=== PATIENT | male | born 1990 | race Two or more races ===

== ENCOUNTER 2020-06-02 17:53 | Inpatient (IN) | payer OTHER, SELFPAY ==
--- NOTE | 2020-06-02 | XR_ITS ---
EXAMINATION: XR CHEST CLINICAL INFORMATION: Chest pain after trauma COMPARISON: Chest x-ray 03/27/2020 TECHNIQUE: 2 views of the chest were obtained. FINDINGS: No significant abnormality is noted involving the heart, lungs, mediastinum, bony thorax or soft tissues. IMPRESSION: Unremarkable examination.
--- NOTE | 2020-06-02 18:22 | ECG_ITS ---
Test Reason : CHEST PAIN Blood Pressure : / mmHG Vent. Rate : 081 BPM Atrial Rate : 081 BPM P-R Int : 214 ms QRS Dur : 090 ms QT Int : 376 ms P-R-T Axes : 048 063 017 degrees QTc Int : 436 ms Sinus rhythm with 1st degree A-V block Otherwise normal ECG When compared with ECG of 27-MAR-2020 23:41, No significant change was found Referred By: Bekah Roe Electronically Signed By:DELLA HARRIS
[2020-06-02 18:28] VITALS: BP 139/78; PULSE 87; RESP 20; TEMP 36.6; O2SAT 96; BMI 50.1
--- NOTE | 2020-06-02 18:29 | ED.PSYCH ---
HPI - Psych General Chief Complaint: Psychiatric Symptoms <Bekah Roe NP - Last Filed: 06/03/20 02:49> Stated Complaint: crisis <Bekah Roe NP - Last Filed: 06/03/20 02:49> Time Seen by Provider: 06/02/20 18:22 <Bekah Roe NP - Last Filed: 06/03/20 02:49> Source: patient <Bekah Roe NP - Last Filed: 06/03/20 02:49> Mode of arrival: EMS <Bekah Roe NP - Last Filed: 06/03/20 02:49> Limitations: altered mental status <Bekah Roe NP - Last Filed: 06/03/20 02:49> History of Present Illness HPI Narrative: 30-year-old male presents via EMS for hallucinations and crisis. <Bekah Roe NP - Last Filed: 06/03/20 02:49> MD complaint: hallucinations <Bekah Roe NP - Last Filed: 06/03/20 02:49> Onset (ago): day(s) ( Several days) <Bekah Roe NP - Last Filed: 06/03/20 02:49> Duration: constant <Bekah Roe NP - Last Filed: 06/03/20 02:49> History of same: Yes <Bekah Roe NP - Last Filed: 06/03/20 02:49> Relieving factors: none <Bekah Roe NP - Last Filed: 06/03/20 02:49> Associated psychiatric symptoms: depression, suicidal ideation, auditory hallucinations, visual hallucinations and delusions <Bekah Roe NP - Last Filed: 06/03/20 02:49> Associated symptoms: denies other symptoms <Bekah Roe NP - Last Filed: 06/03/20 02:49> If self harm: admits thoughts of self harm <Bekah Roe NP - Last Filed: 06/03/20 02:49> Related Data Home Medications: Home Medications Medication Instructions Recorded Confirmed Invega Sustenna 156 mg IM Q28D 06/03/20 06/03/20 Risperdal 3 mg PO DAILY 06/03/20 06/03/20 lithium carbonate 600 mg PO BID 06/03/20 06/03/20 <Bekah Roe NP - Last Filed: 06/03/20 02:49> Allergies/Adverse Reactions: Allergies Allergy/AdvReac Type Severity Reaction Status Date / Time haloperidol [From HALDOL] Allergy Unknown DISTONIC Verified 06/03/20 02:40 REACTION <Bekah Roe NP - Last Filed: 06/03/20 02:49> Review of Systems Review of Systems: Yes all other systems are reviewed and are negative <Bekah Roe NP - Last Filed: 06/03/20 02:49> Constitutional: Constitutional: Reports no additional constitutional complaints <Bekah Roe NP - Last Filed: 06/03/20 02:49> Eyes: Eyes: Reports no additional eye complaints <Bekah Roe NP - Last Filed: 06/03/20 02:49> Cardiovascular: Cardiovascular: Reports no additional cardiovascular complaints <Bekah Roe NP - Last Filed: 06/03/20 02:49> Respiratory: Respiratory: Reports no additional respiratory complaints <Bekah Roe NP - Last Filed: 06/03/20 02:49> Gastrointestinal: Gastrointestinal: Reports no additional gastrointestinal complaints <Bekah Roe NP - Last Filed: 06/03/20 02:49> Musculoskeletal: Musculoskeletal: Reports no additional musculoskeletal complaints <Bekah Roe NP - Last Filed: 06/03/20 02:49> Neurologic: Reports system reviewed and no additional complaints, except as documented <Bekah Roe NP - Last Filed: 06/03/20 02:49> Psychiatric: Psychiatric: Reports auditory hallucinations, Reports hopelessness, Reports irritability and Reports suicidal ideation <Bekah Roe NP - Last Filed: 06/03/20 02:49> Hematologic/Lymphatic: Hematologic/Lymphatic: Reports no additional hematologic/lymphatic complaints <Bekah Roe NP - Last Filed: 06/03/20 02:49> PMFSH Past Medical History Attestation statement: The following information was validated with the patient. <Bekah Roe NP - Last Filed: 06/03/20 02:49> Medical History: Medical History Schizophrenia <Bekah Roe NP - Last Filed: 06/03/20 02:49> Social History Social History: Social History Alcohol intake: never Smoking Status: Current every day smoker Use of substances other than those prescribed or required for medical reasons: Yes Substance Use Type: Marijuana Substance Use Frequency: Daily Last Used Substance: Just Prior to Admission Advance Directives: No Advance Directives Information Provided: Yes <Bekah Roe NP - Last Filed: 06/03/20 02:49> Physical Exam Vital Signs and I&O and Narrative: Vital Signs and I&O: Vital Signs Temp 98.0 F 06/03/20 13:42 Pulse 77 06/03/20 13:42 Resp 18 06/03/20 13:42 BP 138/54 L 06/03/20 13:42 Pulse Ox 96 06/03/20 13:42 Body Mass Index 50.1 <Bekah Roe NP - Last Filed: 06/03/20 02:49> Vital Signs and I&O: Vital Signs Temp 98.0 F 06/03/20 13:42 Pulse 77 06/03/20 13:42 Resp 18 06/03/20 13:42 BP 138/54 L 06/03/20 13:42 Pulse Ox 96 06/03/20 13:42 Body Mass Index 50.1 <Alejandro Schaefer DO - Last Filed: 06/03/20 20:40> Const: General: cooperative and acute distress ( psychiatric) severe <Bekah Reo NP - Last Filed: 06/03/20 02:49> Nutritional Appearance: obese morbidly obese <Bekah Roe NP - Last Filed: 06/03/20 02:49> Orientation/consciousness: oriented to person <Bekah Roe NP - Last Filed: 06/03/20 02:49> Limitations: behavioral limitations and other limitations ( schizophrenic) <Bekah Roe NP - Last Filed: 06/03/20 02:49> HENMT: Head: Yes normal to inspection <Bekah Roe NP - Last Filed: 06/03/20 02:49> Face and sinus: Yes normal facial exam <Bekah Roe NP - Last Filed: 06/03/20 02:49> Mouth: Normal oral and palatal mucosa present <Bekah Roe LEAF CONDITIONER HELPER - Last Filed: 06/03/20 02:49> Throat: Yes uvula midline <Bekah Roe [employer]AF CONDITIONER HELPER - Last Filed: 06/03/20 02:49> Eyes: General: appearance normal, both eyes and all related structures <Bekah Roe LEAF CONDITIONER HELPER - Last Filed: 06/03/20 02:49> Pupils: Equal, round and reactive pupils present <Bekah Roe LEAF CONDITIONER HELPER - Last Filed: 06/03/20 02:49> Neck: Neck: Yes normal visual inspection, Yes full ROM, Yes no lymphadenopathy and Yes no meningeal signs <Bekah Roe LEAF CONDITIONER HELPER - Last Filed: 06/03/20 02:49> Chest: Chest palpation & inspection: normal inspection of the chest and normal palpation of entire chest wall <Bekah Roe LEAF CONDITIONER HELPER - Last Filed: 06/03/20 02:49> Resp: Effort & Inspection: normal respiratory effort <Bekah Roe LEAF CONDITIONER HELPER - Last Filed: 06/03/20 02:49> Cardio: Rate: regular rate <Bekah Roe LEAF CONDITIONER HELPER - Last Filed: 06/03/20 02:49> Rhythm: regular rhythm <Bekah Roe LEAF CONDITIONER HELPER - Last Filed: 06/03/20 02:49> Peripheral pulses: brachial pulses present and posterior tibial pulses present <Bekah Roe LEAF CONDITIONER HELPER - Last Filed: 06/03/20 02:49> GI: Inspection: Yes normal to inspection <Bekah Roe LEAF CONDITIONER HELPER - Last Filed: 06/03/20 02:49> Auscultation: normal bowel sounds <Bekah Roe LEAF CONDITIONER HELPER - Last Filed: 06/03/20 02:49> : General: Yes no CVA tenderness <Bekah Roe NP - Last Filed: 06/03/20 02:49> Back/Spine/Pelvis: Back: no CVA tenderness <Bekah Roe LEAF CONDITIONER HELPER - Last Filed: 06/03/20 02:49> Thoracic/Lumbar Spine: thoracic and lumbar spine normal to inspection <Bekah Roe LEAF CONDITIONER HELPER - Last Filed: 06/03/20 02:49> Skin: General skin exam: no rashes or lesions noted <Bekah Roe NP - Last Filed: 06/03/20 02:49> Neuro: General: oriented to person and no meningeal signs <Bekah Roe NP - Last Filed: 06/03/20 02:49> Cranial nerves: Yes CN's II-XII intact bilaterally, Yes Facial sensation intact/muscles of mastication intact and Yes Equal, round and reactive pupils present <Bekah Roe NP - Last Filed: 06/03/20 02:49> Cognition (Neuro): abnormal cognition <Bekah Roe NP - Last Filed: 06/03/20 02:49> Gait exam (Neuro): Normal gait present <Bekah Roe NP - Last Filed: 06/03/20 02:49> Motor exam (neuro): 5/5 motor strength present throughout <Bekah Roe NP - Last Filed: 06/03/20 02:49> Extrem: General: Yes normal to inspection <Bekah Roe NP - Last Filed: 06/03/20 02:49> Psych: Appearance: grossly normal <Bekah Roe NP - Last Filed: 06/03/20 02:49> Speech and movement: Pressured speech present <Bekah Roe NP - Last Filed: 06/03/20 02:49> Attitude: cooperative <Bekah Roe NP - Last Filed: 06/03/20 02:49> Course Course Hospital Course: 30-year-old male with past medical history of schizophrenia and significant psychiatric history presents with delusions, auditory and visual hallucinations. he also states to have tele kinesis and to be tele kinetic. He is not forthcoming with what the auditory visual hallucinations are saying except that they are dangerous. We will order N consult, labs are pending. <Bekah Roe NP - Last Filed: 06/03/20 02:49> Reevaluation(s) Reevaluation #1: N consult complete, plan of care is to have patient admitted S section 12 for psychosis and severe delusions. <Bekah Roe NP - Last Filed: 06/03/20 02:49> Time: 02:22 <Bekah Roe NP - Last Filed: 06/03/20 02:49> MDM - Psych Differential Diagnosis Differential diagnosis: Likely acute psychosis, suicidal ideation, depression and schizoaffective disorder <Bekah Roe NP - Last Filed: 06/03/20 02:49> Restraints Face to Face Assessment: Face to Face Assessment: Current Situation: After assessment of the patient, a review of the pertinent medical record and a discussion with nursing staff, I feel the patient requires a restrain intervention. Reaction To: [] Medical Condition: [] Behavioral State: [] Continued Need: [] <Bekah Roe NP - Last Filed: 06/03/20 02:49> Lab Data Attestation: I reviewed the patient's lab results. <Bekah Roe NP - Last Filed: 06/03/20 02:49> Result diagrams: : 06/02/20 18:42 06/02/20 18:42 <Bekah Roe NP - Last Filed: 06/03/20 02:49> Labs: Lab Results 06/02/20 06/02/20 06/02/20 Range/Units 18:42 18:42 18:42 WBC 8.8 (4.8-10.8) X10*3/uL RBC 4.59 L (4.60-5.80) X10*6/uL Hgb 13.4 L (14.0-18.0) g/dl Hct 41.2 L (42-52) % MCV 89.8 (80-98) fL MCH 29.2 (27.0-33.0) pg MCHC 32.5 (31.0-36.0) g/dl RDW 13.1 (11.0-16.0) % Plt Count 229 (160-400) X10*3/uL MPV 10.2 (9.4-12.4) fL Immature Gran % (Auto) 0.2 (0.0-0.4) % Neut % (Auto) 50.0 (45-73) % Lymph % (Auto) 30.7 (20-40) % [place] % (Auto) 9.3 (2-11) % Eos % (Auto) 8.9 H (0-4) % Baso % (Auto) 0.9 (0-2) % Neut # (Auto) 4.4 (2.0-8.3) X10*3/uL Lymph # (Auto) 2.7 (1.2-4.9) X10*3/uL [place] # (Auto) 0.8 (0.1-1.2) X10*3/uL Eos # (Auto) 0.8 H (0.0-0.4) X10*3/uL Baso # (Auto) 0.1 (0.0-0.2) X10*3/uL Abs Immat Gran (auto) 0.02 (0.00-0.03) X10*3/uL Absolute Nucleated RBC 0.000 (0.0-0.012) X10*3/uL Nucleated RBC % (auto) 0.0 (0.0-0.2) /100WBC Sodium 140 (135-145) mmol/L Potassium 3.9 (3.3-5.1) mmol/l Chloride 106 (96-108) mmol/L Carbon Dioxide 27 (22-29) mmol/L Anion Gap 11 L (12-20) BUN 10 (9-16) mg/dL Creatinine 0.67 (0.5-1.4) mg/dL Estim Creat Clear Calc 266.5 Estimated GFR > 60 Random Glucose 101 (60-115) mg/dL Calcium 9.2 (8.4-10.2) mg/dL Total Bilirubin 0.2 (0.0-1.0) mg/dL Direct Bilirubin < 0.2 (0.0-0.5) mg/dL AST 19 (5-37) U/L ALT 33 (0-40) U/L Alkaline Phosphatase 73 (39-117) U/L Troponin I High Sens (<3.5-35.0) ng/L Total Protein 6.8 (6.5-8.0) g/dL Albumin 4.1 (3.5-5.0) g/dL Lipase 18 (8-78) U/L Urine Color YELLOW Urine Appearance HAZY Urine pH 6.0 (5.0-8.0) Ur Specific [place] 1.020 (1.005-1.025) Urine Protein NEG (NEG-TRACE) MG/DL Urine Glucose (UA) NEG (NEG) MG/DL Urine Ketones NEG (NEG) MG/DL Urine Blood NEG (NEG) Urine Nitrite NEG (NEG) Ur Leukocyte Esterase NEG (NEG) Salicylates < 5.0 L (15-30) mg/dL Urine Opiates Screen (Not Detect) Acetaminophen < 1 (<30) mcg/mL Ur Barbiturates Screen (Not Detect) Ur Phencyclidine Scrn (Not Detect) Ur Amphetamines Screen (Not Detect) U Benzodiazepines Scrn (Not Detect) [employer] (0.60-1.20) mmol/L Urine Cocaine Screen (Not Detect) U Marijuana (THC) Screen (Not Detect) Coronavirus (PCR) (Negative) 06/02/20 06/02/20 06/02/20 Range/Units 18:42 18:42 18:42 WBC (4.8-10.8) X10*3/uL RBC (4.60-5.80) X10*6/uL Hgb (14.0-18.0) g/dl Hct (42-52) % MCV (80-98) fL MCH (27.0-33.0) pg MCHC (31.0-36.0) g/dl RDW (11.0-16.0) % Plt Count (160-400) X10*3/uL MPV (9.4-12.4) fL Immature Gran % (Auto) (0.0-0.4) % Neut % (Auto) (45-73) % Lymph % (Auto) (20-40) % [place] % (Auto) (2-11) % Eos % (Auto) (0-4) % Baso % (Auto) (0-2) % Neut # (Auto) (2.0-8.3) X10*3/uL Lymph # (Auto) (1.2-4.9) X10*3/uL [place] # (Auto) (0.1-1.2) X10*3/uL Eos # (Auto) (0.0-0.4) X10*3/uL Baso # (Auto) (0.0-0.2) X10*3/uL Abs Immat Gran (auto) (0.00-0.03) X10*3/uL Absolute Nucleated RBC (0.0-0.012) X10*3/uL Nucleated RBC % (auto) (0.0-0.2) /100WBC Sodium (135-145) mmol/L Potassium (3.3-5.1) mmol/l Chloride (96-108) mmol/L Carbon Dioxide (22-29) mmol/L Anion Gap (12-20) BUN (9-16) mg/dL Creatinine (0.5-1.4) mg/dL Estim Creat Clear Calc Estimated GFR Random Glucose (60-115) mg/dL Calcium (8.4-10.2) mg/dL Total Bilirubin (0.0-1.0) mg/dL Direct Bilirubin (0.0-0.5) mg/dL AST (5-37) U/L ALT (0-40) U/L Alkaline Phosphatase (39-117) U/L Troponin I High Sens < 3.5 (<3.5-35.0) ng/L Total Protein (6.5-8.0) g/dL Albumin (3.5-5.0) g/dL Lipase (8-78) U/L Urine Color Urine Appearance Urine pH (5.0-8.0) Ur Specific [place] (1.005-1.025) Urine Protein (NEG-TRACE) MG/DL Urine Glucose (UA) (NEG) MG/DL Urine Ketones (NEG) MG/DL Urine Blood (NEG) Urine Nitrite (NEG) Ur Leukocyte Esterase (NEG) Salicylates (15-30) mg/dL Urine Opiates Screen Not Detected (Not Detect) Acetaminophen (<30) mcg/mL Ur Barbiturates Screen Not Detected (Not Detect) Ur Phencyclidine Scrn Not Detected (Not Detect) Ur Amphetamines Screen Not Detected (Not Detect) U Benzodiazepines Scrn Not Detected (Not Detect) [employer] 0.25 L (0.60-1.20) mmol/L Urine Cocaine Screen Not Detected (Not Detect) U Marijuana (THC) Screen Not Detected (Not Detect) Coronavirus (PCR) (Negative) 06/03/20 Range/Units 12:56 WBC (4.8-10.8) X10*3/uL RBC (4.60-5.80) X10*6/uL Hgb (14.0-18.0) g/dl Hct (42-52) % MCV (80-98) fL MCH (27.0-33.0) pg MCHC (31.0-36.0) g/dl RDW (11.0-16.0) % Plt Count (160-400) X10*3/uL MPV (9.4-12.4) fL Immature Gran % (Auto) (0.0-0.4) % Neut % (Auto) (45-73) % Lymph % (Auto) (20-40) % [place] % (Auto) (2-11) % Eos % (Auto) (0-4) % Baso % (Auto) (0-2) % Neut # (Auto) (2.0-8.3) X10*3/uL Lymph # (Auto) (1.2-4.9) X10*3/uL [place] # (Auto) (0.1-1.2) X10*3/uL Eos # (Auto) (0.0-0.4) X10*3/uL Baso # (Auto) (0.0-0.2) X10*3/uL Abs Immat Gran (auto) (0.00-0.03) X10*3/uL Absolute Nucleated RBC (0.0-0.012) X10*3/uL Nucleated RBC % (auto) (0.0-0.2) /100WBC Sodium (135-145) mmol/L Potassium (3.3-5.1) mmol/l Chloride (96-108) mmol/L Carbon Dioxide (22-29) mmol/L Anion Gap (12-20) BUN (9-16) mg/dL Creatinine (0.5-1.4) mg/dL Estim Creat Clear Calc Estimated GFR Random Glucose (60-115) mg/dL Calcium (8.4-10.2) mg/dL Total Bilirubin (0.0-1.0) mg/dL Direct Bilirubin (0.0-0.5) mg/dL AST (5-37) U/L ALT (0-40) U/L Alkaline Phosphatase (39-117) U/L Troponin I High Sens (<3.5-35.0) ng/L Total Protein (6.5-8.0) g/dL Albumin (3.5-5.0) g/dL Lipase (8-78) U/L Urine Color Urine Appearance Urine pH (5.0-8.0) Ur Specific [place] (1.005-1.025) Urine Protein (NEG-TRACE) MG/DL Urine Glucose (UA) (NEG) MG/DL Urine Ketones (NEG) MG/DL Urine Blood (NEG) Urine Nitrite (NEG) Ur Leukocyte Esterase (NEG) Salicylates (15-30) mg/dL Urine Opiates Screen (Not Detect) Acetaminophen (<30) mcg/mL Ur Barbiturates Screen (Not Detect) Ur Phencyclidine Scrn (Not Detect) Ur Amphetamines Screen (Not Detect) U Benzodiazepines Scrn (Not Detect) [employer] (0.60-1.20) mmol/L Urine Cocaine Screen (Not Detect) U Marijuana (THC) Screen (Not Detect) Coronavirus (PCR) NEGATIVE (Negative) <Bekah Roe NP - Last Filed: 06/03/20 02:49> Lab Results 06/02/20 06/02/20 06/02/20 Range/Units 18:42 18:42 18:42 WBC 8.8 (4.8-10.8) X10*3/uL RBC 4.59 L (4.60-5.80) X10*6/uL Hgb 13.4 L (14.0-18.0) g/dl Hct 41.2 L (42-52) % MCV 89.8 (80-98) fL MCH 29.2 (27.0-33.0) pg MCHC 32.5 (31.0-36.0) g/dl RDW 13.1 (11.0-16.0) % Plt Count 229 (160-400) X10*3/uL MPV 10.2 (9.4-12.4) fL Immature Gran % (Auto) 0.2 (0.0-0.4) % Neut % (Auto) 50.0 (45-73) % Lymph % (Auto) 30.7 (20-40) % [place] % (Auto) 9.3 (2-11) % Eos % (Auto) 8.9 H (0-4) % Baso % (Auto) 0.9 (0-2) % Neut # (Auto) 4.4 (2.0-8.3) X10*3/uL Lymph # (Auto) 2.7 (1.2-4.9) X10*3/uL [place] # (Auto) 0.8 (0.1-1.2) X10*3/uL Eos # (Auto) 0.8 H (0.0-0.4) X10*3/uL Baso # (Auto) 0.1 (0.0-0.2) X10*3/uL Abs Immat Gran (auto) 0.02 (0.00-0.03) X10*3/uL Absolute Nucleated RBC 0.000 (0.0-0.012) X10*3/uL Nucleated RBC % (auto) 0.0 (0.0-0.2) /100WBC Sodium 140 (135-145) mmol/L Potassium 3.9 (3.3-5.1) mmol/l Chloride 106 (96-108) mmol/L Carbon Dioxide 27 (22-29) mmol/L Anion Gap 11 L (12-20) BUN 10 (9-16) mg/dL Creatinine 0.67 (0.5-1.4) mg/dL Estim Creat Clear Calc 266.5 Estimated GFR > 60 Random Glucose 101 (60-115) mg/dL Calcium 9.2 (8.4-10.2) mg/dL Total Bilirubin 0.2 (0.0-1.0) mg/dL Direct Bilirubin < 0.2 (0.0-0.5) mg/dL AST 19 (5-37) U/L ALT 33 (0-40) U/L Alkaline Phosphatase 73 (39-117) U/L Troponin I High Sens (<3.5-35.0) ng/L Total Protein 6.8 (6.5-8.0) g/dL Albumin 4.1 (3.5-5.0) g/dL Lipase 18 (8-78) U/L Urine Color YELLOW Urine Appearance HAZY Urine pH 6.0 (5.0-8.0) Ur Specific [place] 1.020 (1.005-1.025) Urine Protein NEG (NEG-TRACE) MG/DL Urine Glucose (UA) NEG (NEG) MG/DL Urine Ketones NEG (NEG) MG/DL Urine Blood NEG (NEG) Urine Nitrite NEG (NEG) Ur Leukocyte Esterase NEG (NEG) Salicylates < 5.0 L (15-30) mg/dL Urine Opiates Screen (Not Detect) Acetaminophen < 1 (<30) mcg/mL Ur Barbiturates Screen (Not Detect) Ur Phencyclidine Scrn (Not Detect) Ur Amphetamines Screen (Not Detect) U Benzodiazepines Scrn (Not Detect) [employer] (0.60-1.20) mmol/L Urine Cocaine Screen (Not Detect) U Marijuana (THC) Screen (Not Detect) Coronavirus (PCR) (Negative) 06/02/20 06/02/20 06/02/20 Range/Units 18:42 18:42 18:42 WBC (4.8-10.8) X10*3/uL RBC (4.60-5.80) X10*6/uL Hgb (14.0-18.0) g/dl Hct (42-52) % MCV (80-98) fL MCH (27.0-33.0) pg MCHC (31.0-36.0) g/dl RDW (11.0-16.0) % Plt Count (160-400) X10*3/uL MPV (9.4-12.4) fL Immature Gran % (Auto) (0.0-0.4) % Neut % (Auto) (45-73) % Lymph % (Auto) (20-40) % [place] % (Auto) (2-11) % Eos % (Auto) (0-4) % Baso % (Auto) (0-2) % Neut # (Auto) (2.0-8.3) X10*3/uL Lymph # (Auto) (1.2-4.9) X10*3/uL [place] # (Auto) (0.1-1.2) X10*3/uL Eos # (Auto) (0.0-0.4) X10*3/uL Baso # (Auto) (0.0-0.2) X10*3/uL Abs Immat Gran (auto) (0.00-0.03) X10*3/uL Absolute Nucleated RBC (0.0-0.012) X10*3/uL Nucleated RBC % (auto) (0.0-0.2) /100WBC Sodium (135-145) mmol/L Potassium (3.3-5.1) mmol/l Chloride (96-108) mmol/L Carbon Dioxide (22-29) mmol/L Anion Gap (12-20) BUN (9-16) mg/dL Creatinine (0.5-1.4) mg/dL Estim Creat Clear Calc Estimated GFR Random Glucose (60-115) mg/dL Calcium (8.4-10.2) mg/dL Total Bilirubin (0.0-1.0) mg/dL Direct Bilirubin (0.0-0.5) mg/dL AST (5-37) U/L ALT (0-40) U/L Alkaline Phosphatase (39-117) U/L Troponin I High Sens < 3.5 (<3.5-35.0) ng/L Total Protein (6.5-8.0) g/dL Albumin (3.5-5.0) g/dL Lipase (8-78) U/L Urine Color Urine Appearance Urine pH (5.0-8.0) Ur Specific [place] (1.005-1.025) Urine Protein (NEG-TRACE) MG/DL Urine Glucose (UA) (NEG) MG/DL Urine Ketones (NEG) MG/DL Urine Blood (NEG) Urine Nitrite (NEG) Ur Leukocyte Esterase (NEG) Salicylates (15-30) mg/dL Urine Opiates Screen Not Detected (Not Detect) Acetaminophen (<30) mcg/mL Ur Barbiturates Screen Not Detected (Not Detect) Ur Phencyclidine Scrn Not Detected (Not Detect) Ur Amphetamines Screen Not Detected (Not Detect) U Benzodiazepines Scrn Not Detected (Not Detect) [employer] 0.25 L (0.60-1.20) mmol/L Urine Cocaine Screen Not Detected (Not Detect) U Marijuana (THC) Screen Not Detected (Not Detect) Coronavirus (PCR) (Negative) 06/03/20 Range/Units 12:56 WBC (4.8-10.8) X10*3/uL RBC (4.60-5.80) X10*6/uL Hgb (14.0-18.0) g/dl Hct (42-52) % MCV (80-98) fL MCH (27.0-33.0) pg MCHC (31.0-36.0) g/dl RDW (11.0-16.0) % Plt Count (160-400) X10*3/uL MPV (9.4-12.4) fL Immature Gran % (Auto) (0.0-0.4) % Neut % (Auto) (45-73) % Lymph % (Auto) (20-40) % [place] % (Auto) (2-11) % Eos % (Auto) (0-4) % Baso % (Auto) (0-2) % Neut # (Auto) (2.0-8.3) X10*3/uL Lymph # (Auto) (1.2-4.9) X10*3/uL [place] # (Auto) (0.1-1.2) X10*3/uL Eos # (Auto) (0.0-0.4) X10*3/uL Baso # (Auto) (0.0-0.2) X10*3/uL Abs Immat Gran (auto) (0.00-0.03) X10*3/uL Absolute Nucleated RBC (0.0-0.012) X10*3/uL Nucleated RBC % (auto) (0.0-0.2) /100WBC Sodium (135-145) mmol/L Potassium (3.3-5.1) mmol/l Chloride (96-108) mmol/L Carbon Dioxide (22-29) mmol/L Anion Gap (12-20) BUN (9-16) mg/dL Creatinine (0.5-1.4) mg/dL Estim Creat Clear Calc Estimated GFR Random Glucose (60-115) mg/dL Calcium (8.4-10.2) mg/dL Total Bilirubin (0.0-1.0) mg/dL Direct Bilirubin (0.0-0.5) mg/dL AST (5-37) U/L ALT (0-40) U/L Alkaline Phosphatase (39-117) U/L Troponin I High Sens (<3.5-35.0) ng/L Total Protein (6.5-8.0) g/dL Albumin (3.5-5.0) g/dL Lipase (8-78) U/L Urine Color Urine Appearance Urine pH (5.0-8.0) Ur Specific [place] (1.005-1.025) Urine Protein (NEG-TRACE) MG/DL Urine Glucose (UA) (NEG) MG/DL Urine Ketones (NEG) MG/DL Urine Blood (NEG) Urine Nitrite (NEG) Ur Leukocyte Esterase (NEG) Salicylates (15-30) mg/dL Urine Opiates Screen (Not Detect) Acetaminophen (<30) mcg/mL Ur Barbiturates Screen (Not Detect) Ur Phencyclidine Scrn (Not Detect) Ur Amphetamines Screen (Not Detect) U Benzodiazepines Scrn (Not Detect) [employer] (0.60-1.20) mmol/L Urine Cocaine Screen (Not Detect) U Marijuana (THC) Screen (Not Detect) Coronavirus (PCR) NEGATIVE (Negative) <Alejandro Schaefer DO - Last Filed: 06/03/20 20:40> Discharge Plan Discharge Clinical Impression: Acute psychosis, Chronic schizophrenia, Suicidal ideation Depression Qualifiers: Depression Type: major depressive disorder Major depression recurrence: recurrent Active/Remission status: currently active Major depression episode severity: moderate Qualified Code(s): F33.1 - Major depressive disorder, recurrent, moderate <Bekah Roe NP - Last Filed: 06/03/20 02:49> Patient Disposition: Admitted As Inpatient <Bekah Roe NP - Last Filed: 06/03/20 02:49> Interventions: Admission Worksheet (ED) Last Done: 06/03/20 17:14 <Bekah Roe NP - Last Filed: 06/03/20 02:49> Discharge Date/Time: 06/03/20 17:04 <Bekah Roe NP - Last Filed: 06/03/20 02:49>
[2020-06-02 18:48] VITALS: BP 139/78; PULSE 87; RESP 20; TEMP 36.6; O2SAT 96
[2020-06-02 18:51] LABS: MANUAL DIFF FLAG NO
[2020-06-02 18:53] LABS: Basophils Absolute Auto 0.1 X10*3/uL (0.0-0.2); Basophils Percent Auto 0.9 % (0-2); Eosinophils Absolute Auto 0.8 X10*3/uL (0.0-0.4); Eosinophils Percent Auto 8.9 % (0-4); Hematocrit 41.2 % (42-52); Hemoglobin 13.4 g/dl (14.0-18.0); Imm Gran Abs Auto 0.02 X10*3/uL (0.00-0.03); Imm Gran Pct Auto 0.2 % (0.0-0.4); Lymphocytes Absolute Auto 2.7 X10*3/uL (1.2-4.9); Lymphocytes Percent Auto 30.7 % (20-40); Mean Corpuscular HGB Conc 32.5 g/dl (31.0-36.0); Mean Corpuscular Hemoglobin 29.2 pg (27.0-33.0); Mean Corpuscular Volume 89.8 fL (80-98); Mean Platelet Volume 10.2 fL (9.4-12.4); Monocytes Absolute Auto 0.8 X10*3/uL (0.1-1.2); Monocytes Percent Auto 9.3 % (2-11); Neutrophils Absolute Auto 4.4 X10*3/uL (2.0-8.3); Platelet Count 229 X10*3/uL (160-400); Red Blood Count 4.59 X10*6/uL (4.60-5.80); Red Cell Distribution Width 13.1 % (11.0-16.0); White Blood Count 8.8 X10*3/uL (4.8-10.8)
[2020-06-02 18:56] LABS: Glucose Urine UA NEG (NEG); Leukocyte Esterase Urine NEG (NEG); Nitrite Urine NEG (NEG); Urine Blood NEG (NEG); Urine Ketones NEG (NEG); Urine Protein NEG (NEG-TRACE)
[2020-06-02 18:59] LABS: Appearance Urine HAZY; Color Urine YELLOW; UACC Culture Trigger NO
[2020-06-02 19:11] LABS: Lithium 0.25 mmol/L (0.60-1.20)
[2020-06-02 19:21] LABS: Amphetamine Screen Urine Not Detected (Not Detect); Barbiturates, Urine Not Detected (Not Detect); Benzodiazepines Screen Urine Not Detected (Not Detect); Cannabinoid Screen Urine Not Detected (Not Detect); Cocaine Screen Urine Not Detected (Not Detect); Opiate Screen Urine Not Detected (Not Detect); Phencyclidine Screen Urine Not Detected (Not Detect)
[2020-06-02 19:22] LABS: Troponin-I High Sensitivity < 3.5 ng/L (<3.5-35.0)
[2020-06-02 19:27] VITALS: BP 132/73; PULSE 78; RESP 20; TEMP 36.7; O2SAT 94
[2020-06-02 19:29] LABS: Acetaminophen LAB < 1 mcg/mL (<30); Alanine Aminotransferase 33 U/L (0-40); Albumin Level 4.1 g/dL (3.5-5.0); Alkaline Phosphatase 73 U/L (39-117); Anion Gap 11 (12-20); Aspartate Amino Transferase 19 U/L (5-37); Bilirubin Direct < 0.2 mg/dL (0.0-0.5); Bilirubin Total 0.2 mg/dL (0.0-1.0); Blood Urea Nitrogen 10 mg/dL (9-16); Calcium 9.2 mg/dL (8.4-10.2); Carbon Dioxide 27 mmol/L (22-29); Chloride 106 mmol/L (96-108); Creatinine Clr Calc Pharmacy 266.5; Estimated Glomerular Filt Rate > 60; Glucose Random 101 mg/dL (60-115); Lipase 18 U/L (8-78); Potassium 3.9 mmol/l (3.3-5.1); Sodium 140 mmol/L (135-145); Total Protein 6.8 g/dL (6.5-8.0)
[2020-06-02 19:41] LABS: Salicylate < 5.0 mg/dL (15-30)
--- NOTE | 2020-06-02 20:53 | PC.NURSE ---
[facility] FAXED AND CALLED. PER N THEY WILL BE IN AT SOME POINT THIS EVENING.
[2020-06-02 21:16] VITALS: BP 126/71; PULSE 82; RESP 22; TEMP 36.9; O2SAT 93
[2020-06-03] VITALS (8 sets, daily range): BP systolic 120–138; BP diastolic 54–91; PULSE 77–84; RESP 14–20; TEMP 36.6–36.9; O2SAT 94–96
--- NOTE | 2020-06-03 04:16 | PC.NURSE ---
UNABLE TO COMPLETE MEDICATION RECONCILIATION THERE IS A QUESTION OF WHETHER OR NOT A PATIENT IS TAKING HIS LITHIUM AND THE PHARMACY PATIENT USES IS NOT OPEN UNTIL WEDNESDAY MORNING
--- NOTE | 2020-06-03 07:12 | PC.NURSE ---
REPORT RECIEVED. PT CURRENTLY SLEEPING, RESPIRATIONS EVEN AND UNLABORED, IN NO APPARENT DISTRESS. PT IS INPATIENT BEDSEARCH.
--- NOTE | 2020-06-03 09:28 | PC.NURSE ---
pt walking around unit, calm and cooperative, pt asked if he can go home,plan of care explained. pt accepted this information.
[2020-06-03] MEDS: Nicotine 14 MG PATCH.TD24 TRANSDERMA (12:21)
[2020-06-03 14:06] LABS: SARS COV2 PCR INHOUSE NEGATIVE (Negative)
--- NOTE | 2020-06-03 17:04 | PC.NURSE ---
PT HAS BEEN CALM, COOPERATIVE, AND VERY PATIENT WHILE IN THE POD FOR THIS RN. BROUGHT TO M5 WITH SECURITY.
[2020-06-03] MEDS: risperiDONE 3 MG TABLET PO (22:41)
[2020-06-03] MEDS: Lithium Carbonate 300 MG CAPSULE PO (22:42)
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
[2020-06-04 06:40] VITALS: BP 143/73; PULSE 74; RESP 20; TEMP 36.6
[2020-06-04] MEDS: Lithium Carbonate 300 MG CAPSULE PO ×2 (09:17→20:49)
--- NOTE | 2020-06-04 09:46 | HO.PSYCHPN ---
Assessment & Plan Greater than 50% of the session was spent on counseling and/or coordination of care Subjective Subjective Date of Service: 06/04/20 Reason For Visit: crisis Subjective Notes: Conditional Voluntary and 3 Day Medication Compliance: Intermittent Side effects from medications: No Attending Groups: Intermittent Diagnostics Vital Signs (24Hr): Vital Signs - 24 hr 06/03/20 13:42 06/03/20 22:00 06/04/20 06:40 Temperature 98.0 F 97.9 F 97.9 F Pulse Rate 77 84 74 Respiratory Rate 18 20 Blood Pressure 138/54 L 135/82 143/73 H Pulse Oximetry 96 Body Mass Index 50.1 Labs Results: 06/02/20 18:42 06/02/20 18:42 Labs: Laboratory Results - last 48 hr 06/02/20 06/02/20 06/02/20 18:42 18:42 18:42 WBC 8.8 RBC 4.59 L Hgb 13.4 L Hct 41.2 L MCV 89.8 MCH 29.2 MCHC 32.5 RDW 13.1 Plt Count 229 MPV 10.2 Immature Gran % (Auto) 0.2 Neut % (Auto) 50.0 Lymph % (Auto) 30.7 [place] % (Auto) 9.3 Eos % (Auto) 8.9 H Baso % (Auto) 0.9 Neut # (Auto) 4.4 Lymph # (Auto) 2.7 [place] # (Auto) 0.8 Eos # (Auto) 0.8 H Baso # (Auto) 0.1 Abs Immat Gran (auto) 0.02 Absolute Nucleated RBC 0.000 Nucleated RBC % (auto) 0.0 Sodium 140 Potassium 3.9 Chloride 106 Carbon Dioxide 27 Anion Gap 11 L BUN 10 Creatinine 0.67 Estim Creat Clear Calc 266.5 Estimated GFR > 60 Random Glucose 101 Calcium 9.2 Total Bilirubin 0.2 Direct Bilirubin < 0.2 AST 19 ALT 33 Alkaline Phosphatase 73 Troponin I High Sens Total Protein 6.8 Albumin 4.1 Lipase 18 Urine Color YELLOW Urine Appearance HAZY Urine pH 6.0 Ur Specific [place] 1.020 Urine Protein NEG Urine Glucose (UA) NEG Urine Ketones NEG Urine Blood NEG Urine Nitrite NEG Ur Leukocyte Esterase NEG Salicylates < 5.0 L Urine Opiates Screen Acetaminophen < 1 Ur Barbiturates Screen Ur Phencyclidine Scrn Ur Amphetamines Screen U Benzodiazepines Scrn [place] Urine Cocaine Screen U Marijuana (THC) Screen Coronavirus (PCR) 06/02/20 06/02/20 06/02/20 18:42 18:42 18:42 WBC RBC Hgb Hct MCV MCH MCHC RDW Plt Count MPV Immature Gran % (Auto) Neut % (Auto) Lymph % (Auto) [place] % (Auto) Eos % (Auto) Baso % (Auto) Neut # (Auto) Lymph # (Auto) [place] # (Auto) Eos # (Auto) Baso # (Auto) Abs Immat Gran (auto) Absolute Nucleated RBC Nucleated RBC % (auto) Sodium Potassium Chloride Carbon Dioxide Anion Gap BUN Creatinine Estim Creat Clear Calc Estimated GFR Random Glucose Calcium Total Bilirubin Direct Bilirubin AST ALT Alkaline Phosphatase Troponin I High Sens < 3.5 Total Protein Albumin Lipase Urine Color Urine Appearance Urine pH Ur Specific [place] Urine Protein Urine Glucose (UA) Urine Ketones Urine Blood Urine Nitrite Ur Leukocyte Esterase Salicylates Urine Opiates Screen Not Detected Acetaminophen Ur Barbiturates Screen Not Detected Ur Phencyclidine Scrn Not Detected Ur Amphetamines Screen Not Detected U Benzodiazepines Scrn Not Detected [place] 0.25 L Urine Cocaine Screen Not Detected U Marijuana (THC) Screen Not Detected Coronavirus (PCR) 06/03/20 12:56 WBC RBC Hgb Hct MCV MCH MCHC RDW Plt Count MPV Immature Gran % (Auto) Neut % (Auto) Lymph % (Auto) [place] % (Auto) Eos % (Auto) Baso % (Auto) Neut # (Auto) Lymph # (Auto) [place] # (Auto) Eos # (Auto) Baso # (Auto) Abs Immat Gran (auto) Absolute Nucleated RBC Nucleated RBC % (auto) Sodium Potassium Chloride Carbon Dioxide Anion Gap BUN Creatinine Estim Creat Clear Calc Estimated GFR Random Glucose Calcium Total Bilirubin Direct Bilirubin AST ALT Alkaline Phosphatase Troponin I High Sens Total Protein Albumin Lipase Urine Color Urine Appearance Urine pH Ur Specific [place] Urine Protein Urine Glucose (UA) Urine Ketones Urine Blood Urine Nitrite Ur Leukocyte Esterase Salicylates Urine Opiates Screen Acetaminophen Ur Barbiturates Screen Ur Phencyclidine Scrn Ur Amphetamines Screen U Benzodiazepines Scrn [place] Urine Cocaine Screen U Marijuana (THC) Screen Coronavirus (PCR) NEGATIVE Medications Medications Current Medications Generic Name Dose Route Start Last Admin Trade Name Freq PRN Reason Stop Dose Admin Acetaminophen 650 mg 06/03/20 20:43 Acetaminophen 325 Mg Tablet PO Q6H PRN Headache/Pain Mild Scale (1-3) Al Hydroxide/Mg Hydroxide 30 ml 06/03/20 20:43 Magnesium Hydrox/Alum Hydrox 30 Ml Oral.Susp PO Q6H PRN Heartburn/Nausea Hydroxyzine HCl 25 mg 06/03/20 20:43 Hydroxyzine Hcl 25 Mg Tablet PO BEDTIME PRN Anxiety [place] Carbonate 300 mg 06/03/20 21:00 06/04/20 09:17 [place] Carbonate 300 Mg Capsule PO 300 mg BID IMANI Administration Lorazepam 1 mg 06/03/20 20:53 Lorazepam 1 Mg Tablet PO Q4H PRN Anxiety Magnesium Hydroxide 30 ml 06/03/20 20:43 Milk Of Magnesia 30 Ml Oral.Susp PO DAILY PRN Constipation Risperidone 3 mg 06/03/20 21:00 06/03/20 22:41 Risperidone 3 Mg Tablet PO 3 mg BEDTIME IMANI Administration Risperidone 1 mg 06/03/20 20:52 Risperidone 0.5 Mg Tablet PO Q4H PRN Anxiety Trazodone HCl 50 mg 06/03/20 20:43 Trazodone Hcl 50 Mg Tablet PO BEDTIME PRN Insomnia Allergies Allergies Allergy/AdvReac Type Severity Reaction Status Date / Time haloperidol [From HALDOL] Allergy Unknown DISTONIC Verified 06/03/20 02:40 REACTION
[2020-06-04 11:27] LABS: Cholesterol 188 mg/dL; HDL Cholesterol 32 mg/dL; LDL Cholesterol Calculated 117 mg/dl; Triglycerides 196 mg/dL
[2020-06-04] MEDS: Nicotine 14 MG PATCH.TD24 TRANSDERMA (11:29)
[2020-06-04] MEDS: Flu Vacc QS2020-21(6mos up)/PF 0.5 ML SYRINGE IM (11:32)
--- NOTE | 2020-06-04 13:34 | PC.NURSE ---
Monday 06/04 Pt signed 3-Day Notice up on Thursday 06/07
--- NOTE | 2020-06-04 14:17 | P.HPPS_ITS ---
HPI Chief Complaint: crisis Sources of Information: patient interviewed, chart reviewed and crisis/core team assessment reviewed HPI Narrative: 30 year old man who was admitted with an increase in delusional thinking. His parents had come home to find that he was speaking about his eyeballs popping out. He was increasingly agitated and delusional. He reported having AH telling him to hurt himself. He had also been drinking more alcohol. Police were called and he was brought to the ER. He has not been taking his medication consistently, despite having a Mantilla Order. He last recieved invega sustenna on April 26, or so. He has also not been taking his levothyroxine. Past Psychiatric History: Multiple hospital stays, and he was last on M5 in January 2019. He has had 7 previous admissions including 2 at [place]. He has also been to several [facility] programs. He receives services through [facility]. He has a Mantilla Order Medical Evaluation Reviewed: Yes No acute illness. Coronavirus negative VSS Cranial nerves negative Labs WNL [facility] Medical History Schizophrenia Family History: Unknown Social History: Lives with his parents. 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 Substance History: Extensive history of use of cocaine, heroine, alcohol and MJ, but not since 2016 Trauma History: Unknown Diagnostics Vital Signs (24Hr): Vital Signs - 24 hr 06/03/20 22:00 06/04/20 06:40 Temperature 97.9 F 97.9 F Pulse Rate 84 74 Respiratory Rate 20 Blood Pressure 135/82 143/73 H Body Mass Index 50.1 Labs Results: 06/02/20 18:42 06/02/20 18:42 Labs: Laboratory Results - last 48 hr 06/02/20 06/02/20 06/02/20 18:42 18:42 18:42 WBC 8.8 RBC 4.59 L Hgb 13.4 L Hct 41.2 L MCV 89.8 MCH 29.2 MCHC 32.5 RDW 13.1 Plt Count 229 MPV 10.2 Immature Gran % (Auto) 0.2 Neut % (Auto) 50.0 Lymph % (Auto) 30.7 [place] % (Auto) 9.3 Eos % (Auto) 8.9 H Baso % (Auto) 0.9 Neut # (Auto) 4.4 Lymph # (Auto) 2.7 [place] # (Auto) 0.8 Eos # (Auto) 0.8 H Baso # (Auto) 0.1 Abs Immat Gran (auto) 0.02 Absolute Nucleated RBC 0.000 Nucleated RBC % (auto) 0.0 Sodium 140 Potassium 3.9 Chloride 106 Carbon Dioxide 27 Anion Gap 11 L BUN 10 Creatinine 0.67 Estim Creat Clear Calc 266.5 Estimated GFR > 60 Random Glucose 101 Calcium 9.2 Total Bilirubin 0.2 Direct Bilirubin < 0.2 AST 19 ALT 33 Alkaline Phosphatase 73 Troponin I High Sens Total Protein 6.8 Albumin 4.1 Triglycerides Cholesterol LDL Cholesterol, Calc HDL Cholesterol Lipase 18 Urine Color YELLOW Urine Appearance HAZY Urine pH 6.0 Ur Specific [place] 1.020 Urine Protein NEG Urine Glucose (UA) NEG Urine Ketones NEG Urine Blood NEG Urine Nitrite NEG Ur Leukocyte Esterase NEG Salicylates < 5.0 L Urine Opiates Screen Acetaminophen < 1 Ur Barbiturates Screen Ur Phencyclidine Scrn Ur Amphetamines Screen U Benzodiazepines Scrn [place] Urine Cocaine Screen U Marijuana (THC) Screen Coronavirus (PCR) 06/02/20 06/02/20 06/02/20 18:42 18:42 18:42 WBC RBC Hgb Hct MCV MCH MCHC RDW Plt Count MPV Immature Gran % (Auto) Neut % (Auto) Lymph % (Auto) [place] % (Auto) Eos % (Auto) Baso % (Auto) Neut # (Auto) Lymph # (Auto) [place] # (Auto) Eos # (Auto) Baso # (Auto) Abs Immat Gran (auto) Absolute Nucleated RBC Nucleated RBC % (auto) Sodium Potassium Chloride Carbon Dioxide Anion Gap BUN Creatinine Estim Creat Clear Calc Estimated GFR Random Glucose Calcium Total Bilirubin Direct Bilirubin AST ALT Alkaline Phosphatase Troponin I High Sens < 3.5 Total Protein Albumin Triglycerides Cholesterol LDL Cholesterol, Calc HDL Cholesterol Lipase Urine Color Urine Appearance Urine pH Ur Specific [place] Urine Protein Urine Glucose (UA) Urine Ketones Urine Blood Urine Nitrite Ur Leukocyte Esterase Salicylates Urine Opiates Screen Not Detected Acetaminophen Ur Barbiturates Screen Not Detected Ur Phencyclidine Scrn Not Detected Ur Amphetamines Screen Not Detected U Benzodiazepines Scrn Not Detected [place] 0.25 L Urine Cocaine Screen Not Detected U Marijuana (THC) Screen Not Detected Coronavirus (PCR) 06/03/20 06/04/20 12:56 07:57 WBC RBC Hgb Hct MCV MCH MCHC RDW Plt Count MPV Immature Gran % (Auto) Neut % (Auto) Lymph % (Auto) [place] % (Auto) Eos % (Auto) Baso % (Auto) Neut # (Auto) Lymph # (Auto) [place] # (Auto) Eos # (Auto) Baso # (Auto) Abs Immat Gran (auto) Absolute Nucleated RBC Nucleated RBC % (auto) Sodium Potassium Chloride Carbon Dioxide Anion Gap BUN Creatinine Estim Creat Clear Calc Estimated GFR Random Glucose Calcium Total Bilirubin Direct Bilirubin AST ALT Alkaline Phosphatase Troponin I High Sens Total Protein Albumin Triglycerides 196 Cholesterol 188 LDL Cholesterol, Calc 117 HDL Cholesterol 32 Lipase Urine Color Urine Appearance Urine pH Ur Specific [place] Urine Protein Urine Glucose (UA) Urine Ketones Urine Blood Urine Nitrite Ur Leukocyte Esterase Salicylates Urine Opiates Screen Acetaminophen Ur Barbiturates Screen Ur Phencyclidine Scrn Ur Amphetamines Screen U Benzodiazepines Scrn [place] Urine Cocaine Screen U Marijuana (THC) Screen Coronavirus (PCR) NEGATIVE Meds/Allergies Meds Home Medications Medication Instructions Recorded Confirmed Type Invega Sustenna 156 mg IM Q28D 06/03/20 06/03/20 History Risperdal 3 mg PO DAILY 06/03/20 06/03/20 History lithium carbonate 600 mg PO BID 06/03/20 06/03/20 History Allergies Allergies Allergy/AdvReac Type Severity Reaction Status Date / Time haloperidol [From HALDOL] Allergy Unknown DISTONIC Verified 06/03/20 02:40 REACTION Mental Status Exam Mental Status Exam Patient Appearance: Well Grooomed Patient Orientation: Person Level of Consciousness: Awake Patient Behavior: Appropriate, Restless, Anxious and Distractible Mood Description: Constricted and Anxious Affect Description: Constricted Patient Cognition Impaired: No Ability to Follow Directions: Fair Speech Pattern: Perseverating, Soft-Spoken and Mumbled Memory Description: Intact Hallucinations: Auditory (Command in nature) Delusions: Being Controlled, Paranoid Ideation and Present (eg eyeballs falling out) Thought Process: Rumination Thought Content: positive for Preoccupation, positive for Loose Associations, positive for Tangential and positive for Disorganized Judgement: Poor Assessment & Plan Assessment & Plan (1) Acute psychosis: Status: Acute Code(s): F23 - Brief psychotic disorder Assessment and Plan: Re-start medication Follow Li level Collect collateral information (2) Suicidal ideation: Status: Acute Code(s): R45.851 - Suicidal ideations Assessment and Plan: Safety evaluation (3) Schizoaffective disorder: Status: Acute Code(s): F25.9 - Schizoaffective disorder, unspecified Assessment and Plan: As above Patient educated on: diagnosis and medication risk/benefits Informed Consent: further education needed Reason for continued inpatient stay Substantial Risk for: inability to function and med/psych decompensation
[2020-06-04 18:00] VITALS: BP 131/80; PULSE 77; RESP 16; TEMP 36.9; O2SAT 95
[2020-06-04] MEDS: LORazepam 1 MG TABLET PO (18:16)
[2020-06-04] MEDS: risperiDONE 3 MG TABLET PO (20:49)
[2020-06-04 21:49] VITALS: BP 131/80; PULSE 77; TEMP 36.9
[2020-06-05 06:00] VITALS: BP 133/88; PULSE 85; RESP 20; TEMP 36.9
[2020-06-05 06:17] LABS: Estimated Average Glucose 105 mg/dL; Hemoglobin A1c % 5.3 %
[2020-06-05] MEDS: Levothyroxine Sodium 75 MCG TABLET PO (06:43)
[2020-06-05] MEDS: Nicotine 14 MG PATCH.TD24 TRANSDERMA (08:44)
[2020-06-05] MEDS: LORazepam 1 MG TABLET PO ×2 (08:45→18:24)
[2020-06-05] MEDS: Lithium Carbonate 300 MG CAPSULE PO (08:45)
--- NOTE | 2020-06-05 09:30 | HO.PSYCHPN ---
Assessment & Plan Assessment & Plan (1) Schizoaffective disorder: Status: Acute Code(s): F25.9 - Schizoaffective disorder, unspecified Assessment and Plan: [place], invega sustenna Liase with family Follow Li level Anticipate DC 06/07/20 Greater than 50% of the session was spent on counseling and/or coordination of care Subjective Subjective Date of Service: 06/05/20 Reason For Visit: crisis Subjective Notes: Conditional Voluntary and 3 Day Interim History: Michael was pleasant and cooperative. He has no immediate complaints or concerns. He is only focused on when he can go home. He denies any difficulties. He was somewhat more organized in his speech and seems to be making a rapid improvement. There has been no behavioral dyscontrol. Medication Compliance: Yes Side effects from medications: No Attending Groups: Yes Review of Systems Acute medical concerns: No Medical Review of Systems: unchanged Mental Status Exam Mental Status Exam Patient Appearance: Well Grooomed Patient Orientation: Person Level of Consciousness: Awake Patient Behavior: Appropriate, Restless, Anxious and Distractible Mood Description: Constricted and Anxious Affect Description: Constricted Patient Cognition Impaired: No Ability to Follow Directions: Fair Speech Pattern: Perseverating, Soft-Spoken and Mumbled Memory Description: Intact Hallucinations: Auditory (Command in nature) Delusions: Being Controlled, Paranoid Ideation and Present (eg eyeballs falling out) Thought Process: Rumination Thought Content: positive for Preoccupation, positive for Loose Associations, positive for Tangential and positive for Disorganized Judgement: Poor Diagnostics Vital Signs (24Hr): Vital Signs - 24 hr 06/04/20 18:00 06/04/20 21:49 06/05/20 06:00 Temperature 98.5 F 98.5 F 98.4 F Pulse Rate 77 77 85 Respiratory Rate 16 20 Blood Pressure 131/80 131/80 133/88 Pulse Oximetry 95 Body Mass Index 50.1 Labs Results: 06/02/20 18:42 06/02/20 18:42 Labs: Laboratory Results - last 48 hr 06/03/20 06/04/20 06/04/20 12:56 07:57 18:46 Estimat Average Glucose 105 Hemoglobin A1c % 5.3 Triglycerides 196 Cholesterol 188 LDL Cholesterol, Calc 117 HDL Cholesterol 32 Coronavirus (PCR) NEGATIVE Medications Medications Current Medications Generic Name Dose Route Start Last Admin Trade Name Freq PRN Reason Stop Dose Admin Acetaminophen 650 mg 06/03/20 20:43 Acetaminophen 325 Mg Tablet PO Q6H PRN Headache/Pain Mild Scale (1-3) Al Hydroxide/Mg Hydroxide 30 ml 06/03/20 20:43 Magnesium Hydrox/Alum Hydrox 30 Ml Oral.Susp PO Q6H PRN Heartburn/Nausea Hydroxyzine HCl 25 mg 06/03/20 20:43 Hydroxyzine Hcl 25 Mg Tablet PO BEDTIME PRN Anxiety Levothyroxine Sodium 75 mcg 06/05/20 06:00 06/05/20 06:43 Levothyroxine Sodium 75 Mcg Tablet PO 75 mcg DAILY@0600 IMANI Administration [place] Carbonate 600 mg 06/05/20 21:00 [place] Carbonate 300 Mg Capsule PO BID IMANI Lorazepam 1 mg 06/03/20 20:53 06/05/20 08:45 Lorazepam 1 Mg Tablet PO 1 mg Q4H PRN Administration Anxiety Magnesium Hydroxide 30 ml 06/03/20 20:43 Milk Of Magnesia 30 Ml Oral.Susp PO DAILY PRN Constipation Nicotine 14 mg 06/04/20 11:00 06/05/20 08:44 Nicotine 14 Mg Patch.Td24 TRANSDERMA 14 mg DAILY IMANI Administration Paliperidone Palmitate 156 mg 06/04/20 18:00 06/05/20 02:54 Paliperidone Palmitate 156 Mg/Ml Syringe IM Not Given Q30D IMANI Risperidone 3 mg 06/03/20 21:00 06/04/20 20:49 Risperidone 3 Mg Tablet PO 3 mg BEDTIME IMANI Administration Risperidone 1 mg 06/03/20 20:52 Risperidone 0.5 Mg Tablet PO Q4H PRN Anxiety Trazodone HCl 50 mg 06/03/20 20:43 Trazodone Hcl 50 Mg Tablet PO BEDTIME PRN Insomnia Allergies Allergies Allergy/AdvReac Type Severity Reaction Status Date / Time haloperidol [From HALDOL] Allergy Unknown DISTONIC Verified 06/03/20 02:40 REACTION
[2020-06-05 18:00] VITALS: BP 134/92; PULSE 104; TEMP 36.3
[2020-06-05] MEDS: risperiDONE 0.5 MG TABLET 1 MG PO (18:24)
[2020-06-05 19:17] VITALS: BP 134/94; PULSE 108; TEMP 36.3
[2020-06-05] MEDS: risperiDONE 3 MG TABLET PO (20:42)
[2020-06-05] MEDS: Lithium Carbonate 300 MG CAPSULE 600 MG PO (20:42)
[2020-06-06 06:27] VITALS: BP 145/77; PULSE 82; RESP 18; TEMP 36.1; O2SAT 96
[2020-06-06] MEDS: Levothyroxine Sodium 75 MCG TABLET PO (06:29)
[2020-06-06 07:00] VITALS: BMI 51.5
[2020-06-06] MEDS: Nicotine 14 MG PATCH.TD24 TRANSDERMA (08:48)
[2020-06-06] MEDS: Lithium Carbonate 300 MG CAPSULE 600 MG PO ×2 (08:49→20:55)
[2020-06-06] MEDS: LORazepam 1 MG TABLET PO ×2 (08:49→15:12)
[2020-06-06] MEDS: Paliperidone Palmitate 156 MG/ML SYRINGE IM (09:59)
--- NOTE | 2020-06-06 10:09 | PC.NURSE ---
PT RECEIVED INVEGA SUSTENNA 156MG TO LEFT DELTOID
--- NOTE | 2020-06-06 14:34 | P.PNPSI_ITS ---
Subjective Subjective Date of Service: 06/06/20 Reason For Visit: crisis Subjective Notes: Conditional Voluntary and 3 Day (Ends 06/07/20) Interim History: Henry has been much calmer and in control. He accepted invega sustenna without incident. He has been in behavioral control. Medication Compliance: Yes Side effects from medications: No Attending Groups: Intermittent Review of Systems Acute medical concerns: No Medical Review of Systems: unchanged Mental Status Exam Mental Status Exam Patient Appearance: Well Grooomed Patient Orientation: Person Level of Consciousness: Awake Patient Behavior: Appropriate, Restless, Anxious and Distractible Mood Description: Constricted and Anxious Affect Description: Constricted Patient Cognition Impaired: No Ability to Follow Directions: Fair Speech Pattern: Perseverating, Soft-Spoken and Mumbled Memory Description: Intact Hallucinations: Auditory (Command in nature) Delusions: Being Controlled, Paranoid Ideation and Present (eg eyeballs falling out) Thought Process: Rumination Thought Content: positive for Preoccupation, positive for Loose Associations, positive for Tangential, positive for Disorganized, negative for Suicidal Ideation and negative for Homicidal Ideation Judgement: Poor Diagnostics Vital Signs (24Hr): Vital Signs - 24 hr 06/05/20 18:00 06/05/20 19:17 06/06/20 06:27 Temperature 97.3 F 97.3 F 97 F Pulse Rate 104 H 108 H 82 Respiratory Rate 18 Blood Pressure 134/92 H 134/94 H 145/77 H Pulse Oximetry 96 Body Mass Index 51.5 Labs Results: 06/02/20 18:42 06/02/20 18:42 Labs: Laboratory Results - last 48 hr 06/04/20 06/05/20 18:46 07:57 Estimat Average Glucose 105 Hemoglobin A1c % 5.3 TSH 0.90 Medications Medications Current Medications Generic Name Dose Route Start Last Admin Trade Name Freq PRN Reason Stop Dose Admin Acetaminophen 650 mg 06/03/20 20:43 Acetaminophen 325 Mg Tablet PO Q6H PRN Headache/Pain Mild Scale (1-3) Al Hydroxide/Mg Hydroxide 30 ml 06/03/20 20:43 Magnesium Hydrox/Alum Hydrox 30 Ml Oral.Susp PO Q6H PRN Heartburn/Nausea Hydroxyzine HCl 25 mg 06/03/20 20:43 Hydroxyzine Hcl 25 Mg Tablet PO BEDTIME PRN Anxiety Levothyroxine Sodium 75 mcg 06/05/20 06:00 06/06/20 06:29 Levothyroxine Sodium 75 Mcg Tablet PO 75 mcg DAILY@0600 IMANI Administration [place] Carbonate 600 mg 06/05/20 21:00 06/06/20 08:49 [place] Carbonate 300 Mg Capsule PO 600 mg BID IMANI Administration Lorazepam 1 mg 06/03/20 20:53 06/06/20 08:49 Lorazepam 1 Mg Tablet PO 1 mg Q4H PRN Administration Anxiety Magnesium Hydroxide 30 ml 06/03/20 20:43 Milk Of Magnesia 30 Ml Oral.Susp PO DAILY PRN Constipation Nicotine 14 mg 06/04/20 11:00 06/06/20 08:48 Nicotine 14 Mg Patch.Td24 TRANSDERMA 14 mg DAILY IMANI Administration Paliperidone Palmitate 156 mg 06/04/20 18:00 06/06/20 09:59 Paliperidone Palmitate 156 Mg/Ml Syringe IM 156 mg Q30D IMANI Administration Risperidone 3 mg 06/03/20 21:00 06/05/20 20:42 Risperidone 3 Mg Tablet PO 3 mg BEDTIME IMANI Administration Risperidone 1 mg 06/03/20 20:52 06/05/20 18:24 Risperidone 0.5 Mg Tablet PO 1 mg Q4H PRN Administration Anxiety Trazodone HCl 50 mg 06/03/20 20:43 Trazodone Hcl 50 Mg Tablet PO BEDTIME PRN Insomnia Allergies Allergies Allergy/AdvReac Type Severity Reaction Status Date / Time haloperidol [From HALDOL] Allergy Unknown DISTONIC Verified 06/03/20 02:40 REACTION Assessment & Plan Assessment & Plan (1) Schizoaffective disorder: Status: Acute Code(s): F25.9 - Schizoaffective disorder, unspecified Assessment and Plan: CT medications without change. Anticipate discharge tomorrow, since he is not at imminent risk, and so is not committable. Greater than 50% of the session was spent on counseling and/or coordination of care Patient educated on: diagnosis and medication risk/benefits Informed Consent: further education needed Reason for contiued inpatient stay Substantial Risk for: rapid decompensation and med/psych decompensation
[2020-06-06 18:00] VITALS: BP 142/86; PULSE 95; RESP 16; TEMP 36.5
[2020-06-06] MEDS: risperiDONE 3 MG TABLET PO (20:55)
[2020-06-06 22:00] VITALS: BP 142/74; PULSE 95; TEMP 36.5
[2020-06-07 06:20] VITALS: BP 135/86; PULSE 79; RESP 18; TEMP 36.6; O2SAT 95
[2020-06-07] MEDS: Levothyroxine Sodium 75 MCG TABLET PO (06:54)
[2020-06-07] MEDS: Lithium Carbonate 300 MG CAPSULE 600 MG PO (08:57)
--- NOTE | 2020-06-07 10:31 | HO.PSYCHPN ---
Subjective Subjective Reason For Visit: crisis Diagnostics Vital Signs (24Hr): Vital Signs - 24 hr 06/06/20 18:00 06/06/20 22:00 06/07/20 06:20 Temperature 97.7 F 97.7 F 98 F Pulse Rate 95 95 79 Respiratory Rate 16 18 Blood Pressure 142/86 H 142/74 H 135/86 Pulse Oximetry 95 Body Mass Index 51.5 Labs Results: 06/02/20 18:42 06/02/20 18:42 Labs: Laboratory Results - last 48 hr 06/07/20 07:45 [place] 0.30 L Medications Medications Current Medications Generic Name Dose Route Start Last Admin Trade Name Freq PRN Reason Stop Dose Admin Acetaminophen 650 mg 06/03/20 20:43 Acetaminophen 325 Mg Tablet PO Q6H PRN Headache/Pain Mild Scale (1-3) Al Hydroxide/Mg Hydroxide 30 ml 06/03/20 20:43 Magnesium Hydrox/Alum Hydrox 30 Ml Oral.Susp PO Q6H PRN Heartburn/Nausea Hydroxyzine HCl 25 mg 06/03/20 20:43 Hydroxyzine Hcl 25 Mg Tablet PO BEDTIME PRN Anxiety Levothyroxine Sodium 75 mcg 06/05/20 06:00 06/07/20 06:54 Levothyroxine Sodium 75 Mcg Tablet PO 75 mcg DAILY@0600 IMANI Administration [place] Carbonate 600 mg 06/05/20 21:00 06/07/20 08:57 [place] Carbonate 300 Mg Capsule PO 600 mg BID IMANI Administration Lorazepam 1 mg 06/03/20 20:53 06/06/20 15:12 Lorazepam 1 Mg Tablet PO 1 mg Q4H PRN Administration Anxiety Magnesium Hydroxide 30 ml 06/03/20 20:43 Milk Of Magnesia 30 Ml Oral.Susp PO DAILY PRN Constipation Nicotine 14 mg 06/04/20 11:00 06/07/20 08:59 Nicotine 14 Mg Patch.Td24 TRANSDERMA Not Given DAILY IMANI Paliperidone Palmitate 156 mg 06/04/20 18:00 06/06/20 09:59 Paliperidone Palmitate 156 Mg/Ml Syringe IM 156 mg Q30D IMANI Administration Risperidone 3 mg 06/03/20 21:00 06/06/20 20:55 Risperidone 3 Mg Tablet PO 3 mg BEDTIME IMANI Administration Risperidone 1 mg 06/03/20 20:52 06/05/20 18:24 Risperidone 0.5 Mg Tablet PO 1 mg Q4H PRN Administration Anxiety Trazodone HCl 50 mg 06/03/20 20:43 Trazodone Hcl 50 Mg Tablet PO BEDTIME PRN Insomnia Allergies Allergies Allergy/AdvReac Type Severity Reaction Status Date / Time haloperidol [From HALDOL] Allergy Unknown DISTONIC Verified 06/03/20 02:40 REACTION Assessment & Plan Greater than 50% of the session was spent on counseling and/or coordination of care
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
== END 2020-06-07 12:50 | disposition home or self-care (01) | DRG 750 ==
LOC: HO.ED 19:10 → HO.PM5 06-03 18:09
PROVIDERS: Nurse Practitioner Family; Physician Assistant; Admitting Provider Psychiatry & Neurology Psychiatry; Visit Provider Psychiatry & Neurology Psychiatry
DX: F25.9 Schizoaffective disorder, unspecified (principal); F33.1 Major depressive disorder, recurrent, moderate; Z91.14 Patient's other noncompliance with medication regimen; Z20.828 Contact with and (suspected) exposure to other viral communicable diseases; Z79.890 Hormone replacement therapy; Z79.899 Other long term (current) drug therapy
CPT/HCPCS: 36415; 71046; 80048; 80061; 80076; 80178; 80307; 81003; 83036; 83690; 83695; 84443; 84484; 85025; 87635; 90686; 93005; 93010; 99285; G0480

== ENCOUNTER 2020-07-07 04:54 | Emergency (ER) | payer MEDICAID, SELFPAY ==
[2020-07-07 05:09] VITALS: BP 146/87; PULSE 85; RESP 20; TEMP 36.5; O2SAT 95; BMI 47.7
--- NOTE | 2020-07-07 05:36 | ED.PSYCH ---
HPI - Psych General Chief Complaint: Psychiatric Symptoms Stated Complaint: CRISIS Time Seen by Provider: 07/07/20 05:33 History of Present Illness HPI Narrative: Patient is a 30-year-old male presented today with having thoughts of people chasing him. Wanting to put him in long-term. Patient denies any suicidal homicidal ideation. Has a previous psychiatric history. Patient has a long history of schizoaffective disorder. No fever no chills no cough no congestion or upper respiratory symptoms. Patient is on lithium. Claims she is compliant. Related Data Previous Rx's Medication Instructions Recorded Invega Sustenna 156 mg IM Q28D #1 units 06/07/20 Risperdal 3 mg PO DAILY #30 tab 06/07/20 levothyroxine 75 mcg PO DAILY@0600 #30 tab 06/07/20 lithium carbonate 600 mg PO BID #120 tab 06/07/20 Allergies Allergy/AdvReac Type Severity Reaction Status Date / Time haloperidol [From HALDOL] Allergy Unknown DISTONIC Verified 06/03/20 02:40 REACTION Review of Systems Review of Systems: Constitutional: No Weight loss, No Fever, No Chills, No Night Sweats, No Fatigue, No Malaise ENT/Mouth: No Hearing loss, No Ear Pain, No Nasal Congestion, No Sinus Pain, No Hoarseness, No sore throat, No Rhinorrhea, No Swallowing Difficulty Eyes: No Eye Pain, No Swelling, No Redness, No Foreign Body, No Discharge, No Vision Changes Cardiovascular: No Chest Pain, No SOB, No Dyspnea on Exertion, No Orthopnea, No Edema, No Palpitations Respiratory: No Cough, No Sputum, No Wheezing, No Smoke Exposure, No Dyspnea Gastrointestinal: No Nausea, No Vomiting, No Diarrhea, No Constipation, No abdominal Pain, No Hematochezia, No Melena Genitourinary: no irregular bleeding, No Dysuria, No Urinary Frequency, No Hematuria, No Urinary Incontinence, No Urgency, No Flank Pain, No Urinary Flow Changes, No Hesitancy Musculoskeletal: No joint pain, No Myalgias, No Joint Swelling Skin: No Skin Lesions, No rash Neuro: No Weakness, No Numbness, No Paresthesias, No Loss of Consciousness, No Dizziness, No Headache Psych: No Anxiety/Panic, No Depression, No SI/HI/AH/VH, No Social Issues, Heme/Lymph: No Bruising, No Bleeding,No Lymphadenopathy Endocrine: No Polyuria, No Polydipsia, No Temperature Intolerance [facility] Past Medical History Attestation statement: The following information was validated with the patient. Medical History Schizophrenia Social History Social History Household Members: Other Housing: Unknown / Unable to assess Alcohol intake: never Smoking Status: Current every day smoker Tobacco Type: Cigarette Packs Per Day: 0.75 Cigarettes Per Day: 15.0 Years Smoked: unknown Substance Use Type: Marijuana and Unknown Advance Directives: No Advance Directives Information Provided: No service: No Sexual orientation: Straight/Heterosexual Physical Exam Vital Signs: Vital Signs: Last Vital Signs Temp 97.7 F 07/07/20 05:09 Pulse 85 07/07/20 05:09 Resp 20 07/07/20 05:09 BP 146/87 H 07/07/20 05:09 Pulse Ox 95 07/07/20 05:09 Body Mass Index 47.7 Appearance: Alert. Oriented X3. No acute distress. Eyes: Pupils equal, round and reactive to light. ENT: Pharynx normal. Neck: Normal inspection. Neck supple. No lymph nodes noted. No crepitus CVS: Normal heart rate and rhythm. Pulses normal. Normal S1 and S2 Respiratory: No respiratory distress. Breath sounds normal. No Wheezing. No rales Abdomen: Soft and nontender. No rigidity. No distention. good BS x4 Skin: Skin warm and dry. Normal skin color. Normal skin turgor. Extremities: No lower extremity edema. Neurovascular intact to all extremities. No Lacerations. No Rash Neuro: Oriented X 3. No motor deficit. No sensory deficit. Moving all extermities. No slurred speech MDM - Psych MDM Narrative Medical decision making narrative: Patient well appearing no distress. Will get baseline labs. Will have crisis evaluate patient. [place] level sent Restraints Face to Face Assessment: Face to Face Assessment: Current Situation: After assessment of the patient, a review of the pertinent medical record and a discussion with nursing staff, I feel the patient requires a restrain intervention. Reaction To: [] Medical Condition: [] Behavioral State: [] Continued Need: [] Discharge Plan Discharge Clinical Impression: Schizoaffective disorder Prescriptions: No Action levothyroxine 75 mcg Tablet 75 mcg PO DAILY@0600 Qty: 30 RF: 0 Invega Sustenna 156 mg IM Q28D Qty: 1 RF: 0 Risperdal tablet 3 mg PO DAILY Qty: 30 RF: 0 lithium carbonate tablet 600 mg PO BID Qty: 120 RF: 0
--- NOTE | 2020-07-07 05:46 | PC.NURSE ---
Patient calm, quiet, and compliant with admission process, N faxed/called/spoke with [facility]/confirmed receipt of referral. Patient long term contacted at [phone] to for medication list/no one responded despite 3 attempts.
[2020-07-07 06:05] LABS: Amphetamine Screen Urine Not Detected (Not Detect); Barbiturates, Urine Not Detected (Not Detect); Benzodiazepines Screen Urine Not Detected (Not Detect); Cannabinoid Screen Urine Not Detected (Not Detect); Cocaine Screen Urine Not Detected (Not Detect); Opiate Screen Urine Not Detected (Not Detect); Phencyclidine Screen Urine Not Detected (Not Detect)
[2020-07-07 06:20] LABS: Basophils Absolute Auto 0.1 X10*3/uL (0.0-0.2); Basophils Percent Auto 0.7 % (0-2); Eosinophils Absolute Auto 0.8 X10*3/uL (0.0-0.4); Eosinophils Percent Auto 7.6 % (0-4); Hematocrit 40.6 % (42-52); Hemoglobin 13.4 g/dl (14.0-18.0); Imm Gran Abs Auto 0.04 X10*3/uL (0.00-0.03); Imm Gran Pct Auto 0.4 % (0.0-0.4); Lymphocytes Absolute Auto 2.8 X10*3/uL (1.2-4.9); Lymphocytes Percent Auto 27.4 % (20-40); Mean Corpuscular Hemoglobin 29.1 pg (27.0-33.0); Mean Corpuscular Volume 88.3 fL (80-98); Mean Platelet Volume 9.9 fL (9.4-12.4); Monocytes Absolute Auto 0.7 X10*3/uL (0.1-1.2); Monocytes Percent Auto 7.2 % (2-11); Neutrophils Absolute Auto 5.8 X10*3/uL (2.0-8.3); Neutrophils Percent Auto 56.7 % (45-73); Platelet Count 248 X10*3/uL (160-400); White Blood Count 10.3 X10*3/uL (4.8-10.8)
[2020-07-07 06:21] LABS: MANUAL DIFF FLAG NO
[2020-07-07 06:39] LABS: Lithium 0.29 mmol/L (0.60-1.20)
[2020-07-07 06:43] LABS: Ethanol < 10 mg/dL
[2020-07-07 06:46] LABS: Anion Gap 9 (12-20); Blood Urea Nitrogen 12 mg/dL (9-16); Calcium 9.2 mg/dL (8.4-10.2); Carbon Dioxide 30 mmol/L (22-29); Chloride 104 mmol/L (96-108); Creatinine Clr Calc Pharmacy 255.6; Estimated Glomerular Filt Rate > 60; Glucose Random 90 mg/dL (60-115); Potassium 3.6 mmol/l (3.3-5.1); Sodium 139 mmol/L (135-145)
--- NOTE | 2020-07-07 07:25 | PC.NURSE ---
Report rec eived from DE Figueroa. Pt resting, resp unlabored.
--- NOTE | 2020-07-07 09:10 | PC.NURSE ---
Pt evaluated by VELMA
--- NOTE | 2020-07-07 09:15 | PC.NURSE ---
Medication history obtained from NAT Art RN at [phone]. Per RN, pt has been compliant with am medications, but often does not take evening medication. (Jeremíasdal).
--- NOTE | 2020-07-07 09:42 | PC.NURSE ---
Pt awake, alert- aware that he will be discharged home and appears in agreement w/ decision. Pt states 'i was scare last night,' but also states he is not scared today. Pt encouraged to take his night time meds as prescribed. Provider notified that per VNA, pt has been off levothyroxine as, per vna rn, the provider has not renewed.
[2020-07-07 09:48] VITALS: BP 148/96; PULSE 84; TEMP 36.6; O2SAT 96
--- NOTE | 2020-07-07 09:52 | PC.NURSE ---
Pt given discharge instructions, verbalized understanding. affect bright, no concerns reported.
== END 2020-07-07 09:52 | disposition home or self-care (01) ==
PROVIDERS: Emergency Provider Emergency Medicine Emergency Medical Services
DX: F20.9 Schizophrenia, unspecified (principal); F12.90 Cannabis use, unspecified, uncomplicated; F17.210 Nicotine dependence, cigarettes, uncomplicated; Z71.6 Tobacco abuse counseling; Z79.899 Other long term (current) drug therapy
CPT/HCPCS: 36415; 80048; 80178; 80307; 80320; 85025; 99284

== ENCOUNTER 2020-09-10 06:09 | Inpatient (IN) | payer OTHER, SELFPAY ==
[2020-09-10 06:13] VITALS: BP 137/90; BP 150/100; PULSE 88; PULSE 92; RESP 20; TEMP 36.9; O2SAT 95; O2SAT 96; BMI 48.8
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
--- NOTE | 2020-09-10 09:50 | PC.NURSE ---
paperwork faxed/called to [facility], this rn spoke with cherelle ([facility]).
[2020-09-10 11:04] LABS: Amphetamine Screen Urine Not Detected (Not Detect); Barbiturates, Urine Not Detected (Not Detect); Benzodiazepines Screen Urine Not Detected (Not Detect); Cannabinoid Screen Urine Not Detected (Not Detect); Cocaine Screen Urine Not Detected (Not Detect); Opiate Screen Urine Not Detected (Not Detect); Phencyclidine Screen Urine Not Detected (Not Detect)
[2020-09-10 11:39] VITALS: BP 140/83; PULSE 79; RESP 20; O2SAT 94
--- NOTE | 2020-09-10 13:30 | PC.NURSE ---
bhn at bedside, pt aware of plan of care.
--- NOTE | 2020-09-10 15:30 | PC.NURSE ---
Recieved male patient presently asleep. no present distress. patient evaluated by N. Awaiting dispo.
--- NOTE | 2020-09-10 18:34 | PC.NURSE ---
patient presently section 12. continues resting. no distress
[2020-09-10 18:52] LABS: MANUAL DIFF FLAG NO
[2020-09-10 19:07] LABS: Basophils Absolute Auto 0.1 X10*3/uL (0.0-0.2); Basophils Percent Auto 0.9 % (0-2); Eosinophils Absolute Auto 1.3 X10*3/uL (0.0-0.4); Eosinophils Percent Auto 13.5 % (0-4); Hematocrit 46.8 % (42-52); Hemoglobin 15.1 g/dl (14.0-18.0); Imm Gran Abs Auto 0.03 X10*3/uL (0.00-0.03); Imm Gran Pct Auto 0.3 % (0.0-0.4); Lymphocytes Absolute Auto 2.1 X10*3/uL (1.2-4.9); Lymphocytes Percent Auto 21.4 % (20-40); Mean Corpuscular HGB Conc 32.3 g/dl (31.0-36.0); Mean Corpuscular Hemoglobin 28.9 pg (27.0-33.0); Mean Corpuscular Volume 89.5 fL (80-98); Mean Platelet Volume 10.2 fL (9.4-12.4); Monocytes Absolute Auto 0.7 X10*3/uL (0.1-1.2); Monocytes Percent Auto 6.7 % (2-11); Neutrophils Absolute Auto 5.6 X10*3/uL (2.0-8.3); Neutrophils Percent Auto 57.2 % (45-73); Platelet Count 247 X10*3/uL (160-400); Red Blood Count 5.23 X10*6/uL (4.60-5.80); Red Cell Distribution Width 13.2 % (11.0-16.0); White Blood Count 9.9 X10*3/uL (4.8-10.8)
[2020-09-10 19:17] LABS: Lithium 0.26 mmol/L (0.60-1.20)
[2020-09-10 19:25] LABS: Alanine Aminotransferase 32 U/L (0-40); Alkaline Phosphatase 84 U/L (39-117); Anion Gap 12 (12-20); Aspartate Amino Transferase 20 U/L (5-37); Bilirubin Total 0.5 mg/dL (0.0-1.0); Blood Urea Nitrogen 6 mg/dL (9-16); Carbon Dioxide 29 mmol/L (22-29); Chloride 105 mmol/L (96-108); Creatinine Clr Calc Pharmacy 259.4; Estimated Glomerular Filt Rate > 60; Glucose Random 93 mg/dL (60-115); Potassium 4.3 mmol/l (3.3-5.1); Sodium 142 mmol/L (135-145); Total Protein 6.9 g/dL (6.5-8.0)
--- NOTE | 2020-09-10 21:44 | PC.NURSE ---
Patient just got transferred from main ED, calm and quiet, cooperative, showered/snacked/refreshed, pending admission to , denied distress, will continue to monitor.
[2020-09-10 23:36] LABS: COVID-19 Test Negative (Negative); IDNOW Serial# 9DD0AD1C
[2020-09-11 00:19] VITALS: BP 117/66; PULSE 104; RESP 18; TEMP 36.8; O2SAT 95
--- NOTE | 2020-09-11 00:37 | ECG_ITS ---
Test Reason : CP Blood Pressure : / mmHG Vent. Rate : 072 BPM Atrial Rate : 072 BPM P-R Int : 196 ms QRS Dur : 086 ms QT Int : 396 ms P-R-T Axes : 055 079 034 degrees QTc Int : 433 ms Normal sinus rhythm Normal ECG When compared with ECG of 02-JUN-2020 18:44, No significant change was found Referred By: Kimmie Cao Electronically Signed By:SRINI DUMONT MD
[2020-09-11 00:45] VITALS: BP 131/91; PULSE 101; RESP 18; TEMP 36.8; O2SAT 95
[2020-09-11 00:55] VITALS: BMI 54.7
[2020-09-11] MEDS: LORazepam 0.5 MG TABLET PO (01:47)
[2020-09-11] MEDS: risperiDONE 1 MG TABLET PO (01:47)
[2020-09-11] MEDS: traZODone HCL 50 MG TABLET PO (01:48)
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
[2020-09-11] MEDS: Levothyroxine Sodium 75 MCG TABLET PO (06:16)
[2020-09-11 06:20] VITALS: BP 131/94; PULSE 94; RESP 20; TEMP 36.9; O2SAT 94
[2020-09-11] MEDS: Lithium Carbonate 300 MG TABLET 600 MG PO ×2 (09:30→21:45)
[2020-09-11] MEDS: risperiDONE 3 MG TABLET PO (09:30)
[2020-09-11] MEDS: Flu Vacc QS2020-21(6mos up)/PF 0.5 ML SYRINGE IM (09:31)
[2020-09-11 18:55] VITALS: BP 123/57; PULSE 94; TEMP 36.5
--- NOTE | 2020-09-11 21:32 | P.HPPS_ITS ---
HPI Chief Complaint: Schizoaffective disorder Sources of Information: patient interviewed, chart reviewed and crisis/core team assessment reviewed Additional Sources of Information: This medical underwriter spoke with [facility]NA RN Rubens Garcia ([phone]) HPI Narrative: Mr. Bullock is a 30 year-old male with hx of schizoaffective disorder. He is known to [facility] through at least two previous inpatient psychiatric admissions last one back in 06/03/2020. Per crisis records, Mr. Bullock was brought to ED via EMS due to increased paranoid delusions, increased disorganized behavior, CAH, HI without plan or specific target. On the unit, Mr. Bullock reports the juices in my head are not working. He reports he heard voices telling him that others are trying to hurt him. When asked about HI, pt reports he does not have specific target but will defend him self from whoever is trying to hurt him. He denied any plan or intent to hurt anyone. He also denied SI. He presented as anxious, hypervigilant suspicious but fairly cooperative. He reports sleeping and eating well. Of note, pt was started on Invega Trinza 546mg IM [id number] on 07/06/2021, next dose due on 10/06/2020. He most likely was not taking other oral psychotropic medications including risperidone and lithium. Per VNA, pt appears more psychotic with Invega Trinza than Invega. Past Psychiatric History: Multiple hospital stays, and he was last on M5 in 1 - after he missed dose of Invega Sustenna. He has had 7 previous admissions including 2 at [place]. He has also been to several [facility] programs. He receives services through [facility]: Psychiatrist Dr. Stephen ([phone]) He has a [place] Order. Mother Flory Ara is guardian ([phone]) Medical Evaluation Reviewed: Yes [facility] Medical History (Updated 09/12/20 @ 16:56 by Ninoska Magallon) Asthma Hypothyroid Family History: Unknown Social History: Pt born and raised in [facility]. Lives with his parents. He has two brothers. He moved to [place] when he was 13 y/o. 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 Substance History: Active: pt denies. Utox negative on admission. Past: Alcohol: first use at age of 14. Last use per records and pt long time ago. Cocaine: from age 14 until 2017. Heroin: from age 14 until 2017. Trauma History: Pt denies. Diagnostics Vital Signs (24Hr): Vital Signs - 24 hr 09/11/20 00:19 09/11/20 00:45 09/11/20 06:20 Temperature 98.2 F 98.2 F 98.4 F Pulse Rate 104 H 101 H 94 Respiratory Rate 18 18 20 Blood Pressure 117/66 131/91 H 131/94 H Pulse Oximetry 95 95 94 Body Mass Index 54.7 Labs Results: 09/10/20 18:42 09/10/20 18:42 Labs: Laboratory Results - last 48 hr 09/10/20 09/10/20 09/10/20 10:25 18:42 18:42 WBC 9.9 RBC 5.23 Hgb 15.1 Hct 46.8 MCV 89.5 MCH 28.9 MCHC 32.3 RDW 13.2 Plt Count 247 MPV 10.2 Immature Gran % (Auto) 0.3 Neut % (Auto) 57.2 Lymph % (Auto) 21.4 [place] % (Auto) 6.7 Eos % (Auto) 13.5 H Baso % (Auto) 0.9 Lymph # (Auto) 2.1 [place] # (Auto) 0.7 Eos # (Auto) 1.3 H Baso # (Auto) 0.1 Abs Immat Gran (auto) 0.03 Absolute Neuts (auto) 5.6 Absolute Nucleated RBC 0.000 Nucleated RBC % (auto) 0.0 Sodium 142 Potassium 4.3 Chloride 105 Carbon Dioxide 29 Anion Gap 12 BUN 6 L Creatinine 0.64 Estim Creat Clear Calc 259.4 Estimated GFR > 60 Random Glucose 93 Calcium 9.0 Total Bilirubin 0.5 AST 20 ALT 32 Alkaline Phosphatase 84 Total Protein 6.9 Albumin 4.0 Urine Opiates Screen Not Detected Ur Barbiturates Screen Not Detected Ur Phencyclidine Scrn Not Detected Ur Amphetamines Screen Not Detected U Benzodiazepines Scrn Not Detected Benjamin Urine Cocaine Screen Not Detected U Marijuana (THC) Screen Not Detected COVID-19 (NIC) COVID-19 Clin Com 09/10/20 09/10/20 18:42 23:15 WBC RBC Hgb Hct MCV MCH MCHC RDW Plt Count MPV Immature Gran % (Auto) Neut % (Auto) Lymph % (Auto) [place] % (Auto) Eos % (Auto) Baso % (Auto) Lymph # (Auto) [place] # (Auto) Eos # (Auto) Baso # (Auto) Abs Immat Gran (auto) Absolute Neuts (auto) Absolute Nucleated RBC Nucleated RBC % (auto) Sodium Potassium Chloride Carbon Dioxide Anion Gap BUN Creatinine Estim Creat Clear Calc Estimated GFR Random Glucose Calcium Total Bilirubin AST ALT Alkaline Phosphatase Total Protein Albumin Urine Opiates Screen Ur Barbiturates Screen Ur Phencyclidine Scrn Ur Amphetamines Screen U Benzodiazepines Scrn Benjamin 0.26 L Urine Cocaine Screen U Marijuana (THC) Screen COVID-19 (NIC) Negative COVID-19 Clin Com See Note Meds/Allergies Meds Home Medications Acetaminophen (Acetaminophen 325 Mg Tablet) 650 mg PO Q6H PRN PRN Reason: Headache/Pain Mild Scale (1-3) Last Admin: 09/12/20 08:26 Dose: 650 mg Documented by: Acetaminophen (Acetaminophen 325 Mg Tablet) 650 mg PO Q6H PRN PRN Reason: Headache/Pain Mild Scale (1-3) Al Hydroxide/Mg Hydroxide (Magnesium Hydrox/Alum Hydrox 30 Ml Oral.Susp) 30 ml PO Q6H PRN PRN Reason: Heartburn/Nausea Al Hydroxide/Mg Hydroxide (Magnesium Hydrox/Alum Hydrox 30 Ml Oral.Susp) 30 ml PO Q6H PRN PRN Reason: Heartburn/Nausea Hydroxyzine HCl (Hydroxyzine Hcl 25 Mg Tablet) 25 mg PO BEDTIME PRN PRN Reason: Anxiety Hydroxyzine HCl (Hydroxyzine Hcl 25 Mg Tablet) 25 mg PO BEDTIME PRN PRN Reason: Anxiety Levothyroxine Sodium (Levothyroxine Sodium 75 Mcg Tablet) 75 mcg PO DAILY@0600 [facility] Last Admin: 09/12/20 06:44 Dose: 75 mcg Documented by: Benjamin Carbonate (Benjamin Carbonate 300 Mg Tablet) 600 mg PO BID [facility] Last Admin: 09/12/20 08:26 Dose: 600 mg Documented by: Lorazepam (Lorazepam 0.5 Mg Tablet) 0.5 mg PO Q6H PRN PRN Reason: agitation Last Admin: 09/12/20 00:43 Dose: 0.5 mg Documented by: Magnesium Hydroxide (Milk Of Magnesia 30 Ml Oral.Susp) 30 ml PO DAILY PRN PRN Reason: Constipation Magnesium Hydroxide (Milk Of Magnesia 30 Ml Oral.Susp) 30 ml PO DAILY PRN PRN Reason: Constipation Risperidone (Risperidone 3 Mg Tablet) 3 mg PO DAILY IMANI Last Admin: 09/12/20 08:26 Dose: 3 mg Documented by: Risperidone (Risperidone 2 Mg Tablet) 2 mg PO BEDTIME IMANI Trazodone HCl (Trazodone Hcl 50 Mg Tablet) 50 mg PO BEDTIME PRN PRN Reason: Insomnia Last Admin: 09/12/20 00:43 Dose: 50 mg Documented by: Trazodone HCl (Trazodone Hcl 50 Mg Tablet) 50 mg PO BEDTIME PRN PRN Reason: Insomnia Allergies Allergies Allergy/AdvReac Type Severity Reaction Status Date / Time haloperidol [From HALDOL] Allergy Unknown DISTONIC Verified 06/03/20 02:40 REACTION Mental Status Exam Mental Status Exam Narrative: Appearance: MO male, poor hygiene, in NAD Behavior: mostly cooperative, suspicious at times Psychomotor: no agitation or retardation noted Speech: rambles at times, slowed response rate at times, spontaneous TP: derailment/disorganized TC: paranoid delusions, CAH Mood: anxious Affect: congruent, restricted range. AH/VH:+AH Delusions: paranoid delusions Insight/judment: poor x 2. Memory/cog:impaired secondary to psychiatric symptoms. Assessment & Plan Assessment & Plan (1) Schizoaffective disorder: Status: Acute Qualifiers: Schizoaffective disorder type: bipolar Qualified Code(s): F25.0 - Schizoaffective disorder, bipolar type Code(s): F25.9 - Schizoaffective disorder, unspecified Assessment and Plan: Mr. Bullock is a 30 y/o male with hx of schizoaffective disorder and multiple inpatient admission. He is known to [facility] through several admission with similar presentation including increased paranoid delusions, disorganized behavior, CAH, SI/HI. He received Invega Trinza on 07/06/2020 for the first times. He was previous on Invega Sustenna. He is also on oral risperidone and lithium but appears he is not taking it given that lithium levels were low in ED (not consistent with pres cribed dose). 1. Pt received last Invega Trinza 546mg IM [id number] on 07/06/2020. Next dose due on 10/06/2020. 2. Increase risperidone 3mg po daily and 2mg po qhs. 3. Will obtain further collateral information from OP psychiatrist Dr. Estrella. Patient educated on: diagnosis, medication risk/benefits and therapeutic strategies Guardian/Caregiver educated on: diagnosis and medication risk/benefits Informed Consent: understands Reason for continued inpatient stay Substantial Risk for: harm to self and harm to others
[2020-09-12] MEDS: traZODone HCL 50 MG TABLET PO (00:43)
[2020-09-12] MEDS: risperiDONE 1 MG TABLET PO (00:43)
[2020-09-12] MEDS: LORazepam 0.5 MG TABLET PO ×2 (00:43→18:31)
[2020-09-12 06:05] VITALS: BP 124/79; PULSE 79; RESP 18; TEMP 36.6; O2SAT 94
[2020-09-12] MEDS: Levothyroxine Sodium 75 MCG TABLET PO (06:44)
[2020-09-12] MEDS: Lithium Carbonate 300 MG TABLET 600 MG PO ×2 (08:26→20:40)
[2020-09-12] MEDS: Acetaminophen 325 MG TABLET 650 MG PO (08:26)
[2020-09-12] MEDS: risperiDONE 3 MG TABLET PO (08:26)
[2020-09-12 09:04] LABS: Estimated Average Glucose 103 mg/dL; Hemoglobin A1c % 5.2 %
[2020-09-12 09:07] LABS: Cholesterol 187 mg/dL; HDL Cholesterol 35 mg/dL; LDL Cholesterol Calculated 120 mg/dl; Magnesium 2.5 mg/dL (1.6-2.6); Triglycerides 161 mg/dL
[2020-09-12 09:28] LABS: Thyroid Stimulating Hormone 2.14 uIU/mL (0.32-4.0)
[2020-09-12 09:40] LABS: Folate 12.2 ng/mL (> or = 4.0); Vitamin B12 549 pg/mL (200-900)
[2020-09-12 13:43] VITALS: BMI 54.9
--- NOTE | 2020-09-12 17:27 | P.PNPSI_ITS ---
Subjective Subjective Date of Service: 09/12/20 Reason For Visit: Schizoaffective disorder Subjective Notes: [place] Warning and 3 Day Interim History: Nursing notes reviewed. Pt continues to report paranoid delusions thinking that people mostly outside of the hospital are trying to hurt him. He continues to report CAH. He denies SI. He does report some suspiciousnes s towards roommate but denies any plan or intent to hurt him. He reports good sleep/appetite. Medication Compliance: Yes Side effects from medications: No Attending Groups: Intermittent Review of Systems Constitutional: Reports no additional constitutional complaints Cardiovascular: Reports no additional cardiovascular complaints Respiratory: Reports no additional respiratory complaints Musculoskeletal: Reports no additional musculoskeletal complaints Reports Abnormal speech present Mental Status Exam Mental Status Exam Narrative: Appearance: MO male, poor hygiene, in NAD Behavior: mostly cooperative, suspicious at times Psychomotor: no agitation or retardation noted Speech: rambles at times, slowed response rate at times, spontaneous TP: derailment/disorganized TC: paranoid delusions, CAH Mood: anxious Affect: congruent, restricted range. AH/VH:+AH Delusions: paranoid delusions Insight/judment: poor x 2. Memory/cog:impaired secondary to psychiatric symptoms. Diagnostics Vital Signs (24Hr): Vital Signs - 24 hr 09/11/20 18:55 09/12/20 06:05 Temperature 97.7 F 98 F Pulse Rate 94 79 Respiratory Rate 18 Blood Pressure 123/57 L 124/79 Pulse Oximetry 94 Body Mass Index 54.9 Labs Results: 09/10/20 18:42 09/10/20 18:42 Labs: Laboratory Results - last 48 hr 09/10/20 09/10/20 09/10/20 18:42 18:42 18:42 WBC 9.9 RBC 5.23 Hgb 15.1 Hct 46.8 MCV 89.5 MCH 28.9 MCHC 32.3 RDW 13.2 Plt Count 247 MPV 10.2 Immature Gran % (Auto) 0.3 Neut % (Auto) 57.2 Lymph % (Auto) 21.4 [place] % (Auto) 6.7 Eos % (Auto) 13.5 H Baso % (Auto) 0.9 Lymph # (Auto) 2.1 [place] # (Auto) 0.7 Eos # (Auto) 1.3 H Baso # (Auto) 0.1 Abs Immat Gran (auto) 0.03 Absolute Neuts (auto) 5.6 Absolute Nucleated RBC 0.000 Nucleated RBC % (auto) 0.0 Sodium 142 Potassium 4.3 Chloride 105 Carbon Dioxide 29 Anion Gap 12 BUN 6 L Creatinine 0.64 Estim Creat Clear Calc 259.4 Estimated GFR > 60 Random Glucose 93 Estimat Average Glucose Hemoglobin A1c % Calcium 9.0 Magnesium Total Bilirubin 0.5 AST 20 ALT 32 Alkaline Phosphatase 84 Total Protein 6.9 Albumin 4.0 Triglycerides Cholesterol LDL Cholesterol, Calc HDL Cholesterol Vitamin B12 Folate TSH Free T4 [place] 0.26 L COVID-19 (NIC) COVID-19 [employer] 09/10/20 09/12/20 09/12/20 23:15 07:58 07:58 WBC RBC Hgb Hct MCV MCH MCHC RDW Plt Count MPV Immature Gran % (Auto) Neut % (Auto) Lymph % (Auto) [place] % (Auto) Eos % (Auto) Baso % (Auto) Lymph # (Auto) [place] # (Auto) Eos # (Auto) Baso # (Auto) Abs Immat Gran (auto) Absolute Neuts (auto) Absolute Nucleated RBC Nucleated RBC % (auto) Sodium Potassium Chloride Carbon Dioxide Anion Gap BUN Creatinine Estim Creat Clear Calc Estimated GFR Random Glucose Estimat Average Glucose 103 Hemoglobin A1c % 5.2 Calcium Magnesium 2.5 Total Bilirubin AST ALT Alkaline Phosphatase Total Protein Albumin Triglycerides 161 Cholesterol 187 LDL Cholesterol, Calc 120 HDL Cholesterol 35 Vitamin B12 Folate TSH 2.14 Free T4 1.20 [place] COVID-19 (NIC) Negative [facility] See Note 09/12/20 07:58 WBC RBC Hgb Hct MCV MCH MCHC RDW Plt Count MPV Immature Gran % (Auto) Neut % (Auto) Lymph % (Auto) [place] % (Auto) Eos % (Auto) Baso % (Auto) Lymph # (Auto) [place] # (Auto) Eos # (Auto) Baso # (Auto) Abs Immat Gran (auto) Absolute Neuts (auto) Absolute Nucleated RBC Nucleated RBC % (auto) Sodium Potassium Chloride Carbon Dioxide Anion Gap BUN Creatinine Estim Creat Clear Calc Estimated GFR Random Glucose Estimat Average Glucose Hemoglobin A1c % Calcium Magnesium Total Bilirubin AST ALT Alkaline Phosphatase Total Protein Albumin Triglycerides Cholesterol LDL Cholesterol, Calc HDL Cholesterol Vitamin B12 549 Folate 12.2 TSH Free T4 [place] COVID-19 (NIC) [facility] Medications Medications Current Medications Generic Name Dose Route Start Last Admin Trade Name Freq PRN Reason Stop Dose Admin Acetaminophen 650 mg 09/11/20 00:37 09/12/20 08:26 Acetaminophen 325 Mg Tablet PO 650 mg Q6H PRN Administration Headache/Pain Mild Scale (1-3) Acetaminophen 650 mg 09/11/20 21:24 Acetaminophen 325 Mg Tablet PO Q6H PRN Headache/Pain Mild Scale (1-3) Al Hydroxide/Mg Hydroxide 30 ml 09/11/20 00:37 Magnesium Hydrox/Alum Hydrox 30 Ml Oral.Susp PO Q6H PRN Heartburn/Nausea Al Hydroxide/Mg Hydroxide 30 ml 09/11/20 21:24 Magnesium Hydrox/Alum Hydrox 30 Ml Oral.Susp PO Q6H PRN Heartburn/Nausea Levothyroxine Sodium 75 mcg 09/11/20 06:00 09/12/20 06:44 Levothyroxine Sodium 75 Mcg Tablet PO 75 mcg DAILY@0600 IMANI Administration [place] Carbonate 600 mg 09/11/20 09:00 09/12/20 08:26 [place] Carbonate 300 Mg Tablet PO 600 mg BID IMANI Administration Lorazepam 0.5 mg 09/11/20 00:22 09/12/20 00:43 Lorazepam 0.5 Mg Tablet PO 0.5 mg Q6H PRN Administration agitation Magnesium Hydroxide 30 ml 09/11/20 00:37 Milk Of Magnesia 30 Ml Oral.Susp PO DAILY PRN Constipation Magnesium Hydroxide 30 ml 09/11/20 21:24 Milk Of Magnesia 30 Ml Oral.Susp PO DAILY PRN Constipation Risperidone 3 mg 09/11/20 09:00 09/12/20 08:26 Risperidone 3 Mg Tablet PO 3 mg DAILY IMANI Administration Risperidone 2 mg 09/12/20 21:00 Risperidone 2 Mg Tablet PO BEDTIME IMANI Trazodone HCl 50 mg 09/11/20 00:37 09/12/20 00:43 Trazodone Hcl 50 Mg Tablet PO 50 mg BEDTIME PRN Administration Insomnia Trazodone HCl 50 mg 09/11/20 21:24 Trazodone Hcl 50 Mg Tablet PO BEDTIME PRN Insomnia Allergies Allergies Allergy/AdvReac Type Severity Reaction Status Date / Time haloperidol [From HALDOL] Allergy Unknown DISTONIC Verified 06/03/20 02:40 REACTION Assessment & Plan Assessment & Plan (1) Schizoaffective disorder: Qualifiers: Schizoaffective disorder type: bipolar Qualified Code(s): F25.0 - Schizoaffective disorder, bipolar type Status: Acute Code(s): F25.9 - Schizoaffective disorder, unspecified Assessment and Plan: 1. Increase risperidone to 3mg po daily and 2mg po qhs. 2. Last dose trinza 546mg IM q3 months on 07/06/2020, next one 10/06/2020. Greater than 50% of the session was spent on counseling and/or coordination of care Patient educated on: diagnosis and medication risk/benefits Guardian/Caregiver educated on: diagnosis and medication risk/benefits Informed Consent: understands Reason for contiued inpatient stay Substantial Risk for: harm to self and harm to others
[2020-09-12 19:00] VITALS: BP 112/70; PULSE 114; TEMP 37.1
[2020-09-12] MEDS: risperiDONE 2 MG TABLET PO (20:40)
[2020-09-13] MEDS: LORazepam 0.5 MG TABLET PO ×3 (03:23→23:56)
[2020-09-13] MEDS: Acetaminophen 325 MG TABLET 650 MG PO ×2 (04:33→16:43)
[2020-09-13 05:44] VITALS: BP 117/58; PULSE 95; TEMP 36.3; O2SAT 94
[2020-09-13 06:00] VITALS: BP 117/58; PULSE 95; TEMP 36.4
[2020-09-13] MEDS: Levothyroxine Sodium 75 MCG TABLET PO (08:36)
[2020-09-13] MEDS: Lithium Carbonate 300 MG TABLET 600 MG PO ×2 (08:36→20:28)
[2020-09-13] MEDS: risperiDONE 3 MG TABLET PO (08:36)
--- NOTE | 2020-09-13 16:09 | P.PNPSI_ITS ---
Subjective Subjective Date of Service: 09/13/20 Reason For Visit: Schizoaffective disorder Interim History: Nursing notes reviewed. Pt reports less fear related to paranoid delusions thinking that people mostly outside of the hospital are trying to hurt him. He continues to report CAH but states they have lessened. He denies SI/HI. He does report some suspiciousness towards roommate but denies any plan or intent to hurt him. He reports good sleep/appetite. He has been mostly in his room, minimally interactive with peers. No aggression towards self or others. Review of Systems Review of Systems Yes all other systems are reviewed and are negative Reports Abnormal speech present Mental Status Exam Mental Status Exam Narrative: Appearance: MO male, poor hygiene, in NAD Behavior: mostly cooperative, suspicious at times Psychomotor: no agitation or retardation noted Speech: rambles at times, slowed response rate at times, spontaneous TP: derailment/disorganized TC: paranoid delusions, CAH Mood: anxious Affect: congruent, restricted range. AH/VH:+AH Delusions: paranoid delusions Insight/judment: poor x 2. Memory/cog:impaired secondary to psychiatric symptoms. Diagnostics Vital Signs (24Hr): Vital Signs - 24 hr 09/12/20 19:00 09/13/20 05:44 09/13/20 06:00 Temperature 98.8 F 97.3 F 97.6 F Pulse Rate 114 H 95 95 Blood Pressure 112/70 117/58 L 117/58 L Pulse Oximetry 94 Body Mass Index 54.9 Labs Results: 09/10/20 18:42 09/10/20 18:42 Labs: Laboratory Results - last 48 hr 09/12/20 09/12/20 09/12/20 07:58 07:58 07:58 Estimat Average Glucose 103 Hemoglobin A1c % 5.2 Magnesium 2.5 Triglycerides 161 Cholesterol 187 LDL Cholesterol, Calc 120 HDL Cholesterol 35 Vitamin B12 549 Folate 12.2 TSH 2.14 Free T4 1.20 Medications Medications Current Medications Generic Name Dose Route Start Last Admin Trade Name Freq PRN Reason Stop Dose Admin Acetaminophen 650 mg 09/11/20 00:37 09/13/20 04:33 Acetaminophen 325 Mg Tablet PO 650 mg Q6H PRN Administration Headache/Pain Mild Scale (1-3) Acetaminophen 650 mg 09/11/20 21:24 Acetaminophen 325 Mg Tablet PO Q6H PRN Headache/Pain Mild Scale (1-3) Al Hydroxide/Mg Hydroxide 30 ml 09/11/20 00:37 Magnesium Hydrox/Alum Hydrox 30 Ml Oral.Susp PO Q6H PRN Heartburn/Nausea Al Hydroxide/Mg Hydroxide 30 ml 09/11/20 21:24 Magnesium Hydrox/Alum Hydrox 30 Ml Oral.Susp PO Q6H PRN Heartburn/Nausea Levothyroxine Sodium 75 mcg 09/11/20 06:00 09/13/20 08:36 Levothyroxine Sodium 75 Mcg Tablet PO 75 mcg DAILY@0600 IMANI Administration [place] Carbonate 600 mg 09/11/20 09:00 09/13/20 08:36 [place] Carbonate 300 Mg Tablet PO 600 mg BID IMANI Administration Lorazepam 0.5 mg 09/11/20 00:22 09/13/20 10:57 Lorazepam 0.5 Mg Tablet PO 0.5 mg Q6H PRN Administration agitation Magnesium Hydroxide 30 ml 09/11/20 00:37 Milk Of Magnesia 30 Ml Oral.Susp PO DAILY PRN Constipation Magnesium Hydroxide 30 ml 09/11/20 21:24 Milk Of Magnesia 30 Ml Oral.Susp PO DAILY PRN Constipation Risperidone 3 mg 09/11/20 09:00 09/13/20 08:36 Risperidone 3 Mg Tablet PO 3 mg DAILY IMANI Administration Risperidone 2 mg 09/12/20 21:00 09/12/20 20:40 Risperidone 2 Mg Tablet PO 2 mg BEDTIME IMANI Administration Trazodone HCl 50 mg 09/11/20 00:37 09/12/20 00:43 Trazodone Hcl 50 Mg Tablet PO 50 mg BEDTIME PRN Administration Insomnia Trazodone HCl 50 mg 09/11/20 21:24 Trazodone Hcl 50 Mg Tablet PO BEDTIME PRN Insomnia Allergies Allergies Allergy/AdvReac Type Severity Reaction Status Date / Time haloperidol [From HALDOL] Allergy Unknown DISTONIC Verified 06/03/20 02:40 REACTION Assessment & Plan Assessment & Plan (1) Schizoaffective disorder: Qualifiers: Schizoaffective disorder type: bipolar Qualified Code(s): F25.0 - Schizoaffective disorder, bipolar type Status: Acute Code(s): F25.9 - Schizoaffective disorder, unspecified Assessment and Plan: 1. Continue risperidone to 3mg po daily and 2mg po qhs. 2. Last dose trinza 546mg IM q3 months on 07/06/2020, next one 10/06/2020. Consider change to another JAMES or sustenna as Trinza does not appear to be effective for pt. Greater than 50% of the session was spent on counseling and/or coordination of care
[2020-09-13 18:00] VITALS: BP 120/84; PULSE 78; TEMP 36.8
[2020-09-13] MEDS: risperiDONE 2 MG TABLET PO (20:28)
[2020-09-13] MEDS: traZODone HCL 50 MG TABLET PO (23:56)
[2020-09-14 04:28] VITALS: BP 141/82; PULSE 87; RESP 20; TEMP 36.8; O2SAT 96
[2020-09-14] MEDS: Levothyroxine Sodium 75 MCG TABLET PO (06:13)
[2020-09-14] MEDS: LORazepam 0.5 MG TABLET PO ×2 (06:14→20:42)
[2020-09-14] MEDS: Lithium Carbonate 300 MG TABLET 600 MG PO ×2 (08:14→20:42)
[2020-09-14] MEDS: risperiDONE 3 MG TABLET PO (08:14)
[2020-09-14 18:00] VITALS: BP 112/69; PULSE 80; TEMP 36.3
--- NOTE | 2020-09-14 19:41 | P.PNPSI_ITS ---
Subjective Subjective Date of Service: 09/14/20 Reason For Visit: Schizoaffective disorder Interim History: Do you think I am better? I feel better. Remains with psychosis, isolative, seen x 2 but in bed both times. Review of Systems Reports Abnormal speech present, Reports behavioral changes and Reports confusion Psychiatric: Reports abnormal sleep pattern, Reports behavioral changes, Reports confusion, Reports difficulty concentrating, Reports auditory hallucinations and Reports paranoia Mental Status Exam Mental Status Exam Patient Appearance: Disheveled Patient Orientation: Person and Place Level of Consciousness: Alert Patient Behavior: Cooperative and Fearful Mood Description: Constricted and Labile Affect Description: Labile Ability to Follow Directions: Fair Speech Pattern: Spontaneous Speech Memory Description: Remote Impaired Hallucinations: None (he denies, then reports some of the time) Delusions: Paranoid Ideation Thought Process: Illogical and Slowed Thinking Thought Content: positive for [place], positive for Perseveration, positive for Poverty of Content, positive for Preoccupation and positive for Disorganized Depressive Symptoms: Diff. Making Decisions, Loss of Int. in Activity and Loss of Energy Judgement: Fair Diagnostics Vital Signs (24Hr): Vital Signs - 24 hr 09/14/20 04:28 09/14/20 18:00 Temperature 98.3 F 97.3 F Pulse Rate 87 80 Respiratory Rate 20 Blood Pressure 141/82 H 112/69 Pulse Oximetry 96 Body Mass Index 54.9 Labs Results: 09/10/20 18:42 09/10/20 18:42 Medications Medications Current Medications Generic Name Dose Route Start Last Admin Trade Name Freq PRN Reason Stop Dose Admin Acetaminophen 650 mg 09/11/20 00:37 09/13/20 16:43 Acetaminophen 325 Mg Tablet PO 650 mg Q6H PRN Administration Headache/Pain Mild Scale (1-3) Acetaminophen 650 mg 09/11/20 21:24 Acetaminophen 325 Mg Tablet PO Q6H PRN Headache/Pain Mild Scale (1-3) Al Hydroxide/Mg Hydroxide 30 ml 09/11/20 00:37 Magnesium Hydrox/Alum Hydrox 30 Ml Oral.Susp PO Q6H PRN Heartburn/Nausea Al Hydroxide/Mg Hydroxide 30 ml 09/11/20 21:24 Magnesium Hydrox/Alum Hydrox 30 Ml Oral.Susp PO Q6H PRN Heartburn/Nausea Levothyroxine Sodium 75 mcg 09/11/20 06:00 09/14/20 06:13 Levothyroxine Sodium 75 Mcg Tablet PO 75 mcg DAILY@0600 IMANI Administration [place] Carbonate 600 mg 09/11/20 09:00 09/14/20 08:14 [place] Carbonate 300 Mg Tablet PO 600 mg BID IMANI Administration Lorazepam 0.5 mg 09/11/20 00:22 09/14/20 06:14 Lorazepam 0.5 Mg Tablet PO 0.5 mg Q6H PRN Administration agitation Magnesium Hydroxide 30 ml 09/11/20 00:37 Milk Of Magnesia 30 Ml Oral.Susp PO DAILY PRN Constipation Magnesium Hydroxide 30 ml 09/11/20 21:24 Milk Of [place]esia 30 Ml Oral.Susp PO DAILY PRN Constipation Risperidone 3 mg 09/11/20 09:00 09/14/20 08:14 Risperidone 3 Mg Tablet PO 3 mg DAILY IMANI Administration Risperidone 2 mg 09/12/20 21:00 09/13/20 20:28 Risperidone 2 Mg Tablet PO 2 mg BEDTIME IMANI Administration Trazodone HCl 50 mg 09/11/20 00:37 09/13/20 23:56 Trazodone Hcl 50 Mg Tablet PO 50 mg BEDTIME PRN Administration Insomnia Trazodone HCl 50 mg 09/11/20 21:24 Trazodone Hcl 50 Mg Tablet PO BEDTIME PRN Insomnia Allergies Allergies Allergy/AdvReac Type Severity Reaction Status Date / Time haloperidol [From HALDOL] Allergy Unknown DISTONIC Verified 06/03/20 02:40 REACTION Assessment & Plan Assessment & Plan (1) Schizoaffective disorder: Qualifiers: Schizoaffective disorder type: bipolar Qualified Code(s): F25.0 - Sc hizoaffective disorder, bipolar type Status: Acute Code(s): F25.9 - Schizoaffective disorder, unspecified Assessment and Plan: -Continue plan of care Greater than 50% of the session was spent on counseling and/or coordination of care
[2020-09-14] MEDS: risperiDONE 2 MG TABLET PO (20:42)
[2020-09-15 04:50] VITALS: BP 134/91; PULSE 120; RESP 18; TEMP 36.6; O2SAT 95
[2020-09-15] MEDS: Levothyroxine Sodium 75 MCG TABLET PO (04:50)
[2020-09-15] MEDS: LORazepam 0.5 MG TABLET PO ×2 (05:01→11:41)
[2020-09-15] MEDS: risperiDONE 3 MG TABLET PO ×2 (08:23→21:41)
[2020-09-15] MEDS: Lithium Carbonate 300 MG TABLET 600 MG PO ×2 (08:23→21:41)
[2020-09-15 18:00] VITALS: BP 115/62; PULSE 75; TEMP 36.2
--- NOTE | 2020-09-15 19:38 | HO.PSYCHPN ---
Subjective Subjective Date of Service: 09/15/20 Reason For Visit: Schizoaffective disorder Interim History: Pt reports feeling improved, however states we could increase his medication. Agreed to labs, discussed his regime and responded to questions regarding medicines, target symptoms. Continues with . Medication Compliance: Yes Side effects from medications: No Attending Groups: No (denies, however, seen in group briefly) Review of Systems Review of Systems Yes all other systems are reviewed and are negative (denies medical sx.) Reports Abnormal speech present, Reports behavioral changes and Reports confusion Psychiatric: Reports behavioral changes, Reports confusion, Reports difficulty concentrating, Reports auditory hallucinations and Reports paranoia Mental Status Exam Mental Status Exam Patient Appearance: Appropriate Patient Orientation: Person, Place and Situation Level of Consciousness: Alert Patient Behavior: Appropriate Mood Description: Calm Affect Description: Suspicious and Constricted Patient Cognition Impaired: No Ability to Follow Directions: Fair Speech Pattern: Spontaneous Speech Memory Description: Remote Impaired Hallucinations: Auditory Thought Process: Distracted and Rumination Thought Content: positive for Circumstantial Judgement: Fair Diagnostics Vital Signs (24Hr): Vital Signs - 24 hr 09/15/20 04:50 Temperature 98 F Pulse Rate 120 H Respiratory Rate 18 Blood Pressure 134/91 H Pulse Oximetry 95 Body Mass Index 54.9 Labs Results: 09/10/20 18:42 09/10/20 18:42 Medications Medications Current Medications Generic Name Dose Route Start Last Admin Trade Name Freq PRN Reason Stop Dose Admin Acetaminophen 650 mg 09/11/20 00:37 09/13/20 16:43 Acetaminophen 325 Mg Tablet PO 650 mg Q6H PRN Administration Headache/Pain Mild Scale (1-3) Acetaminophen 650 mg 09/11/20 21:24 Acetaminophen 325 Mg Tablet PO Q6H PRN Headache/Pain Mild Scale (1-3) Al Hydroxide/Mg Hydroxide 30 ml 09/11/20 00:37 Magnesium Hydrox/Alum Hydrox 30 Ml Oral.Susp PO Q6H PRN Heartburn/Nausea Al Hydroxide/Mg Hydroxide 30 ml 09/11/20 21:24 Magnesium Hydrox/Alum Hydrox 30 Ml Oral.Susp PO Q6H PRN Heartburn/Nausea Levothyroxine Sodium 75 mcg 09/11/20 06:00 09/15/20 04:50 Levothyroxine Sodium 75 Mcg Tablet PO 75 mcg DAILY@0600 IMANI Administration [place] Carbonate 600 mg 09/11/20 09:00 09/15/20 08:23 [place] Carbonate 300 Mg Tablet PO 600 mg BID IMANI Administration Lorazepam 0.5 mg 09/11/20 00:22 09/15/20 11:41 Lorazepam 0.5 Mg Tablet PO 0.5 mg Q6H PRN Administration agitation Magnesium Hydroxide 30 ml 09/11/20 00:37 Milk Of Magnesia 30 Ml Oral.Susp PO DAILY PRN Constipation Magnesium Hydroxide 30 ml 09/11/20 21:24 Milk Of Magnesia 30 Ml Oral.Susp PO DAILY PRN Constipation Risperidone 3 mg 09/15/20 21:00 Risperidone 3 Mg Tablet PO BID IMANI Trazodone HCl 50 mg 09/11/20 00:37 09/13/20 23:56 Trazodone Hcl 50 Mg Tablet PO 50 mg BEDTIME PRN Administration Insomnia Trazodone HCl 50 mg 09/11/20 21:24 Trazodone Hcl 50 Mg Tablet PO BEDTIME PRN Insomnia Allergies Allergies Allergy/AdvReac Type Severity Reaction Status Date / Time haloperidol [From HALDOL] Allergy Unknown DISTONIC Verified 06/03/20 02:40 REACTION Assessment & Plan Assessment & Plan (1) Schizoaffective disorder: Qualifiers: Schizoaffective disorder type: bipolar Qualified Code(s): F25.0 - Schizoaffective disorder, bipolar type Status: Acute Code(s): F25.9 - Schizoaffective disorder, unspecified Assessment and Plan: -Increase Risperdal to 3 mg bid -[place] level and TSH 09/16/20. Greater than 50% of the session was spent on counseling and/or coordination of care
[2020-09-16] MEDS: traZODone HCL 50 MG TABLET PO (01:21)
[2020-09-16 05:05] VITALS: BP 98/63; PULSE 108; RESP 18; TEMP 37.1; O2SAT 96
[2020-09-16] MEDS: Levothyroxine Sodium 75 MCG TABLET PO (05:18)
[2020-09-16 08:34] LABS: Lithium 0.29 mmol/L (0.60-1.20)
[2020-09-16 09:01] LABS: Thyroid Stimulating Hormone 1.11 uIU/mL (0.32-4.0)
[2020-09-16] MEDS: Lithium Carbonate 300 MG TABLET 600 MG PO ×2 (09:29→21:49)
[2020-09-16] MEDS: risperiDONE 3 MG TABLET PO ×2 (09:30→21:49)
--- NOTE | 2020-09-16 14:27 | P.PNPSI_ITS ---
Subjective Subjective Date of Service: 09/16/20 Reason For Visit: Schizoaffective disorder Interim History: Nursing notes reviewed. Pt has been mostly in room, minimally interactive with peers. Pt reports less CAH. He reports voices have lessened. He denies HI/SI. He reports feeling less paranoid about people trying to hurt him. He reports sleeping and eating well. He asks if he can go home soon. He is taking medications as prescribed. On mouth checks. Review of Systems Review of Systems Yes all other systems are reviewed and are negative Reports Abnormal speech present, Reports behavioral changes and Reports confusion Psychiatric: Reports behavioral changes and Reports confusion Mental Status Exam Mental Status Exam Narrative: Appearance: MO male, poor hygiene, in NAD Behavior: mostly cooperative, suspicious at times Psychomotor: no agitation or retardation noted Speech: rambles at times, slowed response rate at times, spontaneous TP: derailment/disorganized TC: paranoid delusions, CAH Mood: anxious Affect: congruent, restricted range. AH/VH:+AH Delusions: paranoid delusions Insight/judment: poor x 2. Memory/cog:impaired secondary to psychiatric symptoms. Diagnostics Vital Signs (24Hr): Vital Signs - 24 hr 09/15/20 18:00 09/16/20 05:05 Temperature 97.2 F 98.8 F Pulse Rate 75 108 H Respiratory Rate 18 Blood Pressure 115/62 98/63 Pulse Oximetry 96 Body Mass Index 54.9 Labs Results: 09/10/20 18:42 09/10/20 18:42 Labs: Laboratory Results - last 48 hr 09/16/20 09/16/20 07:54 07:54 TSH 1.11 [place] 0.29 L Medications Medications Current Medications Generic Name Dose Route Start Last Admin Trade Name Freq PRN Reason Stop Dose Admin Acetaminophen 650 mg 09/11/20 00:37 09/13/20 16:43 Acetaminophen 325 Mg Tablet PO 650 mg Q6H PRN Administration Headache/Pain Mild Scale (1-3) Al Hydroxide/Mg Hydroxide 30 ml 09/11/20 00:37 Magnesium Hydrox/Alum Hydrox 30 Ml Oral.Susp PO Q6H PRN Heartburn/Nausea Al Hydroxide/Mg Hydroxide 30 ml 09/11/20 21:24 Magnesium Hydrox/Alum Hydrox 30 Ml Oral.Susp PO Q6H PRN Heartburn/Nausea Levothyroxine Sodium 75 mcg 09/11/20 06:00 09/16/20 05:18 Levothyroxine Sodium 75 Mcg Tablet PO 75 mcg DAILY@0600 IMANI Administration [place] Carbonate 600 mg 09/11/20 09:00 09/16/20 09:29 [place] Carbonate 300 Mg Tablet PO 600 mg BID IMANI Administration Lorazepam 1 mg 09/16/20 14:19 Lorazepam 1 Mg Tablet PO Q6H PRN Anxiety Magnesium Hydroxide 30 ml 09/11/20 00:37 Milk Of Magnesia 30 Ml Oral.Susp PO DAILY PRN Constipation Magnesium Hydroxide 30 ml 09/11/20 21:24 Milk Of Magnesia 30 Ml Oral.Susp PO DAILY PRN Constipation Risperidone 3 mg 09/15/20 21:00 09/16/20 09:30 Risperidone 3 Mg Tablet PO 3 mg BID IMANI Administration Trazodone HCl 50 mg 09/11/20 00:37 09/16/20 01:21 Trazodone Hcl 50 Mg Tablet PO 50 mg BEDTIME PRN Administration Insomnia Trazodone HCl 50 mg 09/11/20 21:24 Trazodone Hcl 50 Mg Tablet PO BEDTIME PRN Insomnia Allergies Allergies Allergy/AdvReac Type Severity Reaction Status Date / Time haloperidol [From HALDOL] Allergy Unknown DISTONIC Verified 06/03/20 02:40 REACTION Assessment & Plan Assessment & Plan (1) Schizoaffective disorder: Qualifiers: Schizoaffective disorder type: bipolar Qualified Code(s): F25.0 - Schizoaffective disorder, bipolar type Status: Acute Code(s): F25.9 - Schizoaffective disorder, unspecified Assessment and Plan: 1. Continue risperidone to 3mg po BID. 2. Last dose trinza 546mg IM q3 months on 07/06/2020, next one 10/06/2020. Consider change to another JAMES or sustenna as Trinza does not appear to be effective for pt. 3. Start lorazepam prn for anxiety. Greater than 50% of the session was spent on counseling and/or coordination of care
[2020-09-16] MEDS: LORazepam 1 MG TABLET PO (14:53)
[2020-09-16 15:00] VITALS: BP 133/73; PULSE 67; RESP 20; TEMP 36.5; O2SAT 95
[2020-09-16 17:50] VITALS: BP 133/88; PULSE 97; TEMP 36.9
[2020-09-16] MEDS: Acetaminophen 325 MG TABLET 650 MG PO (19:04)
[2020-09-17 06:35] VITALS: BP 127/77; PULSE 70; RESP 18; O2SAT 94
[2020-09-17] MEDS: Levothyroxine Sodium 75 MCG TABLET PO (06:36)
[2020-09-17] MEDS: risperiDONE 3 MG TABLET PO ×2 (08:46→20:26)
[2020-09-17] MEDS: Lithium Carbonate 300 MG TABLET 600 MG PO ×2 (08:46→20:26)
[2020-09-17] MEDS: LORazepam 1 MG TABLET PO ×2 (09:31→20:26)
--- NOTE | 2020-09-17 15:38 | HO.PSYCHPN ---
Subjective Subjective Date of Service: 09/17/20 Reason For Visit: Schizoaffective disorder Interim History: Nursing notes reviewed. Pt increasingly more visible in the unit. He reports that voices have decreased. He does not think people are going after him. He also reports that he is sleeping and eating better. He reports he smokes marijuana with friends. Pt educated on effects of cannabinoids on psychosis. He denies SI/HI. No behavioral concerns. Review of Systems Review of Systems Yes all other systems are reviewed and are negative Reports Abnormal speech present, Reports behavioral changes and Reports confusion Psychiatric: Reports behavioral changes and Reports confusion Mental Status Exam Mental Status Exam Narrative: Appearance: MO male, poor hygiene, in NAD Behavior: mostly cooperative, suspicious at times Psychomotor: no agitation or retardation noted Speech: rambles at times, slowed response rate at times, spontaneous TP: derailment/disorganized TC: paranoid delusions, CAH Mood: anxious Affect: congruent, restricted range. AH/VH:+AH Delusions: paranoid delusions Insight/judment: poor x 2. Memory/cog:impaired secondary to psychiatric symptoms. Patient Appearance: Appropriate Patient Orientation: Person, Place and Situation Level of Consciousness: Alert Patient Behavior: Appropriate Mood Description: Calm Affect Description: Suspicious and Constricted Patient Cognition Impaired: No Ability to Follow Directions: Fair Speech Pattern: Spontaneous Speech Memory Description: Remote Impaired Diagnostics Vital Signs (24Hr): Vital Signs - 24 hr 09/16/20 17:50 09/17/20 06:35 Temperature 98.5 F Pulse Rate 97 70 Respiratory Rate 18 Blood Pressure 133/88 127/77 Pulse Oximetry 94 Body Mass Index 54.9 Labs Results: 09/10/20 18:42 09/10/20 18:42 Labs: Laboratory Results - last 48 hr 09/16/20 09/16/20 07:54 07:54 TSH 1.11 [employer] [facility] 0.29 L Medications Medications Current Medications Generic Name Dose Route Start Last Admin Trade Name Freq PRN Reason Stop Dose Admin Acetaminophen 650 mg 09/11/20 00:37 09/16/20 19:04 Acetaminophen 325 Mg Tablet PO 650 mg Q6H PRN Administration Headache/Pain Mild Scale (1-3) Al Hydroxide/Mg Hydroxide 30 ml 09/11/20 00:37 Magnesium Hydrox/Alum Hydrox 30 Ml Oral.Susp PO Q6H PRN Heartburn/Nausea Al Hydroxide/Mg Hydroxide 30 ml 09/11/20 21:24 Magnesium Hydrox/Alum Hydrox 30 Ml Oral.Susp PO Q6H PRN Heartburn/Nausea Levothyroxine Sodium 75 mcg 09/11/20 06:00 09/17/20 06:36 Levothyroxine Sodium 75 Mcg Tablet PO 75 mcg DAILY@0600 IMANI Administration [employer] [facility] Carbonate 600 mg 09/11/20 09:00 09/17/20 08:46 [facility] Carbonate 300 Mg Tablet PO 600 mg BID IMANI Administration Lorazepam 1 mg 09/16/20 14:19 09/17/20 09:31 Lorazepam 1 Mg Tablet PO 1 mg Q6H PRN Administration Anxiety Magnesium Hydroxide 30 ml 09/11/20 00:37 Milk Of Magnesia 30 Ml Oral.Susp PO DAILY PRN Constipation Magnesium Hydroxide 30 ml 09/11/20 21:24 Milk Of Magnesia 30 Ml Oral.Susp PO DAILY PRN Constipation Risperidone 3 mg 09/15/20 21:00 09/17/20 08:46 Risperidone 3 Mg Tablet PO 3 mg BID IMANI Administration Trazodone HCl 50 mg 09/11/20 00:37 09/16/20 01:21 Trazodone Hcl 50 Mg Tablet PO 50 mg BEDTIME PRN Administration Insomnia Trazodone HCl 50 mg 09/11/20 21:24 Trazodone Hcl 50 Mg Tablet PO BEDTIME PRN Insomnia Allergies Allergies Allergy/AdvReac Type Severity Reaction Status Date / Time haloperidol [From HALDOL] Allergy Unknown DISTONIC Verified 06/03/20 02:40 REACTION Assessment & Plan Assessment & Plan (1) Schizoaffective disorder: Qualifiers: Schizoaffective disorder type: bipolar Qualified Code(s): F25.0 - Schizoaffective disorder, bipolar type Status: Acute Code(s): F25.9 - Schizoaffective disorder, unspecified Assessment and Plan: 1. Continue risperidone to 3mg po daily and 4mg po qhs. 2. Last dose trinza 546mg IM q3 months on 07/06/2020, next one 10/06/2020. Consider change to another JAMES or sustenna as Trinza does not appear to be effective for pt. 3. Start lorazepam prn for anxiety. Greater than 50% of the session was spent on counseling and/or coordination of care
[2020-09-17 16:45] VITALS: BP 130/78; PULSE 97; TEMP 36.6
[2020-09-18 06:15] VITALS: BP 137/87; PULSE 79; RESP 20; TEMP 36.9; O2SAT 97
[2020-09-18] MEDS: Levothyroxine Sodium 75 MCG TABLET PO (06:23)
[2020-09-18] MEDS: risperiDONE 3 MG TABLET PO ×2 (09:05→20:25)
[2020-09-18] MEDS: Lithium Carbonate 300 MG TABLET 600 MG PO ×2 (09:06→20:25)
[2020-09-18] MEDS: Acetaminophen 325 MG TABLET 650 MG PO ×2 (10:30→19:49)
[2020-09-18] MEDS: LORazepam 1 MG TABLET PO ×2 (10:30→19:49)
--- NOTE | 2020-09-18 12:55 | P.PNPSI_ITS ---
Subjective Subjective Date of Service: 09/18/20 Reason For Visit: Schizoaffective disorder Interim History: Nursing notes reviewed. Pt at times continues to report some delusional content such as asking staff to communicate via telepathy and also reported his OP psychiatrist was the devil. He continues to report that voices have decreased and he does appear less fearful and hypervigilant. He does not think people are going after him. He also reports that he is sleeping and eating better. He reports he smokes marijuana with friends. Pt educated on effects of cannabis on psychosis. He denies SI/HI. No behavioral concerns. Review of Systems Review of Systems Yes all other systems are reviewed and are negative Reports Abnormal speech present, Reports behavioral changes and Reports confusion Psychiatric: Reports behavioral changes and Reports confusion Mental Status Exam Mental Status Exam Narrative: Appearance: MO male, poor hygiene, in NAD Behavior: mostly cooperative, suspicious at times Psychomotor: no agitation or retardation noted Speech: rambles at times, slowed response rate at times, spontaneous TP: derailment/disorganized TC: paranoid delusions, CAH Mood: anxious Affect: congruent, restricted range. AH/VH:+AH Delusions: paranoid delusions Insight/judment: poor x 2. Memory/cog:impaired secondary to psychiatric symptoms. Patient Appearance: Appropriate Patient Orientation: Person, Place and Situation Level of Consciousness: Alert Patient Behavior: Appropriate Mood Description: Calm Affect Description: Suspicious and Constricted Patient Cognition Impaired: No Ability to Follow Directions: Fair Speech Pattern: Spontaneous Speech Memory Description: Remote Impaired Diagnostics Vital Signs (24Hr): Vital Signs - 24 hr 09/17/20 16:45 09/18/20 06:15 Temperature 97.9 F 98.4 F Pulse Rate 97 79 Respiratory Rate 20 Blood Pressure 130/78 137/87 Pulse Oximetry 97 Body Mass Index 54.9 Labs Results: 09/10/20 18:42 09/10/20 18:42 Medications Medications Current Medications Generic Name Dose Route Start Last Admin Trade Name Freq PRN Reason Stop Dose Admin Acetaminophen 650 mg 09/11/20 00:37 09/18/20 10:30 Acetaminophen 325 Mg Tablet PO 650 mg Q6H PRN Administration Headache/Pain Mild Scale (1-3) Al Hydroxide/Mg Hydroxide 30 ml 09/11/20 00:37 Magnesium Hydrox/Alum Hydrox 30 Ml Oral.Susp PO Q6H PRN Heartburn/Nausea Al Hydroxide/Mg Hydroxide 30 ml 09/11/20 21:24 Magnesium Hydrox/Alum Hydrox 30 Ml Oral.Susp PO Q6H PRN Heartburn/Nausea Levothyroxine Sodium 75 mcg 09/11/20 06:00 09/18/20 06:23 Levothyroxine Sodium 75 Mcg Tablet PO 75 mcg DAILY@0600 IMANI Administration [place] Carbonate 600 mg 09/11/20 09:00 09/18/20 09:06 [place] Carbonate 300 Mg Tablet PO 600 mg BID IMANI Administration Lorazepam 1 mg 09/16/20 14:19 09/18/20 10:30 Lorazepam 1 Mg Tablet PO 1 mg Q6H PRN Administration Anxiety Magnesium Hydroxide 30 ml 09/11/20 00:37 Milk Of Magnesia 30 Ml Oral.Susp PO DAILY PRN Constipation Magnesium Hydroxide 30 ml 09/11/20 21:24 Milk Of Magnesia 30 Ml Oral.Susp PO DAILY PRN Constipation Risperidone 3 mg 09/15/20 21:00 09/18/20 09:05 Risperidone 3 Mg Tablet PO 3 mg BID IMANI Administration Trazodone HCl 50 mg 09/11/20 00:37 09/16/20 01:21 Trazodone Hcl 50 Mg Tablet PO 50 mg BEDTIME PRN Administration Insomnia Trazodone HCl 50 mg 09/11/20 21:24 Trazodone Hcl 50 Mg Tablet PO BEDTIME PRN Insomnia Allergies Allergies Allergy/AdvReac Type Severity Reaction Status Date / Time haloperidol [From HALDOL] Allergy Unknown DISTONIC Verified 06/03/20 02:40 REACTION Assessment & Plan Assessment & Plan (1) Schizoaffective disorder: Qualifiers: Schizoaffective disorder type: bipolar Qualified Code(s): F25.0 - Schizoaffective disorder, bipolar type Status: Acute Code(s): F25.9 - Schizoaffective disorder, unspecified Assessment and Plan: 1. Continue risperidone to 3mg po daily and 4mg po qhs. 2. Last dose trinza 546mg IM q3 months on 07/06/2020, next one 10/06/2020. Consider change to another JAMES or sustenna as Trinza does not appear to be effective for pt. 3. Start lorazepam prn for anxiety. Greater than 50% of the session was spent on counseling and/or coordination of care
[2020-09-18 18:00] VITALS: BP 140/86; PULSE 82; TEMP 37
[2020-09-19] MEDS: Levothyroxine Sodium 75 MCG TABLET PO (06:14)
[2020-09-19 06:30] VITALS: BP 138/99; PULSE 78; RESP 20; TEMP 36.8; O2SAT 95
[2020-09-19 07:00] VITALS: BMI 55.6
[2020-09-19] MEDS: risperiDONE 3 MG TABLET PO (08:48)
[2020-09-19] MEDS: Lithium Carbonate 300 MG TABLET 600 MG PO (08:48)
--- NOTE | 2020-09-19 11:56 | PM.PSYDC ---
DS: Providers Provider Date of Service: 09/19/20 Date of admission: 09/11/20 00:08 Primary care physician: [facility] Attending physician on discharge: Ninoska Magallon DS: Diagnosis Discharge Diagnosis (1) Schizoaffective disorder: Status: Acute DS: Medications Discharge Medications Home Medications: Previous Rx's Medication Instructions Recorded levothyroxine 75 mcg PO DAILY@0600 30 Days #30 09/19/20 tab lithium carbonate 600 mg PO BID 30 Days #120 tab 09/19/20 paliperidone palmitate [Invega 234 mg IM Q30D 30 Days #1.5 ml 09/19/20 Sustenna] risperidone 3 mg PO BID 30 Days #60 tab 09/19/20 trazodone 50 mg PO BEDTIME PRN 30 Days #30 09/19/20 tab Discharge Plan Discharge Patient Disposition: Home, Self-Care Referrals: [facility] [Other] - 09/19/20 (Fax- [phone] care to resume at D/C. ) Makenna Henao (therapist) [Other] - 09/20/20 12:00 pm (Appointment over the phone) Flor Fontana (psychiatrist) [Other] - 10/18/20 11:40 am (Appointment over the phone) Flor Fontana (psychiatrist) [Other] - 11/15/20 2:00 pm (Appointment over the phone) Beth Ortega MD [Physician] - 09/30/20 10:30 am (VIA TELEHEALTH) Discharge Medications: New trazodone 50 mg Tablet 50 mg PO BEDTIME PRN (Reason: Insomnia) 30 Days Qty: 30 RF: 0 risperidone 3 mg Tablet 3 mg PO BID 30 Days Qty: 60 RF: 0 levothyroxine 75 mcg Tablet 75 mcg PO DAILY@0600 30 Days Qty: 30 RF: 0 lithium carbonate 300 mg Tablet 600 mg PO BID 30 Days Qty: 120 RF: 0 Invega Sustenna 234 mg/1.5 mL syringe 234 mg IM Q30D 30 Days Qty: 1.5 RF: 0 Discontinued Risperdal tablet 3 mg PO DAILY Qty: 30 RF: 0 lithium carbonate tablet 600 mg PO BID Qty: 120 RF: 0 Invega Sustenna implant 156 mg IM Q28D RF: 0 levothyroxine [Synthroid] 75 mcg tablet 75 mcg PO DAILY@0600 RF: 0 Discharge Orders: Discharge Order (Routine); Ordered 09/19/20 Ordered By: Ninoska Magallon Diet: advance to usual diet Activity on Discharge: As tolerated Stand Alone Forms: Patient Portal Discharge page, Community Support Visit Report Forms: Patient Portal Discharge page Care Plan Goals: 1.Follow up with OP providers 2. Take medications as prescribed Health Concerns: 1. Follow up with PCP Plan of Treatment: 1. Take medications as prescribed. Mental Status Exam Mental Status Exam Narrative: Appearance: MO male, improved hygiene, in NAD Behavior: mostly cooperative, suspicious at times Psychomotor: no agitation or retardation noted Speech: mostly clear, slowed response rate at times, spontaneous TP: some derailment noted but much more coherent and logical TC: paranoid delusions, CAH Mood: better Affect: congruent, restricted range. AH/VH:less +AH Delusions: less paranoid delusions Insight/judment: poor x 2. Memory/cog:impaired secondary to psychiatric symptoms. Patient Appearance: Appropriate Patient Orientation: Person, Place and Situation Level of Consciousness: Alert Patient Behavior: Appropriate Mood Description: Calm Affect Description: Suspicious and Constricted Patient Cognition Impaired: No Ability to Follow Directions: Fair Speech Pattern: Spontaneous Speech Memory Description: Remote Impaired Data Data Completed and Pending Completed studies during hospitalization [Text1]: 09/16/20 09/16/20 07:54 07:54 TSH 1.11 [place] 0.29 L DS: Summary Hospital Course Hospital Course: Mr. Bullock is a 30 year-old male with hx of Schizoaffective disorder who is known to [facility] through several inpatient admission with similar presentation including increased CAH, paranoid delusions, disorganized behavior. Mr. Quintana was brought to ED due increased CAH reporting HI without plan or specific target. On the unit, he presented as guarded and fearful. He reported hearing voices telling him that others were trying to kill him. He reported feeling suspicious towards roommate who he thought was not thrust worthy. He denies suicidal ideation. Collateral information was gathered mostly from [facility], given that neigther his parents nor OP psychiatrist from [facility], Dr. Stephen return the team's phone call. Pt was recently switched from Invega Sustenna to Invega Trinza. he received last dose of Trinza on 07/06/2020, next dose scheduled for 10/06/2019. Per [facility], pt appeared to decompensate with Trinza and more stable with Sustenna. It is unclear if patient was taking oral medications including dose of risperidone 3mg po daily and [place] 300mg po BID. Pt has Guardian and Community Luke. His Guardian is attorney recruiter Edmund Sainialexandra, who was informed of patient's admission and aftercare plans. On the unit, risperidone was gradually increased from 3mg po daily to 3mg po BID. Given that next dose of JAMES, isn't due until 10/06/2020, no new JAMES could be introduced at this time but it does appear that TRinza is not adequately treating symptoms of psychosis. Recomendation is to resume Invega Sustenna 234mg IM on 10/06/2020, instead of Trinza. In the mean time, pt advised to contiue increased dose of oral risperidone. Mr. Williamson gradually appears less guarded, less paranoid and suspicious. He reported decreased AH, paranoid delusions. He continued to present with some residual symptoms including thinking that he could communicate telepathically with others. He did not showed any signs of aggression towards self or others. There were no incidences of disruptive behaviors nor use of restraints. He was sleeping and eating well. He was increasingly more visible in the unit and social with selected peers. Status at Discharge Cognitive/behavioral status at discharge: Pt appears much less guarded and less suspicious. He reports decreased CAH. No SI/HI. No signs of aggression towards self or others. Functional status at discharge: independent ambulation Overall status at discharge: patient is not back to baseline Time Spent with Patient Time attestation: Total time spent providing and/or coordinating discharge services: Time spent: Less than 30 minutes
== END 2020-09-19 13:20 | disposition home or self-care (01) | DRG 750 ==
LOC: HO.ED 21:04 → HO.PM5 09-11 00:32
PROVIDERS: Clinical Nurse Specialist Psychiatric/Mental Health, Adult; Internal Medicine; Admitting Provider Psychiatry & Neurology Psychiatry; Emergency Provider Emergency Medicine Emergency Medical Services; Visit Provider Social Worker
DX: F25.0 Schizoaffective disorder, bipolar type (principal); R45.850 Homicidal ideations; E03.9 Hypothyroidism, unspecified; F17.210 Nicotine dependence, cigarettes, uncomplicated; Z20.822 Contact with and (suspected) exposure to COVID-19; Z23 Encounter for immunization; Z71.6 Tobacco abuse counseling; Z79.890 Hormone replacement therapy; Z79.899 Other long term (current) drug therapy
CPT/HCPCS: 36415; 80053; 80061; 80178; 80307; 82607; 82746; 83036; 83735; 84439; 84443; 85025; 87635; 90686; 90792; 93005; 99231; 99232; 99239; 99285

== ENCOUNTER 2020-12-16 22:28 | Emergency (ER) | payer MEDICAID, SELFPAY ==
[2020-12-16 22:36] VITALS: BP 166/107; PULSE 95; RESP 18; TEMP 36.6; O2SAT 97; BMI 46.1
--- NOTE | 2020-12-16 22:41 | ED.PSYCH ---
HPI - Psych General Chief Complaint: Psychiatric Symptoms Stated Complaint: crisis Time Seen by Provider: 12/16/20 22:41 Source: patient and EMS Mode of arrival: EMS Limitations: no limitations History of Present Illness HPI Narrative: 30 yo male with schizoaffective disorder ?on medications here with agitation and not feeling safe at home, seen by [facility] - inpatient bed search MD complaint: feels depressed and anxiety Onset (ago): day(s) Duration: constant History of same: Yes Relieving factors: none Exacerbating factors: none Context: not taking psychiatric medications (possible) Associated psychiatric symptoms: depression Associated symptoms: denies other symptoms Treatments prior to arrival: placed on mental health hold Related Data Previous Rx's Medication Instructions Recorded levothyroxine 75 mcg PO DAILY@0600 30 Days #30 09/19/20 tab lithium carbonate 600 mg PO BID 30 Days #120 tab 09/19/20 paliperidone palmitate [Invega 234 mg IM Q30D 30 Days #1.5 ml 09/19/20 Sustenna] risperidone 3 mg PO BID 30 Days #60 tab 09/19/20 trazodone 50 mg PO BEDTIME PRN 30 Days #30 09/19/20 tab Allergies Allergy/AdvReac Type Severity Reaction Status Date / Time haloperidol [From HALDOL] Allergy Unknown DISTONIC Verified 06/03/20 02:40 REACTION Review of Systems Review of Systems: Constitutional : No Weight loss, No Fever, No Chills, No Fatigue, No Malaise ENT/Mouth : No sore throat, No Rhinorrhea Eyes: No Eye Pain, No Swelling, No Redness Cardiovascular : No Chest Pain, No SOB, No Dyspnea on Exertion, No Orthopnea, No Edema, No Palpitations Respiratory : No Cough, No Sputum, No Wheezing Gastrointestinal : No Nausea, No Vomiting, No Diarrhea, No Constipation, No abdominal Pain, No Hematochezia, No Melena Genitourinary : No Dysuria, No Urinary Frequency, No Hematuria, Musculoskeletal : No joint pain, No Myalgias, No Joint Swelling Skin : No Skin Lesions, No rash Neuro : No Weakness, No Numbness, No Dizziness, No Headache Psych : pos Anxiety/Panic, pos Depression, denies SI All other systems reviewed and are negative [facility] Past Medical History Attestation statement: The following information was validated with the patient. Medical History Asthma Hypothyroid Schizoaffective disorder Social History Social History Household Members: Family Housing: House Alcohol intake: never Smoking Status: Current every day smoker Tobacco Type: Cigarette Packs Per Day: 0.5 Cigarettes Per Day: 14 Years Smoked: 16 Second Hand Smoke Exposure: Yes Substance Use Type: Marijuana Advance Directives: No service: No Sexual orientation: Unable to discuss Physical Exam Vital Signs: Vital Signs: Last Vital Signs Temp 97.8 F 12/16/20 22:36 Pulse 95 12/16/20 22:36 Resp 18 12/16/20 22:36 BP 166/107 H 12/16/20 22:36 Pulse Ox 97 12/16/20 22:36 Body Mass Index 46.1 Appearance: Alert. Oriented X3. No acute distress. Eyes: Pupils equal, round and reactive to light. ENT: Pharynx normal. Neck: Normal inspection. Neck supple. CVS: Normal heart rate and rhythm. Pulses normal. Respiratory: No respiratory distress. Breath sounds normal. Abdomen: Soft and nontender. Skin: Skin warm and dry. Normal skin color. Normal skin turgor. Extremities: No lower extremity edema. No calf ttp Neuro: Oriented X 3. No motor deficit. No sensory deficit. Psych: Flat affect, no SI/HI, I was unsafe at home. Course Course Course Narrative: Physician observation started at 1114pm Patient placed in physician observation because the patient needed more time for BHN and psychiatric placement for schizoaffective disorder. 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 in [place], will need labs, COVID swab Lab Data Result diagrams: 12/16/20 23:20 12/16/20 23:20 Labs: Lab Results 12/16/20 12/16/20 12/16/20 Range/Units 23:20 23:20 23:20 WBC 10.2 (4.8-10.8) X10*3/uL RBC 4.78 (4.60-5.80) X10*6/uL Hgb 13.7 L (14.0-18.0) g/dl Hct 42.6 (42-52) % MCV 89.1 (80-98) fL MCH 28.7 (27.0-33.0) pg MCHC 32.2 (31.0-36.0) g/dl RDW 13.4 (11.0-16.0) % Plt Count 232 (160-400) X10*3/uL MPV 10.0 (9.4-12.4) fL Immature Gran % (Auto) 0.3 (0.0-0.4) % Neut % (Auto) 60.5 (45-73) % Lymph % (Auto) 22.2 (20-40) % [place] % (Auto) 6.4 (2-11) % Eos % (Auto) 9.8 H (0-4) % Baso % (Auto) 0.8 (0-2) % Lymph # (Auto) 2.3 (1.2-4.9) X10*3/uL [place] # (Auto) 0.7 (0.1-1.2) X10*3/uL Eos # (Auto) 1.0 H (0.0-0.4) X10*3/uL Baso # (Auto) 0.1 (0.0-0.2) X10*3/uL Abs Immat Gran (auto) 0.03 (0.00-0.03) X10*3/uL Absolute Neuts (auto) 6.2 (2.0-8.3) X10*3/uL Absolute Nucleated RBC 0.000 (0.0-0.012) X10*3/uL Nucleated RBC % (auto) 0.0 (0.0-0.2) /100WBC Sodium 139 (135-145) mmol/L Potassium 4.1 (3.3-5.1) mmol/L Chloride 105 (96-108) mmol/L Carbon Dioxide 26 (22-29) mmol/L Anion Gap 12 (12-20) BUN 11 D (9-16) mg/dL Creatinine 0.78 (0.5-1.4) mg/dL Estim Creat Clear Calc 218.2 Estimated GFR > 60 Random Glucose 112 (60-115) mg/dL Calcium 9.2 (8.4-10.2) mg/dL Total Bilirubin 0.5 (0.0-1.0) mg/dL Direct Bilirubin < 0.2 (0.0-0.5) mg/dL AST 20 (5-37) U/L ALT 31 (0-40) U/L Alkaline Phosphatase 85 (39-117) U/L Total Protein 7.3 (6.5-8.0) g/dL Albumin 4.2 (3.5-5.0) g/dL Urine Opiates Screen (Not Detect) Ur Barbiturates Screen (Not Detect) Ur Phencyclidine Scrn (Not Detect) Ur Amphetamines Screen (Not Detect) U Benzodiazepines Scrn (Not Detect) [place] 0.75 (0.60-1.20) mmol/L Urine Cocaine Screen (Not Detect) U Marijuana (THC) Screen (Not Detect) Ethyl Alcohol mg/dL COVID-19 (NIC) (Negative) COVID-19 Clin Com 12/16/20 12/16/20 12/16/20 Range/Units 23:20 23:44 Unknown WBC (4.8-10.8) X10*3/uL RBC (4.60-5.80) X10*6/uL Hgb (14.0-18.0) g/dl Hct (42-52) % MCV (80-98) fL MCH (27.0-33.0) pg MCHC (31.0-36.0) g/dl RDW (11.0-16.0) % Plt Count (160-400) X10*3/uL MPV (9.4-12.4) fL Immature Gran % (Auto) (0.0-0.4) % Neut % (Auto) (45-73) % Lymph % (Auto) (20-40) % [place] % (Auto) (2-11) % Eos % (Auto) (0-4) % Baso % (Auto) (0-2) % Lymph # (Auto) (1.2-4.9) X10*3/uL [place] # (Auto) (0.1-1.2) X10*3/uL Eos # (Auto) (0.0-0.4) X10*3/uL Baso # (Auto) (0.0-0.2) X10*3/uL Abs Immat Gran (auto) (0.00-0.03) X10*3/uL Absolute Neuts (auto) (2.0-8.3) X10*3/uL Absolute Nucleated RBC (0.0-0.012) X10*3/uL Nucleated RBC % (auto) (0.0-0.2) /100WBC Sodium (135-145) mmol/L Potassium (3.3-5.1) mmol/L Chloride (96-108) mmol/L Carbon Dioxide (22-29) mmol/L Anion Gap (12-20) BUN (9-16) mg/dL Creatinine (0.5-1.4) mg/dL Estim Creat Clear Calc Estimated GFR Random Glucose (60-115) mg/dL Calcium (8.4-10.2) mg/dL Total Bilirubin (0.0-1.0) mg/dL Direct Bilirubin (0.0-0.5) mg/dL AST (5-37) U/L ALT (0-40) U/L Alkaline Phosphatase (39-117) U/L Total Protein (6.5-8.0) g/dL Albumin (3.5-5.0) g/dL Urine Opiates Screen Not Detected (Not Detect) Ur Barbiturates Screen Not Detected (Not Detect) Ur Phencyclidine Scrn Not Detected (Not Detect) Ur Amphetamines Screen Not Detected (Not Detect) U Benzodiazepines Scrn Not Detected (Not Detect) [place] (0.60-1.20) mmol/L Urine Cocaine Screen Not Detected (Not Detect) U Marijuana (THC) Screen Not Detected (Not Detect) Ethyl Alcohol < 10 mg/dL COVID-19 (NIC) Positive A (Negative) COVID-19 Clin Com See Note Discharge Plan Discharge Clinical Impression: Schizoaffective disorder, COVID-19 Prescriptions: No Action trazodone 50 mg Tablet 50 mg PO BEDTIME PRN (Reason: Insomnia) 30 Days Qty: 30 RF: 0 risperidone 3 mg Tablet 3 mg PO BID 30 Days Qty: 60 RF: 0 levothyroxine 75 mcg Tablet 75 mcg PO DAILY@0600 30 Days Qty: 30 RF: 0 lithium carbonate 300 mg Tablet 600 mg PO BID 30 Days Qty: 120 RF: 0 Invega Sustenna 234 mg/1.5 mL syringe 234 mg IM Q30D 30 Days Qty: 1.5 RF: 0
--- NOTE | 2020-12-16 23:17 | PC.NURSE ---
[facility] called/spoke with Eta/confirmed that patient was seen in the community and disposition section 12 inpatient bed search.
[2020-12-16 23:26] LABS: Basophils Absolute Auto 0.1 X10*3/uL (0.0-0.2); Basophils Percent Auto 0.8 % (0-2); Eosinophils Percent Auto 9.8 % (0-4); Hematocrit 42.6 % (42-52); Hemoglobin 13.7 g/dl (14.0-18.0); Imm Gran Abs Auto 0.03 X10*3/uL (0.00-0.03); Imm Gran Pct Auto 0.3 % (0.0-0.4); Lymphocytes Absolute Auto 2.3 X10*3/uL (1.2-4.9); Lymphocytes Percent Auto 22.2 % (20-40); Mean Corpuscular HGB Conc 32.2 g/dl (31.0-36.0); Mean Corpuscular Hemoglobin 28.7 pg (27.0-33.0); Mean Corpuscular Volume 89.1 fL (80-98); Monocytes Absolute Auto 0.7 X10*3/uL (0.1-1.2); Monocytes Percent Auto 6.4 % (2-11); Neutrophils Absolute Auto 6.2 X10*3/uL (2.0-8.3); Neutrophils Percent Auto 60.5 % (45-73); Platelet Count 232 X10*3/uL (160-400); Red Blood Count 4.78 X10*6/uL (4.60-5.80); Red Cell Distribution Width 13.4 % (11.0-16.0); White Blood Count 10.2 X10*3/uL (4.8-10.8)
[2020-12-16 23:27] LABS: MANUAL DIFF FLAG NO
[2020-12-16 23:46] LABS: Lithium 0.75 mmol/L (0.60-1.20)
[2020-12-16 23:48] LABS: Ethanol < 10 mg/dL
[2020-12-16 23:51] LABS: IDNOW Serial# 9DD0AD1C
[2020-12-16 23:52] LABS: Alanine Aminotransferase 31 U/L (0-40); Albumin Level 4.2 g/dL (3.5-5.0); Alkaline Phosphatase 85 U/L (39-117); Anion Gap 12 (12-20); Aspartate Amino Transferase 20 U/L (5-37); Bilirubin Direct < 0.2 mg/dL (0.0-0.5); Bilirubin Total 0.5 mg/dL (0.0-1.0); Blood Urea Nitrogen 11 mg/dL (9-16); Calcium 9.2 mg/dL (8.4-10.2); Carbon Dioxide 26 mmol/L (22-29); Chloride 105 mmol/L (96-108); Creatinine Clr Calc Pharmacy 218.2; Estimated Glomerular Filt Rate > 60; Glucose Random 112 mg/dL (60-115); Potassium 4.1 mmol/L (3.3-5.1); Sodium 139 mmol/L (135-145); Total Protein 7.3 g/dL (6.5-8.0)
[2020-12-16 23:53] LABS: COVID-19 Test Positive (Negative)
[2020-12-17 00:27] LABS: Amphetamine Screen Urine Not Detected (Not Detect); Barbiturates, Urine Not Detected (Not Detect); Benzodiazepines Screen Urine Not Detected (Not Detect); Cannabinoid Screen Urine Not Detected (Not Detect); Cocaine Screen Urine Not Detected (Not Detect); Opiate Screen Urine Not Detected (Not Detect); Phencyclidine Screen Urine Not Detected (Not Detect)
--- NOTE | 2020-12-17 07:25 | PC.NURSE ---
Report received from DE Figueroa. Pt resting, resp unlabored.
[2020-12-17] MEDS: Levothyroxine Sodium 75 MCG TABLET PO (09:43)
[2020-12-17] MEDS: Lithium Carbonate 300 MG CAPSULE 600 MG PO ×2 (09:43→20:53)
[2020-12-17] MEDS: risperiDONE 3 MG TABLET PO ×2 (09:43→20:53)
--- NOTE | 2020-12-17 09:53 | PC.NURSE ---
Pt resting, awakened for medications. Pt reports he feels 'funny' but unable to identify in what way. Pt aware that he tested positive for COVID, reminded of necessary precautions, and notified that he will be transferred to main ED when a room becomes available. Pt denies depression or SI, responses to questions are appropriate.
--- NOTE | 2020-12-17 09:57 | PC.NURSE ---
Pt reports he last received last injection of Paliperodone 3 weeks ago. Will attempt to confirm w/ [facility].
[2020-12-17 14:00] VITALS: RESP 20
--- NOTE | 2020-12-17 15:08 | PC.NURSE ---
Pt awakened to assess. Pt denies any concerns at this time, resp unlabored, no coughing heard or reported. Pt awaiting transfer to main ED.
[2020-12-17 16:10] VITALS: BP 120/62; PULSE 81; RESP 18; TEMP 37.2; O2SAT 96
--- NOTE | 2020-12-17 17:39 | PC.NURSE ---
Per dry pan charger, pt is to remain in pod. Pt currently resting, resp unlabored.
--- NOTE | 2020-12-17 18:43 | PC.NURSE ---
Pt resting, resp unlabored. Pt did not eat lunch, encouraged to consider dinner but per MHA requested pasta but has not yet eaten dinner.
--- NOTE | 2020-12-17 20:58 | PC.NURSE ---
Patient in his room, resting, intermittently coughing, compliant with HS PO medication, commode placed in room, no distress reported, will continue to monitor.
[2020-12-18] MEDS: Levothyroxine Sodium 75 MCG TABLET PO (06:39)
--- NOTE | 2020-12-18 07:18 | PC.NURSE ---
Report recieved. PT currently resting, calm and cooperative. PT is inpatient bedsearch.
[2020-12-18 09:08] VITALS: BP 103/58; PULSE 76; RESP 18; TEMP 35.9; O2SAT 95
[2020-12-18] MEDS: Lithium Carbonate 300 MG CAPSULE 600 MG PO (10:28)
[2020-12-18] MEDS: risperiDONE 3 MG TABLET PO (10:28)
--- NOTE | 2020-12-18 12:38 | PC.NURSE ---
Per Jl, pt accepted to [facility] for 173 today, no nurse to nurse required.
== END 2020-12-18 15:23 ==
PROVIDERS: Emergency Provider Emergency Medicine
DX: F25.9 Schizoaffective disorder, unspecified (principal); U07.1 COVID-19; R45.1 Restlessness and agitation; F32.9 Major depressive disorder, single episode, unspecified; F41.9 Anxiety disorder, unspecified; F17.210 Nicotine dependence, cigarettes, uncomplicated; F12.90 Cannabis use, unspecified, uncomplicated; Z79.899 Other long term (current) drug therapy
CPT/HCPCS: 36415; 80048; 80076; 80178; 80307; 80320; 85025; 87635; 96372; 99285

== ENCOUNTER 2021-05-10 06:17 | Emergency (ER) | payer MEDICAID, SELFPAY ==
[2021-05-10 06:29] VITALS: BP 133/75; PULSE 80; RESP 19; TEMP 36.8; O2SAT 97; BMI 54.2
[2021-05-10 06:46] VITALS: BP 133/75; PULSE 80; RESP 19; TEMP 36.8; O2SAT 97
--- NOTE | 2021-05-10 06:59 | ED.PSYCH ---
HPI - Psych General Chief Complaint: Psychiatric Symptoms <Shirin Loja MD - Last Filed: 05/10/21 08:29> Stated Complaint: CRISIS <Shirin Loja MD - Last Filed: 05/10/21 08:29> Time Seen by Provider: 05/10/21 06:52 <Shirin Loja MD - Last Filed: 05/10/21 08:29> Source: patient <Shirin Loja MD - Last Filed: 05/10/21 08:29> Mode of arrival: ambulatory <Shirin Loja MD - Last Filed: 05/10/21 08:29> Limitations: no limitations <Shirin Loja MD - Last Filed: 05/10/21 08:29> History of Present Illness HPI Narrative: Patient comes to the emergency room complaining feeling that his right eye is popping out. Patient is convinced that his eyes have popped out bilaterally multiple times over the last year. Patient states that he has history of his eyes popping out multiple times. Patient states his vision is normal, denies eye pain. Patient has history of schizoaffective disorder, takes lithium, risperidone, trazodone. Patient denies any pain, denies suicidal or homicidal ideation. <Shirin Loja MD - Last Filed: 05/10/21 08:29> Related Data Home Medications: Home Medications Medication Instructions Recorded Confirmed amlodipine 10 mg tablet 1 tab PO DAILY 05/10/21 05/10/21 lithium carbonate 600 mg capsule 1 cap PO BID 05/10/21 05/10/21 paliperidone palm (3-month) 546 546 mg IM [id number] 05/10/21 05/10/21 mg/1.75 mL intramuscular syringe (Invega Agataza) risperidone 4 mg tablet 3 tab PO QPM 05/10/21 05/10/21 <Shirin Loja MD - Last Filed: 05/10/21 08:29> Allergies/Adverse Reactions: Allergies Allergy/AdvReac Type Severity Reaction Status Date / Time haloperidol [From HALDOL] Allergy Unknown DISTONIC Verified 06/03/20 02:40 REACTION <Shirin Loja MD - Last Filed: 05/10/21 08:29> Review of Systems Review of Systems: Constitutional : No Weight loss, No Fever, No Chills, No Night Sweats, No Fatigue, No Malaise ENT/Mouth : No Hearing loss, No Ear Pain, No Nasal Congestion, No Sinus Pain, No Hoarseness, No sore throat, No Rhinorrhea, No Swallowing Difficulty Eyes: No Eye Pain, No Swelling, No Redness, No Foreign Body, No Discharge, No Vision Changes, complaining of eyes popping out Cardiovascular : No Chest Pain, No SOB, No Dyspnea on Exertion, No Orthopnea, No Edema, No Palpitations Respiratory : No Cough, No Sputum, No Wheezing, No Smoke Exposure, No Dyspnea Gastrointestinal : No Nausea, No Vomiting, No Diarrhea, No Constipation, No abdominal Pain, No Hematochezia, No Melena Genitourinary : no irregular bleeding, No Dysuria, No Urinary Frequency, No Hematuria, No Urinary Incontinence, No Urgency, No Flank Pain, No Urinary Flow Changes, No Hesitancy Musculoskeletal : No joint pain, No Myalgias, No Joint Swelling Skin : No Skin Lesions, No rash Neuro : No Weakness, No Numbness, No Paresthesias, No Loss of Consciousness, No Dizziness, No Headache Psych : No Anxiety/Panic, No Depression, No SI/HI/AH/VH, No Social Issues, Heme/Lymph: No Bruising, No Bleeding,No Lymphadenopathy Endocrine : No Polyuria, No Polydipsia, No Temperature Intolerance <Shirin Loja MD - Last Filed: 05/10/21 08:29> [facility] Past Medical History Medical History: Medical History Asthma Hypothyroid Schizoaffective disorder <Shirin Loja MD - Last Filed: 05/10/21 08:29> Social History Social History: Social History Household Members: Family Household Members Other:: Parents Housing: House Do you presently have visiting nurse or other home services: Yes Alcohol intake: never Cigarette Packs Per Day: 0.5 Cigarettes Per Day: 14 Years Smoked: 16 Second Hand Smoke Exposure: Yes Substance Use Type: Marijuana Advance Directives: No Advance Directives Information Provided: No service: No Sexual orientation: Unable to discuss <Shirin Loja MD - Last Filed: 05/10/21 08:29> Physical Exam Vital Signs: Vital Signs: Last Vital Signs Temp 98.2 F 05/10/21 09:28 Pulse 95 05/10/21 09:28 Resp 16 05/10/21 09:28 BP 135/93 H 05/10/21 09:28 Pulse Ox 96 05/10/21 09:28 Body Mass Index 54.2 <Shirin Ljoa MD - Last Filed: 05/10/21 08:29> Vital Signs: Last Vital Signs Temp 98.2 F 05/10/21 09:28 Pulse 95 05/10/21 09:28 Resp 16 05/10/21 09:28 BP 135/93 H 05/10/21 09:28 Pulse Ox 96 05/10/21 09:28 Body Mass Index 54.2 <SATYA Hernandez - Last Filed: 05/10/21 16:55> Const: Other: Appearance: Alert. Oriented X3. No acute distress. Eyes: Pupils equal, round and reactive to light. ENT: Pharynx normal. Neck: Normal inspection. Neck supple. No lymph nodes noted. No crepitus CVS: Normal heart rate and rhythm. Pulses normal. Normal S1 and S2 Respiratory: No respiratory distress. Breath sounds normal. No Wheezing. No rales Abdomen: Soft and nontender. No rigidity. No distention. good BS x4 Skin: Skin warm and dry. Normal skin color. Normal skin turgor. Extremities: No lower extremity edema. No lower extremity edema. No Lacerations. No Rash Neuro: Oriented X 3. No motor deficit. No sensory deficit. Moving all extermities. No slurred speech. Psych: Calm, cooperative, concerned about his eyes popping out although they are normal <Shirin Loja MD - Last Filed: 05/10/21 08:29> Course Course Course Narrative: Patient's vitals are stable, physician of sedation started at 08:29 <Shirin Loja MD - Last Filed: 05/10/21 08:29> MDM - Psych Lab Data Result diagrams: : 05/10/21 14:45 05/10/21 14:45 <Shirin Loja MD - Last Filed: 05/10/21 08:29> Labs: Lab Results 05/10/21 05/10/21 05/10/21 Range/Units 06:44 06:44 14:45 WBC 8.0 (4.8-10.8) X10*3/uL RBC 5.05 (4.60-5.80) X10*6/uL Hgb 14.6 (14.0-18.0) g/dl Hct 44.5 (42-52) % MCV 88.1 (80-98) fL MCH 28.9 (27.0-33.0) pg MCHC 32.8 (31.0-36.0) g/dl RDW 13.0 (11.0-16.0) % Plt Count 261 (160-400) X10*3/uL MPV 10.2 (9.4-12.4) fL Immature Gran % (Auto) 0.1 (0.0-0.4) % Neut % (Auto) 64.1 (45-73) % Lymph % (Auto) 19.9 L (20-40) % [place] % (Auto) 6.6 (2-11) % Eos % (Auto) 8.5 H (0-4) % Baso % (Auto) 0.8 (0-2) % Lymph # (Auto) 1.6 (1.2-4.9) X10*3/uL [place] # (Auto) 0.5 (0.1-1.2) X10*3/uL Eos # (Auto) 0.7 H (0.0-0.4) X10*3/uL Baso # (Auto) 0.1 (0.0-0.2) X10*3/uL Abs Immat Gran (auto) 0.01 (0.00-0.03) X10*3/uL Absolute Neuts (auto) 5.1 (2.0-8.3) X10*3/uL Absolute Nucleated RBC 0.000 (0.0-0.012) X10*3/uL Nucleated RBC % (auto) 0.0 (0.0-0.2) /100WBC Sodium (135-145) mmol/L Potassium (3.3-5.1) mmol/L Chloride (96-108) mmol/L Carbon Dioxide (22-29) mmol/L Anion Gap (12-20) BUN (9-16) mg/dL Creatinine (0.5-1.4) mg/dL Estim Creat Clear Calc Estimated GFR Random Glucose (60-115) mg/dL Calcium (8.4-10.2) mg/dL Total Bilirubin (0.0-1.0) mg/dL Direct Bilirubin (0.0-0.5) mg/dL AST (5-37) U/L ALT (0-40) U/L Alkaline Phosphatase (39-117) U/L Total Protein (6.5-8.0) g/dL Albumin (3.5-5.0) g/dL TSH (0.32-4.0) uIU/mL Urine Opiates Screen Not Detected (Not Detect) Urine Fentanyl Screen Not Detected (Not Detect) Ur Barbiturates Screen Not Detected (Not Detect) Ur Phencyclidine Scrn Not Detected (Not Detect) Ur Amphetamines Screen Not Detected (Not Detect) U Benzodiazepines Scrn Not Detected (Not Detect) [place] (0.60-1.20) mmol/L Urine Cocaine Screen Not Detected (Not Detect) U Marijuana (THC) Screen Not Detected (Not Detect) COVID-19 (NIC) Negative (Negative) COVID-19 Clin Com See Note 05/10/21 05/10/21 Range/Units 14:45 14:45 WBC (4.8-10.8) X10*3/uL RBC (4.60-5.80) X10*6/uL Hgb (14.0-18.0) g/dl Hct (42-52) % MCV (80-98) fL MCH (27.0-33.0) pg MCHC (31.0-36.0) g/dl RDW (11.0-16.0) % Plt Count (160-400) X10*3/uL MPV (9.4-12.4) fL Immature Gran % (Auto) (0.0-0.4) % Neut % (Auto) (45-73) % Lymph % (Auto) (20-40) % [place] % (Auto) (2-11) % Eos % (Auto) (0-4) % Baso % (Auto) (0-2) % Lymph # (Auto) (1.2-4.9) X10*3/uL [place] # (Auto) (0.1-1.2) X10*3/uL Eos # (Auto) (0.0-0.4) X10*3/uL Baso # (Auto) (0.0-0.2) X10*3/uL Abs Immat Gran (auto) (0.00-0.03) X10*3/uL Absolute Neuts (auto) (2.0-8.3) X10*3/uL Absolute Nucleated RBC (0.0-0.012) X10*3/uL Nucleated RBC % (auto) (0.0-0.2) /100WBC Sodium 143 (135-145) mmol/L Potassium 4.2 (3.3-5.1) mmol/L Chloride 109 H (96-108) mmol/L Carbon Dioxide 29 (22-29) mmol/L Anion Gap 9 L (12-20) BUN 6 L (9-16) mg/dL Creatinine 0.73 (0.5-1.4) mg/dL Estim Creat Clear Calc 247.0 Estimated GFR > 60 Random Glucose 133 H (60-115) mg/dL Calcium 9.6 (8.4-10.2) mg/dL Total Bilirubin 0.4 (0.0-1.0) mg/dL Direct Bilirubin 0.2 (0.0-0.5) mg/dL AST 20 (5-37) U/L ALT 30 (0-40) U/L Alkaline Phosphatase 73 (39-117) U/L Total Protein 6.9 (6.5-8.0) g/dL Albumin 4.0 (3.5-5.0) g/dL TSH 0.82 (0.32-4.0) uIU/mL Urine Opiates Screen (Not Detect) Urine Fentanyl Screen (Not Detect) Ur Barbiturates Screen (Not Detect) Ur Phencyclidine Scrn (Not Detect) Ur Amphetamines Screen (Not Detect) U Benzodiazepines Scrn (Not Detect) [place] 0.24 L (0.60-1.20) mmol/L Urine Cocaine Screen (Not Detect) U Marijuana (THC) Screen (Not Detect) COVID-19 (NIC) (Negative) COVID-19 Clin Com <Shirin Loja MD - Last Filed: 05/10/21 08:29> Lab Results 05/10/21 05/10/21 05/10/21 Range/Units 06:44 06:44 14:45 WBC 8.0 (4.8-10.8) X10*3/uL RBC 5.05 (4.60-5.80) X10*6/uL Hgb 14.6 (14.0-18.0) g/dl Hct 44.5 (42-52) % MCV 88.1 (80-98) fL MCH 28.9 (27.0-33.0) pg MCHC 32.8 (31.0-36.0) g/dl RDW 13.0 (11.0-16.0) % Plt Count 261 (160-400) X10*3/uL MPV 10.2 (9.4-12.4) fL Immature Gran % (Auto) 0.1 (0.0-0.4) % Neut % (Auto) 64.1 (45-73) % Lymph % (Auto) 19.9 L (20-40) % [place] % (Auto) 6.6 (2-11) % Eos % (Auto) 8.5 H (0-4) % Baso % (Auto) 0.8 (0-2) % Lymph # (Auto) 1.6 (1.2-4.9) X10*3/uL [place] # (Auto) 0.5 (0.1-1.2) X10*3/uL Eos # (Auto) 0.7 H (0.0-0.4) X10*3/uL Baso # (Auto) 0.1 (0.0-0.2) X10*3/uL Abs Immat Gran (auto) 0.01 (0.00-0.03) X10*3/uL Absolute Neuts (auto) 5.1 (2.0-8.3) X10*3/uL Absolute Nucleated RBC 0.000 (0.0-0.012) X10*3/uL Nucleated RBC % (auto) 0.0 (0.0-0.2) /100WBC Sodium (135-145) mmol/L Potassium (3.3-5.1) mmol/L Chlor[place] (96-108) mmol/L Carbon Dioxide (22-29) mmol/L Anion Gap (12-20) BUN (9-16) mg/dL Creatinine (0.5-1.4) mg/dL Estim Creat Clear Calc Estimated GFR Random Glucose (60-115) mg/dL Calcium (8.4-10.2) mg/dL Total Bilirubin (0.0-1.0) mg/dL Direct Bilirubin (0.0-0.5) mg/dL AST (5-37) U/L ALT (0-40) U/L Alkaline Phosphatase (39-117) U/L Total Protein (6.5-8.0) g/dL Albumin (3.5-5.0) g/dL TSH (0.32-4.0) uIU/mL Urine Opiates Screen Not Detected (Not Detect) Urine Fentanyl Screen Not Detected (Not Detect) Ur Barbiturates Screen Not Detected (Not Detect) Ur Phencyclidine Scrn Not Detected (Not Detect) Ur Amphetamines Screen Not Detected (Not Detect) U Benzodiazepines Scrn Not Detected (Not Detect) [place] (0.60-1.20) mmol/L Urine Cocaine Screen Not Detected (Not Detect) U Marijuana (THC) Screen Not Detected (Not Detect) COVID-19 (NIC) Negative (Negative) COVID-19 Clin Com See Note 05/10/21 05/10/21 Range/Units 14:45 14:45 WBC (4.8-10.8) X10*3/uL RBC (4.60-5.80) X10*6/uL Hgb (14.0-18.0) g/dl Hct (42-52) % MCV (80-98) fL MCH (27.0-33.0) pg MCHC (31.0-36.0) g/dl RDW (11.0-16.0) % Plt Count (160-400) X10*3/uL MPV (9.4-12.4) fL Immature Gran % (Auto) (0.0-0.4) % Neut % (Auto) (45-73) % Lymph % (Auto) (20-40) % [place] % (Auto) (2-11) % Eos % (Auto) (0-4) % Baso % (Auto) (0-2) % Lymph # (Auto) (1.2-4.9) X10*3/uL [place] # (Auto) (0.1-1.2) X10*3/uL Eos # (Auto) (0.0-0.4) X10*3/uL Baso # (Auto) (0.0-0.2) X10*3/uL Abs Immat Gran (auto) (0.00-0.03) X10*3/uL Absolute Neuts (auto) (2.0-8.3) X10*3/uL Absolute Nucleated RBC (0.0-0.012) X10*3/uL Nucleated RBC % (auto) (0.0-0.2) /100WBC Sodium 143 (135-145) mmol/L Potassium 4.2 (3.3-5.1) mmol/L Chloride 109 H (96-108) mmol/L Carbon Dioxide 29 (22-29) mmol/L Anion Gap 9 L (12-20) BUN 6 L (9-16) mg/dL Creatinine 0.73 (0.5-1.4) mg/dL Estim Creat Clear Calc 247.0 Estimated GFR > 60 Random Glucose 133 H (60-115) mg/dL Calcium 9.6 (8.4-10.2) mg/dL Total Bilirubin 0.4 (0.0-1.0) mg/dL Direct Bilirubin 0.2 (0.0-0.5) mg/dL AST 20 (5-37) U/L ALT 30 (0-40) U/L Alkaline Phosphatase 73 (39-117) U/L Total Protein 6.9 (6.5-8.0) g/dL Albumin 4.0 (3.5-5.0) g/dL TSH 0.82 (0.32-4.0) uIU/mL Urine Opiates Screen (Not Detect) Urine Fentanyl Screen (Not Detect) Ur Barbiturates Screen (Not Detect) Ur Phencyclidine Scrn (Not Detect) Ur Amphetamines Screen (Not Detect) U Benzodiazepines Scrn (Not Detect) [place] 0.24 L (0.60-1.20) mmol/L Urine Cocaine Screen (Not Detect) U Marijuana (THC) Screen (Not Detect) COVID-19 (NIC) (Negative) COVID-19 Clin Com <SATYA Hernandez - Last Filed: 05/10/21 16:55> Discharge Plan Discharge Clinical Impression: Acute anxiety <Shirin Loja MD - Last Filed: 05/10/21 08:29> Patient Disposition: Home, Self-Care <Shirin Loja MD - Last Filed: 05/10/21 08:29> Instructions: Anxiety (ED) <Shirin Loja MD - Last Filed: 05/10/21 08:29> Prescriptions: No Action risperidone 4 mg tablet 3 tab PO QPM RF: 0 lithium carbonate 600 mg capsule 1 cap PO BID RF: 0 amlodipine 10 mg tablet 1 tab PO DAILY RF: 0 Invega Trinza 546 mg/1.75 mL syringe 546 mg IM [id number] RF: 0 <Shirin Loja MD - Last Filed: 05/10/21 08:29> Referrals: [facility] [Primary Care Provider] - 2 days <Shirin Loja MD - Last Filed: 05/10/21 08:29> Print Language: German <Shirin Loja MD - Last Filed: 05/10/21 08:29> ED Observation ED Observation Progress Notes 1: Progress Note: 05/10/21 - 16:53 SATYA Hernandez - patient was re-evaluated by [facility] and patient reports hallucinations although denies any SI/HI/thoughts of self injury. [facility] was able to speak to the patient's mother with the stacking machine operator at bedside and the patient's mother is acceptable to taking the patient back home. Therefore at this time patient will be picked up by parents and instructed to return if any new or worsening symptoms to follow up with primary care provider/psychiatrist/therapist. <SATYA Hernandez - Last Filed: 05/10/21 16:55>
[2021-05-10 07:25] LABS: COVID-19 Test Negative (Negative)
[2021-05-10 07:46] LABS: Amphetamine Screen Urine Not Detected (Not Detect); Barbiturates, Urine Not Detected (Not Detect); Benzodiazepines Screen Urine Not Detected (Not Detect); Cannabinoid Screen Urine Not Detected (Not Detect); Cocaine Screen Urine Not Detected (Not Detect); Fentanyl, urine Not Detected (Not Detect); Opiate Screen Urine Not Detected (Not Detect); Phencyclidine Screen Urine Not Detected (Not Detect)
--- NOTE | 2021-05-10 07:48 | PC.NURSE ---
patient appears in no distress at present, respirations are even and unlabored, patient remains apparently asleep
[2021-05-10 09:28] VITALS: BP 135/93; PULSE 95; RESP 16; TEMP 36.8; O2SAT 96
[2021-05-10 15:05] LABS: MANUAL DIFF FLAG NO
[2021-05-10 15:06] LABS: Basophils Absolute Auto 0.1 X10*3/uL (0.0-0.2); Basophils Percent Auto 0.8 % (0-2); Eosinophils Absolute Auto 0.7 X10*3/uL (0.0-0.4); Eosinophils Percent Auto 8.5 % (0-4); Hematocrit 44.5 % (42-52); Hemoglobin 14.6 g/dl (14.0-18.0); Imm Gran Abs Auto 0.01 X10*3/uL (0.00-0.03); Imm Gran Pct Auto 0.1 % (0.0-0.4); Lymphocytes Absolute Auto 1.6 X10*3/uL (1.2-4.9); Lymphocytes Percent Auto 19.9 % (20-40); Mean Corpuscular HGB Conc 32.8 g/dl (31.0-36.0); Mean Corpuscular Hemoglobin 28.9 pg (27.0-33.0); Mean Corpuscular Volume 88.1 fL (80-98); Mean Platelet Volume 10.2 fL (9.4-12.4); Monocytes Absolute Auto 0.5 X10*3/uL (0.1-1.2); Monocytes Percent Auto 6.6 % (2-11); Neutrophils Absolute Auto 5.1 X10*3/uL (2.0-8.3); Neutrophils Percent Auto 64.1 % (45-73); Platelet Count 261 X10*3/uL (160-400); Red Blood Count 5.05 X10*6/uL (4.60-5.80)
[2021-05-10 15:15] LABS: Lithium 0.24 mmol/L (0.60-1.20)
[2021-05-10 15:42] LABS: Alanine Aminotransferase 30 U/L (0-40); Alkaline Phosphatase 73 U/L (39-117); Anion Gap 9 (12-20); Aspartate Amino Transferase 20 U/L (5-37); Bilirubin Direct 0.2 mg/dL (0.0-0.5); Bilirubin Total 0.4 mg/dL (0.0-1.0); Blood Urea Nitrogen 6 mg/dL (9-16); Calcium 9.6 mg/dL (8.4-10.2); Carbon Dioxide 29 mmol/L (22-29); Chloride 109 mmol/L (96-108); Estimated Glomerular Filt Rate > 60; Glucose Random 133 mg/dL (60-115); Potassium 4.2 mmol/L (3.3-5.1); Sodium 143 mmol/L (135-145); TSH reflex Free T4 0.82 uIU/mL (0.32-4.0); Total Protein 6.9 g/dL (6.5-8.0)
== END 2021-05-10 18:02 | disposition home or self-care (01) ==
PROVIDERS: Emergency Provider Emergency Medicine
DX: F41.9 Anxiety disorder, unspecified (principal); F25.9 Schizoaffective disorder, unspecified; F17.210 Nicotine dependence, cigarettes, uncomplicated; F12.90 Cannabis use, unspecified, uncomplicated; Z20.822 Contact with and (suspected) exposure to COVID-19; Z79.899 Other long term (current) drug therapy
CPT/HCPCS: 36415; 80048; 80076; 80178; 80307; 84443; 85025; 87635; 99283; 99285

== ENCOUNTER 2021-07-28 19:34 | Emergency (ER) | payer MEDICAID, SELFPAY ==
--- NOTE | 2021-07-28 19:36 | ED_ITS ---
HPI - Psych General Chief Complaint: General Medical Stated Complaint: crisis Time Seen by Provider: 07/28/21 19:36 Source: patient, EMS and old records reviewed Mode of arrival: EMS Limitations: no limitations History of Present Illness MD complaint: suicidal ideation, feels depressed and hallucinations Onset (ago): day(s) (4) Duration: getting worse History of same: Yes Relieving factors: none Context: other (states a spider bit his left thigh and it made me out of control ) Associated psychiatric symptoms: depression, suicidal ideation and auditory hallucinations Associated symptoms: denies other symptoms Treatments prior to arrival: none If self harm: admits thoughts of self harm Related Data Home Medications Medication Instructions Recorded Confirmed amlodipine 10 mg tablet 1 tab PO DAILY 05/10/21 07/28/21 paliperidone palm (3-month) 546 546 mg IM [id number] 05/10/21 05/10/21 mg/1.75 mL intramuscular syringe (Invega Trinza) amlodipine 10 mg tablet 1 tab PO DAILY 07/28/21 07/28/21 ergocalciferol (vitamin D2) 1,250 1 cap PO QWEEK 07/28/21 07/28/21 mcg (50,000 unit) capsule (Vitamin D2) lithium carbonate 600 mg capsule 1 cap PO BID 07/28/21 07/28/21 risperidone 4 mg tablet 3 tab PO QPM 07/28/21 07/28/21 Allergies Allergy/AdvReac Type Severity Reaction Status Date / Time haloperidol [From HALDOL] Allergy Unknown DISTONIC Verified 06/03/20 02:40 REACTION Review of Systems Review of Systems: Constitutional : No Fever, No Chills ENT/Mouth : No Ear Pain, No Nasal Congestion, No sore throat Eyes: No Eye Pain, No Swelling, No Redness Cardiovascular : No Chest Pain, No SOB Respiratory : No Cough, No Sputum, No Dyspnea Gastrointestinal : No Nausea, No Vomiting, No Diarrhea, No Hematochezia, No Melena Genitourinary : No Dysuria, No Urinary Frequency, No Hematuria Musculoskeletal : No Myalgias Skin : No Skin Lesions, No rash Neuro : No Weakness, No Numbness, No Paresthesias, No Dizziness, No Headache Psych : positive Anxiety, positive Depression, positive SI no HI, pos hearing vo ices Heme/Lymph: No Lymphadenopathy Endocrine : No Polyuria, No Polydipsia All other systems reviewed and are negative PMFSH Past Medical History Attestation statement: The following information was validated with the patient. Medical History Asthma Hypothyroid Schizoaffective disorder Social History Social History Household Members: Family Household Members Other:: Parents Housing: House Do you presently have visiting nurse or other home services: Yes Alcohol intake: never Cigarette Packs Per Day: 0.5 Cigarettes Per Day: 14 Years Smoked: 16 Second Hand Smoke Exposure: Yes Substance Use Type: Marijuana Advance Directives: No Advance Directives Information Provided: Yes service: No Sexual orientation: Unable to discuss Physical Exam Vital Signs: Vital Signs: Last Vital Signs Temp 98.1 F 07/28/21 23:34 Pulse 91 07/28/21 23:34 Resp 18 07/28/21 23:34 BP 137/62 07/28/21 23:34 Pulse Ox 94 07/28/21 23:34 Body Mass Index 50.2 Appearance: Alert. Oriented X3. No acute distress. Eyes: Pupils equal, round and reactive to light. ENT: Pharynx normal. Neck: Normal inspection. Neck supple. CVS: Normal heart rate and rhythm. Pulses normal. Respiratory: No respiratory distress. Breath sounds normal. Abdomen: Soft and nontender. Skin: Skin warm and dry. Normal skin color. Normal skin turgor. Extremities: No lower extremity edema. L thigh small pinpoint area without any redness/warmth/induration/ttp/fluctuance Neuro: Oriented X 3. No motor deficit. No sensory deficit. Cn2-12 intact Psych: flat affect, calm and cooperative, reports SI Course Course Course Narrative: Physician observation started at 1219am Patient placed in physician observation because the patient needed more time for N to assess his statements of SI. At the time observation was started the patient's vitals were stable, patient is alert and oriented, Neuro: nonfocal, CV RRR, Lungs clear MDM - Psych MDM Narrative Medical decision making narrative: 31 yo male with schizoaffective disorder who comes in with c/o a spider biting his left thigh 4 days ago and this caused him to lose control and become SI as well as hearing voices. His spider bite is not infected. Will obtain basic labs, N consult Lab Data Result diagrams: 07/28/21 22:17 07/28/21 22:17 Labs: Lab Results 07/28/21 07/28/21 07/28/21 Range/Units 21:02 21:24 22:17 Sodium 142 (135-145) mmol/L Potassium 4.5 (3.3-5.1) mmol/L Chloride 105 (96-108) mmol/L Carbon Dioxide 29 (22-29) mmol/L Anion Gap 13 (12-20) BUN 8 L (9-16) mg/dL Creatinine 0.74 (0.5-1.4) mg/dL Estim Creat Clear Calc 219.5 Estimated GFR > 60 Random Glucose 91 (60-115) mg/dL Calcium 9.8 (8.4-10.2) mg/dL Total Bilirubin 0.3 (0.0-1.0) mg/dL Direct Bilirubin < 0.2 (0.0-0.5) mg/dL AST 23 (5-37) U/L ALT 29 (0-40) U/L Alkaline Phosphatase 82 (39-117) U/L Total Protein 7.5 (6.5-8.0) g/dL Albumin 4.1 (3.5-5.0) g/dL Urine Opiates Screen Not Detected (Not Detect) Urine Fentanyl Screen Not Detected (Not Detect) Ur Barbiturates Screen Not Detected (Not Detect) Ur Phencyclidine Scrn Not Detected (Not Detect) Ur Amphetamines Screen Not Detected (Not Detect) U Benzodiazepines Scrn Not Detected (Not Detect) [place] (0.60-1.20) mmol/L Urine Cocaine Screen Not Detected (Not Detect) U Marijuana (THC) Screen Not Detected (Not Detect) COVID-19 (NIC) Negative (Negative) COVID-19 Clin Com See Note 07/28/21 Range/Units 22:17 Sodium (135-145) mmol/L Potassium (3.3-5.1) mmol/L Chloride (96-108) mmol/L Carbon Dioxide (22-29) mmol/L Anion Gap (12-20) BUN (9-16) mg/dL Creatinine (0.5-1.4) mg/dL Estim Creat Clear Calc Estimated GFR Random Glucose (60-115) mg/dL Calcium (8.4-10.2) mg/dL Total Bilirubin (0.0-1.0) mg/dL Direct Bilirubin (0.0-0.5) mg/dL AST (5-37) U/L ALT (0-40) U/L Alkaline Phosphatase (39-117) U/L Total Protein (6.5-8.0) g/dL Albumin (3.5-5.0) g/dL Urine Opiates Screen (Not Detect) Urine Fentanyl Screen (Not Detect) Ur Barbiturates Screen (Not Detect) Ur Phencyclidine Scrn (Not Detect) Ur Amphetamines Screen (Not Detect) U Benzodiazepines Scrn (Not Detect) [place] 0.52 L (0.60-1.20) mmol/L Urine Cocaine Screen (Not Detect) U Marijuana (THC) Screen (Not Detect) COVID-19 (NIC) (Negative) COVID-19 Clin Com Discharge Plan Discharge Clinical Impression: Schizoaffective disorder Qualifiers: Schizoaffective disorder type: unspecified Qualified Code(s): F25.9 - Schizoaffective disorder, unspecified Prescriptions: No Action amlodipine 10 mg tablet 1 tab PO DAILY RF: 0 Invega Trinza 546 mg/1.75 mL syringe 546 mg IM [id number] RF: 0 risperidone 4 mg tablet 3 tab PO QPM RF: 0 lithium carbonate 600 mg capsule 1 cap PO BID RF: 0 amlodipine 10 mg tablet 1 tab PO DAILY RF: 0 ergocalciferol (vitamin D2) [Vitamin D2] 1,250 mcg (50,000 unit) capsule 1 cap PO QWEEK RF: 0
[2021-07-28 20:07] VITALS: BP 110/56; BP 148/78; PULSE 85; PULSE 87; RESP 18; TEMP 36.1; O2SAT 95; O2SAT 96; BMI 50.2
[2021-07-28 21:23] LABS: COVID-19 Test Negative (Negative)
[2021-07-28 21:50] LABS: Amphetamine Screen Urine Not Detected (Not Detect); Barbiturates, Urine Not Detected (Not Detect); Benzodiazepines Screen Urine Not Detected (Not Detect); Cannabinoid Screen Urine Not Detected (Not Detect); Cocaine Screen Urine Not Detected (Not Detect); Fentanyl, urine Not Detected (Not Detect); Opiate Screen Urine Not Detected (Not Detect); Phencyclidine Screen Urine Not Detected (Not Detect)
[2021-07-28 22:31] LABS: Lithium 0.52 mmol/L (0.60-1.20)
[2021-07-28 22:42] LABS: Alanine Aminotransferase 29 U/L (0-40); Albumin Level 4.1 g/dL (3.5-5.0); Alkaline Phosphatase 82 U/L (39-117); Anion Gap 13 (12-20); Aspartate Amino Transferase 23 U/L (5-37); Bilirubin Direct < 0.2 mg/dL (0.0-0.5); Bilirubin Total 0.3 mg/dL (0.0-1.0); Blood Urea Nitrogen 8 mg/dL (9-16); Calcium 9.8 mg/dL (8.4-10.2); Carbon Dioxide 29 mmol/L (22-29); Chloride 105 mmol/L (96-108); Creatinine Clr Calc Pharmacy 219.5; Estimated Glomerular Filt Rate > 60; Glucose Random 91 mg/dL (60-115); Potassium 4.5 mmol/L (3.3-5.1); Sodium 142 mmol/L (135-145); Total Protein 7.5 g/dL (6.5-8.0)
[2021-07-28 23:34] VITALS: BP 137/62; PULSE 91; RESP 18; TEMP 36.7; O2SAT 94
--- NOTE | 2021-07-29 05:43 | PC.NURSE ---
Patient slept through the night, no distress observed/reported, behavior appropriate, med rec completed/ OCT updated, BHN completed the evaluation, disposition is [facility] F/U with goal to get hold of his mother and visiting nurse and d/c in the AM back to home if there is no concerns from them, VSS, CBC hemolyzed patient doesn't want to be re drawan, VSS, will continue to monitor.
--- NOTE | 2021-07-29 07:12 | PC.NURSE ---
patient appears to remain at rest at present respirations are even and unlabored, patient appears in no distress
[2021-07-29 08:42] VITALS: BP 137/62; PULSE 91
[2021-07-29] MEDS: Lithium Carbonate 300 MG CAPSULE 600 MG PO (08:42)
[2021-07-29] MEDS: amLODIPine Besylate 10 MG TABLET PO (08:42)
== END 2021-07-29 08:58 | disposition home or self-care (01) ==
PROVIDERS: Emergency Provider Emergency Medicine
DX: F25.9 Schizoaffective disorder, unspecified (principal); R45.851 Suicidal ideations; F32.A Depression, unspecified; Z20.822 Contact with and (suspected) exposure to COVID-19; F17.200 Nicotine dependence, unspecified, uncomplicated; F12.90 Cannabis use, unspecified, uncomplicated; Z79.899 Other long term (current) drug therapy
CPT/HCPCS: 36415; 80048; 80076; 80178; 80307; 87635; 99284

== ENCOUNTER 2021-09-14 02:55 | Emergency (ER) | payer MEDICAID, SELFPAY ==
--- NOTE | ~2021-09-14 | XR_ITS ---
EXAMINATION: XR CHEST CLINICAL INFORMATION: Shortness of breath COMPARISON: Chest x-rays of 06/02/2020, 03/27/2020 TECHNIQUE: Frontal view of the chest was obtained. FINDINGS: Cardiomediastinal silhouette is stable with upper limits of normal cardiac size versus mild cardiomegaly. Stable mild elevation of the right hemidiaphragm. Right lung is mildly hypoexpanded. No focal consolidation, changes of congestion, significant pleural effusions or pneumothorax are noted. Regional skeleton is intact. XR/XR chest 1V IMPRESSION: No radiographic evidence of pneumonia or pulmonary edema.
[2021-09-14 03:05] VITALS: BP 160/100; PULSE 88; O2SAT 96
[2021-09-14 03:09] VITALS: BMI 48.8
[2021-09-14 03:14] VITALS: BP 126/76; PULSE 79; RESP 20; TEMP 37; O2SAT 94
--- NOTE | 2021-09-14 03:41 | PC.NURSE ---
Patient resting comfortably in bed no s/s of sob or chest discomfort will continue to monitor.
[2021-09-14 03:46] LABS: COVID-19 Test Negative (Negative); IDNOW Serial# 9DD0AD1C
[2021-09-14 05:32] VITALS: BP 139/67; PULSE 76; RESP 18; TEMP 36.9; O2SAT 94
--- NOTE | 2021-09-14 07:16 | ED_ITS ---
HPI - URI/Sore Throat General Chief Complaint: Upper Respiratory Symptoms Stated Complaint: SOB Time Seen by Provider: 09/14/21 06:48 Source: patient Mode of arrival: ambulatory Limitations: no limitations History of Present Illness HPI Narrative: Patient comes to the emergency room complaining of stuffy nose, cold-like symptoms, all of patient's symptoms started 3 weeks ago. Patient states that he has not taking any medication. Patient is chest pain, patient states that he is not short of breath, but at night his notes gets so stuffy that he can not breathe. Patient states that he has been vaccinated for COVID- 19. Related Data Home Medications Medication Instructions Recorded Confirmed paliperidone palm (3-month) 546 546 mg IM [id number] 05/10/21 05/10/21 mg/1.75 mL intramuscular syringe (Invega Trinza) amlodipine 10 mg tablet 1 tab PO DAILY 07/28/21 07/28/21 ergocalciferol (vitamin D2) 1,250 1 cap PO QWEEK 07/28/21 07/28/21 mcg (50,000 unit) capsule (Vitamin D2) lithium carbonate 600 mg capsule 1 cap PO BID 07/28/21 07/28/21 risperidone 4 mg tablet 3 tab PO QPM 07/28/21 07/28/21 Previous Rx's Medication Instructions Recorded fexofenadine 60 mg tablet ([place] 60 mg PO BID #14 tab 09/14/21 Allergy) fluticasone propionate 50 1 spray INTRANASAL Q12H #16 g 09/14/21 mcg/actuation nasal spray,suspension (24 Hour Allergy Relief) Allergies Allergy/AdvReac Type Severity Reaction Status Date / Time haloperidol [From HALDOL] Allergy Unknown DISTONIC Verified 06/03/20 02:40 REACTION Review of Systems Review of Systems: Constitutional : No Weight loss, No Fever, No Chills, No Night Sweats, No Fatigue, No Malaise ENT/Mouth : No Hearing loss, No Ear Pain, No Nasal Congestion, No Sinus Pain, No Hoarseness, No sore throat, complaining of stuffy nose and Rhinorrhea, No Swallowing Difficulty Eyes: No Eye Pain, No Swelling, No Redness, No Foreign Body, No Discharge, No Vision Changes Cardiovascular : No Chest Pain, No SOB, No Dyspnea on Exertion, No Orthopnea, No Edema, No Palpitations Respiratory : No Cough, No Sputum, No Wheezing, No Smoke Exposure, No Dyspnea Gastrointestinal : No Nausea, No Vomiting, No Diarrhea, No Constipation, No abdominal Pain, No Hematochezia, No Melena Genitourinary : no irregular bleeding, No Dysuria, No Urinary Frequency, No Hematuria, No Urinary Incontinence, No Urgency, No Flank Pain, No Urinary Flow Changes, No Hesitancy Musculoskeletal : No joint pain, No Myalgias, No Joint Swelling Skin : No Skin Lesions, No rash Neuro : No Weakness, No Numbness, No Paresthesias, No Loss of Consciousness, No Dizziness, No Headache Psych : No Anxiety/Panic, No Depression, No SI/HI/AH/VH, No Social Issues, Heme/Lymph: No Bruising, No Bleeding,No Lymphadenopathy Endocrine : No Polyuria, No Polydipsia, No Temperature Intolerance [facility] Past Medical History Medical History Asthma Hypothyroid Schizoaffective disorder Social History Social History Household Members: Family Household Members Other:: Parents Housing: House Do you presently have visiting nurse or other home services: Yes Alcohol intake: never Cigarette Packs Per Day: 0.5 Cigarettes Per Day: 14 Years Smoked: 16 Second Hand Smoke Exposure: Yes Substance Use Type: Marijuana Advance Directives: No Advance Directives Information Provided: Yes service: No Sexual orientation: Unable to discuss Physical Exam Vital Signs: Vital Signs: Last Vital Signs Temp 97.9 F 09/14/21 08:10 Pulse 71 09/14/21 08:10 Resp 16 09/14/21 08:10 BP 106/60 09/14/21 08:10 Pulse Ox 94 09/14/21 08:10 BMI result Body Mass Index 48.8 Const: Other: Appearance: Alert. Oriented X3. No acute distress , morbidly obese Eyes: Pupils equal, round and reactive to light. ENT: Pharynx normal. Has nasal congestion Neck: Normal inspection. Neck supple. No lymph nodes noted. No crepitus CVS: Normal heart rate and rhythm. Pulses normal. Normal S1 and S2 Respiratory: No respiratory distress. Breath sounds normal. No Wheezing. No rales , good air movement Abdomen: Soft and nontender. No rigidity. No distention. good BS x4 Skin: Skin warm and dry. Normal skin color. Normal skin turgor. Extremities: No lower extremity edema. No Lacerations. No Rash Neuro: Oriented X 3. No motor deficit. No sensory deficit. Moving all extermities. No slurred speech. Course Course Course Narrative: Patient's x-ray is within normal limits. It was noted that when patient sleeps, his oxygen saturation drops to the low 90s. When patient is woken up, increased to 96%. It is likely that to the patient's body habitus, he has hypoventilation syndrome, will likely need to follow up with his primary care physician and have a sleep study done. Patient would probably benefit from CPAP MDM - URI/Sore Throat Lab Data Labs: Lab Results 09/14/21 Range/Units 03:18 COVID-19 (NIC) Negative (Negative) COVID-19 Clin Com See Note Discharge Plan Discharge Clinical Impression: Upper respiratory infection Patient Disposition: Home, Self-Care Instructions: Upper Respiratory Infection (ED) Additional Instructions: Please discuss with your primary care physician about getting a sleep study. Please follow-up with your primary care physician tomorrow. If you have any worsening or new symptoms, please return to the emergency room or call 911 Prescriptions: New fluticasone propionate [24 Hour Allergy Relief] 50 mcg/actuation spray,suspension 1 spray intranasal Q12H Qty: 16 RF: 0 fexofenadine [Akua Allergy] 60 mg tablet 60 mg PO BID Qty: 14 RF: 0 No Action Invega Trinza 546 mg/1.75 mL syringe 546 mg IM [id number] RF: 0 risperidone 4 mg tablet 3 tab PO QPM RF: 0 lithium carbonate 600 mg capsule 1 cap PO BID RF: 0 amlodipine 10 mg tablet 1 tab PO DAILY RF: 0 ergocalciferol (vitamin D2) [Vitamin D2] 1,250 mcg (50,000 unit) capsule 1 cap PO QWEEK RF: 0
[2021-09-14 08:10] VITALS: BP 106/60; PULSE 71; RESP 16; TEMP 36.6; O2SAT 94
--- NOTE | 2021-09-14 08:33 | PC.NURSE ---
pt alert, falls asleep easily but awakes easily. when pt falls asleep his oxygen level drops to mid-high 80s%. oxygen increases to mid - high 90s when pt is awake. current o2 is 96%. pt denies sob, no difficulty breathing noted. pt denies pain, vss. pt now medically cleared for discharge.
== END 2021-09-14 09:05 | disposition home or self-care (01) ==
PROVIDERS: Emergency Provider Emergency Medicine
DX: J06.9 Acute upper respiratory infection, unspecified (principal); R06.02 Shortness of breath; R07.9 Chest pain, unspecified; F17.210 Nicotine dependence, cigarettes, uncomplicated; Z71.6 Tobacco abuse counseling; F12.90 Cannabis use, unspecified, uncomplicated; Z20.822 Contact with and (suspected) exposure to COVID-19
CPT/HCPCS: 71045; 87635; 99284

== ENCOUNTER 2021-12-11 15:56 | Inpatient (IN) | payer MEDICAID, OTHER, SELFPAY ==
[2021-12-11 16:05] VITALS: BP 118/72; BP 150/90; PULSE 86; PULSE 89; RESP 18; TEMP 36.7; O2SAT 95; O2SAT 96; BMI 62.7
--- NOTE | 2021-12-11 16:58 | ED_ITS ---
HPI - Eye Problem General Chief complaint: Eye Problems Stated complaint: LEFT EYE PAIN Time Seen by Provider: 12/11/21 16:51 Source: patient and EMS Mode of arrival: EMS Limitations: no limitations History of Present Illness HPI Narrative: Patient comes emergency room complaining of bilateral ear burning sensation. Patient states the sensation started yesterday. Patient thinks that while he was asleep, someone scratch his eyes. Patient states that he could have been a piece of plastic piece, or a rotten piece of fruit that he ate a year ago. Of note, patient has history of schizoaffective disorder, delusional ideation. Patient has had delusions about his eyes in the past as well. Patient has been hospitalized past. Patient denies suicidal or homicidal ideation Related Data Home Medications Medication Instructions Recorded Confirmed paliperidone palm (3-month) 546 546 mg IM [id number] 05/10/21 05/10/21 mg/1.75 mL intramuscular syringe (Invega Trinza) amlodipine 10 mg tablet 1 tab PO DAILY 07/28/21 07/28/21 ergocalciferol (vitamin D2) 1,250 1 cap PO QWEEK 07/28/21 07/28/21 mcg (50,000 unit) capsule (Vitamin D2) lithium carbonate 600 mg capsule 1 cap PO BID 07/28/21 07/28/21 risperidone 4 mg tablet 3 tab PO QPM 07/28/21 07/28/21 Previous Rx's Medication Instructions Recorded fexofenadine 60 mg tablet ([place] 60 mg PO BID #14 tab 09/14/21 Allergy) fluticasone propionate 50 1 spray INTRANASAL Q12H #16 g 09/14/21 mcg/actuation nasal spray,suspension (24 Hour Allergy Relief) Allergies Allergy/AdvReac Type Severity Reaction Status Date / Time haloperidol [From HALDOL] Allergy Unknown DISTONIC Verified 06/03/20 02:40 REACTION Review of Systems Review of Systems: Constitutional : No Weight loss, No Fever, No Chills, No N ight Sweats, No Fatigue, No Malaise ENT/Mouth : No Hearing loss, No Ear Pain, No Nasal Congestion, No Sinus Pain, No Hoarseness, No sore throat, No Rhinorrhea, No Swallowing Difficulty Eyes: Complaining of bilateral photophobia, eye burning sensation, foreign body sensation bilaterally. Cardiovascular : No Chest Pain, No SOB, No Dyspnea on Exertion, No Orthopnea, No Edema, No Palpitations Respiratory : No Cough, No Sputum, No Wheezing, No Smoke Exposure, No Dyspnea Gastrointestinal : No Nausea, No Vomiting, No Diarrhea, No Constipation, No abdominal Pain, No Hematochezia, No Melena Genitourinary : no irregular bleeding, No Dysuria, No Urinary Frequency, No Hematuria, No Urinary Incontinence, No Urgency, No Flank Pain, No Urinary Flow Changes, No Hesitancy Musculoskeletal : No joint pain, No Myalgias, No Joint Swelling Skin : No Skin Lesions, No rash Neuro : No Weakness, No Numbness, No Paresthesias, No Loss of Consciousness, No Dizziness, No Headache Psych : No Anxiety/Panic, feeling depressed, compliant with medications, No SI/HI/AH/VH, No Social Issues, Heme/Lymph: No Bruising, No Bleeding,No Lymphadenopathy Endocrine : No Polyuria, No Polydipsia, No Temperature Intolerance [facility] Past Medical History Medical History (Updated 12/11/21 @ 17:32 by Shirin Loja MD) Asthma Delusional disorder Hypothyroid Schizoaffective disorder Social History Social History Household Members: Family Household Members Other:: Parents Housing: House Do you presently have visiting nurse or other home services: Yes Alcohol intake: never Cigarette Packs Per Day: 0.5 Cigarettes Per Day: 14 Years Smoked: 16 Second Hand Smoke Exposure: Yes Substance Use Type: Marijuana Advance Directives: No Advance Directives Information Provided: No service: No Sexual orientation: Unable to discuss Physical Exam Vital Signs: Vital Signs: Last Vital Signs Temp 98.1 F 12/11/21 16:05 Pulse 89 12/11/21 16:05 Resp 18 12/11/21 16:05 BP 118/72 12/11/21 16:05 Pulse Ox 96 12/11/21 16:05 Oxygen Flow Rate 2 12/11/21 16:05 BMI result Body Mass Index 62.7 Const: Other: Appearance: Alert. Oriented X3. No acute distress. Eyes: Pupils equal, round and reactive to light. Eyes are erythematous. There is a small abrasion to the 5 o'clock position on the left eye. Patient will be placed on erythromycin. Otherwise exam is negative, ENT: Pharynx normal. Neck: Normal inspection. Neck supple. No lymph nodes noted. No crepitus CVS: Normal heart rate and rhythm. Pulses normal. Normal S1 and S2 Respiratory: No respiratory distress. Breath sounds normal. No Wheezing. No rales. When patient sleeps flat, oxygen saturation drops to 89-90%, likely hypoventilation syndrome from morbid obesity Abdomen: Soft and nontender. No rigidity. No distention. Skin: Skin warm and dry. Normal skin color. Normal skin turgor. Extremities: No lower extremity edema. No Lacerations. No Rash Neuro: Oriented X 3. No motor deficit. No sensory deficit. Moving all extremities. No slurred speech. CN 2 through 12 grossly intact Psych: calm, cooperative, normal affect Course Course Course Narrative: Patient denies using eye contact lenses. Patient will be started on erythromycin ointment for the left eye. Also, patient states that he is feeling very depressed, denies suicidal homicidal ideation. [facility] be [facility]. Patient also delusional, complaining that the plan that he ate a year ago was making him feel sick. [facility] consult pending. Physician observation at 17:30 Discharge Plan Discharge Clinical Impression: Corneal abrasion, Delusional disorder Patient Disposition: Still a Patient Prescriptions: No Action Invega Trinza 546 mg/1.75 mL syringe 546 mg IM [id number] 0RF risperidone 4 mg tablet 3 tab PO QPM 0RF lithium carbonate 600 mg capsule 1 cap PO BID 0RF amlodipine 10 mg tablet 1 tab PO DAILY 0RF ergocalciferol (vitamin D2) [Vitamin D2] 1,250 mcg (50,000 unit) capsule 1 cap PO QWEEK 0RF fluticasone propionate [24 Hour Allergy Relief] 50 mcg/actuation spray,suspension 1 spray intranasal Q12H Qty: 16 0RF Rx Instructions: administer into each nostril fexofenadine [Akua Allergy] 60 mg tablet 60 mg PO BID Qty: 14 0RF
[2021-12-11] MEDS: Fluorescein Sodium STRIP 1 STRIP EYE-BOTH (17:28)
[2021-12-11] MEDS: Tetracaine HCl/PF 0.5% Oph Sol 4 ML DROPS 3 DROP EYE-BOTH (17:28)
[2021-12-11] MEDS: Erythromycin Base 0.5% Oph Oin 1 GM TUBE 1 CM EYE-LEFT (17:30)
[2021-12-11 17:53] LABS: Color Urine YELLOW; Glucose Urine UA NEG (NEG); Leukocyte Esterase Urine NEG (NEG); Nitrite Urine NEG (NEG); Specific Gravity - Urine >= 1.030 (1.005-1.025); Urine Blood NEG (NEG); Urine Ketones NEG (NEG); Urine Protein TRACE MG/DL (NEG-TRACE)
[2021-12-11 17:54] LABS: Appearance Urine CLEAR
[2021-12-11 18:00] VITALS: BP 139/83; PULSE 85; RESP 16; TEMP 36.6; O2SAT 91
[2021-12-11 18:04] LABS: Amphetamine Screen Urine Not Detected (Not Detect); Barbiturates, Urine Not Detected (Not Detect); Benzodiazepines Screen Urine Not Detected (Not Detect); Cannabinoid Screen Urine Not Detected (Not Detect); Cocaine Screen Urine Not Detected (Not Detect); Fentanyl, urine Not Detected (Not Detect); Opiate Screen Urine Not Detected (Not Detect); Phencyclidine Screen Urine Not Detected (Not Detect)
--- NOTE | 2021-12-11 19:00 | PC.NURSE ---
N referral completed through [facility].
[2021-12-11 19:50] LABS: COVID-19 Test Negative (Negative); IDNOW Serial# 16C4AD1C; Influenza A Negative (Negative); Influenza B2 Negative (Negative)
--- NOTE | 2021-12-11 20:32 | PC.NURSE ---
PT O2 sat found to be at 86% on RA. PT placed on oxygen at 2 L/min via NC to increase sat to 95% while awake. O2 sat decreases to 90% with apneic episodes.
[2021-12-11 22:00] VITALS: BP 135/93; PULSE 83; RESP 16; O2SAT 94
--- NOTE | 2021-12-12 | ECG_ITS ---
Test Reason : med clearance Blood Pressure : / mmHG Vent. Rate : 078 BPM Atrial Rate : 078 BPM P-R Int : 202 ms QRS Dur : 100 ms QT Int : 382 ms P-R-T Axes : 043 101 040 degrees QTc Int : 435 ms Normal sinus rhythm Rightward axis Borderline ECG When compared with ECG of 11-SEP-2020 08:24, No significant change was found Referred By: Melissa Burnett Electronically Signed By:Cristo Mckee
[2021-12-12 00:36] VITALS: BP 143/76; PULSE 74; RESP 16; TEMP 36.8; O2SAT 93
--- NOTE | 2021-12-12 02:12 | PC.NURSE ---
PT seen by VELMA.
[2021-12-12 02:59] VITALS: BP 128/82; PULSE 81; RESP 16; TEMP 36.5; O2SAT 96
[2021-12-12 04:05] VITALS: BP 123/89; PULSE 85; RESP 16; O2SAT 94
--- NOTE | 2021-12-12 05:37 | PC.ADMIT ---
PT admitted at 0530 from [facility], PT denies SI/HI, feels safe on unit. PT is resting in bed with eyes closed. PT calm and cooperative. Seen by VELMA, sec 12. PT is being monitored by staff.
--- NOTE | 2021-12-12 07:32 | PC.NURSE ---
patient appears to remain asleep at present respirations are even and unlabored patient appears in no distress
--- NOTE | 2021-12-12 08:44 | PHA.MEDREC ---
Pharmacy Consult ? Medication Reconciliation Pharmacy has completed the medication reconciliation.
[2021-12-12 09:04] LABS: MANUAL DIFF FLAG NO
[2021-12-12 09:10] LABS: Basophils Absolute Auto 0.1 X10*3/uL (0.0-0.2); Basophils Percent Auto 0.6 % (0-2); Eosinophils Absolute Auto 0.9 X10*3/uL (0.0-0.4); Eosinophils Percent Auto 9.4 % (0-4); Hematocrit 45.7 % (42.0-52.0); Hemoglobin 14.2 g/dl (14.0-18.0); Imm Gran Abs Auto 0.03 X10*3/uL (0.00-0.03); Imm Gran Pct Auto 0.3 % (0.0-0.4); Lymphocytes Percent Auto 20.9 % (20-40); Mean Corpuscular HGB Conc 31.1 g/dl (31.0-36.0); Mean Corpuscular Hemoglobin 28.4 pg (27.0-33.0); Mean Corpuscular Volume 91.4 fL (80.0-98.0); Mean Platelet Volume 10.1 fL (9.4-12.4); Monocytes Absolute Auto 0.6 X10*3/uL (0.1-1.2); Monocytes Percent Auto 6.8 % (2-11); Neutrophils Absolute Auto 5.8 x10*3/uL (2.0-8.3); Platelet Count 259 X10*3/uL (160-400); Red Cell Distribution Width 13.9 % (11.0-16.0); White Blood Count 9.4 X10*3/uL (4.8-10.8)
[2021-12-12 09:23] LABS: Alanine Aminotransferase 33 U/L (0-40); Albumin Level 3.9 g/dL (3.5-5.0); Alkaline Phosphatase 84 U/L (39-117); Anion Gap 11 (12-20); Aspartate Amino Transferase 22 U/L (5-37); Bilirubin Direct 0.2 mg/dL (0.0-0.5); Bilirubin Total 0.3 mg/dL (0.0-1.0); Blood Urea Nitrogen 6 mg/dL (9-16); Calcium 9.2 mg/dL (8.4-10.2); Carbon Dioxide 31 mmol/L (22-29); Chloride 102 mmol/L (96-108); Creatinine Clr Calc Pharmacy 274.2; Estimated Glomerular Filt Rate > 60; Glucose Random 104 mg/dL (60-115); Potassium 4.3 mmol/L (3.3-5.1); Sodium 140 mmol/L (135-145); Total Protein 7.1 g/dL (6.5-8.0)
[2021-12-12] MEDS: Nicotine Polacrilex 2 MG GUM BUCCAL (13:27)
--- NOTE | 2021-12-12 16:28 | PC.ADMIT ---
Pt is a 31 year male who presents to from [facility] ED at approximately 1500 on a cv status. Pt is covid- utox-. Per chart review, pt presented to [facility] ED due to having hallucinations that people are coming at him to scratch out his eyes to kill him. Pt is anxious and fearful. Pt received his invega shot yesterday and reports tht he is med adherent. During admit pt report AH, pt reported generalized pain. Pt reported having anxiety and depression. Provider contacted and notified of admission. Start treatment plan and monitor for safety
[2021-12-12 18:00] VITALS: BP 137/85; PULSE 80; TEMP 36.7
[2021-12-12] MEDS: Lithium Carbonate 300 MG CAPSULE 600 MG PO (20:01)
[2021-12-12] MEDS: risperiDONE 2 MG TABLET PO (20:01)
--- NOTE | 2021-12-12 21:08 | HO.PSYADMNOT ---
HPI Date of Service: 12/12/21 Chief Complaint: Schizoaffective disorder Sources of Information: patient interviewed, chart reviewed and crisis/core team assessment reviewed HPI Subjective Notes: [place] Warning and Conditional Voluntary Healthcare Proxy: No Guardianship: Yes Medical Problems Affecting Mental Status: No Narrative: Henry is a 31 y.o. Male who carries a dx of schizoaffective disorder, bipolar type. He presented to [facility] 12/11/21 complaining of burning sensation in both eyes, onset yesterday. Endorsed paranoid belief that while he was asleep, someone scratched his eyes.? Pt also speculated that burning sensation could be due to ?a piece of plastic piece? or a ?rotten piece of fruit that he ate a year ago.? Per [facility] crisis eval, pt reported that ?people are coming at him to scratch out his eyes to kill him.? He was anxious and fearful. He obtained his Invega Trinza injection on 12/10/21. Reports he is adherent on meds but does not think they are working anymore. Pt's mother is his legal guardian and rep-payee. I evaluated the pt this evening and upon interview he reports ?I want to go home, im so much better.? He is unsure why he feels better. Says the burning in his eyes is better. Mood is ?good.? Sleep is ?good.? Says his medications are ?very good.? Feels safe on the unit, denies SI/SIB/HI. When asked if he is hearing voices, pt says ?not much? and that he hears the voice of god and his sister saying he is ?a bad person and to .? Says he can ignore the voices. Past Psychiatric History: Multiple hospital stays, and he was last on M5 in 06/03/2020- after he missed dose of Invega Sustenna. He has had 7 previous admissions including 2 at [place]. He has also been to several [employer] programs. He receives services through [facility]: Psychiatrist Dr. Stephen ([phone]) He has a [place] Order. Mother Flory Bullock is guardian ([phone]) Medical Evaluation Reviewed: Yes [facility] Medical History (Updated 12/13/21 @ 05:07 by Sofi Jennings NP) Asthma Delusional disorder Hypothyroid Schizoaffective disorder Narrative: Obese Family History: Unknown Social History: Pt born and raised in [facility]. Lives with his parents. He has two brothers. He moved to [place] when he was 13 y/o. 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 Trauma History: Pt denies. Diagnostics Vital Signs (24Hr): Vital Signs - 24 hr 12/11/21 22:00 12/12/21 00:36 12/12/21 02:59 Temperature 98.2 F 97.7 F Pulse Rate 83 74 81 Respiratory Rate 16 16 16 Blood Pressure 135/93 H 143/76 H 128/82 Pulse Oximetry 94 93 96 12/12/21 04:05 12/12/21 18:00 Temperature 98.1 F Pulse Rate 85 80 Respiratory Rate 16 Blood Pressure 123/89 137/85 Pulse Oximetry 94 BMI result Body Mass Index 62.7 Labs Results: 12/12/21 08:47 12/12/21 08:47 Labs: Laboratory Results - last 48 hr 12/11/21 12/11/21 12/11/21 17:35 17:35 19:28 WBC RBC Hgb Hct MCV MCH MCHC RDW Plt Count MPV Immature Gran % (Auto) Neut % (Auto) Lymph % (Auto) [place] % (Auto) Eos % (Auto) Baso % (Auto) Lymph # (Auto) [place] # (Auto) Eos # (Auto) Baso # (Auto) Abs Immat Gran (auto) Absolute Neuts (auto) Absolute Nucleated RBC Nucleated RBC % (auto) Sodium Potassium Chloride Carbon Dioxide Anion Gap BUN Creatinine Estim Creat Clear Calc Estimated GFR Random Glucose Calcium Total Bilirubin Direct Bilirubin AST ALT Alkaline Phosphatase Total Protein Albumin Urine Color YELLOW Urine Appearance CLEAR Urine pH 6.0 Ur Specific Commerce >= 1.030 H Urine Protein TRACE Urine Glucose (UA) NEG Urine Ketones NEG Urine Blood NEG Urine Nitrite NEG Ur Leukocyte Esterase NEG Urine Opiates Screen Not Detected Urine Fentanyl Screen Not Detected Ur Barbiturates Screen Not Detected Ur Phencyclidine Scrn Not Detected Ur Amphetamines Screen Not Detected U Benzodiazepines Scrn Not Detected Urine Cocaine Screen Not Detected U Marijuana (THC) Screen Not Detected COVID-19 (NIC) COVID-19 Clin Com Influenza Type A (STE[place]IA) Negative Influenza Type B (STE[place]IA) Negative Influenza A & B Note See Note 12/11/21 12/12/21 12/12/21 19:28 08:47 08:47 WBC 9.4 RBC 5.00 Hgb 14.2 Hct 45.7 MCV 91.4 MCH 28.4 MCHC 31.1 RDW 13.9 Plt Count 259 MPV 10.1 Immature Gran % (Auto) 0.3 Neut % (Auto) 62.0 Lymph % (Auto) 20.9 [place] % (Auto) 6.8 Eos % (Auto) 9.4 H Baso % (Auto) 0.6 Lymph # (Auto) 2.0 [place] # (Auto) 0.6 Eos # (Auto) 0.9 H Baso # (Auto) 0.1 Abs Immat Gran (auto) 0.03 Absolute Neuts (auto) 5.8 Absolute Nucleated RBC 0.000 Nucleated RBC % (auto) 0.0 Sodium 140 Potassium 4.3 Chloride 102 Carbon Dioxide 31 H Anion Gap 11 L BUN 6 L Creatinine 0.70 Estim Creat Clear Calc 274.2 Estimated GFR > 60 Random Glucose 104 Calcium 9.2 D Total Bilirubin 0.3 Direct Bilirubin 0.2 AST 22 ALT 33 Alkaline Phosphatase 84 Total Protein 7.1 Albumin 3.9 Urine Color Urine Appearance Urine pH Ur Specific [place] Urine Protein Urine Glucose (UA) Urine Ketones Urine Blood Urine Nitrite Ur Leukocyte Esterase Urine Opiates Screen Urine Fentanyl Screen Ur Barbiturates Screen Ur Phencyclidine Scrn Ur Amphetamines Screen U Benzodiazepines Scrn Urine Cocaine Screen U Marijuana (THC) Screen COVID-19 (NIC) Negative COVID-19 Clin Com See Note Influenza Type A ([place]IA) Influenza Type B ([place]IA) Influenza A & B Note Meds/Allergies Meds Home Medications Acetaminophen (Acetaminophen 325 Mg Tablet) 650 mg PO Q6H PRN PRN Reason: Headache/Pain Mild Scale (1-3) Al Hydroxide/Mg Hydroxide (Magnesium Hydrox/Alum Hydrox 30 Ml Oral.Susp) 30 ml PO Q6H PRN PRN Reason: Heartburn/Nausea Amlodipine Besylate (Amlodipine Besylate 10 Mg Tablet) 10 mg PO DAILY [facility]; Protocol Diphenhydramine HCl (Diphenhydramine Hcl 25 Mg Tablet) 25 mg PO Q4H PRN PRN Reason: anxiety, agitation Fluticasone Propionate (Fluticasone Propionate Nasal 16 Gm [place]) 1 spray NOSTRIL-B Q12H [facility] Last Admin: 12/12/21 16:12 Dose: Not Given Documented by: Hydroxyzine HCl (Hydroxyzine Hcl 25 Mg Tablet) 25 mg PO BEDTIME PRN PRN Reason: Anxiety [place] Carbonate ([place] Carbonate 300 Mg Capsule) 600 mg PO BID [facility] Last Admin: 12/12/21 20:01 Dose: 600 mg Documented by: Lorazepam (Lorazepam 1 Mg Tablet) 1 mg PO Q4H PRN PRN Reason: agitation Magnesium Hydroxide (Milk Of Magnesia 30 Ml Oral.Susp) 30 ml PO DAILY PRN PRN Reason: Constipation Nicotine Polacrilex (Nicotine Polacrilex 2 Mg Gum) 2 mg BUCCAL QID PRN PRN Reason: Nicotine Cravings Last Admin: 12/12/21 13:27 Dose: 2 mg Documented by: Olanzapine (Olanzapine 5 Mg Tablet) 5 mg PO Q4H PRN PRN Reason: psychosis, agitation Pharmacy Consult (Consult Rx Perform Med Rec) 1 each MISCELLANE ONCE PRN PRN Reason: Consult order Risperidone (Risperidone 2 Mg Tablet) 2 mg PO BEDTIME [facility] Last Admin: 12/12/21 20:01 Dose: 2 mg Documented by: Trazodone HCl (Trazodone Hcl 50 Mg Tablet) 50 mg PO BEDTIME PRN PRN Reason: Insomnia Vitamin D (Cholecalciferol (Vitamin D3) 25 Mcg Tablet) 25 mcg PO DAILY [facility] Allergies Allergies Allergy/AdvReac Type Severity Reaction Status Date / Time haloperidol [From HALDOL] Allergy Unknown DISTONIC Verified 06/03/20 02:40 REACTION Mental Status Exam Mental Status Exam Narrative: A&O except to situation. Obese, laying down in bed shirtless. Poor eye contact, inattentive. No Tics or Tremors. No abnormal involuntary movements. Calm, cooperative, difficult to engage in meaningful conversation. Non-pressured speech, spontaneous with regular rate and rhythm, normal volume and prosody. No prolonged speech latency or dysarthria. Mood is ?better,? affect is blunted/ flat. Denies SI/SIB/HI upon inquiry. Endorses AH. Denies VH or delusional thought content. Thoughts are perseverative. No known cognitive or memory impairment. Insight/ Judgment poor. Assessment & Plan Assessment & Plan (1) Schizoaffective disorder: Status: Acute Code(s): F25.9 - Schizoaffective disorder, unspecified (2) Schizoaffective disorder, bipolar type: Status: Acute Code(s): F25.0 - Schizoaffective disorder, bipolar type Plan Henry is a 31 y.o. Male who carries a dx of schizoaffective disorder, bipolar type. He presented to [facility] 12/11/21 complaining of burning sensation in both eyes, onset yesterday. Endorsed paranoid belief that ?people are coming at him to scratch out his eyes to kill him.? He obtained his Invega Trinza injection on 12/10/21. Reports he is adherent on meds but does not think they are working anymore. Hx of reporting somatic delusions with his eyes, SI. Plan: Wants to be on fewer meds, may consider switching lithium to ER/ once a day dosing instead of twice. No medication changes at this time, consider increasing risperdal. Q15 min safety checks, CV Monitor response to medications. Monitor for safety in the milieu. Discharge on stabilization. Patient seen. Chart reviewed. Discussed with team. Obtain collateral contact info?as needed Patient educated on: medication risk/benefits Reason for continued inpatient stay Substantial Risk for: inability to function, rapid decompensation and med/psych decompensation
[2021-12-13 08:00] LABS: Lithium 0.13 mmol/L (0.60-1.20)
[2021-12-13 08:07] LABS: Cholesterol 186 mg/dL; HDL Cholesterol 37 mg/dL; LDL Cholesterol Calculated 120 mg/dl; Magnesium 2.5 mg/dL (1.6-2.6); Triglycerides 147 mg/dL
[2021-12-13 08:12] LABS: Estimated Average Glucose 105 mg/dL; Hemoglobin A1c % 5.3 %
[2021-12-13 08:24] VITALS: BP 115/89; PULSE 89; RESP 16; TEMP 36.8; O2SAT 90
[2021-12-13 08:27] LABS: Free T4 (Free Thyroxine) 1.14 ng/dL (0.71-1.85); Thyroid Stimulating Hormone 1.18 uIU/mL (0.32-4.0)
[2021-12-13] MEDS: Lithium Carbonate 300 MG CAPSULE 600 MG PO ×2 (08:40→20:45)
[2021-12-13] MEDS: amLODIPine Besylate 10 MG TABLET PO (08:40)
[2021-12-13] MEDS: Cholecalciferol (Vitamin D3) 25 MCG TABLET PO (08:40)
[2021-12-13] MEDS: Nicotine Polacrilex 2 MG GUM BUCCAL (13:38)
[2021-12-13] MEDS: Fluticasone Propionate Nasal 16 GM SPRAY 1 SPRAY NOSTRIL-B (14:42)
[2021-12-13 18:00] VITALS: BP 136/92; PULSE 80; RESP 18; TEMP 37.6; O2SAT 94
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
[2021-12-13] MEDS: LORazepam 1 MG TABLET PO (20:44)
[2021-12-13] MEDS: risperiDONE 2 MG TABLET PO (20:45)
--- NOTE | 2021-12-13 21:57 | PC.NURSE ---
awake/affect is flat/depressed. conversation is simple and polite. pt is morbidly obese. has upper airway nasal congestion. pt states that he think he has sinus infection. resp effort is regular and unlabored. low grade temp 99.8
[2021-12-13 22:31] VITALS: TEMP 37.7
[2021-12-14 08:45] VITALS: BP 134/88; PULSE 94; RESP 18; TEMP 36.3; O2SAT 95
[2021-12-14] MEDS: Lithium Carbonate 300 MG CAPSULE 600 MG PO ×2 (09:45→20:32)
[2021-12-14] MEDS: amLODIPine Besylate 10 MG TABLET PO (09:45)
[2021-12-14] MEDS: Cholecalciferol (Vitamin D3) 25 MCG TABLET PO (09:45)
[2021-12-14] MEDS: LORazepam 1 MG TABLET PO (14:29)
[2021-12-14] MEDS: Fluticasone Propionate Nasal 16 GM SPRAY 1 SPRAY NOSTRIL-B (15:05)
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
[2021-12-14 18:00] VITALS: BP 108/66; PULSE 87; RESP 20; TEMP 37.2; O2SAT 92
[2021-12-14] MEDS: risperiDONE 2 MG TABLET PO (20:32)
--- NOTE | 2021-12-15 02:30 | PC.NURSE ---
Pt signed a 3day on 12/12/2021, will be up on 12/18/2021.
[2021-12-15 08:00] VITALS: BP 131/64; PULSE 79; TEMP 37.1; O2SAT 94
[2021-12-15 08:07] LABS: Folate 9.5 ng/mL (> or = 4.0); Vitamin B12 397 pg/mL (200-900)
[2021-12-15] MEDS: Lithium Carbonate 300 MG CAPSULE 600 MG PO ×2 (09:52→20:18)
[2021-12-15] MEDS: amLODIPine Besylate 10 MG TABLET PO (09:52)
[2021-12-15] MEDS: Cholecalciferol (Vitamin D3) 25 MCG TABLET PO (09:52)
[2021-12-15] MEDS: Fluticasone Propionate Nasal 16 GM SPRAY 1 SPRAY NOSTRIL-B (15:43)
[2021-12-15] MEDS: LORazepam 1 MG TABLET PO (18:55)
[2021-12-15 19:00] VITALS: BP 139/78; PULSE 76; TEMP 36.5; O2SAT 95
[2021-12-15] MEDS: risperiDONE 2 MG TABLET PO (20:18)
[2021-12-16] MEDS: hydrOXYzine HCL 25 MG TABLET PO (02:28)
[2021-12-16] MEDS: diphenhydrAMINE HCL 25 MG TABLET PO (02:28)
--- NOTE | 2021-12-16 02:57 | P.PNPSI_ITS ---
Subjective Subjective Date of Service: 12/15/21 Reason For Visit: Schizoaffective disorder Subjective Notes: 3 Day Interim History: Brighter today. Reports regime to be effective and without SE. Reports no sx of VH, no current fears or concerns Asking for discharge. TDN in progress. Social service will be in contact with family to review their perspective on progress and discharge. Medication Compliance: Yes Side effects from medications: No Attending Groups: Intermittent Review of Systems Acute medical concerns: No Medical Review of Systems: unchanged Mental Status Exam Mental Status Exam Patient Appearance: Appropriate Patient Orientation: Person, Place, Time and Situation Level of Consciousness: Alert Patient Behavior: Appropriate, Talkative, Cooperative and Good Eye Contact Mood Description: Cheerful Affect Description: Constricted Patient Cognition Impaired: No Ability to Follow Directions: Good Speech Pattern: Spontaneous Speech Memory Description: Intact Hallucinations: None (denies) Delusions: Not Present and Paranoid Ideation (denies) Thought Process: Goal Oriented Thought Content: positive for Goal Oriented, positive for Suicidal Ideation (denies) and positive for Homicidal Ideation (denies) Depressive Symptoms: Thoughts of /Suicide (denies) Judgement: Fair Diagnostics Vital Signs (24Hr): Vital Signs - 24 hr 12/15/21 08:00 12/15/21 19:00 Temperature 98.7 F 97.7 F Pulse Rate 79 76 Blood Pressure 131/64 139/78 Pulse Oximetry 94 95 BMI result Body Mass Index 62.7 Labs Results: 12/12/21 08:47 12/12/21 08:47 Labs: Laboratory Results - last 48 hr 12/13/21 07:38 Vitamin B12 397 Folate 9.5 Medications Medications Current Medications Acetaminophen (Acetaminophen 325 Mg Tablet) 650 mg PO Q6H PRN PRN Reason: Headache/Pain Mild Scale (1-3) Al Hydroxide/Mg Hydroxide (Magnesium Hydrox/Alum Hydrox 30 Ml Oral.Susp) 30 ml PO Q6H PRN PRN Reason: Heartburn/Nausea Amlodipine Besylate (Amlodipine Besylate 10 Mg Tablet) 10 mg PO DAILY [facility]; Protocol Last Admin: 12/15/21 09:52 Dose: 10 mg Documented by: Diphenhydramine HCl (Diphenhydramine Hcl 25 Mg Tablet) 25 mg PO Q4H PRN PRN Reason: anxiety, agitation Last Admin: 12/16/21 02:28 Dose: 25 mg Documented by: Fluticasone Propionate (Fluticasone Propionate Nasal 16 Gm [place]) 1 spray NOSTRIL-B Q12H [facility] Last Admin: 12/15/21 15:43 Dose: 1 spray Documented by: Hydroxyzine HCl (Hydroxyzine Hcl 25 Mg Tablet) 25 mg PO BEDTIME PRN PRN Reason: Anxiety Last Admin: 12/16/21 02:28 Dose: 25 mg Documented by: [place] Carbonate ([place] Carbonate 300 Mg Capsule) 600 mg PO BID [facility] Last Admin: 12/15/21 20:18 Dose: 600 mg Documented by: Lorazepam (Lorazepam 1 Mg Tablet) 1 mg PO Q4H PRN PRN Reason: agitation Last Admin: 12/15/21 18:55 Dose: 1 mg Documented by: Magnesium Hydroxide (Milk Of Magnesia 30 Ml Oral.Susp) 30 ml PO DAILY PRN PRN Reason: Constipation Nicotine Polacrilex (Nicotine Polacrilex 2 Mg Gum) 2 mg BUCCAL QID PRN PRN Reason: Nicotine Cravings Last Admin: 12/13/21 13:38 Dose: 2 mg Documented by: Olanzapine (Olanzapine 5 Mg Tablet) 5 mg PO Q4H PRN PRN Reason: psychosis, agitation Pharmacy Consult (Consult Rx Perform Med Rec) 1 each MISCELLANE ONCE PRN PRN Reason: Consult order Risperidone (Risperidone 2 Mg Tablet) 2 mg PO BEDTIME [facility] Last Admin: 12/15/21 20:18 Dose: 2 mg Documented by: Trazodone HCl (Trazodone Hcl 50 Mg Tablet) 50 mg PO BEDTIME PRN PRN Reason: Insomnia Vitamin D (Cholecalciferol (Vitamin D3) 25 Mcg Tablet) 25 mcg PO DAILY [facility] Last Admin: 12/15/21 09:52 Dose: 25 mcg Documented by: Allergies Allergies Allergy/AdvReac Type Severity Reaction Status Date / Time haloperidol [From HALDOL] Allergy Unknown DISTONIC Verified 06/03/20 02:40 REACTION Assessment & Plan Assessment & Plan (1) Schizoaffective disorder: Status: Acute Code(s): F25.9 - Schizoaffective disorder, unspecified (2) Schizoaffective disorder, bipolar type: Status: Acute Code(s): F25.0 - Schizoaffective disorder, bipolar type Plan Henry is a 31 y.o. Male who carries a dx of schizoaffective disorder, bipolar type. He presented to [facility] ED 12/11/21 complaining of burning sensation in both eyes, onset yesterday. Endorsed paranoid belief that ?people are coming at him to scratch out his eyes to kill him.? He obtained his Invega Trinza injection on 12/10/21. Reports he is adherent on meds but does not think they are working anymore. Hx of reporting somatic delusions with his eyes, SI. Plan: Wants to be on fewer meds, may consider switching lithium to ER/ once a day dosing instead of twice. No medication changes at this time, consider increasing risperdal. Q15 min safety checks, CV Monitor response to medications. Monitor for safety in the milieu. Discharge on stabilization. Patient seen. Chart reviewed. Discussed with team. Obtain collateral contact info?as needed 12/13/21- No medication changes today. Continue to monitor 12/14/21- Pt declining medication changes at this time. Utilize prn's for sx. TDN 12/18/21. 12/15/21- Continue current regime. I spent minutes with the patient and/or on the patient floor today, greater than?50% of which was spent counseling/coordinating care. Patient educated on: therapeutic strategies Informed Consent: understands Reason for contiued inpatient stay Substantial Risk for: harm to self, inability to function and rapid decompensation
[2021-12-16 06:00] VITALS: BP 132/85; PULSE 87; RESP 18
[2021-12-16] MEDS: Cholecalciferol (Vitamin D3) 25 MCG TABLET PO (08:45)
[2021-12-16] MEDS: Lithium Carbonate 300 MG CAPSULE 600 MG PO (08:45)
[2021-12-16] MEDS: amLODIPine Besylate 10 MG TABLET PO (08:46)
--- NOTE | 2021-12-16 11:29 | PM.PSYDC ---
DS: Providers Provider Date of Service: 12/16/21 Date of admission: 12/12/21 14:22 Date of discharge: 12/16/21 Primary care physician: Beth Ortega MD Admitting clinician: Sofi Jennings Attending physician on admission: Sofi Jennings Attending physician on discharge: Kimmie Clemens Discharging clinician: Kimmie Clemens DS: Diagnosis Discharge Diagnosis (1) Schizoaffective disorder, bipolar type: Status: Acute (2) Schizoaffective disorder: Status: Acute DS: Medications Discharge Medications Home Medications: Home Medications Medication Instructions Recorded Confirmed paliperidone palm (3-month) 546 546 mg IM [id number] 05/10/21 12/12/21 mg/1.75 mL intramuscular syringe (Invega Trinza) amlodipine 10 mg tablet 1 tab PO DAILY 07/28/21 12/12/21 lithium carbonate 600 mg capsule 1 cap PO BID 07/28/21 12/12/21 cholecalciferol (vitamin D3) 25 1 cap PO DAILY 12/12/21 12/12/21 mcg (1,000 unit) capsule (Vitamin D3) Previous Rx's Medication Instructions Recorded fluticasone propionate 50 1 spray INTRANASAL Q12H #16 g 09/14/21 mcg/actuation nasal spray,suspension (24 Hour Allergy Relief) nicotine (polacrilex) 2 mg gum 2 mg BUCCAL QID PRN #60 ea 12/16/21 risperidone 2 mg tablet 2 mg PO BEDTIME #30 tab 12/16/21 Mental Status Exam Mental Status Exam Patient Appearance: Appropriate Patient Orientation: Person, Place, Time and Situation Level of Consciousness: Alert Patient Behavior: Appropriate, Talkative, Cooperative and Good Eye Contact Mood Description: Cheerful Affect Description: Constricted Patient Cognition Impaired: No Ability to Follow Directions: Good Speech Pattern: Spontaneous Speech Memory Description: Intact Hallucinations: None (denies) Delusions: Not Present and Paranoid Ideation (denies) Thought Process: Goal Oriented Thought Content: positive for Goal Oriented, positive for Suicidal Ideation (denies) and positive for Homicidal Ideation (denies) Depressive Symptoms: Thoughts of /Suicide (denies) Judgement: Fair Data Data Completed and Pending Completed studies during hospitalization [Text1]: 12/11/21 12/11/21 12/11/21 17:35 17:35 19:28 WBC RBC Hgb Hct MCV MCH MCHC RDW Plt Count MPV Immature Gran % (Auto) Neut % (Auto) Lymph % (Auto) [place] % (Auto) Eos % (Auto) Baso % (Auto) Lymph # (Auto) [place] # (Auto) Eos # (Auto) Baso # (Auto) Abs Immat Gran (auto) Absolute Neuts (auto) Absolute Nucleated RBC Nucleated RBC % (auto) Sodium Potassium Chloride Carbon Dioxide Anion Gap BUN Creatinine Estim Creat Clear Calc Estimated GFR Random Glucose Estimat Average Glucose Hemoglobin A1c % Calcium Magnesium Total Bilirubin Direct Bilirubin AST ALT Alkaline Phosphatase Total Protein Albumin Triglycerides Cholesterol LDL Cholesterol, Calc HDL Cholesterol Vitamin B12 Folate TSH Free T4 Urine Color YELLOW Urine Appearance CLEAR Urine pH 6.0 Ur Specific [place] >= 1.030 H Urine Protein TRACE Urine Glucose (UA) NEG Urine Ketones NEG Urine Blood NEG Urine Nitrite NEG Ur Leukocyte Esterase NEG Urine Opiates Screen Not Detected Urine Fentanyl Screen Not Detected Ur Barbiturates Screen Not Detected Ur Phencyclidine Scrn Not Detected Ur Amphetamines Screen Not Detected U Benzodiazepines Scrn Not Detected [place] Urine Cocaine Screen Not Detected U Marijuana (THC) Screen Not Detected COVID-19 (NIC) COVID-19 Clin Com Influenza Type A ([place]) Negative Influenza Type B ([place]) Negative Influenza A & B Note See Note 12/11/21 12/12/21 12/12/21 19:28 08:47 08:47 WBC 9.4 RBC 5.00 Hgb 14.2 Hct 45.7 MCV 91.4 MCH 28.4 MCHC 31.1 RDW 13.9 Plt Count 259 MPV 10.1 Immature Gran % (Auto) 0.3 Neut % (Auto) 62.0 Lymph % (Auto) 20.9 [place] % (Auto) 6.8 Eos % (Auto) 9.4 H Baso % (Auto) 0.6 Lymph # (Auto) 2.0 [place] # (Auto) 0.6 Eos # (Auto) 0.9 H Baso # (Auto) 0.1 Abs Immat Gran (auto) 0.03 Absolute Neuts (auto) 5.8 Absolute Nucleated RBC 0.000 Nucleated RBC % (auto) 0.0 Sodium 140 Potassium 4.3 Chloride 102 Carbon Dioxide 31 H Anion Gap 11 L BUN 6 L Creatinine 0.70 Estim Creat Clear Calc 274.2 Estimated GFR > 60 Random Glucose 104 Estimat Average Glucose Hemoglobin A1c % Calcium 9.2 D Magnesium Total Bilirubin 0.3 Direct Bilirubin 0.2 AST 22 ALT 33 Alkaline Phosphatase 84 Total Protein 7.1 Albumin 3.9 Triglycerides Cholesterol LDL Cholesterol, Calc HDL Cholesterol Vitamin B12 Folate TSH Free T4 Urine Color Urine Appearance Urine pH Ur Specific [place] Urine Protein Urine Glucose (UA) Urine Ketones Urine Blood Urine Nitrite Ur Leukocyte Esterase Urine Opiates Screen Urine Fentanyl Screen Ur Barbiturates Screen Ur Phencyclidine Scrn Ur Amphetamines Screen U Benzodiazepines Scrn [place] Urine Cocaine Screen U Marijuana (THC) Screen COVID-19 (NIC) Negative COVID-19 Clin Com See Note Influenza Type A ([place]) Influenza Type B ([place]) Influenza A & B Note 12/13/21 12/13/21 12/13/21 07:38 07:38 07:38 WBC RBC Hgb Hct MCV MCH MCHC RDW Plt Count MPV Immature Gran % (Auto) Neut % (Auto) Lymph % (Auto) [place] % (Auto) Eos % (Auto) Baso % (Auto) Lymph # (Auto) [place] # (Auto) Eos # (Auto) Baso # (Auto) Abs Immat Gran (auto) Absolute Neuts (auto) Absolute Nucleated RBC Nucleated RBC % (auto) Sodium Potassium Chloride Carbon Dioxide Anion Gap BUN Creatinine Estim Creat Clear Calc Estimated GFR Random Glucose Estimat Average Glucose 105 Hemoglobin A1c % 5.3 Calcium Magnesium 2.5 Total Bilirubin Direct Bilirubin AST ALT Alkaline Phosphatase Total Protein Albumin Triglycerides 147 Cholesterol 186 LDL Cholesterol, Calc 120 HDL Cholesterol 37 Vitamin B12 397 Folate 9.5 TSH 1.18 Free T4 1.14 Urine Color Urine Appearance Urine pH Ur Specific [place] Urine Protein Urine Glucose (UA) Urine Ketones Urine Blood Urine Nitrite Ur Leukocyte Esterase Urine Opiates Screen Urine Fentanyl Screen Ur Barbiturates Screen Ur Phencyclidine Scrn Ur Amphetamines Screen U Benzodiazepines Scrn [place] Urine Cocaine Screen U Marijuana (THC) Screen COVID-19 (NIC) COVID-19 Clin Com Influenza Type A ([place]) Influenza Type B ([place]) Influenza A & B Note 12/13/21 07:38 WBC RBC Hgb Hct MCV MCH MCHC RDW Plt Count MPV Immature Gran % (Auto) Neut % (Auto) Lymph % (Auto) [place] % (Auto) Eos % (Auto) Baso % (Auto) Lymph # (Auto) [place] # (Auto) Eos # (Auto) Baso # (Auto) Abs Immat Gran (auto) Absolute Neuts (auto) Absolute Nucleated RBC Nucleated RBC % (auto) Sodium Potassium Chloride Carbon Dioxide Anion Gap BUN Creatinine Estim Creat Clear Calc Estimated GFR Random Glucose Estimat Average Glucose Hemoglobin A1c % Calcium Magnesium Total Bilirubin Direct Bilirubin AST ALT Alkaline Phosphatase Total Protein Albumin Triglycerides Cholesterol LDL Cholesterol, Calc HDL Cholesterol Vitamin B12 Folate TSH Free T4 Urine Color Urine Appearance Urine pH Ur Specific [place] Urine Protein Urine Glucose (UA) Urine Ketones Urine Blood Urine Nitrite Ur Leukocyte Esterase Urine Opiates Screen Urine Fentanyl Screen Ur Barbiturates Screen Ur Phencyclidine Scrn Ur Amphetamines Screen U Benzodiazepines Scrn [place] 0.13 L Urine Cocaine Screen U Marijuana (THC) Screen COVID-19 (NIC) COVID-19 Clin Com Influenza Type A ([place]) Influenza Type B ([place]) Influenza A & B Note DS: Summary Hospital Course Hospital Course: Admission to adult psychiatry to address symptoms of schizoaffective disorder, bipolar type. Care plan, medication regime and out patient plan of care prior to admission were reviewed. Education was provided regarding management of symptoms, medications and side effects. Nursing and social service worked with Henry on care planning, discharge planning and education. Medication regime was re-established. Risperdal was added at bedtime, Henry participated in milieu and was feeling improved a few days after admission. Time spent discussing smoking cessation with patient: 3 to 10 minutes Status at Discharge Functional status at discharge: independent ambulation Overall status at discharge: patient is back to baseline Time Spent with Patient Time attestation: Total time spent providing and/or coordinating discharge services: 30 Time spent: Less than 30 minutes Discharge Plan Discharge Patient Disposition: Home, Self-Care Discharge Diagnosis: Schizoaffective Disorder, Bipolar Type Referrals: Psych Prescriber: Annabella Lazo ([facility]) [Other] - 12/23/21 11:45 am (Telehealth ) Beth Ortega MD [Primary Care Provider] - 12/25/21 1:15 pm (in office.) Discharge Medications: New nicotine (polacrilex) 2 mg Gum 2 mg buccal QID PRN (Reason: Nicotine Cravings) Qty: 60 0RF risperidone 2 mg Tablet 2 mg PO BEDTIME Qty: 30 0RF Continued Invega Trinza 546 mg/1.75 mL syringe 546 mg IM [id number] 0RF lithium carbonate 600 mg capsule 1 cap PO BID 0RF amlodipine 10 mg tablet 1 tab PO DAILY 0RF fluticasone propionate [24 Hour Allergy Relief] 50 mcg/actuation spray,suspension 1 spray intranasal Q12H Qty: 16 0RF Rx Instructions: administer into each nostril cholecalciferol (vitamin D3) [Vitamin D3] 25 mcg (1,000 unit) capsule 1 cap PO DAILY 0RF Discharge Orders: Discharge Order (Routine); Ordered 12/16/21 Ordered By: Kimmie Clemens Diet: advance to usual diet Activity on Discharge: As tolerated Stand Alone Forms: Patient Portal Discharge page, Community Support Care Plan Goals: Mood Stabilization Health Concerns: Schizoaffective Disorder, Bipolar Type Plan of Treatment: Attend scheduled follow up appointments Take medications as directed by your [facility]NA team. Practice coping skills Crisis Team if needed [phone] Call as needed if there are questions or concerns Assessment: non-psychotic, non suicidal Discharge Date/Time: 12/16/21 14:19
== END 2021-12-16 14:19 | disposition home or self-care (01) | DRG 750 ==
LOC: HO.ED 12-12 11:48 → HO.PM5 12-12 14:26
PROVIDERS: Nurse Practitioner Family; Registered Nurse; Admitting Provider Psychiatry & Neurology Psychiatry; Emergency Provider Emergency Medicine; PCP Internal Medicine; Visit Provider Clinical Nurse Specialist Psychiatric/Mental Health, Adult
DX: F25.0 Schizoaffective disorder, bipolar type (principal); E03.9 Hypothyroidism, unspecified; F17.210 Nicotine dependence, cigarettes, uncomplicated; J45.909 Unspecified asthma, uncomplicated; Z20.822 Contact with and (suspected) exposure to COVID-19; Z71.6 Tobacco abuse counseling; Z88.8 Allergy status to other drugs, medicaments and biological substances; Z79.51 Long term (current) use of inhaled steroids; Z79.899 Other long term (current) drug therapy
CPT/HCPCS: 36415; 80048; 80061; 80076; 80178; 80307; 81003; 82607; 82746; 83036; 83735; 84439; 84443; 85025; 87502; 87635; 93005; 99285; Q0163

== ENCOUNTER 2022-11-06 21:58 | Inpatient (IN) | payer OTHER, MEDICAID, SELFPAY ==
[2022-11-06 22:06] VITALS: BP 156/89; PULSE 82; RESP 17; TEMP 36.5; O2SAT 95; BMI 69.4
[2022-11-06 22:43] LABS: COVID-19 Test Negative (Negative); IDNOW Serial# 6674DD1D
[2022-11-06 22:53] LABS: MANUAL DIFF FLAG NO
[2022-11-06 22:54] LABS: Basophils Absolute Auto 0.1 X10*3/uL (0.0-0.2); Basophils Percent Auto 0.7 % (0-2); Eosinophils Absolute Auto 0.5 X10*3/uL (0.0-0.4); Eosinophils Percent Auto 6.2 % (0-4); Imm Gran Abs Auto 0.01 X10*3/uL (0.00-0.03); Imm Gran Pct Auto 0.1 % (0.0-0.4); Lymphocytes Absolute Auto 2.1 X10*3/uL (1.2-4.9); Lymphocytes Percent Auto 24.8 % (20-40); Mean Corpuscular HGB Conc 32.6 g/dl (31.0-36.0); Mean Corpuscular Hemoglobin 28.6 pg (27.0-33.0); Mean Corpuscular Volume 87.8 fL (80.0-98.0); Mean Platelet Volume 9.5 fL (9.4-12.4); Monocytes Absolute Auto 0.8 X10*3/uL (0.1-1.2); Monocytes Percent Auto 9.8 % (2-11); Neutrophils Absolute Auto 4.8 x10*3/uL (2.0-8.3); Neutrophils Percent Auto 58.4 % (45-73); Platelet Count 250 X10*3/uL (160-400); Red Cell Distribution Width 12.9 % (11.0-16.0); White Blood Count 8.3 X10*3/uL (4.8-10.8)
[2022-11-06 23:01] LABS: Amphetamine Screen Urine Not Detected (Not Detect); Barbiturates, Urine Not Detected (Not Detect); Benzodiazepines Screen Urine Not Detected (Not Detect); Cannabinoid Screen Urine Not Detected (Not Detect); Cocaine Screen Urine Not Detected (Not Detect); Fentanyl, urine Not Detected (Not Detect); Opiate Screen Urine Not Detected (Not Detect); Phencyclidine Screen Urine Not Detected (Not Detect)
[2022-11-06 23:23] LABS: Lithium 0.38 mmol/L (0.60-1.20)
[2022-11-06 23:38] LABS: Alanine Aminotransferase 27 U/L (0-40); Albumin Level 3.9 g/dL (3.5-5.0); Alkaline Phosphatase 80 U/L (39-117); Anion Gap 11 (12-20); Aspartate Amino Transferase 21 U/L (5-37); Bilirubin Total 0.5 mg/dL (0.0-1.0); Blood Urea Nitrogen 7 mg/dL (9-16); Calcium 8.6 mg/dL (8.4-10.2); Carbon Dioxide 28 mmol/L (22-29); Chloride 107 mmol/L (96-108); Creatinine Clr Calc Pharmacy 312.2; Estimated Glomerular Filt Rate > 60; Ethanol < 10 mg/dL; Glucose Random 95 mg/dL (60-115); Potassium 3.8 mmol/L (3.3-5.1); Sodium 142 mmol/L (135-145); Total Protein 6.7 g/dL (6.5-8.0)
--- NOTE | 2022-11-06 23:39 | ED_ITS ---
HPI - General Adult General Chief complaint: Psychiatric Symptoms Stated complaint: crisis Time Seen by Provider: 11/06/22 22:06 Source: patient, RN notes reviewed and old records reviewed Mode of arrival: EMS History of Present Illness HPI narrative: this is a 32-year-old male past medical history significant for schizoaffective disorder presenting for evaluation of delusional thoughts presently the patient lives with his mother who called EMS as he has been stating things that do not make sense. The patient states to me I have salt in my blood instead of sugar. He also reports that he has telepathy. The patient reports he is also feeling sad, but he is not suicidal. He reports that he has been taking all of his antipsychotic medications he does have similar psychiatric presentations when he has not been taking his antipsychotic medications he states that physically he feels well and has no pain Related Data Home Medications Medication Instructions Recorded Confirmed paliperidone palm (3-month) 546 546 mg IM [id number] 05/10/21 11/06/22 mg/1.75 mL intramuscular syringe (Invega Trinza) amlodipine 10 mg tablet 1 tab PO DAILY 07/28/21 11/06/22 lithium carbonate 600 mg capsule 1 cap PO BID 07/28/21 11/06/22 cholecalciferol (vitamin D3) 25 1 cap PO DAILY 12/12/21 11/06/22 mcg (1,000 unit) capsule (Vitamin D3) levothyroxine 75 mcg tablet 1 tab PO DAILY 11/06/22 11/06/22 lumateperone 42 mg capsule 1 cap PO QPM 11/06/22 11/06/22 (Caplyta) Previous Rx's Medication Instructions Recorded fluticasone propionate 50 1 spray intranasal Q12H #16 grams 09/14/21 mcg/actuation nasal spray,suspension (24 Hour Allergy Relief) nicotine (polacrilex) 2 mg gum 2 mg buccal QID PRN Nicotine 12/16/21 Cravings #60 ea Allergies Allergy/AdvReac Type Severity Reaction Status Date / Time haloperidol [From HALDOL] Allergy Unknown DISTONIC Verified 06/03/20 02:40 REACTION Review of Systems 2 Constitutional: Constitutional: Reports as per HPI, Denies chills, Denies fatigue, Denies fever(s) and Denies headache(s) ENT: Denies headache(s) Cardiovascular: Cardiovascular: Denies chest pain and Denies dyspnea Respiratory: Respiratory: Denies cough and Denies dyspnea Gastrointestinal: Gastrointestinal: Denies abdominal pain, Denies constipation and Denies vomiting Genitourinary: Genitourinary: Denies difficulty urinating and Denies dysuria Neurologic: Denies headache(s) and Denies focal weakness Endocrine: Endocrine: Denies fatigue PMFSH Past Medical History Medical History (Updated 11/07/22 @ 00:15 by Marco Gorman) Asthma Delusional disorder Hypothyroid Schizoaffective disorder Social History Social History Household Members: None Household Members Other:: Parents Housing: House Do you presently have visiting nurse or other home services: No Alcohol intake: never Patient Tobacco Use Status: Current everyday Tobacco user Tobacco use type: Cigarette Cigarette Packs Per Day: 10 Cigarettes Per Day: 200.0 Years Smoked: 16 Second Hand Smoke Exposure: Yes Substance Use Type: Marijuana Advance Directives: No Advance Directives Information Provided: Yes service: No Sexual orientation: Did not discuss Physical Exam ED Vital Signs: Vital Signs - 24 hr 11/06/22 22:06 Temperature 97.7 F Pulse Rate 82 Respiratory Rate 17 Blood Pressure 156/89 H Pulse Oximetry 95 Oxygen Delivery Method Room Air BMI result Body Mass Index 69.4 Const General: healthy appearing, comfortable, no acute distress, alert and awake Nutritional Appearance: well nourished Orientation/consciousness: patient oriented x3 HENMT Head: Yes normocephalic and Yes atraumatic Throat: Yes posterior oropharynx normal Eyes Eyelids: Yes eyelids normal Conjunctivae: conjunctivae normal Sclerae: sclerae normal Corneas: corneas normal Pupils: Equal, round and reactive pupils present EOM: EOMs intact bilaterally Neck Neck: Yes full ROM Resp Effort & Inspection: normal respiratory effort, able to speak in complete sentences, no audible wheezes and not labored Auscultation: clear to auscultation bilaterally Cardio Rate: regular rate Rhythm: regular rhythm GI Inspection: No distended Palpation (GI): Soft to palpation, not firm, nontender, no guarding and not rigid Auscultation: normoactive bowel sounds Skin General skin exam: no rashes or lesions noted and elasticity normal Neuro General: patient oriented x3 Cranial nerves: Yes CN's II-XII intact bilaterally, Yes Equal, round and reactive pupils present and Yes Bilaterally intact EOM present Cognition (Neuro): normal cognition Extrem Other: Moving all extremities well without any obvious deformities Psych Speech and movement: Pressured speech present Attitude: cooperative Thought process: Flight of ideas present Thought content: suicidality and Paranoid delusions present Insight: Poor insight present (Psych) Judgement: Poor judgement present (Psych) Course Reevaluation(s) Reevaluation #1: patient was seen by the crisis team and team to meet inpatient level of care. He will be a Section 12 that search for inpatient psychiatric care. The patient's lithium level was low indicating that the patient is likely not taking his medications Time: 00:14 Medical Decision Making Medical Decision Making MDM Narrative: 32-year-old male presents with grandiose and paranoid delusions. He is currently common cooperative stable vital signs, no somatic complaints. He will be medically cleared and then will require a crisis evaluation Differential Diagnosis schizoaffective disorder Bipolar disorder Substance abuse polysubstance abuse Medication noncompliance Lab Data 11/06/22 22:49 11/06/22 22:49 Labs: Lab Results 11/06/22 11/06/22 11/06/22 Range/Units 22:23 22:23 22:49 WBC (4.8-10.8) X10*3/uL RBC (4.60-5.80) X10*6/uL Hgb (14.0-18.0) g/dl Hct (42.0-52.0) % MCV (80.0-98.0) fL MCH (27.0-33.0) pg MCHC (31.0-36.0) g/dl RDW (11.0-16.0) % Plt Count (160-400) X10*3/uL MPV (9.4-12.4) fL Immature Gran % (Auto) (0.0-0.4) % Neut % (Auto) (45-73) % Lymph % (Auto) (20-40) % [place] % (Auto) (2-11) % Eos % (Auto) (0-4) % Baso % (Auto) (0-2) % Lymph # (Auto) (1.2-4.9) X10*3/uL [place] # (Auto) (0.1-1.2) X10*3/uL Eos # (Auto) (0.0-0.4) X10*3/uL Baso # (Auto) (0.0-0.2) X10*3/uL Abs Immat Gran (auto) (0.00-0.03) X10*3/uL Absolute Neuts (auto) (2.0-8.3) x10*3/uL Absolute Nucleated RBC (0.0-0.012) X10*3/uL Nucleated RBC % (auto) (0.0-0.2) /100WBC Sodium (135-145) mmol/L Potassium (3.3-5.1) mmol/L Chloride (96-108) mmol/L Carbon Dioxide (22-29) mmol/L Anion Gap (12-20) BUN (9-16) mg/dL Creatinine (0.5-1.4) mg/dL Estim Creat Clear Calc Estimated GFR Random Glucose (60-115) mg/dL Calcium (8.4-10.2) mg/dL Total Bilirubin (0.0-1.0) mg/dL AST (5-37) U/L ALT (0-40) U/L Alkaline Phosphatase (39-117) U/L Total Protein (6.5-8.0) g/dL Albumin (3.5-5.0) g/dL Urine Opiates Screen Not Detected (Not Detect) Urine Fentanyl Screen Not Detected (Not Detect) Ur Barbiturates Screen Not Detected (Not Detect) Ur Phencyclidine Scrn Not Detected (Not Detect) Ur Amphetamines Screen Not Detected (Not Detect) U Benzodiazepines Scrn Not Detected (Not Detect) [place] 0.38 L (0.60-1.20) mmol/L Urine Cocaine Screen Not Detected (Not Detect) U Marijuana (THC) Screen Not Detected (Not Detect) Ethyl Alcohol mg/dL COVID-19 (NIC) Negative (Negative) COVID-19 Clin Com See Note 11/06/22 11/06/22 Range/Units 22:49 22:49 WBC 8.3 (4.8-10.8) X10*3/uL RBC 4.90 (4.60-5.80) X10*6/uL Hgb 14.0 (14.0-18.0) g/dl Hct 43.0 (42.0-52.0) % MCV 87.8 (80.0-98.0) fL MCH 28.6 (27.0-33.0) pg MCHC 32.6 (31.0-36.0) g/dl RDW 12.9 (11.0-16.0) % Plt Count 250 (160-400) X10*3/uL MPV 9.5 (9.4-12.4) fL Immature Gran % (Auto) 0.1 (0.0-0.4) % Neut % (Auto) 58.4 (45-73) % Lymph % (Auto) 24.8 (20-40) % [place] % (Auto) 9.8 (2-11) % Eos % (Auto) 6.2 H (0-4) % Baso % (Auto) 0.7 (0-2) % Lymph # (Auto) 2.1 (1.2-4.9) X10*3/uL [place] # (Auto) 0.8 (0.1-1.2) X10*3/uL Eos # (Auto) 0.5 H (0.0-0.4) X10*3/uL Baso # (Auto) 0.1 (0.0-0.2) X10*3/uL Abs Immat Gran (auto) 0.01 (0.00-0.03) X10*3/uL Absolute Neuts (auto) 4.8 (2.0-8.3) x10*3/uL Absolute Nucleated RBC 0.000 (0.0-0.012) X10*3/uL Nucleated RBC % (auto) 0.0 (0.0-0.2) /100WBC Sodium 142 (135-145) mmol/L Potassium 3.8 (3.3-5.1) mmol/L Chloride 107 (96-108) mmol/L Carbon Dioxide 28 (22-29) mmol/L Anion Gap 11 L (12-20) BUN 7 L (9-16) mg/dL Creatinine 0.67 (0.5-1.4) mg/dL Estim Creat Clear Calc 312.2 Estimated GFR > 60 Random Glucose 95 (60-115) mg/dL Calcium 8.6 D (8.4-10.2) mg/dL Total Bilirubin 0.5 (0.0-1.0) mg/dL AST 21 (5-37) U/L ALT 27 (0-40) U/L Alkaline Phosphatase 80 (39-117) U/L Total Protein 6.7 (6.5-8.0) g/dL Albumin 3.9 (3.5-5.0) g/dL Urine Opiates Screen (Not Detect) Urine Fentanyl Screen (Not Detect) Ur Barbiturates Screen (Not Detect) Ur Phencyclidine Scrn (Not Detect) Ur Amphetamines Screen (Not Detect) U Benzodiazepines Scrn (Not Detect) [place] (0.60-1.20) mmol/L Urine Cocaine Screen (Not Detect) U Marijuana (THC) Screen (Not Detect) Ethyl Alcohol < 10 mg/dL COVID-19 (NIC) (Negative) COVID-19 Clin Com Discharge Plan Discharge Clinical Impression: Schizoaffective disorder, bipolar type Patient Disposition: Xfer Psychiatric Hosp Prescriptions: No Action Invega Trinza 546 mg/1.75 mL syringe 546 mg IM [id number] lithium carbonate 600 mg capsule 1 cap PO BID amlodipine 10 mg tablet 1 tab PO DAILY Caplyta 42 mg capsule 1 cap PO QPM levothyroxine 75 mcg tablet 1 tab PO DAILY fluticasone propionate [24 Hour Allergy Relief] 50 mcg/actuation spray,suspension 1 spray intranasal Q12H Qty: 16 0RF Rx Instructions: administer into each nostril cholecalciferol (vitamin D3) [Vitamin D3] 25 mcg (1,000 unit) capsule 1 cap PO DAILY nicotine (polacrilex) 2 mg Gum 2 mg buccal QID PRN (Reason: Nicotine Cravings) Qty: 60 0RF Interventions: [place]-Suicide Risk Severity Scale Last Done: 11/06/22 22:13
--- NOTE | 2022-11-07 05:48 | PC.NURSE ---
Patient slept through the night, no distress observed/reported, behavior non concerning, thought content delusional and paranoid, thought process tangential, disposition per care team is section 12 inpatient bed search, med rec completed/approved, VSS, will continue to monitor.
[2022-11-07 06:28] VITALS: BP 98/49; PULSE 68; RESP 17; TEMP 37.2; O2SAT 94
[2022-11-07] MEDS: Levothyroxine Sodium 75 MCG TABLET PO (06:31)
[2022-11-07 08:53] VITALS: BP 123/71; PULSE 69; RESP 18; TEMP 36.6; O2SAT 93
[2022-11-07] MEDS: Lithium Carbonate 300 MG CAPSULE 600 MG PO ×2 (08:53→20:14)
[2022-11-07] MEDS: Cholecalciferol (Vitamin D3) 25 MCG TABLET PO (08:53)
[2022-11-07] MEDS: amLODIPine Besylate 10 MG TABLET PO (08:53)
--- NOTE | 2022-11-07 12:34 | PC.NURSE ---
nurse to nurse given to Latha RN on m5
[2022-11-07 16:02] VITALS: BP 135/85; PULSE 78; RESP 16; TEMP 35.9; O2SAT 98; BMI 53.6
[2022-11-07 18:00] VITALS: BP 124/78; PULSE 95; RESP 16; TEMP 36.4; O2SAT 98
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
[2022-11-08 06:00] VITALS: BP 110/72; PULSE 90; RESP 16; TEMP 36.7; O2SAT 98
[2022-11-08] MEDS: Levothyroxine Sodium 75 MCG TABLET PO (06:30)
[2022-11-08 08:15] LABS: Estimated Average Glucose 97 mg/dL
[2022-11-08 08:21] LABS: Cholesterol 183 mg/dL; HDL Cholesterol 28 mg/dL; LDL Cholesterol Calculated 127 mg/dl; Triglycerides 142 mg/dL
[2022-11-08] MEDS: Lithium Carbonate 300 MG CAPSULE 600 MG PO ×2 (10:41→21:10)
[2022-11-08] MEDS: Cholecalciferol (Vitamin D3) 25 MCG TABLET PO (10:41)
[2022-11-08] MEDS: amLODIPine Besylate 10 MG TABLET PO (10:41)
[2022-11-08] MEDS: hydrOXYzine HCL 25 MG TABLET PO ×2 (10:43→21:23)
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
[2022-11-08] MEDS: Fluticasone Propionate Nasal 16 GM SPRAY 1 SPRAY NOSTRIL-B (12:42)
[2022-11-08 18:00] VITALS: BP 124/76; PULSE 92; TEMP 36.3; O2SAT 97
[2022-11-08] MEDS: Paliperidone ER 3 MG TAB.ER.24 PO ×2 (18:24→21:23)
[2022-11-09] MEDS: Levothyroxine Sodium 75 MCG TABLET PO (06:03)
[2022-11-09 08:12] VITALS: BP 129/77; PULSE 107; RESP 16; TEMP 36.9; O2SAT 95
[2022-11-09] MEDS: amLODIPine Besylate 10 MG TABLET PO (08:57)
[2022-11-09] MEDS: Cholecalciferol (Vitamin D3) 25 MCG TABLET PO (08:57)
[2022-11-09] MEDS: Lithium Carbonate 300 MG CAPSULE 600 MG PO ×2 (08:57→19:53)
[2022-11-09] MEDS: Paliperidone ER 3 MG TAB.ER.24 PO ×2 (08:57→19:54)
[2022-11-09] MEDS: hydrOXYzine HCL 25 MG TABLET PO (15:02)
--- NOTE | 2022-11-09 16:49 | P.PNPSI_ITS ---
Subjective Subjective Date of Service: 11/09/22 Reason For Visit: Disorganized Subjective Notes: Conditional Voluntary Interim History: Henry reports voices are still a problem. Reports sleep, appetite are adequate, yet asks for increased perceptual alteration mgt. Reviewed regime and care received since we last met in 2020. States he has been off medications for a significant period of time, unable to identify any SE that was a major precipitant. Discussed compliance being easier if SE are managed and he is feeling well. He agrees. Medication Compliance: Yes Side effects from medications: No Attending Groups: Intermittent Review of Systems Acute medical concerns: No Medical Review of Systems: unchanged Mental Status Exam Mental Status Exam Patient Appearance: Appropriate Patient Orientation: Person, Place, Time and Situation Level of Consciousness: Alert Patient Behavior: Appropriate, Talkative, Cooperative and Distractible Mood Description: Anxious Affect Description: Anxious Patient Cognition Impaired: No Ability to Follow Directions: Good Speech Pattern: Clear, Appropriate and Spontaneous Speech Memory Description: Episodic Impaired Hallucinations: Auditory Delusions: Present Perceptual Disturbances: Hallucinations Thought Process: Distracted Thought Content: positive for [place], positive for [place]um[place], positive for Suicidal Ideation (denies) and positive for Homicidal Ideation (denies) Depressive Symptoms: Increased Anxiety Judgement: Fair Diagnostics Vital Signs (24Hr): Vital Signs - 24 hr 11/08/22 18:00 11/09/22 08:12 Temperature 97.4 F 98.4 F Pulse Rate 92 107 H Respiratory Rate 16 Blood Pressure 124/76 129/77 Pulse Oximetry 97 95 Oxygen Delivery Method Room Air Room Air BMI result Body Mass Index 53.6 Labs 11/06/22 22:49 11/06/22 22:49 Labs: Laboratory Results - last 48 hr 11/08/22 11/08/22 07:41 07:41 Estimat Average Glucose 97 Hemoglobin A1c % 5.0 Triglycerides 142 Cholesterol 183 LDL Cholesterol, Calc 127 HDL Cholesterol 28 Medications Medications Current Medications Acetaminophen (Acetaminophen 325 Mg Tablet) 650 mg PO Q6H PRN PRN Reason: Headache/Pain Mild Scale (1-3) Al Hydroxide/Mg Hydroxide (Magnesium Hydrox/Alum Hydrox 30 Ml Oral.Susp) 30 ml PO Q6H PRN PRN Reason: Heartburn/Nausea Albuterol Sulfate (Albuterol Sulfate 90 Mcg 8 Gm Inhaler) 2 puff INHALE Q4H PRN PRN Reason: Shortness of Breath Amlodipine Besylate (Amlodipine Besylate 10 Mg Tablet) 10 mg PO DAILY [facility]; Protocol Last Admin: 11/09/22 08:57 Dose: 10 mg Fluticasone Propionate (Fluticasone Propionate Nasal 16 Gm [place]) 1 spray NOSTRIL-B Q12H [facility] Last Admin: 11/09/22 13:10 Dose: Not Given Hydroxyzine HCl (Hydroxyzine Hcl 25 Mg Tablet) 25 mg PO Q6H PRN PRN Reason: Anxiety Last Admin: 11/09/22 15:02 Dose: 25 mg Levothyroxine Sodium (Levothyroxine Sodium 75 Mcg Tablet) 75 mcg PO DAILY@0630 [facility] Last Admin: 11/09/22 06:03 Dose: 75 mcg [place] Carbonate ([place] Carbonate 300 Mg Capsule) 600 mg PO BID [facility] Last Admin: 11/09/22 08:57 Dose: 600 mg Magnesium Hydroxide (Milk Of Magnesia 30 Ml Oral.Susp) 30 ml PO DAILY PRN PRN Reason: Constipation Nicotine Polacrilex (Nicotine Polacrilex 2 Mg Gum) 2 mg BUCCAL QID PRN PRN Reason: Nicotine Cravings Nicotine Polacrilex (Nicotine Polacrilex 2 Mg Gum) 4 mg BUCCAL Q2H PRN PRN Reason: Nicotine Cravings Non-Formulary Medication (Lumateperone [Caplyta]) 1 cap PO QPM [facility] Olanzapine (Olanzapine 5 Mg Tablet) 5 mg PO TID PRN PRN Reason: agitation Paliperidone (Paliperidone Er 3 Mg Tab.Er.24) 3 mg PO BID [facility] Last Admin: 11/09/22 08:57 Dose: 3 mg Trazodone HCl (Trazodone Hcl 50 Mg Tablet) 50 mg PO BEDTIME MRX1 PRN PRN Reason: Insomnia Vitamin D (Cholecalciferol (Vitamin D3) 25 Mcg Tablet) 25 mcg PO DAILY [facility] Last Admin: 11/09/22 08:57 Dose: 25 mcg Allergies Allergies Allergy/AdvReac Type Severity Reaction Status Date / Time haloperidol [From HALDOL] Allergy Unknown DISTONIC Verified 06/03/20 02:40 REACTION Assessment & Plan Assessment & Plan (1) Schizoaffective disorder, bipolar type: Status: Acute Code(s): F25.0 - Schizoaffective disorder, bipolar type Plan Patient is a 32-year-old male with diagnosis of schizoaffective disorder, bipolar type, last admitted to [facility] about a year ago, who presents now for worsening auditory hallucinations and paranoid delusions in the face of medication non adherence. -previous admission note says patient has a community Mantilla; will try to procure -patient restarted on lithium; patient is also normal on long-acting Invega Trinza so will start Invega p.o..; also on Caplyta -will pursue collateral Plan: CV Q 15 minute checks Restarted lithium 600 mg b.i.d. Patient is also on Caplyta however not on formulary and pt's own medications not yet available Will start Invega p.o. for now until Caplyta available Will try to recover community Mantilla document Gather collateral 11/09/22- Continue current regime. Patient educated on: medication risk/benefits and therapeutic strategies Informed Consent: further education needed Reason for contiued inpatient stay Substantial Risk for: rapid decompensation Time Spent With Patient Time: Total time managing care of this patient today ____ minutes.
[2022-11-09 19:50] VITALS: BP 120/55; PULSE 87; TEMP 37.1
[2022-11-10] MEDS: Levothyroxine Sodium 75 MCG TABLET PO (06:22)
[2022-11-10 08:22] VITALS: BP 110/58; PULSE 87; RESP 16; TEMP 37.7; O2SAT 94
[2022-11-10] MEDS: amLODIPine Besylate 10 MG TABLET PO (08:43)
[2022-11-10] MEDS: Cholecalciferol (Vitamin D3) 25 MCG TABLET PO (08:43)
[2022-11-10] MEDS: Paliperidone ER 3 MG TAB.ER.24 PO ×2 (08:43→20:36)
[2022-11-10] MEDS: Lithium Carbonate 300 MG CAPSULE 600 MG PO ×2 (08:43→20:36)
[2022-11-10] MEDS: OLANZapine 5 MG TABLET PO ×2 (08:44→21:56)
[2022-11-10 11:10] LABS: COVID-19 Test Negative (Negative); IDNOW Serial# BCCEAD1C
[2022-11-10 11:52] LABS: Influenza A PCR NEGATIVE (Negative); Influenza B PCR NEGATIVE (Negative); Resp Syncy Virus RNA Qual PCR NEGATIVE (Negative); SARS COV2 PCR INHOUSE NEGATIVE (Negative)
[2022-11-10] MEDS: hydrOXYzine HCL 25 MG TABLET PO (17:53)
[2022-11-10 18:18] VITALS: BP 131/79; PULSE 107; RESP 16; TEMP 36.4; O2SAT 96
--- NOTE | 2022-11-10 21:20 | P.PNPSI_ITS ---
Subjective Subjective Date of Service: 11/10/22 Reason For Visit: Disorganized Subjective Notes: Conditional Voluntary Interim History: Reports voices to be decreasing with addition of Olanzapine trial 5 mg last evening. Asking about discharge, discussed where symptom mgt progress is prior to planning for pt to go home. Pt reports no fears in being on the unit. He is somewhat isolative. Encouraged group and milieu invovlement. Medication Compliance: Yes Side effects from medications: No Review of Systems Acute medical concerns: No COVID, RSV, Flu negative Medical Review of Systems: unchanged Mental Status Exam Mental Status Exam Patient Appearance: Appropriate Patient Orientation: Person, Place, Time and Situation Level of Consciousness: Alert Patient Behavior: Appropriate, Talkative, Cooperative and Distractible Mood Description: Anxious Affect Description: Anxious Patient Cognition Impaired: No Ability to Follow Directions: Good Speech Pattern: Clear, Appropriate and Spontaneous Speech Memory Description: Episodic Impaired Hallucinations: Auditory Delusions: Present Perceptual Disturbances: Hallucinations Thought Process: Distracted Thought Content: positive for [place], positive for Circumstantial, positive for Suicidal Ideation (denies) and positive for Homicidal Ideation (denies) Depressive Symptoms: Increased Anxiety Judgement: Fair Diagnostics Vital Signs (24Hr): Vital Signs - 24 hr 11/10/22 08:22 11/10/22 18:18 Temperature 100 F 97.6 F Pulse Rate 87 107 H Respiratory Rate 16 16 Blood Pressure 110/58 L 131/79 Pulse Oximetry 94 96 Oxygen Delivery Method Room Air Room Air BMI result Body Mass Index 53.6 Labs 11/06/22 22:49 11/06/22 22:49 Labs: Laboratory Results - last 48 hr 11/10/22 11/10/22 10:46 10:52 COVID-19 (INC) Negative COVID-19 Clin Com See Note Influenza Type A (PCR) NEGATIVE Influenza Type B (PCR) NEGATIVE RSV RNA Qual (PCR) NEGATIVE SARS-CoV-2 RNA (RT-PCR) NEGATIVE Medications Medications Current Medications Acetaminophen (Acetaminophen 325 Mg Tablet) 650 mg PO Q6H PRN PRN Reason: Headache/Pain Mild Scale (1-3) Al Hydroxide/Mg Hydroxide (Magnesium Hydrox/Alum Hydrox 30 Ml Oral.Susp) 30 ml PO Q6H PRN PRN Reason: Heartburn/Nausea Albuterol Sulfate (Albuterol Sulfate 90 Mcg 8 Gm Inhaler) 2 puff INHALE Q4H PRN PRN Reason: Shortness of Breath Amlodipine Besylate (Amlodipine Besylate 10 Mg Tablet) 10 mg PO DAILY [facility]; Protocol Last Admin: 11/10/22 08:43 Dose: 10 mg Fluticasone Propionate (Fluticasone Propionate Nasal 16 Gm [place]) 1 spray NOSTRIL-B Q12H [facility] Last Admin: 11/10/22 13:43 Dose: Not Given Hydroxyzine HCl (Hydroxyzine Hcl 25 Mg Tablet) 25 mg PO Q6H PRN PRN Reason: Anxiety Last Admin: 11/10/22 17:53 Dose: 25 mg Levothyroxine Sodium (Levothyroxine Sodium 75 Mcg Tablet) 75 mcg PO DAILY@0630 [facility] Last Admin: 11/10/22 06:22 Dose: 75 mcg [place] Carbonate ([place] Carbonate 300 Mg Capsule) 600 mg PO BID [facility] Last Admin: 11/10/22 20:36 Dose: 600 mg Magnesium Hydroxide (Milk Of Magnesia 30 Ml Oral.Susp) 30 ml PO DAILY PRN PRN Reason: Constipation Nicotine Polacrilex (Nicotine Polacrilex 2 Mg Gum) 2 mg BUCCAL QID PRN PRN Reason: Nicotine Cravings Nicotine Polacrilex (Nicotine Polacrilex 2 Mg Gum) 4 mg BUCCAL Q2H PRN PRN Reason: Nicotine Cravings Non-Formulary Medication (Lumateperone [Caplyta]) 1 cap PO QPM [facility] Olanzapine (Olanzapine 5 Mg Tablet) 5 mg PO TID PRN PRN Reason: agitation Olanzapine (Olanzapine 5 Mg Tablet) 5 mg PO DAILY [facility] Last Admin: 11/10/22 08:44 Dose: 5 mg Paliperidone (Paliperidone Er 3 Mg Tab.Er.24) 3 mg PO BID [facility] Last Admin: 11/10/22 20:36 Dose: 3 mg Trazodone HCl (Trazodone Hcl 50 Mg Tablet) 50 mg PO BEDTIME MRX1 PRN PRN Reason: Insomnia Vitamin D (Cholecalciferol (Vitamin D3) 25 Mcg Tablet) 25 mcg PO DAILY [facility] Last Admin: 11/10/22 08:43 Dose: 25 mcg Allergies Allergies Allergy/AdvReac Type Severity Reaction Status Date / Time haloperidol [From HALDOL] Allergy Unknown DISTONIC Verified 06/03/20 02:40 REACTION Assessment & Plan Assessment & Plan (1) Schizoaffective disorder, bipolar type: Status: Acute Code(s): F25.0 - Schizoaffective disorder, bipolar type Plan Patient is a 32-year-old male with diagnosis of schizoaffective disorder, bipolar type, last admitted to [facility] about a year ago, who presents now for worse treva auditory hallucinations and paranoid delusions in the face of medication non adherence. -previous admission note says patient has a community Mantilla; will try to procure -patient restarted on lithium; patient is also normal on long-acting Invega Trinza so will start Invega p.o..; also on Caplyta -will pursue collateral Plan: CV Q 15 minute checks Restarted lithium 600 mg b.i.d. Patient is also on Caplyta however not on formulary and pt's own medications not yet available Will start Invega p.o. for now until Caplyta available Will try to recover community Mantilla document Gather collateral 11/10/22- Continue current regime. Continue Olanzapine 5 mg HS Patient educated on: medication risk/benefits and therapeutic strategies Informed Consent: understands and further education needed Reason for contiued inpatient stay Substantial Risk for: rapid decompensation Time Spent With Patient Time: Total time managing care of this patient today ____ minutes.
[2022-11-11] MEDS: Levothyroxine Sodium 75 MCG TABLET PO (05:40)
[2022-11-11 06:00] VITALS: BP 135/88; PULSE 80; RESP 16
[2022-11-11] MEDS: Paliperidone ER 3 MG TAB.ER.24 PO ×2 (08:15→22:28)
[2022-11-11] MEDS: Lithium Carbonate 300 MG CAPSULE 600 MG PO ×2 (08:15→22:28)
[2022-11-11] MEDS: amLODIPine Besylate 10 MG TABLET PO (08:15)
[2022-11-11] MEDS: OLANZapine 5 MG TABLET PO ×2 (08:15→22:28)
[2022-11-11] MEDS: Cholecalciferol (Vitamin D3) 25 MCG TABLET PO (08:15)
[2022-11-11] MEDS: Fluticasone Propionate Nasal 16 GM SPRAY 1 SPRAY NOSTRIL-B ×3 (11:45→21:04)
[2022-11-11] MEDS: hydrOXYzine HCL 25 MG TABLET PO ×2 (16:01→22:28)
--- NOTE | 2022-11-11 18:36 | HO.PSYCHPN ---
Subjective Subjective Date of Service: 11/11/22 Reason For Visit: Disorganized Subjective Notes: Conditional Voluntary Healthcare Proxy: No Guardianship: No Medical Problems Affecting Mental Status: No Interim History: Henry reports feeling improved, denies medication SE and is asking about discharge. He presents with some intermittent confusion and tangential content. Team has been attempting to make family contact without success. He reports sleep and appetite are intact. He is more visable in milieu yet remains somewhat isolative. Discussed tentative discharge date for 11/16 so med monitoring can continue Medication Compliance: Yes Side effects from medications: No Attending Groups: Intermittent Review of Systems Acute medical concerns: No Medical Review of Systems: unchanged Mental Status Exam Mental Status Exam Patient Appearance: Appropriate Patient Orientation: Person, Place, Time and Situation Level of Consciousness: Alert Patient Behavior: Appropriate, Talkative, Cooperative and Distractible Mood Description: Anxious Affect Description: Anxious Patient Cognition Impaired: No Ability to Follow Directions: Good Speech Pattern: Clear, Appropriate and Spontaneous Speech Memory Description: Episodic Impaired Hallucinations: Auditory Delusions: Present Perceptual Disturbances: Hallucinations Thought Process: Distracted Thought Content: positive for [place], positive for Circumstantial, positive for Suicidal Ideation (denies) and positive for Homicidal Ideation (denies) Depressive Symptoms: Increased Anxiety Judgement: Fair Diagnostics Vital Signs (24Hr): Vital Signs - 24 hr 11/11/22 06:00 Pulse Rate 80 Respiratory Rate 16 Blood Pressure 135/88 Oxygen Delivery Method Room Air BMI result Body Mass Index 53.6 Labs 11/06/22 22:49 11/06/22 22:49 Labs: Laboratory Results - last 48 hr 11/10/22 11/10/22 10:46 10:52 COVID-19 (NIC) Negative COVID-19 Clin Com See Note Influenza Type A (PCR) NEGATIVE Influenza Type B (PCR) NEGATIVE RSV RNA Qual (PCR) NEGATIVE SARS-CoV-2 RNA (RT-PCR) NEGATIVE Medications Medications Current Medications Acetaminophen (Acetaminophen 325 Mg Tablet) 650 mg PO Q6H PRN PRN Reason: Headache/Pain Mild Scale (1-3) Al Hydroxide/Mg Hydroxide (Magnesium Hydrox/Alum Hydrox 30 Ml Oral.Susp) 30 ml PO Q6H PRN PRN Reason: Heartburn/Nausea Albuterol Sulfate (Albuterol Sulfate 90 Mcg 8 Gm Inhaler) 2 puff INHALE Q4H PRN PRN Reason: Shortness of Breath Amlodipine Besylate (Amlodipine Besylate 10 Mg Tablet) 10 mg PO DAILY [facility]; Protocol Last Admin: 11/11/22 08:15 Dose: 10 mg Fluticasone Propionate (Fluticasone Propionate Nasal 16 Gm [place]) 1 spray NOSTRIL-B Q12H [facility] Last Admin: 11/11/22 11:45 Dose: 1 spray Hydroxyzine HCl (Hydroxyzine Hcl 25 Mg Tablet) 25 mg PO Q6H PRN PRN Reason: Anxiety Last Admin: 11/11/22 16:01 Dose: 25 mg Levothyroxine Sodium (Levothyroxine Sodium 75 Mcg Tablet) 75 mcg PO DAILY@0630 [facility] Last Admin: 11/11/22 05:40 Dose: 75 mcg [place] Carbonate ([place] Carbonate 300 Mg Capsule) 600 mg PO BID [facility] Last Admin: 11/11/22 08:15 Dose: 600 mg Magnesium Hydroxide (Milk Of Magnesia 30 Ml Oral.Susp) 30 ml PO DAILY PRN PRN Reason: Constipation Nicotine Polacrilex (Nicotine Polacrilex 2 Mg Gum) 2 mg BUCCAL QID PRN PRN Reason: Nicotine Cravings Nicotine Polacrilex (Nicotine Polacrilex 2 Mg Gum) 4 mg BUCCAL Q2H PRN PRN Reason: Nicotine Cravings Non-Formulary Medication (Lumateperone [Caplyta]) 1 cap PO QPM [facility] Olanzapine (Olanzapine 5 Mg Tablet) 5 mg PO TID PRN PRN Reason: agitation Last Admin: 11/10/22 21:56 Dose: 5 mg Olanzapine (Olanzapine 5 Mg Tablet) 5 mg PO DAILY [facility] Last Admin: 11/11/22 08:15 Dose: 5 mg Paliperidone (Paliperidone Er 3 Mg Tab.Er.24) 3 mg PO BID [facility] Last Admin: 11/11/22 08:15 Dose: 3 mg Trazodone HCl (Trazodone Hcl 50 Mg Tablet) 50 mg PO BEDTIME MRX1 PRN PRN Reason: Insomnia Vitamin D (Cholecalciferol (Vitamin D3) 25 Mcg Tablet) 25 mcg PO DAILY [facility] Last Admin: 11/11/22 08:15 Dose: 25 mcg Allergies Allergies Allergy/AdvReac Type Severity Reaction Status Date / Time haloperidol [From HALDOL] Allergy Unknown DISTONIC Verified 06/03/20 02:40 REACTION Assessment & Plan Assessment & Plan (1) Schizoaffective disorder, bipolar type: Status: Acute Code(s): F25.0 - Schizoaffective disorder, bipolar type Plan Patient is a 32-year-old male with diagnosis of schizoaffective disorder, bipolar type, last admitted to [facility] about a year ago, who presents now for worsening auditory hallucinations and paranoid delusions in the face of medication non adherence. -previous admission note says patient has a community Mantilla; will try to procure -patient restarted on lithium; patient is also normal on long-acting Invega Trinza so will start Invega p.o..; also on Caplyta -will pursue collateral Plan: CV Q 15 minute checks Restarted lithium 600 mg b.i.d. Patient is also on Caplyta however not on formulary and pt's own medications not yet available Will start Invega p.o. for now until Caplyta available Will try to recover community Mantilla document Gather collateral 11/09/22- Continue current regime. Patient educated on: therapeutic strategies Informed Consent: understands and further education needed Reason for contiued inpatient stay Substantial Risk for: rapid decompensation Time Spent With Patient Time: Total time managing care of this patient today ____ minutes.
[2022-11-11 19:20] VITALS: BP 146/91; PULSE 80; TEMP 36.8; O2SAT 95
[2022-11-12] MEDS: Levothyroxine Sodium 75 MCG TABLET PO (04:37)
[2022-11-12 07:00] VITALS: BMI 53.6
[2022-11-12] MEDS: Paliperidone ER 3 MG TAB.ER.24 PO ×2 (08:48→18:32)
[2022-11-12] MEDS: OLANZapine 5 MG TABLET PO (08:48)
[2022-11-12] MEDS: Cholecalciferol (Vitamin D3) 25 MCG TABLET PO (08:48)
[2022-11-12] MEDS: amLODIPine Besylate 10 MG TABLET PO (08:48)
[2022-11-12] MEDS: Lithium Carbonate 300 MG CAPSULE 600 MG PO ×2 (08:48→18:32)
[2022-11-12 08:57] VITALS: BP 139/85; PULSE 70; TEMP 36.3; O2SAT 97
[2022-11-12] MEDS: Fluticasone Propionate Nasal 16 GM SPRAY 1 SPRAY NOSTRIL-B (12:22)
[2022-11-12] MEDS: hydrOXYzine HCL 25 MG TABLET PO (12:24)
--- NOTE | 2022-11-12 14:15 | P.PNPSI_ITS ---
Subjective Subjective Date of Service: 11/12/22 Reason For Visit: Disorganized Subjective Notes: Conditional Voluntary Healthcare Proxy: No Guardianship: Yes Medical Problems Affecting Mental Status: No Interim History: Call to [facility], message left for providers to contact. Family, guardian, providers not reachable by team. Call to number for mother and was told this number is incorrect. Pt, today is a bit more confused. Unable to provide solid information regarding contacts, Luke's guardianship validity, family members team may connect with. Agrees to labs for 11/13. Li Level 0.38 on admit. Pt reporting auditory perceptual alterations have decreased. He would still like to return home on 11/16. Discussed attempts to obtain collateral information. Pt unable to assist with identification of who is best to connect with. Medication Compliance: Yes Side effects from medications: No Attending Groups: Intermittent Review of Systems Acute medical concerns: No Medical Review of Systems: unchanged Mental Status Exam Mental Status Exam Patient Appearance: Disheveled and Appropriate Patient Orientation: Person, Place, Time and Situation Level of Consciousness: Alert Patient Behavior: Appropriate, Talkative, Cooperative and Distractible Mood Description: Anxious Affect Description: Anxious Patient Cognition Impaired: No Ability to Follow Directions: Good Speech Pattern: Clear, Appropriate and Spontaneous Speech Memory Description: Episodic Impaired Hallucinations: Auditory Delusions: Present Perceptual Disturbances: Hallucinations Thought Process: Distracted and Confusion Thought Content: positive for [place], positive for Circumstantial, positive for Suicidal Ideation (denies) and positive for Homicidal Ideation (denies) Depressive Symptoms: Increased Anxiety Judgement: Fair Diagnostics Vital Signs (24Hr): Vital Signs - 24 hr 11/11/22 19:20 11/12/22 08:57 Temperature 98.3 F 97.4 F Pulse Rate 80 70 Blood Pressure 146/91 H 139/85 Pulse Oximetry 95 97 Oxygen Delivery Method Room Air Room Air BMI result Body Mass Index 53.6 Labs 11/06/22 22:49 11/06/22 22:49 Medications Medications Current Medications Acetaminophen (Acetaminophen 325 Mg Tablet) 650 mg PO Q6H PRN PRN Reason: Headache/Pain Mild Scale (1-3) Al Hydroxide/Mg Hydroxide (Magnesium Hydrox/Alum Hydrox 30 Ml Oral.Susp) 30 ml PO Q6H PRN PRN Reason: Heartburn/Nausea Albuterol Sulfate (Albuterol Sulfate 90 Mcg 8 Gm Inhaler) 2 puff INHALE Q4H PRN PRN Reason: Shortness of Breath Amlodipine Besylate (Amlodipine Besylate 10 Mg Tablet) 10 mg PO DAILY [facility]; Protocol Last Admin: 11/12/22 08:48 Dose: 10 mg Fluticasone Propionate (Fluticasone Propionate Nasal 16 Gm [place]) 1 spray NOSTRIL-B Q12H [facility] Last Admin: 11/12/22 12:22 Dose: 1 spray Hydroxyzine HCl (Hydroxyzine Hcl 25 Mg Tablet) 25 mg PO Q6H PRN PRN Reason: Anxiety Last Admin: 11/12/22 12:24 Dose: 25 mg Levothyroxine Sodium (Levothyroxine Sodium 75 Mcg Tablet) 75 mcg PO DAILY@0630 [facility] Last Admin: 11/12/22 04:37 Dose: 75 mcg [place] Carbonate ([place] Carbonate 300 Mg Capsule) 600 mg PO BID [facility] Last Admin: 11/12/22 08:48 Dose: 600 mg Magnesium Hydroxide (Milk Of Magnesia 30 Ml Oral.Susp) 30 ml PO DAILY PRN PRN Reason: Constipation Nicotine Polacrilex (Nicotine Polacrilex 2 Mg Gum) 2 mg BUCCAL QID PRN PRN Reason: Nicotine Cravings Nicotine Polacrilex (Nicotine Polacrilex 2 Mg Gum) 4 mg BUCCAL Q2H PRN PRN Reason: Nicotine Cravings Non-Formulary Medication (Lumateperone [Caplyta]) 1 cap PO QPM [facility] Olanzapine (Olanzapine 5 Mg Tablet) 5 mg PO TID PRN PRN Reason: agitation Last Admin: 11/11/22 22:28 Dose: 5 mg Olanzapine (Olanzapine 5 Mg Tablet) 5 mg PO DAILY [facility] Last Admin: 11/12/22 08:48 Dose: 5 mg Paliperidone (Paliperidone Er 3 Mg Tab.Er.24) 3 mg PO BID [facility] Last Admin: 11/12/22 08:48 Dose: 3 mg Trazodone HCl (Trazodone Hcl 50 Mg Tablet) 50 mg PO BEDTIME MRX1 PRN PRN Reason: Insomnia Vitamin D (Cholecalciferol (Vitamin D3) 25 Mcg Tablet) 25 mcg PO DAILY [facility] Last Admin: 11/12/22 08:48 Dose: 25 mcg Allergies Allergies Allergy/AdvReac Type Severity Reaction Status Date / Time haloperidol [From HALDOL] Allergy Unknown DISTONIC Verified 06/03/20 02:40 REACTION Assessment & Plan Assessment & Plan (1) Schizoaffective disorder, bipolar type: Status: Acute Code(s): F25.0 - Schizoaffective disorder, bipolar type Plan Patient is a 32-year-old male with diagnosis of schizoaffective disorder, bipola r type, last admitted to [facility] about a year ago, who presents now for worsening auditory hallucinations and paranoid delusions in the face of medication non adherence. -previous admission note says patient has a community Mantilla; will try to procure -patient restarted on lithium; patient is also normal on long-acting Invega Trinza so will start Invega p.o..; also on Caplyta -will pursue collateral Plan: CV Q 15 minute checks Restarted lithium 600 mg b.i.d. Patient is also on Caplyta however not on formulary and pt's own medications not yet available Will start Invega p.o. for now until Caplyta available Will try to recover community Mantilla document Gather collateral 11/10/22- Continue current regime. Continue Olanzapine 5 mg HS 11/12/22- Continue current regime/plan Message left for CC team for collateral Labs: B12, Folate, TSH, [place] EKG Patient educated on: medication risk/benefits and therapeutic strategies Informed Consent: further education needed Reason for contiued inpatient stay Substantial Risk for: rapid decompensation Time Spent With Patient Time: Total time managing care of this patient today ____ minutes.
[2022-11-12 18:41] VITALS: BP 130/59; PULSE 85
[2022-11-13] MEDS: traZODone HCL 50 MG TABLET PO (00:40)
[2022-11-13 06:00] VITALS: BP 125/67; PULSE 73; RESP 14; TEMP 36.6; O2SAT 97
[2022-11-13 08:27] LABS: Lithium 0.31 mmol/L (0.60-1.20)
[2022-11-13] MEDS: Lithium Carbonate 300 MG CAPSULE 600 MG PO (08:39)
[2022-11-13] MEDS: OLANZapine 5 MG TABLET PO (08:39)
[2022-11-13] MEDS: Levothyroxine Sodium 75 MCG TABLET PO (08:39)
[2022-11-13] MEDS: Paliperidone ER 3 MG TAB.ER.24 PO ×2 (08:39→19:49)
[2022-11-13] MEDS: Cholecalciferol (Vitamin D3) 25 MCG TABLET PO (08:39)
[2022-11-13] MEDS: amLODIPine Besylate 10 MG TABLET PO (08:39)
--- NOTE | 2022-11-13 09:00 | ECG_ITS ---
Test Reason : QTC PROLONGATION Blood Pressure : / mmHG Vent. Rate : 080 BPM Atrial Rate : 080 BPM P-R Int : 194 ms QRS Dur : 098 ms QT Int : 378 ms P-R-T Axes : 047 053 -08 degrees QTc Int : 435 ms Normal sinus rhythm Nonspecific ST abnormality Abnormal QRS-T angle, consider primary T wave abnormality Abnormal ECG When compared with ECG of 12-DEC-2021 14:04, No significant change was found Referred By: Kimmie Clemens Electronically Signed By:Cristo Mckee
[2022-11-13 09:07] LABS: Folate 7.7 ng/mL (> or = 4.0); Thyroid Stimulating Hormone 1.64 uIU/mL (0.32-4.0); Vitamin B12 486 pg/mL (200-900)
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
[2022-11-13] MEDS: Fluticasone Propionate Nasal 16 GM SPRAY 1 SPRAY NOSTRIL-B (12:34)
[2022-11-13] MEDS: hydrOXYzine HCL 25 MG TABLET PO (16:26)
[2022-11-13 18:00] VITALS: BP 122/68; PULSE 101; RESP 16; TEMP 36.4; O2SAT 98
[2022-11-13] MEDS: OLANZapine 10 MG TABLET PO (19:49)
[2022-11-13] MEDS: Lithium Carbonate 300 MG CAPSULE 900 MG PO (19:49)
[2022-11-14] MEDS: hydrOXYzine HCL 25 MG TABLET PO ×2 (01:13→14:48)
[2022-11-14] MEDS: Levothyroxine Sodium 75 MCG TABLET PO (05:18)
[2022-11-14 07:45] VITALS: BP 137/85; PULSE 70; RESP 16; TEMP 36.6; O2SAT 96
[2022-11-14] MEDS: OLANZapine 10 MG TABLET PO ×2 (08:38→19:28)
[2022-11-14] MEDS: Cholecalciferol (Vitamin D3) 25 MCG TABLET PO (08:38)
[2022-11-14] MEDS: Lithium Carbonate 300 MG CAPSULE 900 MG PO ×2 (08:38→19:28)
[2022-11-14] MEDS: amLODIPine Besylate 10 MG TABLET PO (08:38)
[2022-11-14] MEDS: Paliperidone ER 3 MG TAB.ER.24 PO ×2 (08:38→19:28)
[2022-11-14] MEDS: OLANZapine 5 MG TABLET PO (14:48)
--- NOTE | 2022-11-14 16:09 | HO.PSYCHPN ---
Subjective Subjective Date of Service: 11/14/22 Reason For Visit: Disorganized Subjective Notes: Conditional Voluntary Medical Problems Affecting Mental Status: No Interim History: Met with patient. Chart reviewed. Discussed with Nursing. Overall does present with disorganization. Often 1 topic is not clearly related to the other during conversation. Did endorse hearing hallucinations today from the people that live in [facility] in [place]. Hopeful that medications will help. Has been spending a lot of time in his room. Denies feeling depressed or suicidal. Medication Compliance: Yes Side effects from medications: No Attending Groups: No Review of Systems Acute medical concerns: No Review of Systems Review of Systems Unremarkable Mental Status Exam Mental Status Exam Narrative: pleasant. Appropriately presented. Does appear internally preoccupied with loosening of thought form. Denies depression. Denies SI. Denies HI. Does endorse hallucinations. Non command. Insight and judgment appears fair Diagnostics Vital Signs (24Hr): Vital Signs - 24 hr 11/13/22 18:00 11/14/22 07:45 Temperature 97.6 F 97.8 F Pulse Rate 101 H 70 Respiratory Rate 16 16 Blood Pressure 122/68 137/85 Pulse Oximetry 98 96 Oxygen Delivery Method Room Air Room Air BMI result Body Mass Index 53.6 Labs 11/06/22 22:49 11/06/22 22:49 Labs: Laboratory Results - last 48 hr 11/13/22 11/13/22 08:04 08:04 Vitamin B12 486 Folate 7.7 TSH 1.64 [place] 0.31 L Medications Medications Current Medications Acetaminophen (Acetaminophen 325 Mg Tablet) 650 mg PO Q6H PRN PRN Reason: Headache/Pain Mild Scale (1-3) Al Hydroxide/Mg Hydroxide (Magnesium Hydrox/Alum Hydrox 30 Ml Oral.Susp) 30 ml PO Q6H PRN PRN Reason: Heartburn/Nausea Albuterol Sulfate (Albuterol Sulfate 90 Mcg 8 Gm Inhaler) 2 puff INHALE Q4H PRN PRN Reason: Shortness of Breath Amlodipine Besylate (Amlodipine Besylate 10 Mg Tablet) 10 mg PO DAILY [facility]; Protocol Last Admin: 11/14/22 08:38 Dose: 10 mg Fluticasone Propionate (Fluticasone Propionate Nasal 16 Gm [place]) 1 spray NOSTRIL-B Q12H [facility] Last Admin: 11/14/22 14:12 Dose: Not Given Hydroxyzine HCl (Hydroxyzine Hcl 25 Mg Tablet) 25 mg PO Q6H PRN PRN Reason: Anxiety Last Admin: 11/14/22 14:48 Dose: 25 mg Levothyroxine Sodium (Levothyroxine Sodium 75 Mcg Tablet) 75 mcg PO DAILY@0630 [facility] Last Admin: 11/14/22 05:18 Dose: 75 mcg [place] Carbonate ([place] Carbonate 300 Mg Capsule) 900 mg PO BID [facility] Last Admin: 11/14/22 08:38 Dose: 900 mg Magnesium Hydroxide (Milk Of Magnesia 30 Ml Oral.Susp) 30 ml PO DAILY PRN PRN Reason: Constipation Nicotine Polacrilex (Nicotine Polacrilex 2 Mg Gum) 2 mg BUCCAL QID PRN PRN Reason: Nicotine Cravings Nicotine Polacrilex (Nicotine Polacrilex 2 Mg Gum) 4 mg BUCCAL Q2H PRN PRN Reason: Nicotine Cravings Non-Formulary Medication (Lumateperone [Caplyta]) 1 cap PO QPM [facility] Olanzapine (Olanzapine 5 Mg Tablet) 5 mg PO TID PRN PRN Reason: agitation Last Admin: 11/14/22 14:48 Dose: 5 mg Olanzapine (Olanzapine 10 Mg Tablet) 10 mg PO BID [facility] Last Admin: 11/14/22 08:38 Dose: 10 mg Paliperidone (Paliperidone Er 3 Mg Tab.Er.24) 3 mg PO BID [facility] Last Admin: 11/14/22 08:38 Dose: 3 mg Trazodone HCl (Trazodone Hcl 50 Mg Tablet) 50 mg PO BEDTIME MRX1 PRN PRN Reason: Insomnia Last Admin: 11/13/22 00:40 Dose: 50 mg Vitamin D (Cholecalciferol (Vitamin D3) 25 Mcg Tablet) 25 mcg PO DAILY [facility] Last Admin: 11/14/22 08:38 Dose: 25 mcg Allergies Allergies Allergy/AdvReac Type Severity Reaction Status Date / Time haloperidol [From HALDOL] Allergy Unknown DISTONIC Verified 06/03/20 02:40 REACTION Assessment & Plan Assessment & Plan (1) Schizoaffective disorder, bipolar type: Status: Acute Code(s): F25.0 - Schizoaffective disorder, bipolar type Plan Patient is a 32-year-old male with diagnosis of schizoaffective disorder, bipolar type, last admitted to [facility] about a year ago, who presents now for worsening auditory hallucinations and paranoid delusions in the face of medication non adherence. -previous admission note says patient has a community Mantilla; will try to procure -patient restarted on lithium; patient is also normal on long-acting Invega Trinza so will start Invega p.o..; also on Caplyta -will pursue collateral Plan: CV Q 15 minute checks Restarted lithium 600 mg b.i.d. Patient is also on Caplyta however not on formulary and pt's own medications not yet available Will start Invega p.o. for now until Caplyta available Will try to recover community Mantilla document Gather collateral 11/10/22- Continue current regime. Continue Olanzapine 5 mg HS 11/12/22- Continue current regime/plan Message left for [facility] team for collateral Labs: B12, Folate, TSH, [place] EKG 11/13/22 Increase Olanzapine to 10 mg bid Increase [place] to 900 mg bid (Level 0.31) 11/14/2022 no changes as olanzapine and lithium just increased by team Reason for contiued inpatient stay Substantial Risk for: inability to function Time Spent With Patient Time: Total time managing care of this patient today ____ minutes.
[2022-11-14] MEDS: traZODone HCL 50 MG TABLET PO (19:28)
[2022-11-15] MEDS: Fluticasone Propionate Nasal 16 GM SPRAY 1 SPRAY NOSTRIL-B (00:24)
[2022-11-15] MEDS: Levothyroxine Sodium 75 MCG TABLET PO (06:24)
[2022-11-15 07:45] VITALS: BP 115/77; PULSE 77; RESP 14; TEMP 36.5; O2SAT 97
[2022-11-15] MEDS: Lithium Carbonate 300 MG CAPSULE 900 MG PO ×2 (08:35→19:16)
[2022-11-15] MEDS: amLODIPine Besylate 10 MG TABLET PO (08:35)
[2022-11-15] MEDS: Cholecalciferol (Vitamin D3) 25 MCG TABLET PO (08:35)
[2022-11-15] MEDS: OLANZapine 10 MG TABLET PO ×2 (08:35→19:17)
[2022-11-15] MEDS: Paliperidone ER 3 MG TAB.ER.24 PO ×2 (08:37→19:17)
--- NOTE | 2022-11-15 11:05 | HO.PSYCHPN ---
Subjective Subjective Date of Service: 11/15/22 Reason For Visit: Disorganized Interim History: Met with patient. Chart reviewed. Discussed with Nursing. Continues to present as internally preoccupied and some thought disorder. Does report however that voices are decreasing in intensity. Reports that he is trying to do the best he can but difficulty elaborating on specifics. Slept well. Denies depression. When asked about medications post then asked today helpful voices then stated that he drinks a lot of fluids but again unable to specify how these were related. Reported feeling safe on the unit and no medication concerns Medication Compliance: Yes Side effects from medications: No Attending Groups: Intermittent Review of Systems Acute medical concerns: No Review of Systems Review of Systems Unremarkable Mental Status Exam Mental Status Exam Narrative: pleasant. Appropriately presented. Does appear internally preoccupied with loosening of thought form. Denies depression. Denies SI. Denies HI. Does endorse hallucinations. Non command. Insight and judgment appears fair Diagnostics Vital Signs (24Hr): Vital Signs - 24 hr 11/15/22 07:45 Temperature 97.7 F Pulse Rate 77 Respiratory Rate 14 Blood Pressure 115/77 Pulse Oximetry 97 Oxygen Delivery Method Room Air BMI result Body Mass Index 53.6 Labs 11/06/22 22:49 11/06/22 22:49 Medications Medications Current Medications Acetaminophen (Acetaminophen 325 Mg Tablet) 650 mg PO Q6H PRN PRN Reason: Headache/Pain Mild Scale (1-3) Al Hydroxide/Mg Hydroxide (Magnesium Hydrox/Alum Hydrox 30 Ml Oral.Susp) 30 ml PO Q6H PRN PRN Reason: Heartburn/Nausea Albuterol Sulfate (Albuterol Sulfate 90 Mcg 8 Gm Inhaler) 2 puff INHALE Q4H PRN PRN Reason: Shortness of Breath Amlodipine Besylate (Amlodipine Besylate 10 Mg Tablet) 10 mg PO DAILY [facility]; Protocol Last Admin: 11/15/22 08:35 Dose: 10 mg Fluticasone Propionate (Fluticasone Propionate Nasal 16 Gm [place]) 1 spray NOSTRIL-B Q12H [facility] Last Admin: 11/15/22 09:23 Dose: Not Given Hydroxyzine HCl (Hydroxyzine Hcl 25 Mg Tablet) 25 mg PO Q6H PRN PRN Reason: Anxiety Last Admin: 11/14/22 14:48 Dose: 25 mg Levothyroxine Sodium (Levothyroxine Sodium 75 Mcg Tablet) 75 mcg PO DAILY@0630 [facility] Last Admin: 11/15/22 06:24 Dose: 75 mcg [place] Carbonate ([place] Carbonate 300 Mg Capsule) 900 mg PO BID [facility] Last Admin: 11/15/22 08:35 Dose: 900 mg Magnesium Hydroxide (Milk Of Magnesia 30 Ml Oral.Susp) 30 ml PO DAILY PRN PRN Reason: Constipation Nicotine Polacrilex (Nicotine Polacrilex 2 Mg Gum) 2 mg BUCCAL QID PRN PRN Reason: Nicotine Cravings Nicotine Polacrilex (Nicotine Polacrilex 2 Mg Gum) 4 mg BUCCAL Q2H PRN PRN Reason: Nicotine Cravings Non-Formulary Medication (Lumateperone [Caplyta]) 1 cap PO QPM [facility] Olanzapine (Olanzapine 5 Mg Tablet) 5 mg PO TID PRN PRN Reason: agitation Last Admin: 11/14/22 14:48 Dose: 5 mg Olanzapine (Olanzapine 10 Mg Tablet) 10 mg PO BID [facility] Last Admin: 11/15/22 08:35 Dose: 10 mg Paliperidone (Paliperidone Er 3 Mg Tab.Er.24) 3 mg PO BID [facility] Last Admin: 11/15/22 08:37 Dose: 3 mg Trazodone HCl (Trazodone Hcl 50 Mg Tablet) 50 mg PO BEDTIME MRX1 PRN PRN Reason: Insomnia Last Admin: 11/14/22 19:28 Dose: 50 mg Vitamin D (Cholecalciferol (Vitamin D3) 25 Mcg Tablet) 25 mcg PO DAILY [facility] Last Admin: 11/15/22 08:35 Dose: 25 mcg Allergies Allergies Allergy/AdvReac Type Severity Reaction Status Date / Time haloperidol [From HALDOL] Allergy Unknown DISTONIC Verified 06/03/20 02:40 REACTION Assessment & Plan Assessment & Plan (1) Schizoaffective disorder, bipolar type: Status: Acute Code(s): F25.0 - Schizoaffective disorder, bipolar type Plan Patient is a 32-year-old male with diagnosis of schizoaffective disorder, bipolar type, last admitted to [facility] about a year ago, who presents now for worsening auditory hallucinations and paranoid delusions in the face of medication non adherence. -previous admission note says patient has a community Mantilla; will try to procure -patient restarted on lithium; patient is also normal on long-acting Invega Trinza so will start Invega p.o..; also on Caplyta -will pursue collateral Plan: CV Q 15 minute checks Restarted lithium 600 mg b.i.d. Patient is also on Caplyta however not on formulary and pt's own medications not yet available Will start Invega p.o. for now until Caplyta available Will try to recover community Mantilla document Gather collateral 11/10/22- Continue current regime. Continue Olanzapine 5 mg HS 11/12/22- Continue current regime/plan Message left for [facility] team for collateral Labs: B12, Folate, TSH, [place] EKG 11/13/22 Increase Olanzapine to 10 mg bid Increase [place] to 900 mg bid (Level 0.31) 11/15/2022 no changes as olanzapine and lithium just increased by team Reason for contiued inpatient stay Substantial Risk for: inability to function Time Spent With Patient Time: Total time managing care of this patient today ____ minutes.
[2022-11-15 17:51] VITALS: BP 141/84; PULSE 88
[2022-11-15] MEDS: traZODone HCL 50 MG TABLET PO (19:17)
[2022-11-16] MEDS: Levothyroxine Sodium 75 MCG TABLET PO (06:49)
[2022-11-16] MEDS: Cholecalciferol (Vitamin D3) 25 MCG TABLET PO (08:29)
[2022-11-16] MEDS: Lithium Carbonate 300 MG CAPSULE 900 MG PO ×2 (08:29→19:14)
[2022-11-16] MEDS: amLODIPine Besylate 10 MG TABLET PO (08:29)
[2022-11-16] MEDS: Paliperidone ER 3 MG TAB.ER.24 PO ×2 (08:29→19:16)
[2022-11-16] MEDS: OLANZapine 10 MG TABLET PO ×2 (08:29→19:15)
[2022-11-16 10:59] VITALS: BP 136/92; PULSE 67; RESP 14; TEMP 36.8; O2SAT 96
[2022-11-16] MEDS: OLANZapine 5 MG TABLET PO ×2 (11:06→19:15)
[2022-11-16] MEDS: hydrOXYzine HCL 25 MG TABLET PO (15:21)
[2022-11-16 16:25] VITALS: BP 143/80; PULSE 88
--- NOTE | 2022-11-16 16:39 | P.PNPSI_ITS ---
Subjective Subjective Date of Service: 11/16/22 Reason For Visit: Disorganized Subjective Notes: Conditional Voluntary Healthcare Proxy: No Guardianship: Yes Medical Problems Affecting Mental Status: No Interim History: Team report a difficult weekend for pt with sx of paranoia, disinhibition. Care discussed with [facility], med list given. Pt has been using [facility]-meds reviewed. Caplyta and Trinza ordered from [place], Trinza injection due 12/02/22 per [facility] team. Met with pt and father who reports current regime pt was compliant with prior to admission, however with SE of auditory perceptual alterations and increase in sedation. Pt has not been seen for psychopharm eval since Mar 2022 as he would not attend appts due to sedation. Discussed re-establishing regime and assessment of symptoms for interventions. Pt and father agree with this plan. Medication Compliance: Yes Side effects from medications: No Attending Groups: No Review of Systems Acute medical concerns: No Medical Review of Systems: unchanged Mental Status Exam Mental Status Exam Patient Appearance: Fatigued and Disheveled Patient Orientation: Person, Place, Time and Situation Level of Consciousness: Alert Patient Behavior: Talkative, Cooperative, Fatigued and Good Eye Contact Mood Description: Withdrawn and Constricted Affect Description: Constricted Patient Cognition Impaired: No Ability to Follow Directions: Good Speech Pattern: Spontaneous Speech Memory Description: Episodic Impaired Hallucinations: Auditory Delusions: Paranoid Ideation Thought Process: Slowed Thinking Thought Content: positive for Circumstantial Depressive Symptoms: Increased Fatigue and Loss of Energy Judgement: Fair Diagnostics Vital Signs (24Hr): Vital Signs - 24 hr 11/15/22 17:51 11/16/22 10:59 11/16/22 16:25 Temperature 98.2 F Pulse Rate 88 67 88 Respiratory Rate 14 Blood Pressure 141/84 H 136/92 H 143/80 H Pulse Oximetry 96 Oxygen Delivery Method Room Air BMI result Body Mass Index 53.6 Labs 11/06/22 22:49 11/06/22 22:49 Medications Medications Current Medications Acetaminophen (Acetaminophen 325 Mg Tablet) 650 mg PO Q6H PRN PRN Reason: Headache/Pain Mild Scale (1-3) Al Hydroxide/Mg Hydroxide (Magnesium Hydrox/Alum Hydrox 30 Ml Oral.Susp) 30 ml PO Q6H PRN PRN Reason: Heartburn/Nausea Albuterol Sulfate (Albuterol Sulfate 90 Mcg 8 Gm Inhaler) 2 puff INHALE Q4H PRN PRN Reason: Shortness of Breath Amlodipine Besylate (Amlodipine Besylate 10 Mg Tablet) 10 mg PO DAILY [facility]PLAC[facility] BY [facility]; Protocol Last Admin: 11/16/22 08:29 Dose: 10 mg Fluticasone Propionate (Fluticasone Propionate Nasal 16 Gm [place]) 1 spray NOSTRIL-B Q12H REPLACED BY [facility] Last Admin: 11/16/22 08:31 Dose: Not Given Hydroxyzine HCl (Hydroxyzine Hcl 25 Mg Tablet) 25 mg PO Q6H PRN PRN Reason: Anxiety Last Admin: 11/16/22 15:21 Dose: 25 mg Levothyroxine Sodium (Levothyroxine Sodium 75 Mcg Tablet) 75 mcg PO DAILY@0630 REPLACED [facility] Last Admin: 11/16/22 06:49 Dose: 75 mcg [place] Carbonate ([place] Carbonate 300 Mg Capsule) 900 mg PO BID REPLACED BY [facility] Last Admin: 11/16/22 08:29 Dose: 900 mg Magnesium Hydroxide (Milk Of Magnesia 30 Ml Oral.Susp) 30 ml PO DAILY PRN PRN Reason: Constipation Nicotine Polacrilex (Nicotine Polacrilex 2 Mg Gum) 2 mg BUCCAL QID PRN PRN Reason: Nicotine Cravings Nicotine Polacrilex (Nicotine Polacrilex 2 Mg Gum) 4 mg BUCCAL Q2H PRN PRN Reason: Nicotine Cravings Non-Formulary Medication (Lumateperone [Caplyta]) 1 cap PO QPM REPLACED BY [facility] Olanzapine (Olanzapine 5 Mg Tablet) 5 mg PO TID PRN PRN Reason: agitation Last Admin: 11/16/22 11:06 Dose: 5 mg Olanzapine (Olanzapine 10 Mg Tablet) 10 mg PO BID [facility] Last Admin: 11/16/22 08:29 Dose: 10 mg Paliperidone (Paliperidone Er 3 Mg Tab.Er.24) 3 mg PO BID [facility]PL[facility] Last Admin: 11/16/22 08:29 Dose: 3 mg Trazodone HCl (Trazodone Hcl 50 Mg Tablet) 50 mg PO BEDTIME MRX1 PRN PRN Reason: Insomnia Last Admin: 11/15/22 19:17 Dose: 50 mg Vitamin D (Cholecalciferol (Vitamin D3) 25 Mcg Tablet) 25 mcg PO DAILY REPLACED BY [facility] Last Admin: 11/16/22 08:29 Dose: 25 mcg Allergies Allergies Allergy/AdvReac Type Severity Reaction Status Date / Time haloperidol [From HALDOL] Allergy Unknown DISTONIC Verified 06/03/20 02:40 REACTION Assessment & Plan Assessment & Plan (1) Schizoaffective disorder, bipolar type: Status: Acute Code(s): F25.0 - Schizoaffective disorder, bipolar type Plan Patient is a 32-year-old male with diagnosis of schizoaffective disorder, bipolar type, last admitted to [facility] about a year ago, who presents now for worsening auditory hallucinations and paranoid delusions in the face of medic ation non adherence. -previous admission note says patient has a community Mantilla; will try to procu re -patient restarted on lithium; patient is also normal on long-acting Invega Trinza so will start Invega p.o..; also on Caplyta -will pursue collateral Plan: CV Q 15 minute checks Restarted lithium 600 mg b.i.d. Patient is also on Caplyta however not on formulary and pt's own medications not yet available Will start Invega p.o. for now until Caplyta available Will try to recover community Mantilla document Gather collateral 11/10/22- Continue current regime. Continue Olanzapine 5 mg HS 11/12/22- Continue current regime/plan Message left for [facility] team for collateral Labs: B12, Folate, TSH, [place] EKG 11/13/22 Increase Olanzapine to 10 mg bid Increase [place] to 900 mg bid (Level 0.31) 11/15/2022 no changes as olanzapine and lithium just increased by team 11/16/22: Out patient regime clarified today by [facility], [facility], father and [facility] Trinza due 12/02/22 Trinza and Caplyta ordered from [facility] to re-establish Patient educated on: medication risk/benefits and therapeutic strategies Informed Consent: further education needed Reason for contiued inpatient stay Substantial Risk for: inability to function and rapid decompensation Time Spent With Patient Time: Total time managing care of this patient today ____ minutes.
[2022-11-16] MEDS: traZODone HCL 50 MG TABLET PO (19:16)
[2022-11-17] MEDS: Levothyroxine Sodium 75 MCG TABLET PO (06:38)
[2022-11-17 08:49] VITALS: BP 109/65; PULSE 84; RESP 14; TEMP 37
[2022-11-17] MEDS: Cholecalciferol (Vitamin D3) 25 MCG TABLET PO (08:50)
[2022-11-17] MEDS: amLODIPine Besylate 10 MG TABLET PO (08:50)
[2022-11-17] MEDS: OLANZapine 10 MG TABLET PO ×2 (08:50→21:42)
[2022-11-17] MEDS: Paliperidone ER 3 MG TAB.ER.24 PO ×2 (08:50→21:42)
[2022-11-17] MEDS: Lithium Carbonate 300 MG CAPSULE 900 MG PO ×2 (08:50→21:42)
--- NOTE | 2022-11-17 16:23 | HO.PSYCHPN ---
Subjective Subjective Date of Service: 11/17/22 Reason For Visit: Disorganized Subjective Notes: Conditional Voluntary Healthcare Proxy: No Guardianship: Yes Medical Problems Affecting Mental Status: No Interim History: Review of symptoms Henry struggles with at home. Today, he spoke of medical cannabis and wanting to get his card as he feels this is the best plan for mgt of anxiety. Education provided, and discussion of risks. Medication Compliance: Yes Side effects from medications: No Attending Groups: Intermittent Review of Systems Acute medical concerns: No Medical Review of Systems: unchanged Mental Status Exam Mental Status Exam Patient Appearance: Fatigued and Disheveled Patient Orientation: Person, Place, Time and Situation Level of Consciousness: Alert Patient Behavior: Talkative, Cooperative, Fatigued and Good Eye Contact Mood Description: Withdrawn and Constricted Affect Description: Constricted Patient Cognition Impaired: No Ability to Follow Directions: Good Speech Pattern: Spontaneous Speech Memory Description: Episodic Impaired Hallucinations: Auditory Delusions: Paranoid Ideation Thought Process: Slowed Thinking Thought Content: positive for Circumstantial Depressive Symptoms: Increased Fatigue and Loss of Energy Judgement: Fair Diagnostics Vital Signs (24Hr): Vital Signs - 24 hr 11/16/22 16:25 11/17/22 08:49 Temperature 98.6 F Pulse Rate 88 84 Respiratory Rate 14 Blood Pressure 143/80 H 109/65 BMI result Body Mass Index 53.6 Labs 11/06/22 22:49 11/06/22 22:49 Medications Medications Current Medications Acetaminophen (Acetaminophen 325 Mg Tablet) 650 mg PO Q6H PRN PRN Reason: Headache/Pain Mild Scale (1-3) Al Hydroxide/Mg Hydroxide (Magnesium Hydrox/Alum Hydrox 30 Ml Oral.Susp) 30 ml PO Q6H PRN PRN Reason: Heartburn/Nausea Albuterol Sulfate (Albuterol Sulfate 90 Mcg 8 Gm Inhaler) 2 puff INHALE Q4H PRN PRN Reason: Shortness of Breath Amlodipine Besylate (Amlodipine Besylate 10 Mg Tablet) 10 mg PO DAILY [facility]; Protocol Last Admin: 11/17/22 08:50 Dose: 10 mg Fluticasone Propionate (Fluticasone Propionate Nasal 16 Gm [place]) 1 spray NOSTRIL-B Q12H [facility] Last Admin: 11/17/22 09:26 Dose: Not Given Hydroxyzine HCl (Hydroxyzine Hcl 25 Mg Tablet) 25 mg PO Q6H PRN PRN Reason: Anxiety Last Admin: 11/16/22 15:21 Dose: 25 mg Levothyroxine Sodium (Levothyroxine Sodium 75 Mcg Tablet) 75 mcg PO DAILY@0630 [facility] Last Admin: 11/17/22 06:38 Dose: 75 mcg [place] Carbonate ([place] Carbonate 300 Mg Capsule) 900 mg PO BID [facility] Last Admin: 11/17/22 08:50 Dose: 900 mg Magnesium Hydroxide (Milk Of Magnesia 30 Ml Oral.Susp) 30 ml PO DAILY PRN PRN Reason: Constipation Nicotine Polacrilex (Nicotine Polacrilex 2 Mg Gum) 2 mg BUCCAL QID PRN PRN Reason: Nicotine Cravings Nicotine Polacrilex (Nicotine Polacrilex 2 Mg Gum) 4 mg BUCCAL Q2H PRN PRN Reason: Nicotine Cravings Non-Formulary Medication (Lumateperone [Caplyta]) 1 cap PO QPM [facility] Olanzapine (Olanzapine 5 Mg Tablet) 5 mg PO TID PRN PRN Reason: agitation Last Admin: 11/16/22 19:15 Dose: 5 mg Olanzapine (Olanzapine 10 Mg Tablet) 10 mg PO BID [facility] Last Admin: 11/17/22 08:50 Dose: 10 mg Paliperidone (Paliperidone Er 3 Mg Tab.Er.24) 3 mg PO BID [facility] Last Admin: 11/17/22 08:50 Dose: 3 mg Trazodone HCl (Trazodone Hcl 50 Mg Tablet) 50 mg PO BEDTIME MRX1 PRN PRN Reason: Insomnia Last Admin: 11/16/22 19:16 Dose: 50 mg Vitamin D (Cholecalciferol (Vitamin D3) 25 Mcg Tablet) 25 mcg PO DAILY [facility] Last Admin: 11/17/22 08:50 Dose: 25 mcg Allergies Allergies Allergy/AdvReac Type Severity Reaction Status Date / Time haloperidol [From HALDOL] Allergy Unknown DISTONIC Verified 06/03/20 02:40 REACTION Assessment & Plan Assessment & Plan (1) Schizoaffective disorder, bipolar type: Status: Acute Code(s): F25.0 - Schizoaffective disorder, bipolar type Plan Patient is a 32-year-old male with diagnosis of schizoaffective disorder, bipolar type, last admitted to [facility] about a year ago, who presents now for worsening auditory hallucinations and paranoid delusions in the face of medication non adherence. -previous admission note says patient has a community Mantilla; will try to procure -patient restarted on lithium; patient is also normal on long-acting Invega Trinza so will start Invega p.o..; also on Caplyta -will pursue collateral Plan: CV Q 15 minute checks Restarted lithium 600 mg b.i.d. Patient is also on Caplyta however not on formulary and pt's own medications not yet available Will start Invega p.o. for now until Caplyta available Will try to recover community Mantilla document Gather collateral 11/10/22- Continue current regime. Continue Olanzapine 5 mg HS 11/12/22- Continue current regime/plan Message left for [facility] team for collateral Labs: B12, Folate, TSH, [place] EKG 11/13/22 Increase Olanzapine to 10 mg bid Increase [place] to 900 mg bid (Level 0.31) 11/15/2022 no changes as olanzapine and lithium just increased by team 11/16/22: Out patient regime clarified today by [facility], [facility], father and [facility]NA [place] due 12/02/22 Trinza and Caplyta ordered from [place] to re-establish 11/17/22. Continue current regime. [place] level 11/20 Awaiting Caplyta to arrive to initiate Support, educate Patient educated on: medication risk/benefits and therapeutic strategies Informed Consent: further education needed Reason for contiued inpatient stay Substantial Risk for: rapid decompensation Time Spent With Patient Time: Total time managing care of this patient today ____ minutes.
[2022-11-17 17:21] VITALS: BP 140/85; PULSE 86; RESP 16; TEMP 36.6; O2SAT 95
[2022-11-17] MEDS: Fluticasone Propionate Nasal 16 GM SPRAY 1 SPRAY NOSTRIL-B (21:46)
[2022-11-18] MEDS: hydrOXYzine HCL 25 MG TABLET PO ×2 (00:41→14:34)
[2022-11-18] MEDS: Levothyroxine Sodium 75 MCG TABLET PO (04:34)
[2022-11-18 08:45] VITALS: BP 144/93; PULSE 78; RESP 14; TEMP 36.4
[2022-11-18] MEDS: Cholecalciferol (Vitamin D3) 25 MCG TABLET PO (08:46)
[2022-11-18] MEDS: OLANZapine 10 MG TABLET PO (08:46)
[2022-11-18] MEDS: Paliperidone ER 3 MG TAB.ER.24 PO (08:46)
[2022-11-18] MEDS: Lithium Carbonate 300 MG CAPSULE 900 MG PO ×2 (08:46→20:14)
[2022-11-18] MEDS: amLODIPine Besylate 10 MG TABLET PO (08:46)
--- NOTE | 2022-11-18 17:23 | HO.PSYCHPN ---
Subjective Subjective Date of Service: 11/18/22 Reason For Visit: Disorganized Subjective Notes: Conditional Voluntary Healthcare Proxy: No Guardianship: No Medical Problems Affecting Mental Status: No Interim History: Message left with [facility] to discuss care with prescriber, Zaida Lazo APRN. Met with Henry. Team reports poor sleep, poor ADL's, reporting anxiety. Team reports consistent drawings in art group of the [place]. Pt reports he feels the devil has been after him-he reports this to be the cause of his illness, his weight problem and his decreased skill in playing soccer, which he identifies as his favorite sport. Discussed med changes-Invega/Olanzapine stopped. Risperdal started as pt reports by history a better treatment response with Risperdal with decreased voices, improved motivation and less fatigue. We will trial. Medication Compliance: Yes Side effects from medications: No Attending Groups: Yes Review of Systems Acute medical concerns: No Medical Review of Systems: unchanged Mental Status Exam Mental Status Exam Patient Appearance: Fatigued and Disheveled Patient Orientation: Person, Place, Time and Situation Level of Consciousness: Alert Patient Behavior: Talkative, Cooperative, Fatigued and Good Eye Contact Mood Description: Withdrawn and Constricted Affect Description: Constricted Patient Cognition Impaired: No Ability to Follow Directions: Good Speech Pattern: Spontaneous Speech Memory Description: Episodic Impaired Hallucinations: Auditory Delusions: Paranoid Ideation Thought Process: Slowed Thinking Thought Content: positive for Circumstantial Depressive Symptoms: Increased Fatigue and Loss of Energy Judgement: Fair Diagnostics Vital Signs (24Hr): Vital Signs - 24 hr 11/18/22 08:45 Temperature 97.5 F Pulse Rate 78 Respiratory Rate 14 Blood Pressure 144/93 H BMI result Body Mass Index 53.6 Labs 11/06/22 22:49 11/06/22 22:49 Medications Medications Current Medications Acetaminophen (Acetaminophen 325 Mg Tablet) 650 mg PO Q6H PRN PRN Reason: Headache/Pain Mild Scale (1-3) Al Hydroxide/Mg Hydroxide (Magnesium Hydrox/Alum Hydrox 30 Ml Oral.Susp) 30 ml PO Q6H PRN PRN Reason: Heartburn/Nausea Albuterol Sulfate (Albuterol Sulfate 90 Mcg 8 Gm Inhaler) 2 puff INHALE Q4H PRN PRN Reason: Shortness of Breath Amlodipine Besylate (Amlodipine Besylate 10 Mg Tablet) 10 mg PO DAILY [facility]; Protocol Last Admin: 11/18/22 08:46 Dose: 10 mg Fluticasone Propionate (Fluticasone Propionate Nasal 16 Gm [place]) 1 spray NOSTRIL-B Q12H [facility] Last Admin: 11/18/22 08:49 Dose: Not Given Hydroxyzine HCl (Hydroxyzine Hcl 25 Mg Tablet) 25 mg PO Q6H PRN PRN Reason: Anxiety Last Admin: 11/18/22 14:34 Dose: 25 mg Levothyroxine Sodium (Levothyroxine Sodium 75 Mcg Tablet) 75 mcg PO DAILY@0630 [facility] Last Admin: 11/18/22 04:34 Dose: 75 mcg [place] Carbonate ([place] Carbonate 300 Mg Capsule) 900 mg PO BID [facility] Last Admin: 11/18/22 08:46 Dose: 900 mg Magnesium Hydroxide (Milk Of Magnesia 30 Ml Oral.Susp) 30 ml PO DAILY PRN PRN Reason: Constipation Nicotine Polacrilex (Nicotine Polacrilex 2 Mg Gum) 2 mg BUCCAL QID PRN PRN Reason: Nicotine Cravings Nicotine Polacrilex (Nicotine Polacrilex 2 Mg Gum) 4 mg BUCCAL Q2H PRN PRN Reason: Nicotine Cravings Non-Formulary Medication (Lumateperone [Caplyta]) 1 cap PO QPM [facility] Patient Own Med ( Invega Trinza 819 Mg ) 819 mg IM Q3M [facility] Olanzapine (Olanzapine 5 Mg Tablet) 5 mg PO TID PRN PRN Reason: agitation Last Admin: 11/16/22 19:15 Dose: 5 mg Risperidone (Risperidone 2 Mg Tablet) 2 mg PO BID [facility] Trazodone HCl (Trazodone Hcl 50 Mg Tablet) 50 mg PO BEDTIME MRX1 PRN PRN Reason: Insomnia Last Admin: 11/16/22 19:16 Dose: 50 mg Vitamin D (Cholecalciferol (Vitamin D3) 25 Mcg Tablet) 25 mcg PO DAILY [facility] Last Admin: 11/18/22 08:46 Dose: 25 mcg Allergies Allergies Allergy/AdvReac Type Severity Reaction Status Date / Time haloperidol [From HALDOL] Allergy Unknown DISTONIC Verified 06/03/20 02:40 REACTION Assessment & Plan Assessment & Plan (1) Schizoaffective disorder, bipolar type: Status: Acute Code(s): F25.0 - Schizoaffective disorder, bipolar type Plan Patient is a 32-year-old male with diagnosis of schizoaffective disorder, bipolar type, last admitted to [facility] about a year ago, who presents now for worsening auditory hallucinations and paranoid delusions in the face of medication non adherence. -previous admission note says patient has a community Mantilla; will try to procure -patient restarted on lithium; patient is also normal on long-acting Invega Trinza so will start Invega p.o..; also on Caplyta -will pursue collateral Plan: CV Q 15 minute checks Restarted lithium 600 mg b.i.d. Patient is also on Caplyta however not on formulary and pt's own medications not yet available Will start Invega p.o. for now until Caplyta available Will try to recover community Mantilla document Gather collateral 11/10/22- Continue current regime. Continue Olanzapine 5 mg HS 11/12/22- Continue current regime/plan Message left for [facility] team for collateral Labs: B12, Folate, TSH, [place] EKG 11/13/22 Increase Olanzapine to 10 mg bid Increase [place] to 900 mg bid (Level 0.31) 11/15/2022 no changes as olanzapine and lithium just increased by team 11/16/22: Out patient regime clarified today by [facility], [facility], father and VNA Trinza due 12/02/22 Trinza and Caplyta ordered from [place] to re-establish 11/17/22. Continue current regime. [place] level 11/20 Awaiting Caplyta to arrive to initiate Support, educate 11/18/22: Discontinue Olanzapine, Invega Risperdal 2 mg bid Patient educated on: medication risk/benefits and therapeutic strategies Informed Consent: further education needed Reason for contiued inpatient stay Substantial Risk for: rapid decompensation Time Spent With Patient Time: Total time managing care of this patient today ____ minutes.
[2022-11-18] MEDS: risperiDONE 2 MG TABLET PO (20:14)
[2022-11-18] MEDS: Acetaminophen 325 MG TABLET 650 MG PO (20:19)
[2022-11-18 20:20] VITALS: BP 134/84; PULSE 84; RESP 16; TEMP 36.6; O2SAT 96
[2022-11-19 06:00] VITALS: BP 136/86; PULSE 77; RESP 16; TEMP 36.2
[2022-11-19 07:00] VITALS: BMI 54.1
[2022-11-19] MEDS: Levothyroxine Sodium 75 MCG TABLET PO (07:13)
[2022-11-19] MEDS: Lithium Carbonate 300 MG CAPSULE 900 MG PO ×2 (08:30→21:33)
[2022-11-19] MEDS: risperiDONE 2 MG TABLET PO ×2 (08:31→21:33)
[2022-11-19] MEDS: Cholecalciferol (Vitamin D3) 25 MCG TABLET PO (08:31)
[2022-11-19] MEDS: amLODIPine Besylate 10 MG TABLET PO (08:31)
[2022-11-19] MEDS: Fluticasone Propionate Nasal 16 GM SPRAY 1 SPRAY NOSTRIL-B (08:34)
--- NOTE | 2022-11-19 12:21 | HO.PSYCHPN ---
Subjective Subjective Date of Service: 11/19/22 Reason For Visit: Disorganized Interim History: Met with patient; discussed with team Little change in presentation. He says his mood is okay. He reports that AH remain. Patient has been most of the time in bed and keeping to himself. Mental Status Exam Mental Status Exam Patient Appearance: Fatigued and Disheveled Patient Orientation: Person, Place, Time and Situation Level of Consciousness: Awake and Drowsy Patient Behavior: Cooperative, Fatigued and Good Eye Contact Mood Description: Withdrawn and Blunted Affect Description: Blunted Ability to Follow Directions: Good Speech Pattern: Spontaneous Speech Memory Description: Episodic Impaired Hallucinations: Auditory Delusions: Paranoid Ideation Thought Process: Slowed Thinking Thought Content: positive for Preoccupation (; No SI or HI) Depressive Symptoms: Increased Fatigue and Loss of Energy Judgement and Insight: Impaired Diagnostics Vital Signs (24Hr): Vital Signs - 24 hr 11/18/22 20:20 11/19/22 06:00 Temperature 97.9 F 97.2 F Pulse Rate 84 77 Respiratory Rate 16 16 Blood Pressure 134/84 136/86 Pulse Oximetry 96 Oxygen Delivery Method Room Air BMI result Body Mass Index 53.6 Labs 11/06/22 22:49 11/06/22 22:49 Medications Medications Current Medications Acetaminophen (Acetaminophen 325 Mg Tablet) 650 mg PO Q6H PRN PRN Reason: Headache/Pain Mild Scale (1-3) Last Admin: 11/18/22 20:19 Dose: 650 mg Al Hydroxide/Mg Hydroxide (Magnesium Hydrox/Alum Hydrox 30 Ml Oral.Susp) 30 ml PO Q6H PRN PRN Reason: Heartburn/Nausea Albuterol Sulfate (Albuterol Sulfate 90 Mcg 8 Gm Inhaler) 2 puff INHALE Q4H PRN PRN Reason: Shortness of Breath Amlodipine Besylate (Amlodipine Besylate 10 Mg Tablet) 10 mg PO DAILY [facility]; Protocol Last Admin: 11/19/22 08:31 Dose: 10 mg Fluticasone Propionate (Fluticasone Propionate Nasal 16 Gm [place]) 1 spray NOSTRIL-B Q12H [facility] Last Admin: 11/19/22 08:34 Dose: 1 spray Hydroxyzine HCl (Hydroxyzine Hcl 25 Mg Tablet) 25 mg PO Q6H PRN PRN Reason: Anxiety Last Admin: 11/18/22 14:34 Dose: 25 mg Levothyroxine Sodium (Levothyroxine Sodium 75 Mcg Tablet) 75 mcg PO DAILY@0630 [facility] Last Admin: 11/19/22 07:13 Dose: 75 mcg [place] Carbonate ([place] Carbonate 300 Mg Capsule) 900 mg PO BID [facility] Last Admin: 11/19/22 08:30 Dose: 900 mg Magnesium Hydroxide (Milk Of Magnesia 30 Ml Oral.Susp) 30 ml PO DAILY PRN PRN Reason: Constipation Nicotine Polacrilex (Nicotine Polacrilex 2 Mg Gum) 2 mg BUCCAL QID PRN PRN Reason: Nicotine Cravings Nicotine Polacrilex (Nicotine Polacrilex 2 Mg Gum) 4 mg BUCCAL Q2H PRN PRN Reason: Nicotine Cravings Non-Formulary Medication (Lumateperone [Caplyta]) 1 cap PO QPM [facility] Patient Own Med ( Invega Trinza 819 Mg ) 819 mg IM Q3M [facility] Olanzapine (Olanzapine 5 Mg Tablet) 5 mg PO TID PRN PRN Reason: agitation Last Admin: 11/16/22 19:15 Dose: 5 mg Risperidone (Risperidone 2 Mg Tablet) 2 mg PO BID [facility] Last Admin: 11/19/22 08:31 Dose: 2 mg Trazodone HCl (Trazodone Hcl 50 Mg Tablet) 50 mg PO BEDTIME MRX1 PRN PRN Reason: Insomnia Last Admin: 11/16/22 19:16 Dose: 50 mg Vitamin D (Cholecalciferol (Vitamin D3) 25 Mcg Tablet) 25 mcg PO DAILY [facility] Last Admin: 11/19/22 08:31 Dose: 25 mcg Allergies Allergies Allergy/AdvReac Type Severity Reaction Status Date / Time haloperidol [From HALDOL] Allergy Unknown DISTONIC Verified 06/03/20 02:40 REACTION Assessment & Plan Assessment & Plan (1) Schizoaffective disorder, bipolar type: Status: Acute Code(s): F25.0 - Schizoaffective disorder, bipolar type Plan Patient is a 32-year-old male with diagnosis of schizoaffective disorder, bipolar type, last admitted to [facility] about a year ago, who presents now for worsening auditory hallucinations and paranoid delusions in the face of medication non adherence. -previous admission note says patient has a community Mantilla; will try to procure -patient restarted on lithium; patient is also normal on long-acting Invega Trinza so will start Invega p.o..; also on Caplyta -will pursue collateral Plan: CV Q 15 minute checks Restarted lithium 600 mg b.i.d. Patient is also on Caplyta however not on formulary and pt's own medications not yet available Will start Invega p.o. for now until Caplyta available Will try to recover community Mantilla document Gather collateral 11/10/22- Continue current regime. Continue Olanzapine 5 mg HS 11/12/22- Continue current regime/plan Message left for [facility] team for collateral Labs: B12, Folate, TSH, [place] EKG 11/13/22 Increase Olanzapine to 10 mg bid Increase [place] to 900 mg bid (Level 0.31) 11/15/2022 no changes as olanzapine and lithium just increased by team 11/16/22: Out patient regime clarified today by [facility], [facility], father and [facility]NA [place] due 12/02/22 Trinza and Caplyta ordered from [place] to re-establish 11/17/22. Continue current regime. [place] level 11/20 Awaiting Caplyta to arrive to initiate Support, educate 11/18/22: Discontinue Olanzapine, Invega Risperdal 2 mg bid 11/19 continue current treatment regimen Patient starting Caplyta Reason for contiued inpatient stay Substantial Risk for: rapid decompensation Time Spent With Patient Time: Total time managing care of this patient today ____ minutes.
[2022-11-19] MEDS: hydrOXYzine HCL 25 MG TABLET PO (19:22)
[2022-11-19 19:23] VITALS: BP 134/88; PULSE 105; RESP 14; TEMP 36.9
[2022-11-20] MEDS: Levothyroxine Sodium 75 MCG TABLET PO (05:55)
[2022-11-20] MEDS: risperiDONE 2 MG TABLET PO ×2 (07:56→21:06)
[2022-11-20] MEDS: Lithium Carbonate 300 MG CAPSULE 900 MG PO ×2 (07:57→21:06)
[2022-11-20] MEDS: Cholecalciferol (Vitamin D3) 25 MCG TABLET PO (07:57)
[2022-11-20] MEDS: Fluticasone Propionate Nasal 16 GM SPRAY 1 SPRAY NOSTRIL-B (07:58)
[2022-11-20] MEDS: amLODIPine Besylate 10 MG TABLET PO (08:11)
[2022-11-20 08:25] LABS: Lithium 0.48 mmol/L (0.60-1.20)
[2022-11-20 08:31] VITALS: BP 114/58; PULSE 83; RESP 16; TEMP 36.8; O2SAT 98
--- NOTE | 2022-11-20 09:56 | HO.PSYCHPN ---
Subjective Subjective Date of Service: 11/20/22 Reason For Visit: Disorganized Interim History: met with patient; discussed in team pt remains isolating, internally dialouging; he says however meds are helping however he remains isolative, in bed and difficult with which to engage. Continues to have AH. 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 but remain lying down overly saying that he was okay Mental Status Exam Mental Status Exam Patient Appearance: Fatigued and Disheveled Patient Orientation: Person and Place Level of Consciousness: Awake and Drowsy Patient Behavior: Fatigued and Poor Eye Contact Mood Description: Withdrawn and Blunted Affect Description: Blunted Ability to Follow Directions: Good Speech Pattern: Mumbled Memory Description: Episodic Impaired Hallucinations: Auditory Delusions: Paranoid Ideation Thought Process: Slowed Thinking Thought Content: positive for Preoccupation (; No SI or HI) Depressive Symptoms: Increased Fatigue and Loss of Energy Judgement and Insight: Impaired Diagnostics Vital Signs (24Hr): Vital Signs - 24 hr 11/19/22 19:23 11/20/22 08:31 Temperature 98.5 F 98.2 F Pulse Rate 105 H 83 Respiratory Rate 14 16 Blood Pressure 134/88 114/58 L Pulse Oximetry 98 Oxygen Delivery Method Room Air BMI result Body Mass Index 54.1 Labs 11/06/22 22:49 11/06/22 22:49 Labs: Laboratory Results - last 48 hr 11/20/22 08:02 [place] 0.48 L Medications Medications Current Medications Acetaminophen (Acetaminophen 325 Mg Tablet) 650 mg PO Q6H PRN PRN Reason: Headache/Pain Mild Scale (1-3) Last Admin: 11/18/22 20:19 Dose: 650 mg Al Hydroxide/Mg Hydroxide (Magnesium Hydrox/Alum Hydrox 30 Ml Oral.Susp) 30 ml PO Q6H PRN PRN Reason: Heartburn/Nausea Albuterol Sulfate (Albuterol Sulfate 90 Mcg 8 Gm Inhaler) 2 puff INHALE Q4H PRN PRN Reason: Shortness of Breath Amlodipine Besylate (Amlodipine Besylate 10 Mg Tablet) 10 mg PO DAILY [facility]; Protocol Last Admin: 11/20/22 08:11 Dose: 10 mg Fluticasone Propionate (Fluticasone Propionate Nasal 16 Gm [place]) 1 spray NOSTRIL-B Q12H [facility] Last Admin: 11/20/22 07:58 Dose: 1 spray Hydroxyzine HCl (Hydroxyzine Hcl 25 Mg Tablet) 25 mg PO Q6H PRN PRN Reason: Anxiety Last Admin: 11/19/22 19:22 Dose: 25 mg Levothyroxine Sodium (Levothyroxine Sodium 75 Mcg Tablet) 75 mcg PO DAILY@0630 [facility] Last Admin: 11/20/22 05:55 Dose: 75 mcg [place] Carbonate ([place] Carbonate 300 Mg Capsule) 900 mg PO BID [facility] Last Admin: 11/20/22 07:57 Dose: 900 mg Magnesium Hydroxide (Milk Of Magnesia 30 Ml Oral.Susp) 30 ml PO DAILY PRN PRN Reason: Constipation Nicotine Polacrilex (Nicotine Polacrilex 2 Mg Gum) 2 mg BUCCAL QID PRN PRN Reason: Nicotine Cravings Nicotine Polacrilex (Nicotine Polacrilex 2 Mg Gum) 4 mg BUCCAL Q2H PRN PRN Reason: Nicotine Cravings Non-Formulary Medication (Lumateperone [Caplyta]) 1 cap PO QPM [facility] Patient Own Med ( Invega Trinza 819 Mg ) 819 mg IM Q3M [facility] Olanzapine (Olanzapine 5 Mg Tablet) 5 mg PO TID PRN PRN Reason: agitation Last Admin: 11/16/22 19:15 Dose: 5 mg Risperidone (Risperidone 2 Mg Tablet) 2 mg PO BID [facility] Last Admin: 11/20/22 07:56 Dose: 2 mg Trazodone HCl (Trazodone Hcl 50 Mg Tablet) 50 mg PO BEDTIME MRX1 PRN PRN Reason: Insomnia Last Admin: 11/16/22 19:16 Dose: 50 mg Vitamin D (Cholecalciferol (Vitamin D3) 25 Mcg Tablet) 25 mcg PO DAILY [facility] Last Admin: 11/20/22 07:57 Dose: 25 mcg Allergies Allergies Allergy/AdvReac Type Severity Reaction Status Date / Time haloperidol [From HALDOL] Allergy Unknown DISTONIC Verified 06/03/20 02:40 REACTION Assessment & Plan Assessment & Plan (1) Schizoaffective disorder, bipolar type: Status: Acute Code(s): F25.0 - Schizoaffective disorder, bipolar type Plan Patient is a 32-year-old male with diagnosis of schizoaffective disorder, bipolar type, last admitted to [facility] about a year ago, who presents now for worsening auditory hallucinations and paranoid delusions in the face of medication non adherence. -previous admission note says patient has a community Mantilla; will try to procure -patient restarted on lithium; patient is also normal on long-acting Invega Trinza so will start Invega p.o..; also on Caplyta -will pursue collateral Plan: CV Q 15 minute checks Restarted lithium 600 mg b.i.d. Patient is also on Caplyta however not on formulary and pt's own medications not yet available Will start Invega p.o. for now until Caplyta available Will try to recover community Mantilla document Gather collateral 11/10/22- Continue current regime. Continue Olanzapine 5 mg HS 11/12/22- Continue current regime/plan Message left for [facility] team for collateral Labs: B12, Folate, TSH, [place] EKG 11/13/22 Increase Olanzapine to 10 mg bid Increase [place] to 900 mg bid (Level 0.31) 11/15/2022 no changes as olanzapine and lithium just increased by team 11/16/22: Out patient regime clarified today by [facility], [facility], father and VNA Trinza due 12/02/22 Trinza and Caplyta ordered from [place] to re-establish 11/17/22. Continue current regime. [place] level 11/20 Awaiting Caplyta to arrive to initiate Support, educate 11/18/22: Discontinue Olanzapine, Invega Risperdal 2 mg bid 11/19 continue current treatment regimen Patient to start Caplyta once available 11/20 continue current treatment regimen; defer to primary team for further med adjustment Patient educated on: diagnosis Informed Consent: understands Reason for contiued inpatient stay Substantial Risk for: rapid decompensation and med/psych decompensation Time Spent With Patient Time: Total time managing care of this patient today ____ minutes.
[2022-11-20 17:45] VITALS: BP 116/66; PULSE 86
[2022-11-20] MEDS: traZODone HCL 50 MG TABLET PO (21:06)
[2022-11-21] MEDS: hydrOXYzine HCL 25 MG TABLET PO (00:53)
[2022-11-21 06:00] VITALS: BP 130/70; PULSE 70; RESP 16; TEMP 36.6; O2SAT 93
[2022-11-21] MEDS: Levothyroxine Sodium 75 MCG TABLET PO (06:18)
[2022-11-21] MEDS: amLODIPine Besylate 10 MG TABLET PO (08:30)
[2022-11-21] MEDS: risperiDONE 2 MG TABLET PO ×2 (08:31→19:41)
[2022-11-21] MEDS: Lithium Carbonate 300 MG CAPSULE 900 MG PO ×2 (08:31→19:41)
[2022-11-21] MEDS: Cholecalciferol (Vitamin D3) 25 MCG TABLET PO (08:31)
[2022-11-21 16:03] VITALS: BP 113/65; PULSE 80; RESP 18; TEMP 36.7; O2SAT 95
--- NOTE | 2022-11-21 16:22 | HO.PSYCHPN ---
Subjective Subjective Date of Service: 11/21/22 Reason For Visit: Disorganized Interim History: Review with team/nursing. Sedate today- reports he is improved, however, appears more symptomatic. Review of regime and changes made over the week. Pt believes changes have helped Medication Compliance: Yes Side effects from medications: No Attending Groups: No Review of Systems Acute medical concerns: No Medical Review of Systems: unchanged Mental Status Exam Mental Status Exam Patient Appearance: Fatigued and Disheveled Patient Orientation: Person, Place, Time and Situation Level of Consciousness: Alert Patient Behavior: Talkative, Cooperative, Fatigued and Good Eye Contact Mood Description: Withdrawn and Constricted Affect Description: Constricted Patient Cognition Impaired: No Ability to Follow Directions: Good Speech Pattern: Spontaneous Speech Memory Description: Episodic Impaired Hallucinations: Auditory Delusions: Paranoid Ideation Thought Process: Slowed Thinking Thought Content: positive for Circumstantial Depressive Symptoms: Increased Fatigue and Loss of Energy Judgement: Fair Diagnostics Vital Signs (24Hr): Vital Signs - 24 hr 11/20/22 17:45 11/21/22 06:00 11/21/22 16:03 Temperature 97.9 F 98.0 F Pulse Rate 86 70 80 Respiratory Rate 16 18 Blood Pressure 116/66 130/70 113/65 Pulse Oximetry 93 95 Oxygen Delivery Method Room Air Room Air BMI result Body Mass Index 54.1 Labs 11/06/22 22:49 11/06/22 22:49 Labs: Laboratory Results - last 48 hr 11/20/22 08:02 [place] 0.48 L Medications Medications Current Medications Acetaminophen (Acetaminophen 325 Mg Tablet) 650 mg PO Q6H PRN PRN Reason: Headache/Pain Mild Scale (1-3) Last Admin: 11/18/22 20:19 Dose: 650 mg Al Hydroxide/Mg Hydroxide (Magnesium Hydrox/Alum Hydrox 30 Ml Oral.Susp) 30 ml PO Q6H PRN PRN Reason: Heartburn/Nausea Albuterol Sulfate (Albuterol Sulfate 90 Mcg 8 Gm Inhaler) 2 puff INHALE Q4H PRN PRN Reason: Shortness of Breath Amlodipine Besylate (Amlodipine Besylate 10 Mg Tablet) 10 mg PO DAILY [facility]; Protocol Last Admin: 11/21/22 08:30 Dose: 10 mg Fluticasone Propionate (Fluticasone Propionate Nasal 16 Gm [place]) 1 spray NOSTRIL-B Q12H [facility] Last Admin: 11/21/22 08:50 Dose: Not Given Hydroxyzine HCl (Hydroxyzine Hcl 25 Mg Tablet) 25 mg PO Q6H PRN PRN Reason: Anxiety Last Admin: 11/21/22 00:53 Dose: 25 mg Levothyroxine Sodium (Levothyroxine Sodium 75 Mcg Tablet) 75 mcg PO DAILY@0630 [facility] Last Admin: 11/21/22 06:18 Dose: 75 mcg [place] Carbonate ([place] Carbonate 300 Mg Capsule) 900 mg PO BID [facility] Last Admin: 11/21/22 08:31 Dose: 900 mg Magnesium Hydroxide (Milk Of Magnesia 30 Ml Oral.Susp) 30 ml PO DAILY PRN PRN Reason: Constipation Nicotine Polacrilex (Nicotine Polacrilex 2 Mg Gum) 2 mg BUCCAL QID PRN PRN Reason: Nicotine Cravings Nicotine Polacrilex (Nicotine Polacrilex 2 Mg Gum) 4 mg BUCCAL Q2H PRN PRN Reason: Nicotine Cravings Patient Own Med ( Invega Trinza 819 Mg ) 819 mg IM Q3M [facility] Olanzapine (Olanzapine 5 Mg Tablet) 5 mg PO TID PRN PRN Reason: agitation Last Admin: 11/16/22 19:15 Dose: 5 mg Risperidone (Risperidone 2 Mg Tablet) 2 mg PO BID [facility] Last Admin: 11/21/22 08:31 Dose: 2 mg Trazodone HCl (Trazodone Hcl 50 Mg Tablet) 50 mg PO BEDTIME MRX1 PRN PRN Reason: Insomnia Last Admin: 11/20/22 21:06 Dose: 50 mg Vitamin D (Cholecalciferol (Vitamin D3) 25 Mcg Tablet) 25 mcg PO DAILY [facility] Last Admin: 11/21/22 08:31 Dose: 25 mcg Allergies Allergies Allergy/AdvReac Type Severity Reaction Status Date / Time haloperidol [From HALDOL] Allergy Unknown DISTONIC Verified 06/03/20 02:40 REACTION Assessment & Plan Assessment & Plan (1) Schizoaffective disorder, bipolar type: Status: Acute Code(s): F25.0 - Schizoaffective disorder, bipolar type Plan Patient is a 32-year-old male with diagnosis of schizoaffective disorder, bipolar type, last admitted to [facility] about a year ago, who presents now for worsening auditory hallucinations and paranoid delusions in the face of medication non adherence. -previous admission note says patient has a community Mant[place]; will try to procure -patient restarted on lithium; patient is also normal on long-acting Invega Trinza so will start Invega p.o..; also on Caplyta -will pursue collateral Plan: CV Q 15 minute checks Restarted lithium 600 mg b.i.d. Patient is also on Caplyta however not on formulary and pt's own medications not yet available Will start Invega p.o. for now until Caplyta available Will try to recover [facility] document Gather collateral 11/10/22- Continue current regime. Continue Olanzapine 5 mg HS 11/12/22- Continue current regime/plan Message left for [facility] team for collateral Labs: B12, Folate, TSH, [place] EKG 11/13/22 Increase Olanzapine to 10 mg bid Increase [place] to 900 mg bid (Level 0.31) 11/15/2022 no changes as olanzapine and lithium just increased by team 11/16/22: Out patient regime clarified today by [facility], [facility], father and [facility] Trinza due 12/02/22 Trinza and Caplyta ordered from [place] to re-establish 11/17/22. Continue current regime. [place] level 11/20 Awaiting Caplyta to arrive to initiate Support, educate 11/18/22: Discontinue Olanzapine, Invega Risperdal 2 mg bid 11/19 continue current treatment regimen Patient to start Caplyta once available 11/20 continue current treatment regimen; defer to primary team for further med adjustment 11/21- Caplyta remains not available Continue current regime Labs 11/23. Patient educated on: medication risk/benefits and therapeutic strategies Informed Consent: further education needed Reason for contiued inpatient stay Substantial Risk for: rapid decompensation Time Spent With Patient Time: Total time managing care of this patient today ____ minutes.
[2022-11-21] MEDS: Fluticasone Propionate Nasal 16 GM SPRAY 1 SPRAY NOSTRIL-B (19:40)
[2022-11-22] MEDS: OLANZapine 5 MG TABLET PO ×2 (00:53→21:13)
[2022-11-22 06:00] VITALS: BP 116/51; PULSE 72; RESP 16; TEMP 37.1; O2SAT 93
[2022-11-22] MEDS: Levothyroxine Sodium 75 MCG TABLET PO (06:38)
[2022-11-22] MEDS: risperiDONE 2 MG TABLET PO (08:54)
[2022-11-22] MEDS: amLODIPine Besylate 10 MG TABLET PO (08:54)
[2022-11-22] MEDS: Lithium Carbonate 300 MG CAPSULE 900 MG PO ×2 (08:54→21:13)
[2022-11-22] MEDS: Cholecalciferol (Vitamin D3) 25 MCG TABLET PO (08:54)
--- NOTE | 2022-11-22 09:55 | PC.NURSE ---
Pt throwing non-flushable items down the toilet (juice cups, food packages, etc.). Bathroom door locked, Kimmie Clemens notified.
[2022-11-22] MEDS: hydrOXYzine HCL 25 MG TABLET PO (12:34)
[2022-11-22 19:00] VITALS: BP 111/67; PULSE 74; TEMP 36.8; O2SAT 92
[2022-11-22] MEDS: Fluticasone Propionate Nasal 16 GM SPRAY 1 SPRAY NOSTRIL-B (21:13)
[2022-11-22] MEDS: Paliperidone ER 3 MG TAB.ER.24 PO (21:13)
--- NOTE | 2022-11-23 04:05 | P.PNPSI_ITS ---
Subjective Subjective Date of Service: 11/22/22 Reason For Visit: Disorganized Interim History: Review with team/nursing who report pt has been placing items in the toilet Pt continues with sedation. Discussed unavailability of Caplyta and return to Invega/Olanzapine with Risperdal discontinuation. Pt agrees. Medication Compliance: Yes Side effects from medications: No Attending Groups: No Review of Systems Acute medical concerns: No Medical Review of Systems: unchanged Mental Status Exam Mental Status Exam Patient Appearance: Fatigued and Disheveled Patient Orientation: Person, Place, Time and Situation Level of Consciousness: Alert Patient Behavior: Talkative, Cooperative, Fatigued and Good Eye Contact Mood Description: Withdrawn and Constricted Affect Description: Constricted Patient Cognition Impaired: No Ability to Follow Directions: Good Speech Pattern: Spontaneous Speech Memory Description: Episodic Impaired Hallucinations: Auditory Delusions: Paranoid Ideation Thought Process: Slowed Thinking Thought Content: positive for Circumstantial Depressive Symptoms: Increased Fatigue and Loss of Energy Judgement: Fair Diagnostics Vital Signs (24Hr): Vital Signs - 24 hr 11/22/22 06:00 11/22/22 19:00 Temperature 98.8 F 98.3 F Pulse Rate 72 74 Respiratory Rate 16 Blood Pressure 116/51 L 111/67 Pulse Oximetry 93 92 Oxygen Delivery Method Room Air Room Air BMI result Body Mass Index 54.1 Labs 11/06/22 22:49 11/06/22 22:49 Medications Medications Current Medications Acetaminophen (Acetaminophen 325 Mg Tablet) 650 mg PO Q6H PRN PRN Reason: Headache/Pain Mild Scale (1-3) Last Admin: 11/18/22 20:19 Dose: 650 mg Al Hydroxide/Mg Hydroxide (Magnesium Hydrox/Alum Hydrox 30 Ml Oral.Susp) 30 ml PO Q6H PRN PRN Reason: Heartburn/Nausea Albuterol Sulfate (Albuterol Sulfate 90 Mcg 8 Gm Inhaler) 2 puff INHALE Q4H PRN PRN Reason: Shortness of Breath Amlodipine Besylate (Amlodipine Besylate 10 Mg Tablet) 10 mg PO DAILY [facility]; Protocol Last Admin: 11/22/22 08:54 Dose: 10 mg Fluticasone Propionate (Fluticasone Propionate Nasal 16 Gm [place]) 1 spray NOSTRIL-B Q12H [facility] Last Admin: 11/22/22 21:13 Dose: 1 spray Hydroxyzine HCl (Hydroxyzine Hcl 25 Mg Tablet) 25 mg PO Q6H PRN PRN Reason: Anxiety Last Admin: 11/22/22 12:34 Dose: 25 mg Levothyroxine Sodium (Levothyroxine Sodium 75 Mcg Tablet) 75 mcg PO DAILY@0630 [facility] Last Admin: 11/22/22 06:38 Dose: 75 mcg [place] Carbonate ([place] Carbonate 300 Mg Capsule) 900 mg PO BID [facility] Last Admin: 11/22/22 21:13 Dose: 900 mg Magnesium Hydroxide (Milk Of Magnesia 30 Ml Oral.Susp) 30 ml PO DAILY PRN PRN Reason: Constipation Nicotine Polacrilex (Nicotine Polacrilex 2 Mg Gum) 2 mg BUCCAL QID PRN PRN Reason: Nicotine Cravings Nicotine Polacrilex (Nicotine Polacrilex 2 Mg Gum) 4 mg BUCCAL Q2H PRN PRN Reason: Nicotine Cravings Patient Own Med ( Invega Trinza 819 Mg ) 819 mg IM Q3M [facility] Non-Formulary Medication (Lumateperone [Caplyta]) 1 cap PO DAILY@1700 [facility] Olanzapine (Olanzapine 5 Mg Tablet) 5 mg PO TID PRN PRN Reason: agitation Last Admin: 11/22/22 00:53 Dose: 5 mg Olanzapine (Olanzapine 5 Mg Tablet) 5 mg PO BID [facility] Last Admin: 11/22/22 21:13 Dose: 5 mg Paliperidone (Paliperidone Er 3 Mg Tab.Er.24) 3 mg PO BID [facility] Last Admin: 11/22/22 21:13 Dose: 3 mg Trazodone HCl (Trazodone Hcl 50 Mg Tablet) 50 mg PO BEDTIME MRX1 PRN PRN Reason: Insomnia Last Admin: 11/20/22 21:06 Dose: 50 mg Vitamin D (Cholecalciferol (Vitamin D3) 25 Mcg Tablet) 25 mcg PO DAILY [facility] Last Admin: 11/22/22 08:54 Dose: 25 mcg Allergies Allergies Allergy/AdvReac Type Severity Reaction Status Date / Time haloperidol [From HALDOL] Allergy Unknown DISTONIC Verified 06/03/20 02:40 REACTION Assessment & Plan Assessment & Plan (1) Schizoaffective disorder, bipolar type: Status: Acute Code(s): F25.0 - Schizoaffective disorder, bipolar type Plan Patient is a 32-year-old male with diagnosis of schizoaffective disorder, bipolar type, last admitted to [facility] about a year ago, who presents now for worsening auditory hallucinations and paranoid delusions in the face of medication non adherence. -previous admission note says patient has a community Mantilla; will try to procure -patient restarted on lithium; patient is also normal on long-acting Invega Trinza so will start Invega p.o..; also on Caplyta -will pursue collateral Plan: CV Q 15 minute checks Restarted lithium 600 mg b.i.d. Patient is also on Caplyta however not on formulary and pt's own medications not yet available Will start Invega p.o. for now until Caplyta available Will try to recover community [facility] document Gather collateral 11/10/22- Continue current regime. Continue Olanzapine 5 mg HS 11/12/22- Continue current regime/plan Message left for [facility] team for collateral Labs: B12, Folate, TSH, [place] EKG 11/13/22 Increase Olanzapine to 10 mg bid Increase [place] to 900 mg bid (Level 0.31) 11/15/2022 no changes as olanzapine and lithium just increased by team 11/16/22: Out patient regime clarified today by [facility], [facility], father and [facility] Trinza due 12/02/22 Trinza and Caplyta ordered from [place] to re-establish 11/17/22. Continue current regime. [place] level 11/20 Awaiting Caplyta to arrive to initiate Support, educate 11/18/22: Discontinue Olanzapine, Invega Risperdal 2 mg bid 11/19 continue current treatment regimen Patient to start Caplyta once available 11/20 continue current treatment regimen; defer to primary team for further med adjustment 11/22 Discontinue Risperdal Olanzapine 5 mg bid Invega 3 mg bid Patient educated on: medication risk/benefits Informed Consent: further education needed Reason for contiued inpatient stay Substantial Risk for: rapid decompensation Time Spent With Patient Time: Total time managing care of this patient today ____ minutes.
[2022-11-23 06:00] VITALS: BP 130/81; PULSE 76; RESP 14; TEMP 36.3; O2SAT 97
[2022-11-23] MEDS: OLANZapine 5 MG TABLET PO ×3 (08:16→21:13)
[2022-11-23] MEDS: Lithium Carbonate 300 MG CAPSULE 900 MG PO ×2 (08:16→21:12)
[2022-11-23] MEDS: Levothyroxine Sodium 75 MCG TABLET PO (08:16)
[2022-11-23] MEDS: amLODIPine Besylate 10 MG TABLET PO (08:16)
[2022-11-23] MEDS: Cholecalciferol (Vitamin D3) 25 MCG TABLET PO (08:16)
[2022-11-23] MEDS: Paliperidone ER 3 MG TAB.ER.24 PO ×2 (08:16→21:12)
[2022-11-23 09:11] LABS: Lithium 0.58 mmol/L (0.60-1.20)
[2022-11-23 09:23] LABS: Anion Gap 13 (12-20); Blood Urea Nitrogen 11 mg/dL (9-16); Calcium 9.1 mg/dL (8.4-10.2); Carbon Dioxide 27 mmol/L (22-29); Chloride 105 mmol/L (96-108); Estimated Glomerular Filt Rate > 60; Glucose Random 84 mg/dL (60-115); Potassium 4.2 mmol/L (3.3-5.1); Sodium 141 mmol/L (135-145)
[2022-11-23 09:40] LABS: Thyroid Stimulating Hormone 3.82 uIU/mL (0.32-4.0)
[2022-11-23 16:00] VITALS: BP 134/76; PULSE 78; TEMP 36.7; O2SAT 94
--- NOTE | 2022-11-23 16:32 | HO.PSYCHPN ---
Subjective Subjective Date of Service: 11/23/22 Reason For Visit: Disorganized Subjective Notes: Conditional Voluntary Healthcare Proxy: No Guardianship: No Medical Problems Affecting Mental Status: No Interim History: Reports he is anxious to discharge. Appears improved today-up early, alert attentive. Poor attention to ADL's. Team have talked with him about what he needs to do regarding his self care to prepare for his discharge. Discussed inability to obtain Caplyta. Pt reports it is most helpful with voices. [facility] is working on this issue. Finds the change back to Olanzapine-Invega more effective than Risperdal. Discussed leaving this in place until Caplyta is located. Medication Compliance: Yes Side effects from medications: No Attending Groups: Intermittent Review of Systems Acute medical concerns: No Medical Review of Systems: unchanged Mental Status Exam Mental Status Exam Patient Appearance: Fatigued and Disheveled Patient Orientation: Person, Place, Time and Situation Level of Consciousness: Alert Patient Behavior: Talkative, Cooperative, Fatigued and Good Eye Contact Mood Description: Withdrawn and Constricted Affect Description: Constricted Patient Cognition Impaired: No Ability to Follow Directions: Good Speech Pattern: Spontaneous Speech Memory Description: Episodic Impaired Hallucinations: Auditory Delusions: Paranoid Ideation Thought Process: Slowed Thinking Thought Content: positive for Circumstantial Depressive Symptoms: Increased Fatigue and Loss of Energy Judgement: Fair Diagnostics Vital Signs (24Hr): Vital Signs - 24 hr 11/22/22 19:00 11/23/22 06:00 11/23/22 16:00 Temperature 98.3 F 97.4 F 98.1 F Pulse Rate 74 76 78 Respiratory Rate 14 Blood Pressure 111/67 130/81 134/76 Pulse Oximetry 92 97 94 Oxygen Delivery Method Room Air Room Air Room Air BMI result Body Mass Index 54.1 Labs 11/06/22 22:49 11/23/22 08:15 Labs: Laboratory Results - last 48 hr 11/23/22 11/23/22 08:15 08:15 Sodium 141 Potassium 4.2 Chloride 105 Carbon Dioxide 27 Anion Gap 13 BUN 11 Creatinine 0.80 Estim Creat Clear Calc 223.0 Estimated GFR > 60 Random Glucose 84 Calcium 9.1 TSH 3.82 [place] 0.58 L Medications Medications Current Medications Acetaminophen (Acetaminophen 325 Mg Tablet) 650 mg PO Q6H PRN PRN Reason: Headache/Pain Mild Scale (1-3) Last Admin: 11/18/22 20:19 Dose: 650 mg Al Hydroxide/Mg Hydroxide (Magnesium Hydrox/Alum Hydrox 30 Ml Oral.Susp) 30 ml PO Q6H PRN PRN Reason: Heartburn/Nausea Albuterol Sulfate (Albuterol Sulfate 90 Mcg 8 Gm Inhaler) 2 puff INHALE Q4H PRN PRN Reason: Shortness of Breath Amlodipine Besylate (Amlodipine Besylate 10 Mg Tablet) 10 mg PO DAILY [facility]; Protocol Last Admin: 11/23/22 08:16 Dose: 10 mg Fluticasone Propionate (Fluticasone Propionate Nasal 16 Gm [place]) 1 spray NOSTRIL-B Q12H [facility] Last Admin: 11/23/22 08:32 Dose: Not Given Hydroxyzine HCl (Hydroxyzine Hcl 25 Mg Tablet) 25 mg PO Q6H PRN PRN Reason: Anxiety Last Admin: 11/22/22 12:34 Dose: 25 mg Levothyroxine Sodium (Levothyroxine Sodium 75 Mcg Tablet) 75 mcg PO DAILY@0630 [facility] Last Admin: 11/23/22 08:16 Dose: 75 mcg [place] Carbonate ([place] Carbonate 300 Mg Capsule) 900 mg PO BID [facility] Last Admin: 11/23/22 08:16 Dose: 900 mg Magnesium Hydroxide (Milk Of Magnesia 30 Ml Oral.Susp) 30 ml PO DAILY PRN PRN Reason: Constipation Nicotine Polacrilex (Nicotine Polacrilex 2 Mg Gum) 2 mg BUCCAL QID PRN PRN Reason: Nicotine Cravings Nicotine Polacrilex (Nicotine Polacrilex 2 Mg Gum) 4 mg BUCCAL Q2H PRN PRN Reason: Nicotine Cravings Patient Own Med ( Invega Trinza 819 Mg ) 819 mg IM Q3M [facility] Non-Formulary Medication (Lumateperone [Caplyta]) 1 cap PO DAILY@1700 [facility] Olanzapine (Olanzapine 5 Mg Tablet) 5 mg PO TID PRN PRN Reason: agitation Last Admin: 11/23/22 13:49 Dose: 5 mg Olanzapine (Olanzapine 5 Mg Tablet) 5 mg PO BID [facility] Last Admin: 11/23/22 08:16 Dose: 5 mg Paliperidone (Paliperidone Er 3 Mg Tab.Er.24) 3 mg PO BID [facility] Last Admin: 11/23/22 08:16 Dose: 3 mg Trazodone HCl (Trazodone Hcl 50 Mg Tablet) 50 mg PO BEDTIME MRX1 PRN PRN Reason: Insomnia Last Admin: 11/20/22 21:06 Dose: 50 mg Vitamin D (Cholecalciferol (Vitamin D3) 25 Mcg Tablet) 25 mcg PO DAILY [facility] Last Admin: 11/23/22 08:16 Dose: 25 mcg Allergies Allergies Allergy/AdvReac Type Severity Reaction Status Date / Time haloperidol [From HALDOL] Allergy Unknown DISTONIC Verified 06/03/20 02:40 REACTION Assessment & Plan Assessment & Plan (1) Schizoaffective disorder, bipolar type: Status: Acute Code(s): F25.0 - Schizoaffective disorder, bipolar type Plan Patient is a 32-year-old male with diagnosis of schizoaffective disorder, bipolar type, last admitted to [facility] about a year ago, who presents now for worsening auditory hallucinations and paranoid delusions in the face of medication non adherence. -previous admission note says patient has a community Mant[place]; will try to procure -patient restarted on lithium; patient is also normal on long-acting Invega Trinza so will start Invega p.o..; also on Caplyta -will pursue collateral Plan: CV Q 15 minute checks Restarted lithium 600 mg b.i.d. Patient is also on Caplyta however not on formulary and pt's own medications not yet available Will start Invega p.o. for now until Caplyta available Will try to recover community [facility] document Gather collateral 11/10/22- Continue current regime. Continue Olanzapine 5 mg HS 11/12/22- Continue current regime/plan Message left for [facility] team for collateral Labs: B12, Folate, TSH, [place] EKG 11/13/22 Increase Olanzapine to 10 mg bid Increase [place] to 900 mg bid (Level 0.31) 11/15/2022 no changes as olanzapine and lithium just increased by team 11/16/22: Out patient regime clarified today by [facility], [facility], father and [facility] [place] due 12/02/22 Trinza and Caplyta ordered from [place] to re-establish 11/17/22. Continue current regime. [place] level 11/20 Awaiting Caplyta to arrive to initiate Support, educate 11/18/22: Discontinue Olanzapine, Invega Risperdal 2 mg bid 11/19 continue current treatment regimen Patient to start Caplyta once available 11/20 continue current treatment regimen; defer to primary team for further med adjustment 11/22 Discontinue Risperdal Olanzapine 5 mg bid Invega 3 mg bid 11/23/22- Continue current regime. Patient educated on: therapeutic strategies Informed Consent: further education needed Reason for contiued inpatient stay Substantial Risk for: rapid decompensation Time Spent With Patient Time: Total time managing care of this patient today ____ minutes.
[2022-11-23] MEDS: Fluticasone Propionate Nasal 16 GM SPRAY 1 SPRAY NOSTRIL-B (21:13)
[2022-11-24] MEDS: hydrOXYzine HCL 25 MG TABLET PO (01:28)
[2022-11-24] MEDS: Levothyroxine Sodium 75 MCG TABLET PO (06:19)
[2022-11-24 08:47] VITALS: BP 129/87; PULSE 75; RESP 20; TEMP 36.3; O2SAT 96
[2022-11-24] MEDS: Cholecalciferol (Vitamin D3) 25 MCG TABLET PO (08:48)
[2022-11-24] MEDS: amLODIPine Besylate 10 MG TABLET PO (08:48)
[2022-11-24] MEDS: OLANZapine 5 MG TABLET PO ×2 (08:48→21:27)
[2022-11-24] MEDS: Paliperidone ER 3 MG TAB.ER.24 PO ×2 (08:48→21:27)
[2022-11-24] MEDS: Lithium Carbonate 300 MG CAPSULE 900 MG PO ×2 (08:48→21:27)
[2022-11-24] MEDS: Fluticasone Propionate Nasal 16 GM SPRAY 1 SPRAY NOSTRIL-B ×2 (08:48→21:30)
--- NOTE | 2022-11-24 20:04 | P.PNPSI_ITS ---
Subjective Subjective Date of Service: 11/24/22 Reason For Visit: Disorganized Healthcare Proxy: No Guardianship: Yes Medical Problems Affecting Mental Status: No Interim History: Reviewed with team. Less visable today. Reports feeling tired. I really feel lost when I am not at home. Again reviewed with pt ADL needs-he plans to shower today. Team reports pt did attend art group-again drawing the devil. Continues to report AH to kill. [facility] has located Caplyta and it will be available for pt on 11/25. Discussed sleep pattern- per father at our family meeting pt sleeps 48 hours then is up for 3-4 days-reviewed basics of sleep hygiene. When up, pt cooks a great deal he reports due to boredom. Message left with [facility] of [employer] to discuss pt's sleep/eating pattern [phone] Message left with [facility] to discuss medications with Waqas Lazo [phone]. Medication Compliance: Yes Side effects from medications: No Attending Groups: Intermittent Review of Systems Acute medical concerns: No Medical Review of Systems: unchanged Mental Status Exam Mental Status Exam Patient Appearance: Fatigued and Disheveled Patient Orientation: Person, Place, Time and Situation Level of Consciousness: Alert Patient Behavior: Talkative, Cooperative, Fatigued and Good Eye Contact Mood Description: Withdrawn and Constricted Affect Description: Constricted Patient Cognition Impaired: No Ability to Follow Directions: Good Speech Pattern: Spontaneous Speech Memory Description: Episodic Impaired Hallucinations: Auditory Delusions: Paranoid Ideation Thought Process: Slowed Thinking Thought Content: positive for Circumstantial Depressive Symptoms: Increased Fatigue and Loss of Energy Judgement: Fair Diagnostics Vital Signs (24Hr): Vital Signs - 24 hr 11/24/22 08:47 Temperature 97.4 F Pulse Rate 75 Respiratory Rate 20 Blood Pressure 129/87 Pulse Oximetry 96 Oxygen Delivery Method Room Air BMI result Body Mass Index 54.1 Labs 11/06/22 22:49 11/23/22 08:15 Labs: Laboratory Results - last 48 hr 11/23/22 11/23/22 08:15 08:15 Sodium 141 Potassium 4.2 Chloride 105 Carbon Dioxide 27 Anion Gap 13 BUN 11 Creatinine 0.80 Estim Creat Clear Calc 223.0 Estimated GFR > 60 Random Glucose 84 Calcium 9.1 TSH 3.82 [place] 0.58 L Medications Medications Current Medications Acetaminophen (Acetaminophen 325 Mg Tablet) 650 mg PO Q6H PRN PRN Reason: Headache/Pain Mild Scale (1-3) Last Admin: 11/18/22 20:19 Dose: 650 mg Al Hydroxide/Mg Hydroxide (Magnesium Hydrox/Alum Hydrox 30 Ml Oral.Susp) 30 ml PO Q6H PRN PRN Reason: Heartburn/Nausea Albuterol Sulfate (Albuterol Sulfate 90 Mcg 8 Gm Inhaler) 2 puff INHALE Q4H PRN PRN Reason: Shortness of Breath Amlodipine Besylate (Amlodipine Besylate 10 Mg Tablet) 10 mg PO DAILY [facility]; Protocol Last Admin: 11/24/22 08:48 Dose: 10 mg Fluticasone Propionate (Fluticasone Propionate Nasal 16 Gm [place]) 1 spray NOSTRIL-B Q12H [facility] Last Admin: 11/24/22 08:48 Dose: 1 spray Hydroxyzine HCl (Hydroxyzine Hcl 25 Mg Tablet) 25 mg PO Q6H PRN PRN Reason: Anxiety Last Admin: 11/24/22 01:28 Dose: 25 mg Levothyroxine Sodium (Levothyroxine Sodium 75 Mcg Tablet) 75 mcg PO DAILY@0630 [facility] Last Admin: 11/24/22 06:19 Dose: 75 mcg [place] Carbonate ([place] Carbonate 300 Mg Capsule) 900 mg PO BID [facility] Last Admin: 11/24/22 08:48 Dose: 900 mg Magnesium Hydroxide (Milk Of Magnesia 30 Ml Oral.Susp) 30 ml PO DAILY PRN PRN Reason: Constipation Nicotine Polacrilex (Nicotine Polacrilex 2 Mg Gum) 2 mg BUCCAL QID PRN PRN Reason: Nicotine Cravings Nicotine Polacrilex (Nicotine Polacrilex 2 Mg Gum) 4 mg BUCCAL Q2H PRN PRN Reason: Nicotine Cravings Patient Own Med ( Invega Trinza 819 Mg ) 819 mg IM Q3M [facility] Non-Formulary Medication (Lumateperone [Caplyta]) 1 cap PO DAILY@1700 [facility] Olanzapine (Olanzapine 5 Mg Tablet) 5 mg PO TID PRN PRN Reason: agitation Last Admin: 11/23/22 13:49 Dose: 5 mg Olanzapine (Olanzapine 5 Mg Tablet) 5 mg PO BID [facility] Last Admin: 11/24/22 08:48 Dose: 5 mg Paliperidone (Paliperidone Er 3 Mg Tab.Er.24) 3 mg PO BID [facility] Last Admin: 11/24/22 08:48 Dose: 3 mg Trazodone HCl (Trazodone Hcl 50 Mg Tablet) 50 mg PO BEDTIME MRX1 PRN PRN Reason: Insomnia Last Admin: 11/20/22 21:06 Dose: 50 mg Vitamin D (Cholecalciferol (Vitamin D3) 25 Mcg Tablet) 25 mcg PO DAILY [facility] Last Admin: 11/24/22 08:48 Dose: 25 mcg (Trinza due 12/02/22) Allergies Allergies Allergy/AdvReac Type Severity Reaction Status Date / Time haloperidol [From HALDOL] Allergy Unknown DISTONIC Verified 06/03/20 02:40 REACTION Assessment & Plan Assessment & Plan (1) Schizoaffective disorder, bipolar type: Status: Acute Code(s): F25.0 - Schizoaffective disorder, bipolar type Plan Patient is a 32-year-old male with diagnosis of schizoaffective disorder, bipolar type, last admitted to [facility] about a year ago, who presents now for worsening auditory hallucinations and paranoid delusions in the face of medication non adherence. -previous admission note says patient has a community Mantilla; will try to procure -patient restarted on lithium; patient is also normal on long-acting Invega Trinza so will start Invega p.o..; also on Caplyta -will pursue collateral Plan: CV Q 15 minute checks Restarted lithium 600 mg b.i.d. Patient is also on Caplyta however not on formulary and pt's own medications not yet available Will start Invega p.o. for now until Caplyta available Will try to recover community Mantilla document Gather collateral 11/10/22- Continue current regime. Continue Olanzapine 5 mg HS 11/12/22- Continue current regime/plan Message left for [facility] team for collateral Labs: B12, Folate, TSH, [place] EKG 11/13/22 Increase Olanzapine to 10 mg bid Increase [place] to 900 mg bid (Level 0.31) 11/15/2022 no changes as olanzapine and lithium just increased by team 11/16/22: Out patient regime clarified today by [facility], [facility], fat her and [facility] Trinza due 12/02/22 Trinza and Caplyta ordered from [place] to re-establish 11/17/22. Continue current regime. [place] level 11/20 Awaiting Caplyta to arrive to initiate Support, educate 11/18/22: Discontinue Olanzapine, Invega Risperdal 2 mg bid 11/19 continue current treatment regimen Patient to start Caplyta once available 11/20 continue current treatment regimen; defer to primary team for further med adjustment 11/22 Discontinue Risperdal Olanzapine 5 mg bid Invega 3 mg bid 11/24/22 continue current plan Patient educated on: medication risk/benefits and other Informed Consent: further education needed Reason for contiued inpatient stay Substantial Risk for: rapid decompensation Time Spent With Patient Time: Total time managing care of this patient today ____ minutes.
[2022-11-24 21:15] VITALS: BP 125/70; PULSE 74; TEMP 36.9; O2SAT 95
[2022-11-25] MEDS: hydrOXYzine HCL 25 MG TABLET PO ×3 (04:05→23:28)
[2022-11-25] MEDS: OLANZapine 5 MG TABLET PO ×4 (04:05→23:28)
[2022-11-25] MEDS: Levothyroxine Sodium 75 MCG TABLET PO (05:24)
[2022-11-25 08:00] VITALS: BP 116/72; PULSE 76; RESP 18; TEMP 37.4; O2SAT 93
[2022-11-25] MEDS: Lithium Carbonate 300 MG CAPSULE 900 MG PO ×2 (08:05→20:00)
[2022-11-25] MEDS: Paliperidone ER 3 MG TAB.ER.24 PO ×2 (08:05→20:00)
[2022-11-25] MEDS: amLODIPine Besylate 10 MG TABLET PO (08:05)
[2022-11-25] MEDS: Cholecalciferol (Vitamin D3) 25 MCG TABLET PO (08:14)
[2022-11-25] MEDS: Fluticasone Propionate Nasal 16 GM SPRAY 1 SPRAY NOSTRIL-B ×2 (08:14→20:01)
--- NOTE | 2022-11-25 09:10 | PC.NURSE ---
pt signed a 3day notice 11/25/22. Up on 11/30/22. , SW, & UR notified via tiger text.
--- NOTE | 2022-11-25 10:01 | P.PNPSI_ITS ---
Subjective Subjective Date of Service: 11/25/22 Reason For Visit: Disorganized Review of Systems Review of Systems Unremarkable Constitutional: Reports as per HPI, Denies chills, Denies fatigue, Denies fever(s) and Denies headache(s) Denies headache(s) Cardiovascular: Denies chest pain and Denies dyspnea Respiratory: Denies cough and Denies dyspnea Gastrointestinal: Denies abdominal pain, Denies constipation and Denies vomiting Genitourinary: Denies difficulty urinating and Denies dysuria Denies headache(s) and Denies focal weakness Endocrine: Denies fatigue Mental Status Exam Mental Status Exam Narrative: Appearance: MO, wearing hospital gown, disheveled, in NAD Behavior: cooperative Psychomotor: no agitation or retardation noted Speech: clear, normal rate/rhythm, volume, spontaneous TP: tangential, at times disorganized TC: hearing voices that he thinks are real Mood: good AFfect: constricted SI: denies HI: denies AH: of gang members that he thinks live out of state, he reports that he can't see them but thinks voices are real. VH: denies Delusions: paranoid delusions Insight/judgment: poor x 2. Memory/cog: alert, oriented x 3. Diagnostics Vital Signs (24Hr): Vital Signs - 24 hr 11/24/22 21:15 11/25/22 08:00 Temperature 98.4 F 99.4 F Pulse Rate 74 76 Respiratory Rate 18 Blood Pressure 125/70 116/72 Pulse Oximetry 95 93 Oxygen Delivery Method Room Air Room Air BMI result Body Mass Index 54.1 Labs 11/06/22 22:49 11/23/22 08:15 Medications Medications Current Medications Acetaminophen (Acetaminophen 325 Mg Tablet) 650 mg PO Q6H PRN PRN Reason: Headache/Pain Mild Scale (1-3) Last Admin: 11/18/22 20:19 Dose: 650 mg Al Hydroxide/Mg Hydroxide (Magnesium Hydrox/Alum Hydrox 30 Ml Oral.Susp) 30 ml PO Q6H PRN PRN Reason: Heartburn/Nausea Albuterol Sulfate (Albuterol Sulfate 90 Mcg 8 Gm Inhaler) 2 puff INHALE Q4H PRN PRN Reason: Shortness of Breath Amlodipine Besylate (Amlodipine Besylate 10 Mg Tablet) 10 mg PO DAILY [facility]; Protocol Last Admin: 11/25/22 08:05 Dose: 10 mg Fluticasone Propionate (Fluticasone Propionate Nasal 16 Gm [place]) 1 spray NOSTRIL-B Q12H [facility] Last Admin: 11/25/22 08:14 Dose: 1 spray Hydroxyzine HCl (Hydroxyzine Hcl 25 Mg Tablet) 25 mg PO Q6H PRN PRN Reason: Anxiety Last Admin: 11/25/22 04:05 Dose: 25 mg Levothyroxine Sodium (Levothyroxine Sodium 75 Mcg Tablet) 75 mcg PO DAILY@0630 [facility] Last Admin: 11/25/22 05:24 Dose: 75 mcg [place] Carbonate ([place] Carbonate 300 Mg Capsule) 900 mg PO BID [facility] Last Admin: 11/25/22 08:05 Dose: 900 mg Magnesium Hydroxide (Milk Of Magnesia 30 Ml Oral.Susp) 30 ml PO DAILY PRN PRN Reason: Constipation Nicotine Polacrilex (Nicotine Polacrilex 2 Mg Gum) 2 mg BUCCAL QID PRN PRN Reason: Nicotine Cravings Nicotine Polacrilex (Nicotine Polacrilex 2 Mg Gum) 4 mg BUCCAL Q2H PRN PRN Reason: Nicotine Cravings Patient Own Med ( Invega Trinza 819 Mg ) 819 mg IM Q3M [facility] Non-Formulary Medication (Lumateperone [Caplyta]) 1 cap PO DAILY@1700 [facility] Olanzapine (Olanzapine 5 Mg Tablet) 5 mg PO TID PRN PRN Reason: agitation Last Admin: 11/25/22 04:05 Dose: 5 mg Olanzapine (Olanzapine 5 Mg Tablet) 5 mg PO BID [facility] Last Admin: 11/25/22 08:05 Dose: 5 mg Paliperidone (Paliperidone Er 3 Mg Tab.Er.24) 3 mg PO BID [facility] Last Admin: 11/25/22 08:05 Dose: 3 mg Trazodone HCl (Trazodone Hcl 50 Mg Tablet) 50 mg PO BEDTIME MRX1 PRN PRN Reason: Insomnia Last Admin: 11/20/22 21:06 Dose: 50 mg Vitamin D (Cholecalciferol (Vitamin D3) 25 Mcg Tablet) 25 mcg PO DAILY [facility] Last Admin: 11/25/22 08:14 Dose: 25 mcg Allergies Allergies Allergy/AdvReac Type Severity Reaction Status Date / Time haloperidol [From HALDOL] Allergy Unknown DISTONIC Verified 06/03/20 02:40 REACTION Assessment & Plan Assessment & Plan (1) Schizoaffective disorder, bipolar type: Status: Acute Code(s): F25.0 - Schizoaffective disorder, bipolar type Plan Patient is a 32-year-old male with diagnosis of schizoaffective disorder, bipolar type, last admitted to [facility] about a year ago, who presents now for worsening auditory hallucinations and paranoid delusions in the face of medication non adherence. -previous admission note says patient has a community Mantilla; will try to procure -patient restarted on lithium; patient is also normal on long-acting Invega Trinza so will start Invega p.o..; also on Caplyta -will pursue collateral Plan: CV Q 15 minute checks Restarted lithium 600 mg b.i.d. Patient is also on Caplyta however not on formulary and pt's own medications not yet available Will start Invega p.o. for now until Caplyta available Will try to recover community Mantilla document Gather collateral 11/10/22- Continue current regime. Continue Olanzapine 5 mg HS 11/12/22- Continue current regime/plan Message left for [facility] team for collateral Labs: B12, Folate, TSH, [place] EKG 11/13/22 Increase Olanzapine to 10 mg bid Increase [place] to 900 mg bid (Level 0.31) 11/15/2022 no changes as olanzapine and lithium just increased by team 11/16/22: Out patient regime clarified today by [facility], [facility], father and [facility] [place] due 12/02/22 Trinza and Caplyta ordered from [place] to re-establish 11/17/22. Continue current regime. [place] level 11/20 Awaiting Caplyta to arrive to initiate Support, educate 11/18/22: Discontinue Olanzapine, Invega Risperdal 2 mg bid 11/19 continue current treatment regimen Patient to start Caplyta once available 11/20 continue current treatment regimen; defer to primary team for further med adjustment 11/22 Discontinue Risperdal Olanzapine 5 mg bid Invega 3 mg bid 11/24/22 continue current plan 11/25 continue current plan. Reason for contiued inpatient stay Substantial Risk for: inability to function Time Spent With Patient Time: Total time managing care of this patient today ____ minutes.
[2022-11-25 18:00] VITALS: BP 113/55; PULSE 74; TEMP 36.9; O2SAT 96
[2022-11-26] MEDS: Levothyroxine Sodium 75 MCG TABLET PO (05:55)
[2022-11-26 07:00] VITALS: BMI 54.1
[2022-11-26 08:02] VITALS: BP 119/74; PULSE 69; RESP 18; TEMP 36.9; O2SAT 97
[2022-11-26] MEDS: Paliperidone ER 3 MG TAB.ER.24 PO ×2 (08:11→19:21)
[2022-11-26] MEDS: OLANZapine 5 MG TABLET PO ×2 (08:11→19:21)
[2022-11-26] MEDS: amLODIPine Besylate 10 MG TABLET PO (08:11)
[2022-11-26] MEDS: Lithium Carbonate 300 MG CAPSULE 900 MG PO ×2 (08:11→19:21)
[2022-11-26] MEDS: Cholecalciferol (Vitamin D3) 25 MCG TABLET PO (08:11)
[2022-11-26 15:36] VITALS: BP 111/60; PULSE 76
[2022-11-26] MEDS: traZODone HCL 50 MG TABLET PO (19:21)
--- NOTE | 2022-11-26 21:55 | HO.PSYCHPN ---
Subjective Subjective Date of Service: 11/26/22 Reason For Visit: Disorganized Subjective Notes: Conditional Voluntary Interim History: Pt reports hearing voices of gang members on and off. He thinks these voices are real. He states he can't see them but he thinks he knows them and these are people out of state. He denies SI/HI. He denies CAH, but states that voices are telling him that he will be killed. Per nursing, he has been in his room, minimally interactive with peers. No aggression towards self or others. Pt reports he hopes to leave soon. Pending collateral information from the father for further risk assessment. Medication Compliance: Yes Review of Systems Review of Systems Unremarkable Constitutional: Reports as per HPI, Denies chills, Denies fatigue, Denies fever(s) and Denies headache(s) Denies headache(s) Cardiovascular: Denies chest pain and Denies dyspnea Respiratory: Denies cough and Denies dyspnea Gastrointestinal: Denies abdominal pain, Denies constipation and Denies vomiting Genitourinary: Denies difficulty urinating and Denies dysuria Denies headache(s) and Denies focal weakness Endocrine: Denies fatigue Mental Status Exam Mental Status Exam Narrative: Appearance: MO, wearing hospital gown, disheveled, in NAD Behavior: cooperative Psychomotor: no agitation or retardation noted Speech: clear, normal rate/rhythm, volume, spontaneous TP: tangential, at times disorganized TC: hearing voices that he thinks are real Mood: good AFfect: constricted SI: denies HI: denies AH: of gang members that he thinks live out of state, he reports that he can't see them but thinks voices are real. VH: denies Delusions: paranoid delusions Insight/judgment: poor x 2. Memory/cog: alert, oriented x 3. Diagnostics Vital Signs (24Hr): Vital Signs - 24 hr 11/26/22 08:02 11/26/22 15:36 Temperature 98.4 F Pulse Rate 69 76 Respiratory Rate 18 Blood Pressure 119/74 111/60 Pulse Oximetry 97 Oxygen Delivery Method Room Air BMI result Body Mass Index 54.1 Labs 11/06/22 22:49 11/23/22 08:15 Medications Medications Current Medications Acetaminophen (Acetaminophen 325 Mg Tablet) 650 mg PO Q6H PRN PRN Reason: Headache/Pain Mild Scale (1-3) Last Admin: 11/18/22 20:19 Dose: 650 mg Al Hydroxide/Mg Hydroxide (Magnesium Hydrox/Alum Hydrox 30 Ml Oral.Susp) 30 ml PO Q6H PRN PRN Reason: Heartburn/Nausea Albuterol Sulfate (Albuterol Sulfate 90 Mcg 8 Gm Inhaler) 2 puff INHALE Q4H PRN PRN Reason: Shortness of Breath Amlodipine Besylate (Amlodipine Besylate 10 Mg Tablet) 10 mg PO DAILY [facility]; Protocol Last Admin: 11/26/22 08:11 Dose: 10 mg Fluticasone Propionate (Fluticasone Propionate Nasal 16 Gm [place]) 1 spray NOSTRIL-B Q12H [facility] Last Admin: 11/26/22 19:29 Dose: Not Given Hydroxyzine HCl (Hydroxyzine Hcl 25 Mg Tablet) 25 mg PO Q6H PRN PRN Reason: Anxiety Last Admin: 11/25/22 23:28 Dose: 25 mg Levothyroxine Sodium (Levothyroxine Sodium 75 Mcg Tablet) 75 mcg PO DAILY@0630 [facility] Last Admin: 11/26/22 05:55 Dose: 75 mcg [place] Carbonate ([place] Carbonate 300 Mg Capsule) 900 mg PO BID [facility] Last Admin: 11/26/22 19:21 Dose: 900 mg Magnesium Hydroxide (Milk Of Magnesia 30 Ml Oral.Susp) 30 ml PO DAILY PRN PRN Reason: Constipation Nicotine Polacrilex (Nicotine Polacrilex 2 Mg Gum) 2 mg BUCCAL QID PRN PRN Reason: Nicotine Cravings Nicotine Polacrilex (Nicotine Polacrilex 2 Mg Gum) 4 mg BUCCAL Q2H PRN PRN Reason: Nicotine Cravings Patient Own Med ( Invega Trinza 819 Mg ) 819 mg IM Q3M [facility] Pt Own (Lumateperone [Caplyta] 42 Mg Capsule) 1 cap PO DAILY@1700 [facility] Last Admin: 11/26/22 17:46 Dose: 1 cap Olanzapine (Olanzapine 5 Mg Tablet) 5 mg PO TID PRN PRN Reason: agitation Last Admin: 11/25/22 23:28 Dose: 5 mg Olanzapine (Olanzapine 5 Mg Tablet) 5 mg PO BID [facility] Last Admin: 11/26/22 19:21 Dose: 5 mg Paliperidone (Paliperidone Er 3 Mg Tab.Er.24) 3 mg PO BID [facility] Last Admin: 11/26/22 19:21 Dose: 3 mg Trazodone HCl (Trazodone Hcl 50 Mg Tablet) 50 mg PO BEDTIME MRX1 PRN PRN Reason: Insomnia Last Admin: 11/26/22 19:21 Dose: 50 mg Vitamin D (Cholecalciferol (Vitamin D3) 25 Mcg Tablet) 25 mcg PO DAILY [facility] Last Admin: 11/26/22 08:11 Dose: 25 mcg Allergies Allergies Allergy/AdvReac Type Severity Reaction Status Date / Time haloperidol [From HALDOL] Allergy Unknown DISTONIC Verified 06/03/20 02:40 REACTION Assessment & Plan Assessment & Plan (1) Schizoaffective disorder, bipolar type: Status: Acute Code(s): F25.0 - Schizoaffective disorder, bipolar type Plan Patient is a 32-year-old male with diagnosis of schizoaffective disorder, bipolar type, last admitted to [facility] about a year ago, who presents now for worsening auditory hallucinations and paranoid delusions in the face of medication non adherence. -previous admission note says patient has a community Mantilla; will try to procure -patient restarted on lithium; patient is also normal on long-acting Invega Trinza so will start Invega p.o..; also on Caplyta -will pursue collateral Plan: CV Q 15 minute checks Restarted lithium 600 mg b.i.d. Patient is also on Caplyta however not on formulary and pt's own medications not yet available Will start Invega p.o. for now until Caplyta available Will try to recover community Mantilla document Gather collateral 11/10/22- Continue current regime. Continue Olanzapine 5 mg HS 11/12/22- Continue current regime/plan Message left for [facility] team for collateral Labs: B12, Folate, TSH, [place] EKG 11/13/22 Increase Olanzapine to 10 mg bid Increase [place] to 900 mg bid (Level 0.31) 11/15/2022 no changes as olanzapine and lithium just increased by team 11/16/22: Out patient regime clarified today by [facility], [facility], father and [facility] [place] due 12/02/22 Trinza and Caplyta ordered from [place] to re-establish 11/17/22. Continue current regime. [place] level 11/20 Awaiting Caplyta to arrive to initiate Support, educate 3/22/23: Discontinue Olanzapine, Invega Risperdal 2 mg bid 11/19 continue current treatment regimen Patient to start Caplyta once available 11/20 continue current treatment regimen; defer to primary team for further med adjustment 11/22 Discontinue Risperdal Olanzapine 5 mg bid Invega 3 mg bid 11/24/22 continue current plan 11/25 continue current plan. 11/26 continue tx. Reason for contiued inpatient stay Substantial Risk for: inability to function Time Spent With Patient Time: Total time managing care of this patient today ____ minutes.
[2022-11-27 06:00] VITALS: BP 138/8; PULSE 84; RESP 14; TEMP 36.4; O2SAT 95
[2022-11-27] MEDS: Levothyroxine Sodium 75 MCG TABLET PO (06:13)
[2022-11-27] MEDS: Lithium Carbonate 300 MG CAPSULE 900 MG PO ×2 (08:14→20:43)
[2022-11-27] MEDS: Cholecalciferol (Vitamin D3) 25 MCG TABLET PO (08:14)
[2022-11-27] MEDS: OLANZapine 5 MG TABLET PO ×3 (08:14→22:34)
[2022-11-27] MEDS: Paliperidone ER 3 MG TAB.ER.24 PO ×2 (08:14→20:44)
[2022-11-27] MEDS: amLODIPine Besylate 10 MG TABLET PO (08:14)
[2022-11-27] MEDS: Fluticasone Propionate Nasal 16 GM SPRAY 1 SPRAY NOSTRIL-B (08:47)
[2022-11-27] MEDS: hydrOXYzine HCL 25 MG TABLET PO ×2 (13:02→22:31)
[2022-11-27 15:54] VITALS: BP 134/58; PULSE 77
--- NOTE | 2022-11-27 20:00 | P.PNPSI_ITS ---
Subjective Subjective Date of Service: 11/27/22 Reason For Visit: Disorganized Subjective Notes: Conditional Voluntary and 3 Day Interim History: Pt reports hearing voices of pandillas (gangs) He reports he needs to leave the hospital as it is the gang member trying to keep him here. He states I'm fine, I can go home soon, don't worry. He denies SI/HI. He reports sleeping well, which was verified by nursing. Pt mostly in his room, minimally interactive with peers. When this mortgage loan underwriter asked if he would consider staying longer as treatment team and father do not feel he is at baseline he states Okay, that's fine. Per nursing, no behavioral concerns. Review of Systems Review of Systems no changes Constitutional: Reports as per HPI, Denies chills, Denies fatigue, Denies fever(s) and Denies headache(s) Denies headache(s) Cardiovascular: Denies chest pain and Denies dyspnea Respiratory: Denies cough and Denies dyspnea Gastrointestinal: Denies abdominal pain, Denies constipation and Denies vomiting Genitourinary: Denies difficulty urinating and Denies dysuria Denies headache(s) and Denies focal weakness Endocrine: Denies fatigue Mental Status Exam Mental Status Exam Narrative: Appearance: in NAD Behavior: cooperative Psychomotor: no agitation or retardation noted Speech: clear, normal rate/rhythm, volume, spontaneous TP: tangential, at times disorganized TC: hearing voices that he thinks are real Mood: good AFfect: constricted SI: denies HI: denies AH: of gang members that he thinks live out of state, he reports that he can't see them but thinks voices are real. VH: denies Delusions: paranoid delusions Insight/judgment: poor x 2. Memory/cog: alert, oriented x 3. Diagnostics Vital Signs (24Hr): Vital Signs - 24 hr 11/27/22 06:00 11/27/22 15:54 Temperature 97.5 F Pulse Rate 84 77 Respiratory Rate 14 Blood Pressure 138/8 L 134/58 L Pulse Oximetry 95 Oxygen Delivery Method Room Air BMI result Body Mass Index 54.1 Labs 11/06/22 22:49 11/23/22 08:15 Medications Medications Current Medications Acetaminophen (Acetaminophen 325 Mg Tablet) 650 mg PO Q6H PRN PRN Reason: Headache/Pain Mild Scale (1-3) Last Admin: 11/18/22 20:19 Dose: 650 mg Al Hydroxide/Mg Hydroxide (Magnesium Hydrox/Alum Hydrox 30 Ml Oral.Susp) 30 ml PO Q6H PRN PRN Reason: Heartburn/Nausea Albuterol Sulfate (Albuterol Sulfate 90 Mcg 8 Gm Inhaler) 2 puff INHALE Q4H PRN PRN Reason: Shortness of Breath Amlodipine Besylate (Amlodipine Besylate 10 Mg Tablet) 10 mg PO DAILY [facility]; Protocol Last Admin: 11/27/22 08:14 Dose: 10 mg Fluticasone Propionate (Fluticasone Propionate Nasal 16 Gm [place]) 1 spray NOSTRIL-B Q12H [facility] Last Admin: 11/27/22 17:35 Dose: Not Given Hydroxyzine HCl (Hydroxyzine Hcl 25 Mg Tablet) 25 mg PO Q6H PRN PRN Reason: Anxiety Last Admin: 11/27/22 13:02 Dose: 25 mg Levothyroxine Sodium (Levothyroxine Sodium 75 Mcg Tablet) 75 mcg PO DAILY@0630 [facility] Last Admin: 11/27/22 06:13 Dose: 75 mcg [place] Carbonate ([place] Carbonate 300 Mg Capsule) 900 mg PO BID [facility] Last Admin: 11/27/22 08:14 Dose: 900 mg Magnesium Hydroxide (Milk Of Magnesia 30 Ml Oral.Susp) 30 ml PO DAILY PRN PRN Reason: Constipation Nicotine Polacrilex (Nicotine Polacrilex 2 Mg Gum) 2 mg BUCCAL QID PRN PRN Reason: Nicotine Cravings Nicotine Polacrilex (Nicotine Polacrilex 2 Mg Gum) 4 mg BUCCAL Q2H PRN PRN Reason: Nicotine Cravings Patient Own Med ( Invega Trinza 819 Mg ) 819 mg IM Q3M [facility] Pt Own (Lumateperone [Caplyta] 42 Mg Capsule) 1 cap PO DAILY@1700 [facility] Last Admin: 11/27/22 17:38 Dose: 1 cap Olanzapine (Olanzapine 5 Mg Tablet) 5 mg PO TID PRN PRN Reason: agitation Last Admin: 11/25/22 23:28 Dose: 5 mg Olanzapine (Olanzapine 5 Mg Tablet) 5 mg PO BID [facility] Last Admin: 11/27/22 08:14 Dose: 5 mg Paliperidone (Paliperidone Er 3 Mg Tab.Er.24) 3 mg PO BID [facility] Last Admin: 11/27/22 08:14 Dose: 3 mg Trazodone HCl (Trazodone Hcl 50 Mg Tablet) 50 mg PO BEDTIME MRX1 PRN PRN Reason: Insomnia Last Admin: 11/26/22 19:21 Dose: 50 mg Vitamin D (Cholecalciferol (Vitamin D3) 25 Mcg Tablet) 25 mcg PO DAILY [facility] Last Admin: 11/27/22 08:14 Dose: 25 mcg Allergies Allergies Allergy/AdvReac Type Severity Reaction Status Date / Time haloperidol [From HALDOL] Allergy Unknown DISTONIC Verified 06/03/20 02:40 REACTION Assessment & Plan Assessment & Plan (1) Schizoaffective disorder, bipolar type: Status: Acute Code(s): F25.0 - Schizoaffective disorder, bipolar type Plan Patient is a 32-year-old male with diagnosis of schizoaffective disorder, bipolar type, last admitted to [facility] about a year ago, who presents now for worsening auditory hallucinations and paranoid delusions in the face of medication non adherence. -previous admission note says patient has a community Mantilla; will try to procure -patient restarted on lithium; patient is also normal on long-acting Invega Trinza so will start Invega p.o..; also on Caplyta -will pursue collateral Plan: CV Q 15 minute checks Restarted lithium 600 mg b.i.d. Patient is also on Caplyta however not on formulary and pt's own medications not yet available Will start Invega p.o. for now until Caplyta available Will try to recover community Mantilla document Gather collateral 11/10/22- Continue current regime. Continue Olanzapine 5 mg HS 11/12/22- Continue current regime/plan Message left for [facility] team for collateral Labs: B12, Folate, TSH, [place] EKG 11/13/22 Increase Olanzapine to 10 mg bid Increase [place] to 900 mg bid (Level 0.31) 11/15/2022 no changes as olanzapine and lithium just increased by team 11/16/22: Out patient regime clarified today by [facility], [facility], father and TEDDYA Wilson due 12/02/22 Trinza and Caplyta ordered from [place] to re-establish 11/17/22. Continue current regime. [place] level 11/20 Awaiting Caplyta to arrive to initiate Support, educate 11/18/22: Discontinue Olanzapine, Invega Risperdal 2 mg bid 11/19 continue current treatment regimen Patient to start Caplyta once available 11/20 continue current treatment regimen; defer to primary team for further med adjustment 11/22 Discontinue Risperdal Olanzapine 5 mg bid Invega 3 mg bid 11/24/22 continue current plan 11/25 continue current plan. 11/26 continue tx. 11/27 continue tx. Reason for contiued inpatient stay Substantial Risk for: inability to function Time Spent With Patient Time: Total time managing care of this patient today ____ minutes.
[2022-11-27] MEDS: traZODone HCL 50 MG TABLET PO (20:44)
[2022-11-28] MEDS: Levothyroxine Sodium 75 MCG TABLET PO (05:39)
[2022-11-28 06:00] VITALS: BP 128/78; PULSE 100; RESP 14; TEMP 36.5; O2SAT 97
[2022-11-28] MEDS: Cholecalciferol (Vitamin D3) 25 MCG TABLET PO (08:09)
[2022-11-28] MEDS: Lithium Carbonate 300 MG CAPSULE 900 MG PO ×2 (08:09→19:02)
[2022-11-28] MEDS: Paliperidone ER 3 MG TAB.ER.24 PO ×2 (08:09→19:02)
[2022-11-28] MEDS: OLANZapine 5 MG TABLET PO ×2 (08:09→19:02)
[2022-11-28] MEDS: amLODIPine Besylate 10 MG TABLET PO (08:09)
[2022-11-28] MEDS: Fluticasone Propionate Nasal 16 GM SPRAY 1 SPRAY NOSTRIL-B (08:11)
[2022-11-28 16:22] VITALS: BP 135/82; PULSE 90
--- NOTE | 2022-11-28 16:25 | HO.PSYCHPN ---
Subjective Subjective Date of Service: 11/28/22 Reason For Visit: Disorganized Subjective Notes: 3 Day Interim History: pt still psychotic and paranoid; cooperative. no SI or HI, follows cues from staff Medication Compliance: Yes Side effects from medications: No Attending Groups: No Review of Systems Acute medical concerns: No Review of Systems Review of Systems no changes Constitutional: Reports as per HPI, Denies chills, Denies fatigue, Denies fever(s) and Denies headache(s) Denies headache(s) Cardiovascular: Denies chest pain and Denies dyspnea Respiratory: Denies cough and Denies dyspnea Gastrointestinal: Denies abdominal pain, Denies constipation and Denies vomiting Genitourinary: Denies difficulty urinating and Denies dysuria Denies headache(s) and Denies focal weakness Endocrine: Denies fatigue Mental Status Exam Mental Status Exam Narrative: Appearance: in NAD Behavior: cooperative Psychomotor: no agitation or retardation noted Speech: clear, normal rate/rhythm, volume, spontaneous TP: tangential, at times disorganized TC: hearing voices that he thinks are real Mood: good AFfect: constricted SI: denies HI: denies AH: of gang members that he thinks live out of state, he reports that he can't see them but thinks voices are real. VH: denies Delusions: paranoid delusions Insight/judgment: poor x 2. Memory/cog: alert, oriented x 3. Patient Appearance: Fatigued and Disheveled Patient Orientation: Person, Place, Time and Situation Level of Consciousness: Alert Patient Behavior: Talkative, Cooperative, Fatigued and Good Eye Contact Mood Description: Withdrawn and Constricted Affect Description: Constricted Patient Cognition Impaired: No Ability to Follow Directions: Good Speech Pattern: Spontaneous Speech Memory Description: Episodic Impaired Diagnostics Vital Signs (24Hr): Vital Signs - 24 hr 11/28/22 06:00 11/28/22 16:22 Temperature 97.7 F Pulse Rate 100 90 Respiratory Rate 14 Blood Pressure 128/78 135/82 Pulse Oximetry 97 Oxygen Delivery Method Room Air BMI result Body Mass Index 54.1 Labs 11/06/22 22:49 11/23/22 08:15 Medications Medications Current Medications Acetaminophen (Acetaminophen 325 Mg Tablet) 650 mg PO Q6H PRN PRN Reason: Headache/Pain Mild Scale (1-3) Last Admin: 11/18/22 20:19 Dose: 650 mg Al Hydroxide/Mg Hydroxide (Magnesium Hydrox/Alum Hydrox 30 Ml Oral.Susp) 30 ml PO Q6H PRN PRN Reason: Heartburn/Nausea Albuterol Sulfate (Albuterol Sulfate 90 Mcg 8 Gm Inhaler) 2 puff INHALE Q4H PRN PRN Reason: Shortness of Breath Amlodipine Besylate (Amlodipine Besylate 10 Mg Tablet) 10 mg PO DAILY [facility]; Protocol Last Admin: 11/28/22 08:09 Dose: 10 mg Fluticasone Propionate (Fluticasone Propionate Nasal 16 Gm [place]) 1 spray NOSTRIL-B Q12H [facility] Last Admin: 11/28/22 08:11 Dose: 1 spray Hydroxyzine HCl (Hydroxyzine Hcl 25 Mg Tablet) 25 mg PO Q6H PRN PRN Reason: Anxiety Last Admin: 11/27/22 22:31 Dose: 25 mg Levothyroxine Sodium (Levothyroxine Sodium 75 Mcg Tablet) 75 mcg PO DAILY@0630 [facility] Last Admin: 11/28/22 05:39 Dose: 75 mcg [place] Carbonate ([place] Carbonate 300 Mg Capsule) 900 mg PO BID [facility] Last Admin: 11/28/22 08:09 Dose: 900 mg Magnesium Hydroxide (Milk Of Magnesia 30 Ml Oral.Susp) 30 ml PO DAILY PRN PRN Reason: Constipation Nicotine Polacrilex (Nicotine Polacrilex 2 Mg Gum) 2 mg BUCCAL QID PRN PRN Reason: Nicotine Cravings Nicotine Polacrilex (Nicotine Polacrilex 2 Mg Gum) 4 mg BUCCAL Q2H PRN PRN Reason: Nicotine Cravings Patient Own Med ( Invega Trinza 819 Mg ) 819 mg IM Q3M [facility] Pt Own (Lumateperone [Caplyta] 42 Mg Capsule) 1 cap PO DAILY@1700 [facility] Last Admin: 11/27/22 17:38 Dose: 1 cap Olanzapine (Olanzapine 5 Mg Tablet) 5 mg PO TID PRN PRN Reason: agitation Last Admin: 11/27/22 22:34 Dose: 5 mg Olanzapine (Olanzapine 5 Mg Tablet) 5 mg PO BID [facility] Last Admin: 11/28/22 08:09 Dose: 5 mg Paliperidone (Paliperidone Er 3 Mg Tab.Er.24) 3 mg PO BID [facility] Last Admin: 11/28/22 08:09 Dose: 3 mg Trazodone HCl (Trazodone Hcl 50 Mg Tablet) 50 mg PO BEDTIME MRX1 PRN PRN Reason: Insomnia Last Admin: 11/27/22 20:44 Dose: 50 mg Vitamin D (Cholecalciferol (Vitamin D3) 25 Mcg Tablet) 25 mcg PO DAILY [facility] Last Admin: 11/28/22 08:09 Dose: 25 mcg Allergies Allergies Allergy/AdvReac Type Severity Reaction Status Date / Time haloperidol [From HALDOL] Allergy Unknown DISTONIC Verified 06/03/20 02:40 REACTION Assessment & Plan Assessment & Plan (1) Schizoaffective disorder, bipolar type: Status: Acute Code(s): F25.0 - Schizoaffective disorder, bipolar type Plan Patient is a 32-year-old male with diagnosis of schizoaffective disorder, bipolar type, last admitted to [facility] about a year ago, who presents now for worsening auditory hallucinations and paranoid delusions in the face of medication non adherence. -previous admission note says patient has a community Mantilla; will try to procure -patient restarted on lithium; patient is also normal on long-acting Invega Trinza so will start Invega p.o..; also on Caplyta -will pursue collateral Plan: CV Q 15 minute checks Restarted lithium 600 mg b.i.d. Patient is also on Caplyta however not on formulary and pt's own medications not yet available Will start Invega p.o. for now until Caplyta available Will try to recover community Mantilla document Gather collateral 11/10/22- Continue current regime. Continue Olanzapine 5 mg HS 11/12/22- Continue current regime/plan Message left for [facility] team for collateral Labs: B12, Folate, TSH, [place] EKG 11/13/22 Increase Olanzapine to 10 mg bid Increase [place] to 900 mg bid (Level 0.31) 11/15/2022 no changes as olanzapine and lithium just increased by team 11/16/22: Out patient regime clarified today by [employer] [facility], [facility], father and [facility]NA Wilson due 12/02/22 Trinza and Caplyta ordered from [place] to re-establish 11/17/22. Continue current regime. [place] level 11/20 Awaiting Caplyta to arrive to initiate Support, educate 11/18/22: Discontinue Olanzapine, Invega Risperdal 2 mg bid 11/19 continue current treatment regimen Patient to start Caplyta once available 11/20 continue current treatment regimen; defer to primary team for further med adjustment 11/22 Discontinue Risperdal Olanzapine 5 mg bid Invega 3 mg bid 11/24/22 continue current plan 11/25 continue current plan. 11/26 continue tx. 11/28/ continue current treatment plan Reason for contiued inpatient stay Substantial Risk for: inability to function and rapid decompensation Time Spent With Patient Time: Total time managing care of this patient today ____ minutes.
[2022-11-28] MEDS: traZODone HCL 50 MG TABLET PO (19:02)
[2022-11-29] MEDS: Levothyroxine Sodium 75 MCG TABLET PO (04:20)
[2022-11-29 06:00] VITALS: BP 132/84; PULSE 86; RESP 14; TEMP 36.9; O2SAT 95
[2022-11-29] MEDS: amLODIPine Besylate 10 MG TABLET PO (08:38)
[2022-11-29] MEDS: Cholecalciferol (Vitamin D3) 25 MCG TABLET PO (08:39)
[2022-11-29] MEDS: Paliperidone ER 3 MG TAB.ER.24 PO ×2 (08:39→19:30)
[2022-11-29] MEDS: OLANZapine 5 MG TABLET PO ×2 (08:39→19:31)
[2022-11-29] MEDS: Lithium Carbonate 300 MG CAPSULE 900 MG PO ×2 (08:39→19:30)
[2022-11-29] MEDS: Fluticasone Propionate Nasal 16 GM SPRAY 1 SPRAY NOSTRIL-B (08:40)
--- NOTE | 2022-11-29 13:20 | P.PNPSI_ITS ---
Subjective Subjective Date of Service: 11/29/22 Reason For Visit: Disorganized Interim History: Pt reports hearing voices. He reports he needs to leave the hospital as it is the gang member trying to keep him here He believes he is ready to go home. He denies SI/HI. He reports sleeping well, which was verified by nursing. Pt mostly in his room, minimally interactive with peers. He has a 3 day notice in due up tomorrow. Medication Compliance: Yes Side effects from medications: No Review of Systems Acute medical concerns: No Review of Systems Review of Systems no changes Constitutional: Reports as per HPI, Denies chills, Denies fatigue, Denies fever(s) and Denies headache(s) Denies headache(s) Cardiovascular: Denies chest pain and Denies dyspnea Respiratory: Denies cough and Denies dyspnea Gastrointestinal: Denies abdominal pain, Denies constipation and Denies vomiting Genitourinary: Denies difficulty urinating and Denies dysuria Denies headache(s) and Denies focal weakness Endocrine: Denies fatigue Mental Status Exam Mental Status Exam Narrative: Appearance: in NAD Behavior: cooperative Psychomotor: no agitation or retardation noted Speech: clear, normal rate/rhythm, volume, spontaneous TP: tangential, at times disorganized TC: hearing voices that he thinks are real Mood: good AFfect: constricted SI: denies HI: denies AH: of gang members that he thinks live out of state, he reports that he can't see them but thinks voices are real. VH: denies Delusions: paranoid delusions Insight/judgment: poor x 2. Memory/cog: alert, oriented x 3. Patient Appearance: Fatigued and Disheveled Patient Orientation: Person, Place, Time and Situation Level of Consciousness: Alert Patient Behavior: Talkative, Cooperative, Fatigued and Good Eye Contact Mood Description: Withdrawn and Constricted Affect Description: Constricted Patient Cognition Impaired: No Ability to Follow Directions: Good Speech Pattern: Spontaneous Speech Memory Description: Episodic Impaired Diagnostics Vital Signs (24Hr): Vital Signs - 24 hr 11/28/22 16:22 11/29/22 06:00 Temperature 98.4 F Pulse Rate 90 86 Respiratory Rate 14 Blood Pressure 135/82 132/84 Pulse Oximetry 95 Oxygen Delivery Method Room Air BMI result Body Mass Index 54.1 Labs 11/06/22 22:49 11/23/22 08:15 Medications Medications Current Medications Acetaminophen (Acetaminophen 325 Mg Tablet) 650 mg PO Q6H PRN PRN Reason: Headache/Pain Mild Scale (1-3) Last Admin: 11/18/22 20:19 Dose: 650 mg Al Hydroxide/Mg Hydroxide (Magnesium Hydrox/Alum Hydrox 30 Ml Oral.Susp) 30 ml PO Q6H PRN PRN Reason: Heartburn/Nausea Albuterol Sulfate (Albuterol Sulfate 90 Mcg 8 Gm Inhaler) 2 puff INHALE Q4H PRN PRN Reason: Shortness of Breath Amlodipine Besylate (Amlodipine Besylate 10 Mg Tablet) 10 mg PO DAILY [facility]; Protocol Last Admin: 11/29/22 08:38 Dose: 10 mg Fluticasone Propionate (Fluticasone Propionate Nasal 16 Gm [place]) 1 spray NOSTRIL-B Q12H [facility] Last Admin: 11/29/22 08:40 Dose: 1 spray Hydroxyzine HCl (Hydroxyzine Hcl 25 Mg Tablet) 25 mg PO Q6H PRN PRN Reason: Anxiety Last Admin: 11/27/22 22:31 Dose: 25 mg Levothyroxine Sodium (Levothyroxine Sodium 75 Mcg Tablet) 75 mcg PO DAILY@0630 [facility] Last Admin: 11/29/22 04:20 Dose: [address] [place] Carbonate ([place] Carbonate 300 Mg Capsule) 900 mg PO BID [facility] Last Admin: 11/29/22 08:39 Dose: 900 mg Magnesium Hydroxide (Milk Of Magnesia 30 Ml Oral.Susp) 30 ml PO DAILY PRN PRN Reason: Constipation Nicotine Polacrilex (Nicotine Polacrilex 2 Mg Gum) 2 mg BUCCAL QID PRN PRN Reason: Nicotine Cravings Nicotine Polacrilex (Nicotine Polacrilex 2 Mg Gum) 4 mg BUCCAL Q2H PRN PRN Reason: Nicotine Cravings Patient Own Med ( Invega Trinza 819 Mg ) 819 mg IM Q3M [facility] Pt Own (Lumateperone [Caplyta] 42 Mg Capsule) 1 cap PO DAILY@1700 [facility] Last Admin: 11/28/22 17:47 Dose: 1 cap Olanzapine (Olanzapine 5 Mg Tablet) 5 mg PO TID PRN PRN Reason: agitation Last Admin: 11/27/22 22:34 Dose: 5 mg Olanzapine (Olanzapine 5 Mg Tablet) 5 mg PO BID [facility] Last Admin: 11/29/22 08:39 Dose: 5 mg Paliperidone (Paliperidone Er 3 Mg Tab.Er.24) 3 mg PO BID [facility] Last Admin: 11/29/22 08:39 Dose: 3 mg Trazodone HCl (Trazodone Hcl 50 Mg Tablet) 50 mg PO BEDTIME MRX1 PRN PRN Reason: Insomnia Last Admin: 11/28/22 19:02 Dose: 50 mg Vitamin D (Cholecalciferol (Vitamin D3) 25 Mcg Tablet) 25 mcg PO DAILY [facility] Last Admin: 11/29/22 08:39 Dose: 25 mcg Allergies Allergies Allergy/AdvReac Type Severity Reaction Status Date / Time haloperidol [From HALDOL] Allergy Unknown DISTONIC Verified 06/03/20 02:40 REACTION Assessment & Plan Assessment & Plan (1) Schizoaffective disorder, bipolar type: Status: Acute Code(s): F25.0 - Schizoaffective disorder, bipolar type Plan Patient is a 32-year-old male with diagnosis of schizoaffective disorder, bipolar type, last admitted to [facility] about a year ago, who presents now for worsening auditory hallucinations and paranoid delusions in the face of medication non adherence. -previous admission note says patient has a community Mantilla; will try to procure -patient restarted on lithium; patient is also normal on long-acting Invega Trinza so will start Invega p.o..; also on Caplyta -will pursue collateral Plan: CV Q 15 minute checks Restarted lithium 600 mg b.i.d. Patient is also on Caplyta however not on formulary and pt's own medications not yet available Will start Invega p.o. for now until Caplyta available Will try to recover community Mantilla document Gather collateral 11/10/22- Continue current regime. Continue Olanzapine 5 mg HS 11/12/22- Continue current regime/plan Message left for [facility] team for collateral Labs: B12, Folate, TSH, [place] EKG 11/13/22 Increase Olanzapine to [address] to 900 mg bid (Level 0.31) 11/15/2022 no changes as olanzapine and lithium just increased by team 11/16/22: Out patient regime clarified today by [employer] [facility], [facility], father and [facility] Trinza due 12/02/22 Trinza and Caplyta ordered from [place] to re-establish 11/17/22. Continue current regime. [place] level 11/20 Awaiting Caplyta to arrive to initiate Support, educate 11/18/22: Discontinue Olanzapine, Invega Risperdal 2 mg bid 11/19 continue current treatment regimen Patient to start Caplyta once available 11/20 continue current treatment regimen; defer to primary team for further med adjustment 11/22 Discontinue Risperdal Olanzapine 5 mg bid Invega 3 mg bid 11/24/22 continue current plan 11/25 continue current plan. 11/26 continue tx. 11/27 continue tx. 11/28 continue treatmentplan 11/29 continue treatment plan Reason for contiued inpatient stay Substantial Risk for: harm to self, inability to function and rapid decompens ation Time Spent With Patient Time: Total time managing care of this patient today ____ minutes.
[2022-11-29] MEDS: traZODone HCL 50 MG TABLET PO (19:31)
[2022-11-30] MEDS: Levothyroxine Sodium 75 MCG TABLET PO (05:51)
[2022-11-30] MEDS: hydrOXYzine HCL 25 MG TABLET PO ×3 (05:54→22:38)
[2022-11-30 06:00] VITALS: BP 161/113; PULSE 80; RESP 18; TEMP 35.9; O2SAT 96
[2022-11-30] MEDS: Lithium Carbonate 300 MG CAPSULE 900 MG PO ×2 (08:27→19:01)
[2022-11-30] MEDS: Paliperidone ER 3 MG TAB.ER.24 PO ×2 (08:27→19:02)
[2022-11-30] MEDS: OLANZapine 5 MG TABLET PO ×3 (08:27→22:39)
[2022-11-30] MEDS: amLODIPine Besylate 10 MG TABLET PO (08:27)
[2022-11-30] MEDS: Cholecalciferol (Vitamin D3) 25 MCG TABLET PO (08:27)
[2022-11-30] MEDS: Fluticasone Propionate Nasal 16 GM SPRAY 1 SPRAY NOSTRIL-B (08:28)
[2022-11-30 09:52] LABS: Lithium 0.59 mmol/L (0.60-1.20)
[2022-11-30 16:26] VITALS: BP 163/81; PULSE 94
--- NOTE | 2022-11-30 17:26 | HO.PSYCHPN ---
Subjective Subjective Date of Service: 11/30/22 Reason For Visit: Disorganized Subjective Notes: Section 7 Healthcare Proxy: No Guardianship: No Medical Problems Affecting Mental Status: No Interim History: Met with pt, father and Faustino MCKEON. Pt, when asked how he was doing, responded, bad, voices are harassing. 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 Team report he has been talking about voices telling him he will , that others are out to get him. His father commented that, at home, it is difficult to get him to participate in his treatment in the community. He is very firm when he makes a decision and often cannot change his mind. He often remains very stuck in symptoms. Reviewed that this is day 4 of Caplyta due to dosing not being available. Invjuvencio Rachel due 12/02/22. Discussed going home, vs retracting three day, vs Section 7. Pt, unable to negotiate, asks for Section 7. Discharge today appears to be not possible due to symptom presentation. Medication Compliance: Yes Side effects from medications: No Attending Groups: Intermittent Review of Systems Acute medical concerns: No Medical Review of Systems: unchanged Mental Status Exam Mental Status Exam Patient Appearance: Disheveled Patient Orientation: Person and Place Level of Consciousness: Restless and Alert Patient Behavior: Talkative, Suspicious, Restless, Anxious, Distractible and Good Eye Contact Mood Description: Withdrawn, Hostile, Labile and Nervous Affect Description: Labile Patient Cognition Impaired: No Ability to Follow Directions: Fair Speech Pattern: Spontaneous Speech Memory Description: Remote Impaired Hallucinations: Auditory and Visual Delusions: Paranoid Ideation, Grandiose and Present Perceptual Disturbances: Derealization Thought Process: Racing and Distracted Thought Content: positive for [place], positive for Circumstantial, positive for Suicidal Ideation (denies) and positive for Homicidal Ideation (denies) Depressive Symptoms: Unhappiness and Difficulty Concentrating Abnormal Motor Activity Signs and Symptoms: Restlessness Judgement: Poor Diagnostics Vital Signs (24Hr): Vital Signs - 24 hr 11/30/22 06:00 11/30/22 16:26 Temperature 96.7 F L Pulse Rate 80 94 Respiratory Rate 18 Blood Pressure 161/113 H 163/81 H Pulse Oximetry 96 BMI result Body Mass Index 54.1 Labs 11/06/22 22:49 11/23/22 08:15 Labs: Laboratory Results - last 48 hr 11/30/22 08:41 [place] 0.59 L Medications Medications Current Medications Acetaminophen (Acetaminophen 325 Mg Tablet) 650 mg PO Q6H PRN PRN Reason: Headache/Pain Mild Scale (1-3) Last Admin: 11/18/22 20:19 Dose: 650 mg Al Hydroxide/Mg Hydroxide (Magnesium Hydrox/Alum Hydrox 30 Ml Oral.Susp) 30 ml PO Q6H PRN PRN Reason: Heartburn/Nausea Albuterol Sulfate (Albuterol Sulfate 90 Mcg 8 Gm Inhaler) 2 puff INHALE Q4H PRN PRN Reason: Shortness of Breath Amlodipine Besylate (Amlodipine Besylate 10 Mg Tablet) 10 mg PO DAILY [facility]; Protocol Last Admin: 11/30/22 08:27 Dose: 10 mg Fluticasone Propionate (Fluticasone Propionate Nasal 16 Gm [place]) 1 spray NOSTRIL-B Q12H [facility] Last Admin: 11/30/22 08:28 Dose: 1 spray Hydroxyzine HCl (Hydroxyzine Hcl 25 Mg Tablet) 25 mg PO Q6H PRN PRN Reason: Anxiety Last Admin: 11/30/22 12:22 Dose: 25 mg Levothyroxine Sodium (Levothyroxine Sodium 75 Mcg Tablet) 75 mcg PO DAILY@0630 [facility] Last Admin: 11/30/22 05:51 Dose: 75 mcg [place] Carbonate ([place] Carbonate 300 Mg Capsule) 900 mg PO BID [facility] Last Admin: 11/30/22 08:27 Dose: 900 mg Magnesium Hydroxide (Milk Of Magnesia 30 Ml Oral.Susp) 30 ml PO DAILY PRN PRN Reason: Constipation Nicotine Polacrilex (Nicotine Polacrilex 2 Mg Gum) 2 mg BUCCAL QID PRN PRN Reason: Nicotine Cravings Nicotine Polacrilex (Nicotine Polacrilex 2 Mg Gum) 4 mg BUCCAL Q2H PRN PRN Reason: Nicotine Cravings Patient Own Med ( Invega Trinza 819 Mg ) 819 mg IM Q3M [facility] Pt Own (Lumateperone [Caplyta] 42 Mg Capsule) 1 cap PO DAILY@1700 [facility] Last Admin: 11/29/22 18:31 Dose: 1 cap Olanzapine (Olanzapine 5 Mg Tablet) 5 mg PO TID PRN PRN Reason: agitation Last Admin: 11/27/22 22:34 Dose: 5 mg Olanzapine (Olanzapine 5 Mg Tablet) 5 mg PO BEDTIME [facility] Paliperidone (Paliperidone Er 3 Mg Tab.Er.24) 3 mg PO BID [facility] Last Admin: 11/30/22 08:27 Dose: 3 mg Trazodone HCl (Trazodone Hcl 50 Mg Tablet) 50 mg PO BEDTIME MRX1 PRN PRN Reason: Insomnia Last Admin: 11/29/22 19:31 Dose: 50 mg Vitamin D (Cholecalciferol (Vitamin D3) 25 Mcg Tablet) 25 mcg PO DAILY [facility] Last Admin: 11/30/22 08:27 Dose: 25 mcg Allergies Allergies Allergy/AdvReac Type Severity Reaction Status Date / Time haloperidol [From HALDOL] Allergy Unknown DISTONIC Verified 06/03/20 02:40 REACTION Assessment & Plan Assessment & Plan (1) Schizoaffective disorder, bipolar type: Status: Acute Code(s): F25.0 - Schizoaffective disorder, bipolar type Plan Patient is a 32-year-old male with diagnosis of schizoaffective disorder, bipolar type, last admitted to [facility] about a year ago, who presents now for worsening auditory hallucinations and paranoid delusions in the face of medication non adherence. -previous admission note says patient has a community Mantilla; will try to procure -patient restarted on lithium; patient is also normal on long-acting Invega Trinza so will start Invega p.o..; also on Caplyta -will pursue collateral Plan: CV Q 15 minute checks Restarted lithium 600 mg b.i.d. Patient is also on Caplyta however not on formulary and pt's own medications not yet available Will start Invega p.o. for now until Caplyta available Will try to recover community Mantilla document Gather collateral 11/10/22- Continue current regime. Continue Olanzapine 5 mg HS 11/12/22- Continue current regime/plan Message left for [facility] team for collateral Labs: B12, Folate, TSH, [place] EKG 11/13/22 Increase Olanzapine to 10 mg bid Increase [place] to 900 mg bid (Level 0.31) 11/15/2022 no changes as olanzapine and lithium just increased by team 11/16/22: Out patient regime clarified today by [facility], [facility], father and [facility] Trinza due 12/02/22 Trinza and Caplyta ordered from [place] to re-establish 11/17/22. Continue current regime. [place] level 11/20 Awaiting Caplyta to arrive to initiate Support, educate 11/18/22: Discontinue Olanzapine, Invega Risperdal 2 mg bid 11/19 continue current treatment regimen Patient to start Caplyta once available 11/20 continue current treatment regimen; defer to primary team for further med adjustment 11/22 Discontinue Risperdal Olanzapine 5 mg bid Invega 3 mg bid 11/24/22 continue current plan 11/25 continue current plan. 11/26 continue tx. 11/27 continue tx. 11/28 continue treatmentplan 11/29 continue treatment plan 11/30/22: Section VII filed BMP, EKG, [place] Trinza Injection due 12/02/22 Decrease Olanzapine to 5 mg HS from 5 mg bid Pt asks for PCP assignment-will check his insurance assignment Patient educated on: therapeutic strategies Informed Consent: does not understand and further education needed Reason for contiued inpatient stay Substantial Risk for: inability to function and rapid decompensation Time Spent With Patient Time: Total time managing care of this patient today ____ minutes.
[2022-11-30] MEDS: traZODone HCL 50 MG TABLET PO (19:02)
[2022-12-01] MEDS: Levothyroxine Sodium 75 MCG TABLET PO (05:55)
[2022-12-01] MEDS: amLODIPine Besylate 10 MG TABLET PO (08:32)
[2022-12-01] MEDS: Cholecalciferol (Vitamin D3) 25 MCG TABLET PO (08:32)
[2022-12-01] MEDS: Lithium Carbonate 300 MG CAPSULE 900 MG PO (08:32)
[2022-12-01] MEDS: Paliperidone ER 3 MG TAB.ER.24 PO (08:32)
--- NOTE | 2022-12-01 09:00 | ECG_ITS ---
Test Reason : qtc Blood Pressure : / mmHG Vent. Rate : 069 BPM Atrial Rate : 069 BPM P-R Int : 204 ms QRS Dur : 092 ms QT Int : 426 ms P-R-T Axes : 044 059 013 degrees QTc Int : 456 ms Normal sinus rhythm Normal ECG When compared with ECG of 13-NOV-2022 10:10, No significant change was found Referred By: Kimmie Clemens Electronically Signed By:Cristo Mckee
[2022-12-01 09:32] LABS: Anion Gap 10 (12-20); Blood Urea Nitrogen 9 mg/dL (9-16); Calcium 9.1 mg/dL (8.4-10.2); Carbon Dioxide 30 mmol/L (22-29); Chloride 106 mmol/L (96-108); Estimated Glomerular Filt Rate > 60; Glucose Random 80 mg/dL (60-115); Potassium 4.4 mmol/L (3.3-5.1); Sodium 142 mmol/L (135-145)
[2022-12-01] MEDS: hydrOXYzine HCL 25 MG TABLET PO (10:15)
[2022-12-01 10:23] LABS: Lithium 0.68 mmol/L (0.60-1.20)
[2022-12-01] MEDS: OLANZapine 5 MG TABLET PO (14:37)
--- NOTE | 2022-12-01 15:38 | HO.PSYCHPN ---
Subjective Subjective Date of Service: 12/01/22 Reason For Visit: Disorganized Subjective Notes: Section 7 Healthcare Proxy: No Guardianship: No Medical Problems Affecting Mental Status: No Interim History: Pt met with his collections attorney. He is presenting calmer with tw today, asks to remain in hospital, continue treatment, be considered for VIBRA. Review of medications, Agataza due /-pt is accepting and states he finds this medication helpful. Team report some agitation and irritability at times. Pt does ask about going home-discussed this with him. Diagnostics reviewed. Medication Compliance: Yes Side effects from medications: No Attending Groups: No Review of Systems Acute medical concerns: No Medical Review of Systems: unchanged Mental Status Exam Mental Status Exam Patient Appearance: Disheveled Patient Orientation: Person and Place Level of Consciousness: Restless and Alert Patient Behavior: Talkative, Suspicious, Restless, Anxious, Distractible and Good Eye Contact Mood Description: Withdrawn, Hostile, Labile and Nervous Affect Description: Labile Patient Cognition Impaired: No Ability to Follow Directions: Fair Speech Pattern: Spontaneous Speech Memory Description: Remote Impaired Hallucinations: Auditory and Visual Delusions: Paranoid Ideation, Grandiose and Present Perceptual Disturbances: Derealization Thought Process: Racing and Distracted Thought Content: positive for [place], positive for Circumstantial, positive for Suicidal Ideation (denies) and positive for Homicidal Ideation (denies) Depressive Symptoms: Unhappiness and Difficulty Concentrating Abnormal Motor Activity Signs and Symptoms: Restlessness Judgement: Poor Diagnostics Vital Signs (24Hr): Vital Signs - 24 hr 11/30/22 16:26 Pulse Rate 94 Blood Pressure 163/81 H BMI result Body Mass Index 54.1 Labs 11/06/22 22:49 12/01/22 08:08 Labs: Laboratory Results - last 48 hr 11/30/22 12/01/22 12/01/22 08:41 08:08 08:08 Sodium 142 Potassium 4.4 Chloride 106 Carbon Dioxide 30 H Anion Gap 10 L BUN 9 Creatinine 0.75 Estim Creat Clear Calc 238.0 Estimated GFR > 60 Random Glucose 80 Calcium 9.1 [place] 0.59 L 0.68 Medications Medications Current Medications Acetaminophen (Acetaminophen 325 Mg Tablet) 650 mg PO Q6H PRN PRN Reason: Headache/Pain Mild Scale (1-3) Last Admin: 11/18/22 20:19 Dose: 650 mg Al Hydroxide/Mg Hydroxide (Magnesium Hydrox/Alum Hydrox 30 Ml Oral.Susp) 30 ml PO Q6H PRN PRN Reason: Heartburn/Nausea Albuterol Sulfate (Albuterol Sulfate 90 Mcg 8 Gm Inhaler) 2 puff INHALE Q4H PRN PRN Reason: Shortness of Breath Amlodipine Besylate (Amlodipine Besylate 10 Mg Tablet) 10 mg PO DAILY [facility]; Protocol Last Admin: 12/01/22 08:32 Dose: 10 mg Fluticasone Propionate (Fluticasone Propionate Nasal 16 Gm [place]) 1 spray NOSTRIL-B Q12H [facility] Last Admin: 12/01/22 09:08 Dose: Not Given Hydroxyzine HCl (Hydroxyzine Hcl 25 Mg Tablet) 25 mg PO Q6H PRN PRN Reason: Anxiety Last Admin: 12/01/22 10:15 Dose: 25 mg Levothyroxine Sodium (Levothyroxine Sodium 75 Mcg Tablet) 75 mcg PO DAILY@0630 [facility] Last Admin: 12/01/22 05:55 Dose: 75 mcg [place] Carbonate ([place] Carbonate 300 Mg Capsule) 900 mg PO BID [facility] Last Admin: 12/01/22 08:32 Dose: 900 mg Magnesium Hydroxide (Milk Of Magnesia 30 Ml Oral.Susp) 30 ml PO DAILY PRN PRN Reason: Constipation Nicotine Polacrilex (Nicotine Polacrilex 2 Mg Gum) 2 mg BUCCAL QID PRN PRN Reason: Nicotine Cravings Nicotine Polacrilex (Nicotine Polacrilex 2 Mg Gum) 4 mg BUCCAL Q2H PRN PRN Reason: Nicotine Cravings Patient Own Med ( Invega Trinza 819 Mg ) 819 mg IM Q3M [facility] Pt Own (Lumateperone [Caplyta] 42 Mg Capsule) 1 cap PO DAILY@1700 [facility] Last Admin: 11/30/22 17:40 Dose: 1 cap Olanzapine (Olanzapine 5 Mg Tablet) 5 mg PO TID PRN PRN Reason: agitation Last Admin: 12/01/22 14:37 Dose: 5 mg Olanzapine (Olanzapine 5 Mg Tablet) 5 mg PO BEDTIME [facility] Last Admin: 11/30/22 19:02 Dose: 5 mg Paliperidone (Paliperidone Er 3 Mg Tab.Er.24) 3 mg PO BID [facility] Last Admin: 12/01/22 08:32 Dose: 3 mg Trazodone HCl (Trazodone Hcl 50 Mg Tablet) 50 mg PO BEDTIME MRX1 PRN PRN Reason: Insomnia Last Admin: 11/30/22 19:02 Dose: 50 mg Vitamin D (Cholecalciferol (Vitamin D3) 25 Mcg Tablet) 25 mcg PO DAILY IMANI Last Admin: 12/01/22 08:32 Dose: 25 mcg Allergies Allergies Allergy/AdvReac Type Severity Reaction Status Date / Time haloperidol [From HALDOL] Allergy Unknown DISTONIC Verified 06/03/20 02:40 REACTION Assessment & Plan Assessment & Plan (1) Schizoaffective disorder, bipolar type: Status: Acute Code(s): F25.0 - Schizoaffective disorder, bipolar type Plan Patient is a 32-year-old male with diagnosis of schizoaffective disorder, bipolar type, last admitted to [facility] about a year ago, who presents now for worsening auditory hallucinations and paranoid delusions in the face of medication non adherence. -previous admission note says patient has a community Mantilla; will try to procure -patient restarted on lithium; patient is also normal on long-acting Invega Trinza so will start Invega p.o..; also on Caplyta -will pursue collateral Plan: CV Q 15 minute checks Restarted lithium 600 mg b.i.d. Patient is also on Caplyta however not on formulary and pt's own medications not yet available Will start Invega p.o. for now until Caplyta available Will try to recover community Mantilla document Gather collateral 11/10/22- Continue current regime. Continue Olanzapine 5 mg HS 11/12/22- Continue current regime/plan Message left for [facility] team for collateral Labs: B12, Folate, TSH, [place] EKG 11/13/22 Increase Olanzapine to 10 mg bid Increase [place] to 900 mg bid (Level 0.31) 11/15/2022 no changes as olanzapine and lithium just increased by team 11/16/22: Out patient regime clarified today by [facility], [facility], father and [facility] Agataza due 12/02/22 Trinza and Caplyta ordered from [place] to re-establish 11/17/22. Continue current regime. [place] level 11/20 Awaiting Caplyta to arrive to initiate Support, educate 11/18/22: Discontinue Olanzapine, Invega Risperdal 2 mg bid 11/19 continue current treatment regimen Patient to start Caplyta once available 11/20 continue current treatment regimen; defer to primary team for further med adjustment 11/22 Discontinue Risperdal Olanzapine 5 mg bid Invega 3 mg bid 11/24/22 continue current plan 11/25 continue current plan. 11/26 continue tx. 11/27 continue tx. 11/28 continue treatmentplan 11/29 continue treatment plan 11/30/22: Section VII filed BMP, EKG, [place] Trinza Injection due 12/02/22 Decrease Olanzapine to 5 mg HS from 5 mg bid Pt asks for PCP assignment-will check his insurance assignment 12/01/22- Continue current regime. Patient educated on: medication risk/benefits and therapeutic strategies Informed Consent: further education needed Reason for contiued inpatient stay Substantial Risk for: rapid decompensation Time Spent With Patient Time: Total time managing care of this patient today ____ minutes.
[2022-12-02] MEDS: Levothyroxine Sodium 75 MCG TABLET PO (06:22)
[2022-12-02 07:56] VITALS: BP 113/62; PULSE 65; RESP 16; TEMP 36.4; O2SAT 95
[2022-12-02] MEDS: Cholecalciferol (Vitamin D3) 25 MCG TABLET PO (08:05)
[2022-12-02] MEDS: Lithium Carbonate 300 MG CAPSULE 900 MG PO ×2 (08:05→20:15)
[2022-12-02] MEDS: Paliperidone ER 3 MG TAB.ER.24 PO ×2 (08:05→20:16)
[2022-12-02] MEDS: amLODIPine Besylate 10 MG TABLET PO (08:05)
[2022-12-02] MEDS: hydrOXYzine HCL 25 MG TABLET PO ×2 (10:29→21:10)
--- NOTE | 2022-12-02 11:35 | P.PNPSI_ITS ---
Subjective Subjective Date of Service: 12/02/22 Reason For Visit: Disorganized Subjective Notes: Section 7 Healthcare Proxy: No Guardianship: No Medical Problems Affecting Mental Status: No Interim History: Pt denies SE from regime. He reports police are protecting him while on the unit. He called tw voice mail to leave that message as well. Denies physical sx Asking to go home. Remains with paranoia, delusions which are persecuatory, however tolerating JAMES and po dosages without adversity at this time. Calmer when meeting today-spontaneous smile, talks of the activity of the unit and his impressions. Medication Compliance: Yes Side effects from medications: No Attending Groups: Intermittent Review of Systems Acute medical concerns: No Medical Review of Systems: unchanged Mental Status Exam Mental Status Exam Patient Appearance: Disheveled Patient Orientation: Person and Place Level of Consciousness: Restless and Alert Patient Behavior: Talkative, Restless, Anxious, Distractible and Good Eye Contact Mood Description: Withdrawn and Labile Affect Description: Labile Patient Cognition Impaired: No Ability to Follow Directions: Fair Speech Pattern: Spontaneous Speech Memory Description: Remote Impaired Hallucinations: Auditory and Visual Delusions: Paranoid Ideation, Grandiose and Present Perceptual Disturbances: Derealization Thought Process: Distracted Thought Content: positive for [place], positive for Circum[place], positive for Suicidal Ideation (denies) and positive for Homicidal Ideation (denies) Depressive Symptoms: Difficulty Concentrating Abnormal Motor Activity Signs and Symptoms: Restlessness Judgement: Poor Diagnostics Vital Signs (24Hr): Vital Signs - 24 hr 12/02/22 07:56 Temperature 97.5 F Pulse Rate 65 Respiratory Rate 16 Blood Pressure 113/62 Pulse Oximetry 95 Oxygen Delivery Method Room Air BMI result Body Mass Index 54.1 Labs 11/06/22 22:49 12/01/22 08:08 Labs: Laboratory Results - last 48 hr 12/01/22 12/01/22 08:08 08:08 Sodium 142 Potassium 4.4 Chloride 106 Carbon Dioxide 30 H Anion Gap 10 L BUN 9 Creatinine 0.75 Estim Creat Clear Calc 238.0 Estimated GFR > 60 Random Glucose 80 Calcium 9.1 [place] 0.68 Medications Medications Current Medications Acetaminophen (Acetaminophen 325 Mg Tablet) 650 mg PO Q6H PRN PRN Reason: Headache/Pain Mild Scale (1-3) Last Admin: 11/18/22 20:19 Dose: 650 mg Al Hydroxide/Mg Hydroxide (Magnesium Hydrox/Alum Hydrox 30 Ml Oral.Susp) 30 ml PO Q6H PRN PRN Reason: Heartburn/Nausea Albuterol Sulfate (Albuterol Sulfate 90 Mcg 8 Gm Inhaler) 2 puff INHALE Q4H PRN PRN Reason: Shortness of Breath Amlodipine Besylate (Amlodipine Besylate 10 Mg Tablet) 10 mg PO DAILY REPLACED BY [facility]; Pro tocol Last Admin: 12/02/22 08:05 Dose: 10 mg Fluticasone Propionate (Fluticasone Propionate Nasal 16 Gm [place]) 1 spray NOSTRIL-B Q12H REPLACED BY [facility] Last Admin: 12/02/22 08:05 Dose: Not Given Hydroxyzine HCl (Hydroxyzine Hcl 25 Mg Tablet) 25 mg PO Q6H PRN PRN Reason: Anxiety Last Admin: 12/02/22 10:29 Dose: 25 mg Levothyroxine Sodium (Levothyroxine Sodium 75 Mcg Tablet) 75 mcg PO DAILY@0630 REPLACED BY [facility] Last Admin: 12/02/22 06:22 Dose: 75 mcg [place] Carbonate ([place] Carbonate 300 Mg Capsule) 900 mg PO BID REPLACED BY [facility] Last Admin: 12/02/22 08:05 Dose: 900 mg Magnesium Hydroxide (Milk Of Magnesia 30 Ml Oral.Susp) 30 ml PO DAILY PRN PRN Reason: Constipation Nicotine Polacrilex (Nicotine Polacrilex 2 Mg Gum) 2 mg BUCCAL QID PRN PRN Reason: Nicotine Cravings Nicotine Polacrilex (Nicotine Polacrilex 2 Mg Gum) 4 mg BUCCAL Q2H PRN PRN Reason: Nicotine Cravings Pt Own (Lumateperone [Caplyta] 42 Mg Capsule) 1 cap PO DAILY@1700 REPLACED BY [facility] Last Admin: 12/02/22 03:11 Dose: Not Given Non-Formulary Medication (Invega Trinza) 819 mg IM Q90D REPLACED BY [facility] Last Admin: 12/02/22 10:35 Dose: 819 mg Olanzapine (Olanzapine 5 Mg Tablet) 5 mg PO TID PRN PRN Reason: agitation Last Admin: 12/01/22 14:37 Dose: 5 mg Olanzapine (Olanzapine 5 Mg Tablet) 5 mg PO BEDTIME REPLACED BY [facility] Last Admin: 12/02/22 03:12 Dose: Not Given Paliperidone (Paliperidone Er 3 Mg Tab.Er.24) 3 mg PO BID REPLACED BY [facility] Last Admin: 12/02/22 08:05 Dose: 3 mg Trazodone HCl (Trazodone Hcl 50 Mg Tablet) 50 mg PO BEDTIME MRX1 PRN PRN Reason: Insomnia Last Admin: 11/30/22 19:02 Dose: 50 mg Vitamin D (Cholecalciferol (Vitamin D3) 25 Mcg Tablet) 25 mcg PO DAILY IMANI Last Admin: 12/02/22 08:05 Dose: 25 mcg Allergies Allergies Allergy/AdvReac Type Severity Reaction Status Date / Time haloperidol [From HALDOL] Allergy Unknown DISTONIC Verified 06/03/20 02:40 REACTION Assessment & Plan Assessment & Plan (1) Schizoaffective disorder, bipolar type: Status: Acute Code(s): F25.0 - Schizoaffective disorder, bipolar type Plan Patient is a 32-year-old male with diagnosis of schizoaffective disorder, bipolar type, last admitted to [facility] about a year ago, who presents now for worsening auditory hallucinations and paranoid delusions in the face of medication non adherence. -previous admission note says patient has a community Mantilla; will try to procure -patient restarted on lithium; patient is also normal on long-acting Invega Trinza so will start Invega p.o..; also on Caplyta -will pursue collateral Plan: CV Q 15 minute checks Restarted lithium 600 mg b.i.d. Patient is also on Caplyta however not on formulary and pt's own medications not yet available Will start Invega p.o. for now until Caplyta available Will try to recover community Mantilla document Gather collateral 11/10/22- Continue current regime. Continue Olanzapine 5 mg HS 11/12/22- Continue current regime/plan Message left for [facility] team for collateral Labs: B12, Folate, TSH, [place] EKG 11/13/22 Increase Olanzapine to 10 mg bid Increase [place] to 900 mg bid (Level 0.31) 11/15/2022 no changes as olanzapine and lithium just increased by team 11/16/22: Out patient regime clarified today by [facility], [facility], father and TEDDYA Wilson due 12/02/22 Trinza and Caplyta ordered from [place] to re-establish 11/17/22. Continue current regime. [place] level 11/20 Awaiting Caplyta to arrive to initiate Support, educate 11/18/22: Discontinue Olanzapine, Invega Risperdal 2 mg bid 3/23 continue current treatment regimen Patient to start Caplyta once available 11/20 continue current treatment regimen; defer to primary team for further med adjustment 11/22 Discontinue Risperdal Olanzapine 5 mg bid Invega 3 mg bid 11/24/22 continue current plan 11/25 continue current plan. 11/26 continue tx. 11/27 continue tx. 11/28 continue treatmentplan 11/29 continue treatment plan 11/30/22: Section VII filed BMP, EKG, [place] Trinza Injection due 12/02/22 Decrease Olanzapine to 5 mg HS from 5 mg bid Pt asks for PCP assignment-will check his insurance assignment 12/01/22- Continue current regime. 12/02/22- Continue current regime Patient educated on: therapeutic strategies Informed Consent: further education needed Reason for contiued inpatient stay Substantial Risk for: rapid decompensation Time Spent With Patient Time: Total time managing care of this patient today ____ minutes.
[2022-12-02] MEDS: OLANZapine 5 MG TABLET PO ×3 (13:13→21:11)
[2022-12-02 16:00] VITALS: BP 124/72; PULSE 88; TEMP 36.4
[2022-12-02] MEDS: traZODone HCL 50 MG TABLET PO (20:16)
[2022-12-02] MEDS: Fluticasone Propionate Nasal 16 GM SPRAY 1 SPRAY NOSTRIL-B (21:08)
[2022-12-03] MEDS: Levothyroxine Sodium 75 MCG TABLET PO (05:49)
[2022-12-03] MEDS: Lithium Carbonate 300 MG CAPSULE 900 MG PO ×2 (08:45→20:00)
[2022-12-03] MEDS: Cholecalciferol (Vitamin D3) 25 MCG TABLET PO (08:45)
[2022-12-03] MEDS: Paliperidone ER 3 MG TAB.ER.24 PO ×2 (08:45→20:00)
[2022-12-03] MEDS: amLODIPine Besylate 10 MG TABLET PO (08:45)
[2022-12-03] MEDS: Fluticasone Propionate Nasal 16 GM SPRAY 1 SPRAY NOSTRIL-B (08:47)
[2022-12-03 08:50] VITALS: BP 119/74; PULSE 72; RESP 16; TEMP 36.4; O2SAT 97
[2022-12-03] MEDS: hydrOXYzine HCL 25 MG TABLET PO (13:30)
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
[2022-12-03 15:57] VITALS: BP 132/87; PULSE 84; TEMP 36.7
[2022-12-03] MEDS: traZODone HCL 50 MG TABLET PO (20:00)
[2022-12-03] MEDS: OLANZapine 5 MG TABLET PO (20:01)
[2022-12-04] MEDS: Levothyroxine Sodium 75 MCG TABLET PO (06:00)
[2022-12-04] MEDS: Lithium Carbonate 300 MG CAPSULE 900 MG PO ×2 (08:56→19:45)
[2022-12-04] MEDS: Cholecalciferol (Vitamin D3) 25 MCG TABLET PO (08:56)
[2022-12-04] MEDS: Fluticasone Propionate Nasal 16 GM SPRAY 1 SPRAY NOSTRIL-B (08:56)
[2022-12-04] MEDS: amLODIPine Besylate 10 MG TABLET PO (08:56)
[2022-12-04 09:14] VITALS: BP 113/63; PULSE 71; RESP 16; TEMP 36.3; O2SAT 95
--- NOTE | 2022-12-04 09:54 | P.PNPSI_ITS ---
Subjective Subjective Date of Service: 12/04/22 Reason For Visit: Disorganized Interim History: Briefly met with patient; discussed with team Patient remains intermittently expressing grandiose delusional thoughts however collateral reports this is baseline. Patient is sleeping well enough; showered. Denies any complaints or requests other than wanting to the ask us when discharge will be; excepts sometime around next week. Mental Status Exam Mental Status Exam Patient Appearance: Appropriate Patient Orientation: Person, Place, Time and Situation Level of Consciousness: Awake Patient Behavior: Good Eye Contact Behavior Comments: Mostly keeps to himself however cooperative, calm Mood Description: Withdrawn and Blunted Affect Description: Blunted Ability to Follow Directions: Good Speech Pattern: Clear Memory Description: Episodic Impaired Hallucinations: Auditory Delusions: Paranoid Ideation and Grandiose Thought Process: Slowed Thinking Thought Content: positive for Preoccupation (; No SI or HI) Judgement and Insight: Impaired Diagnostics Vital Signs (24Hr): Vital Signs - 24 hr 12/03/22 15:57 12/04/22 09:14 Temperature 98.0 F 97.4 F Pulse Rate 84 71 Respiratory Rate 16 Blood Pressure 132/87 113/63 Pulse Oximetry 95 Oxygen Delivery Method Room Air BMI result Body Mass Index 54.1 Labs 11/06/22 22:49 12/01/22 08:08 Medications Medications Current Medications Acetaminophen (Acetaminophen 325 Mg Tablet) 650 mg PO Q6H PRN PRN Reason: Headache/Pain Mild Scale (1-3) Last Admin: 11/18/22 20:19 Dose: 650 mg Al Hydroxide/Mg Hydroxide (Magnesium Hydrox/Alum Hydrox 30 Ml Oral.Susp) 30 ml PO Q6H PRN PRN Reason: Heartburn/Nausea Albuterol Sulfate (Albuterol Sulfate 90 Mcg 8 Gm Inhaler) 2 puff INHALE Q4H PRN PRN Reason: Shortness of Breath Amlodipine Besylate (Amlodipine Besylate 10 Mg Tablet) 10 mg PO DAILY [facility]; Protocol Last Admin: 12/04/22 08:56 Dose: 10 mg Fluticasone Propionate (Fluticasone Propionate Nasal 16 Gm [place]) 1 spray NOSTRIL-B Q12H [facility] Last Admin: 12/04/22 08:56 Dose: 1 spray Hydroxyzine HCl (Hydroxyzine Hcl 25 Mg Tablet) 25 mg PO Q6H PRN PRN Reason: Anxiety Last Admin: 12/03/22 13:30 Dose: 25 mg Levothyroxine Sodium (Levothyroxine Sodium 75 Mcg Tablet) 75 mcg PO DAILY@0630 [facility] Last Admin: 12/04/22 06:00 Dose: 75 mcg [place] Carbonate ([place] Carbonate 300 Mg Capsule) 900 mg PO BID [facility] Last Admin: 12/04/22 08:56 Dose: 900 mg Magnesium Hydroxide (Milk Of Magnesia 30 Ml Oral.Susp) 30 ml PO DAILY PRN PRN Reason: Constipation Nicotine Polacrilex (Nicotine Polacrilex 2 Mg Gum) 2 mg BUCCAL QID PRN PRN Reason: Nicotine Cravings Nicotine Polacrilex (Nicotine Polacrilex 2 Mg Gum) 4 mg BUCCAL Q2H PRN PRN Reason: Nicotine Cravings Pt Own (Lumateperone [Caplyta] 42 Mg Capsule) 1 cap PO DAILY@1700 [facility] Last Admin: 12/03/22 16:50 Dose: 1 cap Non-Formulary Medication (Invega Trinza) 819 mg IM Q90D [facility] Last Admin: 12/02/22 10:35 Dose: 819 mg Olanzapine (Olanzapine 5 Mg Tablet) 5 mg PO TID PRN PRN Reason: agitation Last Admin: 12/02/22 21:11 Dose: 5 mg Olanzapine (Olanzapine 5 Mg Tablet) 5 mg PO BEDTIME [facility] Last Admin: 12/03/22 20:01 Dose: 5 mg Paliperidone (Paliperidone Er 3 Mg Tab.Er.24) 3 mg PO BEDTIME [facility] Last Admin: 12/03/22 20:00 Dose: 3 mg Trazodone HCl (Trazodone Hcl 50 Mg Tablet) 50 mg PO BEDTIME MRX1 PRN PRN Reason: Insomnia Last Admin: 12/03/22 20:00 Dose: 50 mg Vitamin D (Cholecalciferol (Vitamin D3) 25 Mcg Tablet) 25 mcg PO DAILY [facility] Last Admin: 12/04/22 08:56 Dose: 25 mcg Allergies Allergies Allergy/AdvReac Type Severity Reaction Status Date / Time haloperidol [From HALDOL] Allergy Unknown DISTONIC Verified 06/03/20 02:40 REACTION Assessment & Plan Assessment & Plan (1) Schizoaffective disorder, bipolar type: Status: Acute Code(s): F25.0 - Schizoaffective disorder, bipolar type Plan Patient is a 32-year-old male with diagnosis of schizoaffective disorder, bipolar type, last admitted to [facility] about a year ago, who presents now for worsening auditory hallucinations and paranoid delusions in the face of medication non adherence. -previous admission note says patient has a community Mantilla; will try to procure -patient restarted on lithium; patient is also normal on long-acting Invega Trinza so will start Invega p.o..; also on Caplyta -will pursue collateral Plan: CV Q 15 minute checks Restarted lithium 600 mg b.i.d. Patient is also on Caplyta however not on formulary and pt's own medications not yet available Will start Invega p.o. for now until Caplyta available Will try to recover community Mantilla document Gather collateral 11/10/22- Continue current regime. Continue Olanzapine 5 mg HS 11/12/22- Continue current regime/plan Message left for [facility] team for collateral Labs: B12, Folate, TSH, [place] EKG 11/13/22 Increase Olanzapine to 10 mg bid Increase [place] to 900 mg bid (Level 0.31) 11/15/2022 no changes as olanzapine and lithium just increased by team 11/16/22: Out patient regime clarified today by [facility], [facility], father and [facility] Trinza due 12/02/22 Trinza and Caplyta ordered from [place] to re-establish 11/17/22. Continue current regime. [place] level 11/20 Awaiting Caplyta to arrive to initiate Support, educate 11/18/22: Discontinue Olanzapine, Invega Risperdal 2 mg bid 11/19 continue current treatment regimen Patient to start Caplyta once available 11/20 continue current treatment regimen; defer to primary team for further med adjustment 11/22 Discontinue Risperdal Olanzapine 5 mg bid Invega 3 mg bid 11/24/22 continue current plan 11/25 continue current plan. 11/26 continue tx. 11/27 continue tx. 11/28 continue treatmentplan 11/29 continue treatment plan 11/30/22: Section VII filed BMP, EKG, [place] Trinza Injection due 12/02/22 Decrease Olanzapine to 5 mg HS from 5 mg bid Pt asks for PCP assignment-will check his insurance assignment 12/01/22- Continue current regime. 12/02/22- Continue current regime 12/03/22- Decrease Invega to 3 mg daily Labs 12/06-[place], BMP, TSH 12/04 patient remains stable, likely at baseline; continue current treatment plan Reason for contiued inpatient stay Substantial Risk for: rapid decompensation Time Spent With Patient Time: Total time managing care of this patient today ____ minutes.
[2022-12-04] MEDS: hydrOXYzine HCL 25 MG TABLET PO (12:46)
[2022-12-04 19:28] VITALS: BP 135/68; PULSE 80
[2022-12-04] MEDS: OLANZapine 5 MG TABLET PO (19:45)
[2022-12-04] MEDS: Paliperidone ER 3 MG TAB.ER.24 PO (19:45)
[2022-12-04] MEDS: traZODone HCL 50 MG TABLET PO (19:45)
[2022-12-05] MEDS: Levothyroxine Sodium 75 MCG TABLET PO (06:13)
[2022-12-05] MEDS: Cholecalciferol (Vitamin D3) 25 MCG TABLET PO (09:17)
[2022-12-05] MEDS: Lithium Carbonate 300 MG CAPSULE 900 MG PO ×2 (09:17→20:42)
[2022-12-05] MEDS: amLODIPine Besylate 10 MG TABLET PO (09:17)
[2022-12-05] MEDS: Fluticasone Propionate Nasal 16 GM SPRAY 1 SPRAY NOSTRIL-B (09:18)
[2022-12-05 09:35] VITALS: BP 133/82; PULSE 88; RESP 18; TEMP 36.4; O2SAT 98
--- NOTE | 2022-12-05 11:04 | HO.PSYCHPN ---
Subjective Subjective Date of Service: 12/05/22 Reason For Visit: Disorganized Interim History: Met with patient; discussed with team Patient remains mostly isolative and difficult with which to engage; he will come out of his room to express a want his, sometimes to say something bizarre unrelated. He denies any complaints and has no requests. He denies [facility] Mental Status Exam Mental Status Exam Patient Appearance: Appropriate Patient Orientation: Person, Place, Time and Situation Level of Consciousness: Awake Patient Behavior: Good Eye Contact Behavior Comments: Mostly keeps to himself however cooperative, calm Mood Description: Withdrawn and Blunted Affect Description: Blunted Ability to Follow Directions: Good Speech Pattern: Clear Memory Description: Episodic Impaired Hallucinations: Auditory Delusions: Paranoid Ideation and Grandiose Thought Process: Slowed Thinking Thought Content: positive for Preoccupation (; No SI or HI) Judgement and Insight: Impaired Diagnostics Vital Signs (24Hr): Vital Signs - 24 hr 12/04/22 19:28 12/05/22 09:35 Temperature 97.6 F Pulse Rate 80 88 Respiratory Rate 18 Blood Pressure 135/68 133/82 Pulse Oximetry 98 Oxygen Delivery Method Room Air BMI result Body Mass Index 54.1 Labs 11/06/22 22:49 12/01/22 08:08 Medications Medications Current Medications Acetaminophen (Acetaminophen 325 Mg Tablet) 650 mg PO Q6H PRN PRN Reason: Headache/Pain Mild Scale (1-3) Last Admin: 11/18/22 20:19 Dose: 650 mg Al Hydroxide/Mg Hydroxide (Magnesium Hydrox/Alum Hydrox 30 Ml Oral.Susp) 30 ml PO Q6H PRN PRN Reason: Heartburn/Nausea Albuterol Sulfate (Albuterol Sulfate 90 Mcg 8 Gm Inhaler) 2 puff INHALE Q4H PRN PRN Reason: Shortness of Breath Amlodipine Besylate (Amlodipine Besylate 10 Mg Tablet) 10 mg PO DAILY [facility]; Protocol Last Admin: 12/05/22 09:17 Dose: 10 mg Fluticasone Propionate (Fluticasone Propionate Nasal 16 Gm [place]) 1 spray NOSTRIL-B Q12H [facility] Last Admin: 12/05/22 09:18 Dose: 1 spray Hydroxyzine HCl (Hydroxyzine Hcl 25 Mg Tablet) 25 mg PO Q6H PRN PRN Reason: Anxiety Last Admin: 12/04/22 12:46 Dose: 25 mg Levothyroxine Sodium (Levothyroxine Sodium 75 Mcg Tablet) 75 mcg PO DAILY@0630 [facility] Last Admin: 12/05/22 06:13 Dose: 75 mcg [place] Carbonate ([place] Carbonate 300 Mg Capsule) 900 mg PO BID [facility] Last Admin: 12/05/22 09:17 Dose: 900 mg Magnesium Hydroxide (Milk Of Magnesia 30 Ml Oral.Susp) 30 ml PO DAILY PRN PRN Reason: Constipation Nicotine Polacrilex (Nicotine Polacrilex 2 Mg Gum) 2 mg BUCCAL QID PRN PRN Reason: Nicotine Cravings Nicotine Polacrilex (Nicotine Polacrilex 2 Mg Gum) 4 mg BUCCAL Q2H PRN PRN Reason: Nicotine Cravings Pt Own (Lumateperone [Caplyta] 42 Mg Capsule) 1 cap PO DAILY@1700 [facility] Last Admin: 12/04/22 16:03 Dose: 1 cap Non-Formulary Medication (Invega Trinza) 819 mg IM Q90D [facility] Last Admin: 12/02/22 10:35 Dose: 819 mg Olanzapine (Olanzapine 5 Mg Tablet) 5 mg PO TID PRN PRN Reason: agitation Last Admin: 12/02/22 21:11 Dose: 5 mg Olanzapine (Olanzapine 5 Mg Tablet) 5 mg PO BEDTIME [facility] Last Admin: 12/04/22 19:45 Dose: 5 mg Paliperidone (Paliperidone Er 3 Mg Tab.Er.24) 3 mg PO BEDTIME [facility] Last Admin: 12/04/22 19:45 Dose: 3 mg Trazodone HCl (Trazodone Hcl 50 Mg Tablet) 50 mg PO BEDTIME MRX1 PRN PRN Reason: Insomnia Last Admin: 12/04/22 19:45 Dose: 50 mg Vitamin D (Cholecalciferol (Vitamin D3) 25 Mcg Tablet) 25 mcg PO DAILY [facility] Last Admin: 12/05/22 09:17 Dose: 25 mcg Allergies Allergies Allergy/AdvReac Type Severity Reaction Status Date / Time haloperidol [From HALDOL] Allergy Unknown DISTONIC Verified 06/03/20 02:40 REACTION Assessment & Plan Assessment & Plan (1) Schizoaffective disorder, bipolar type: Status: Acute Code(s): F25.0 - Schizoaffective disorder, bipolar type Plan Patient is a 32-year-old male with diagnosis of schizoaffective disorder, bipolar type, last admitted to [facility] about a year ago, who presents now for worsening auditory hallucinations and paranoid delusions in the face of medication non adherence. -previous admission note says patient has a community Mantilla; will try to procure -patient restarted on lithium; patient is also normal on long-acting Invega Trinza so will start Invega p.o..; also on Caplyta -will pursue collateral Plan: CV Q 15 minute checks Restarted lithium 600 mg b.i.d. Patient is also on Caplyta however not on formulary and pt's own medications not yet available Will start Invega p.o. for now until Caplyta available Will try to recover community Mantilla document Gather collateral 11/10/22- Continue current regime. Continue Olanzapine 5 mg HS 11/12/22- Continue current regime/plan Message left for [facility] team for collateral Labs: B12, Folate, TSH, [place] EKG 11/13/22 Increase Olanzapine to 10 mg bid Increase [place] to 900 mg bid (Level 0.31) 11/15/2022 no changes as olanzapine and lithium just increased by team 11/16/22: Out patient regime clarified today by [facility], [facility], father and [facility] Trinza due 12/02/22 Trinza and Caplyta ordered from [place] to re-establish 11/17/22. Continue current regime. [place] level 11/20 Awaiting Caplyta to arrive to initiate Support, educate 11/18/22: Discontinue Olanzapine, Invega Risperdal 2 mg bid 11/19 continue current treatment regimen Patient to start Caplyta once available 11/20 continue current treatment regimen; defer to primary team for further med adjustment 11/22 Discontinue Risperdal Olanzapine 5 mg bid Invega 3 mg bid 11/24/22 continue current plan 11/25 continue current plan. 11/26 continue tx. 11/27 continue tx. 11/28 continue treatmentplan 11/29 continue treatment plan 11/30/22: Section VII filed BMP, EKG, Volo Trinza Injection due 12/02/22 Decrease Olanzapine to 5 mg HS from 5 mg bid Pt asks for PCP assignment-will check his insurance assignment 12/01/22- Continue current regime. 12/02/22- Continue current regime 12/03/22- Decrease Invega to 3 mg daily Labs 12/06-[place], BMP, TSH 12/04 patient remains stable, likely at baseline; continue current treatment plan 12/05 continue with current treatment plan Reason for contiued inpatient stay Substantial Risk for: med/psych decompensation Time Spent With Patient Time: Total time managing care of this patient today ____ minutes.
[2022-12-05 16:44] VITALS: BP 122/66; PULSE 68; TEMP 37; O2SAT 95
[2022-12-05] MEDS: OLANZapine 5 MG TABLET PO (20:42)
[2022-12-05] MEDS: Paliperidone ER 3 MG TAB.ER.24 PO (20:42)
[2022-12-06] MEDS: Levothyroxine Sodium 75 MCG TABLET PO (05:41)
[2022-12-06 07:01] LABS: Lithium 0.66 mmol/L (0.60-1.20)
[2022-12-06 07:11] LABS: Anion Gap 9 (12-20); Blood Urea Nitrogen 8 mg/dL (9-16); Calcium 9.3 mg/dL (8.4-10.2); Carbon Dioxide 28 mmol/L (22-29); Chloride 107 mmol/L (96-108); Creatinine Clr Calc Pharmacy 244.6; Estimated Glomerular Filt Rate > 60; Glucose Random 86 mg/dL (60-115); Sodium 140 mmol/L (135-145)
[2022-12-06 07:28] LABS: Thyroid Stimulating Hormone 1.64 uIU/mL (0.32-4.0)
[2022-12-06] MEDS: Cholecalciferol (Vitamin D3) 25 MCG TABLET PO (08:18)
[2022-12-06] MEDS: Lithium Carbonate 300 MG CAPSULE 900 MG PO ×2 (08:18→20:34)
[2022-12-06 08:28] VITALS: BP 110/71; PULSE 71; RESP 18; TEMP 36.7; O2SAT 94
[2022-12-06] MEDS: amLODIPine Besylate 10 MG TABLET PO (10:31)
--- NOTE | 2022-12-06 11:08 | P.PNPSI_ITS ---
Subjective Subjective Date of Service: 12/06/22 Reason For Visit: Disorganized Interim History: Met with patient; discussed with team Same presentation; denies AVH; remains mostly isolated and asking when he can go home. No requests, no complaints Mental Status Exam Mental Status Exam Patient Appearance: Appropriate Patient Orientation: Person, Place, Time and Situation Level of Consciousness: Awake Patient Behavior: Good Eye Contact Behavior Comments: Mostly keeps to himself however cooperative, calm Mood Description: Withdrawn and Blunted Affect Description: Blunted Ability to Follow Directions: Good Speech Pattern: Clear Memory Description: Episodic Impaired Hallucinations: Auditory Delusions: Paranoid Ideation and Grandiose Thought Process: Slowed Thinking Thought Content: positive for Preoccupation (; No SI or HI) Judgement and Insight: Impaired Diagnostics Vital Signs (24Hr): Vital Signs - 24 hr 12/05/22 16:44 12/06/22 08:28 Temperature 98.6 F 98.0 F Pulse Rate 68 71 Respiratory Rate 18 Blood Pressure 122/66 110/71 Pulse Oximetry 95 94 Oxygen Delivery Method Room Air Room Air BMI result Body Mass Index 54.1 Labs 11/06/22 22:49 12/06/22 06:35 Labs: Laboratory Results - last 48 hr 12/06/22 12/06/22 06:35 06:35 Sodium 140 Potassium 4.0 Chloride 107 Carbon Dioxide 28 Anion Gap 9 L BUN 8 L Creatinine 0.73 Estim Creat Clear Calc 244.6 Estimated GFR > 60 Random Glucose 86 Calcium 9.3 TSH 1.64 [place] 0.66 Medications Medications Current Medications Acetaminophen (Acetaminophen 325 Mg Tablet) 650 mg PO Q6H PRN PRN Reason: Headache/Pain Mild Scale (1-3) Last Admin: 11/18/22 20:19 Dose: 650 mg Al Hydroxide/Mg Hydroxide (Magnesium Hydrox/Alum Hydrox 30 Ml Oral.Susp) 30 ml PO Q6H PRN PRN Reason: Heartburn/Nausea Albuterol Sulfate (Albuterol Sulfate 90 Mcg 8 Gm Inhaler) 2 puff INHALE Q4H PRN PRN Reason: Shortness of Breath Amlodipine Besylate (Amlodipine Besylate 10 Mg Tablet) 10 mg PO DAILY IMANI; Protocol Last Admin: 12/06/22 10:31 Dose: 10 mg Fluticasone Propionate (Fluticasone Propionate Nasal 16 [place]m [place]) 1 spray NOSTRIL-B Q12H IMANI Last Admin: 12/06/22 10:31 Dose: Not Given Hydroxyzine HCl (Hydroxyzine Hcl 25 Mg Tablet) 25 mg PO Q6H PRN PRN Reason: Anxiety Last Admin: 12/04/22 12:46 Dose: 25 mg Levothyroxine Sodium (Levothyroxine Sodium 75 Mcg Tablet) 75 mcg PO DAILY@0630 [facility] Last Admin: 12/06/22 05:41 Dose: 75 mcg [place] Carbonate ([place] Carbonate 300 Mg Capsule) 900 mg PO BID [facility] Last Admin: 12/06/22 08:18 Dose: 900 mg Magnesium Hydroxide (Milk Of Magnesia 30 Ml Oral.Susp) 30 ml PO DAILY PRN PRN Reason: Constipation Nicotine Polacrilex (Nicotine Polacrilex 2 Mg Gum) 2 mg BUCCAL QID PRN PRN Reason: Nicotine Cravings Nicotine Polacrilex (Nicotine Polacrilex 2 Mg Gum) 4 mg BUCCAL Q2H PRN PRN Reason: Nicotine Cravings Pt Own (Lumateperone [Caplyta] 42 Mg Capsule) 1 cap PO DAILY@1700 [facility] Last Admin: 12/05/22 19:16 Dose: 1 cap Non-Formulary Medication (Invega Trinza) 819 mg IM Q90D [facility] Last Admin: 12/02/22 10:35 Dose: 819 mg Olanzapine (Olanzapine 5 Mg Tablet) 5 mg PO TID PRN PRN Reason: agitation Last Admin: 12/02/22 21:11 Dose: 5 mg Olanzapine (Olanzapine 5 Mg Tablet) 5 mg PO BEDTIME [facility] Last Admin: 12/05/22 20:42 Dose: 5 mg Paliperidone (Paliperidone Er 3 Mg Tab.Er.24) 3 mg PO BEDTIME [facility] Last Admin: 12/05/22 20:42 Dose: 3 mg Trazodone HCl (Trazodone Hcl 50 Mg Tablet) 50 mg PO BEDTIME MRX1 PRN PRN Reason: Insomnia Last Admin: 12/04/22 19:45 Dose: 50 mg Vitamin D (Cholecalciferol (Vitamin D3) 25 Mcg Tablet) 25 mcg PO DAILY [facility] Last Admin: 12/06/22 08:18 Dose: 25 mcg Allergies Allergies Allergy/AdvReac Type Severity Reaction Status Date / Time haloperidol [From HALDOL] Allergy Unknown DISTONIC Verified 06/03/20 02:40 REACTION Assessment & Plan Assessment & Plan (1) Schizoaffective disorder, bipolar type: Status: Acute Code(s): F25.0 - Schizoaffective disorder, bipolar type Plan Patient is a 32-year-old male with diagnosis of schizoaffective disorder, bipolar type, last admitted to [facility] about a year ago, who presents now for worsening auditory hallucinations and paranoid delusions in the face of medication non adherence. -previous admission note says patient has a community Mantilla; will try to procure -patient restarted on lithium; patient is also normal on long-acting Invega Trinza so will start Invega p.o..; also on Caplyta -will pursue collateral Plan: CV Q 15 minute checks Restarted lithium 600 mg b.i.d. Patient is also on Caplyta however not on formulary and pt's own medications not yet available Will start Invega p.o. for now until Caplyta available Will try to recover community Mantilla document Gather collateral 11/10/22- Continue current regime. Continue Olanzapine 5 mg HS 11/12/22- Continue current regime/plan Message left for [facility] team for collateral Labs: B12, Folate, TSH, [place] EKG 11/13/22 Increase Olanzapine to 10 mg bid Increase [place] to 900 mg bid (Level 0.31) 11/15/2022 no changes as olanzapine and lithium just increased by team 11/16/22: Out patient regime clarified today by [facility], [facility], father and [facility] Trinza due 12/02/22 Trinza and Caplyta ordered from [place] to re-establish 11/17/22. Continue current regime. [place] level 11/20 Awaiting Caplyta to arrive to initiate Support, educate 11/18/22: Discontinue Olanzapine, Invega Risperdal 2 mg bid 11/19 continue current treatment regimen Patient to start Caplyta once available 11/20 continue current treatment regimen; defer to primary team for further med adjustment 11/22 Discontinue Risperdal Olanzapine 5 mg bid Invega 3 mg bid 11/24/22 continue current plan 11/25 continue current plan. 11/26 continue tx. 11/27 continue tx. 11/28 continue treatmentplan 11/29 continue treatment plan 11/30/22: Section VII filed BMP, EKG, [place] Trinza Injection due 12/02/22 Decrease Olanzapine to 5 mg HS from 5 mg bid Pt asks for PCP assignment-will check his insurance assignment 12/01/22- Continue current regime. 12/02/22- Continue current regime 12/03/22- Decrease Invega to 3 mg daily Labs 12/06-[place], BMP, TSH 12/04 patient remains stable, likely at baseline; continue current treatment plan 12/05 continue with current treatment plan 12/06 continue with current treatment plan Patient educated on: diagnosis Informed Consent: understands Reason for contiued inpatient stay Substantial Risk for: med/psych decompensation Time Spent With Patient Time: Total time managing care of this patient today ____ minutes.
[2022-12-06 16:53] VITALS: BP 139/88; PULSE 85; RESP 18; TEMP 36.7; O2SAT 97
[2022-12-06] MEDS: Fluticasone Propionate Nasal 16 GM SPRAY 1 SPRAY NOSTRIL-B (20:33)
[2022-12-06] MEDS: Paliperidone ER 3 MG TAB.ER.24 PO (20:34)
[2022-12-06] MEDS: OLANZapine 5 MG TABLET PO (20:34)
[2022-12-07 06:00] VITALS: BP 135/82; PULSE 66; RESP 18; TEMP 36.8; O2SAT 93
[2022-12-07] MEDS: Levothyroxine Sodium 75 MCG TABLET PO (06:22)
[2022-12-07] MEDS: Lithium Carbonate 300 MG CAPSULE 900 MG PO ×2 (08:26→20:06)
[2022-12-07] MEDS: amLODIPine Besylate 10 MG TABLET PO (08:26)
[2022-12-07] MEDS: Cholecalciferol (Vitamin D3) 25 MCG TABLET PO (08:26)
--- NOTE | 2022-12-07 08:41 | PC.NURSE ---
Pt rousable for meds, when attempt made to coax pt into shower, pt stated later took all meds except flonase.
[2022-12-07] MEDS: hydrOXYzine HCL 25 MG TABLET PO (13:49)
--- NOTE | 2022-12-07 15:26 | P.PNPSI_ITS ---
Subjective Subjective Date of Service: 12/07/22 Reason For Visit: Disorganized Subjective Notes: Section 7 Healthcare Proxy: No Guardianship: No Medical Problems Affecting Mental Status: No Interim History: Pt presents at baseline. [place] 0.66, BMP, TSH withing range Intermittent delusional symptoms Pt reports appropriate sleep, appetite. Attended to ADL's over the weekend. Telephone discussion with pt's father, Faustino Galeana LINDA, Stephanie Eisenberg OTR/L. Father is comfortable with pt returning to the family home on current regime, 12/08/22. He has no current concerns. Father reports that pt is aware when he is in need of assistance and is able to call for help when this occurs. Pt will continue follow up with [facility]. Pt reports satisfaction with this plan. Medication Compliance: Yes Side effects from medications: No Attending Groups: Yes Review of Systems Acute medical concerns: No Medical Review of Systems: unchanged Mental Status Exam Mental Status Exam Patient Appearance: Disheveled Patient Orientation: Person, Place, Time and Situation Level of Consciousness: Alert Patient Behavior: Appropriate, Talkative, Cooperative and Good Eye Contact Mood Description: Cheerful Affect Description: Cheerful and Flat Patient Cognition Impaired: No Ability to Follow Directions: Good Speech Pattern: Spontaneous Speech Memory Description: Episodic Impaired Hallucinations: None (denies today) Delusions: Present Perceptual Disturbances: Derealization Thought Process: Distracted and Goal Oriented Thought Content: positive for Circumstantial, positive for Goal Oriented, positive for Tangential, positive for Suicidal Ideation (denies) and positive for Homicidal Ideation (denies) Depressive Symptoms: Isolating-Friends/Family Abnormal Motor Activity Signs and Symptoms: Restlessness Judgement: Good Diagnostics Vital Signs (24Hr): Vital Signs - 24 hr 12/06/22 16:53 12/07/22 06:00 Temperature 98.1 F 98.3 F Pulse Rate 85 66 Respiratory Rate 18 18 Blood Pressure 139/88 135/82 Pulse Oximetry 97 93 Oxygen Delivery Method Room Air Room Air BMI result Body Mass Index 54.1 Labs 11/06/22 22:49 12/06/22 06:35 Labs: Laboratory Results - last 48 hr 12/06/22 12/06/22 06:35 06:35 Sodium 140 Potassium 4.0 Chloride 107 Carbon Dioxide 28 Anion Gap 9 L BUN 8 L Creatinine 0.73 Estim Creat Clear Calc 244.6 Estimated GFR > 60 Random Glucose 86 Calcium 9.3 TSH 1.64 [place] 0.66 Medications Medications Current Medications Acetaminophen (Acetaminophen 325 Mg Tablet) 650 mg PO Q6H PRN PRN Reason: Headache/Pain Mild Scale (1-3) Last Admin: 11/18/22 20:19 Dose: 650 mg Al Hydroxide/Mg Hydroxide (Magnesium Hydrox/Alum Hydrox 30 Ml Oral.Susp) 30 ml PO Q6H PRN PRN Reason: Heartburn/Nausea Albuterol Sulfate (Albuterol Sulfate 90 Mcg 8 Gm Inhaler) 2 puff INHALE Q4H PRN PRN Reason: Shortness of Breath Amlodipine Besylate (Amlodipine Besylate 10 Mg Tablet) 10 mg PO DAILY [facility]; Protocol Last Admin: 12/07/22 08:26 Dose: 10 mg Fluticasone Propionate (Fluticasone Propionate Nasal 16 Gm [place]) 1 spray NOSTRIL-B Q12H [facility] Last Admin: 12/07/22 08:26 Dose: Not Given Hydroxyzine HCl (Hydroxyzine Hcl 25 Mg Tablet) 25 mg PO Q6H PRN PRN Reason: Anxiety Last Admin: 12/07/22 13:49 Dose: 25 mg Levothyroxine Sodium (Levothyroxine Sodium 75 Mcg Tablet) 75 mcg PO DAILY@0630 [facility] Last Admin: 12/07/22 06:22 Dose: 75 mcg [place] Carbonate ([place] Carbonate 300 Mg Capsule) 900 mg PO BID [facility] Last Admin: 12/07/22 08:26 Dose: 900 mg Magnesium Hydroxide (Milk Of Magnesia 30 Ml Oral.Susp) 30 ml PO DAILY PRN PRN Reason: Constipation Nicotine Polacrilex (Nicotine Polacrilex 2 Mg Gum) 2 mg BUCCAL QID PRN PRN Reason: Nicotine Cravings Nicotine Polacrilex (Nicotine Polacrilex 2 Mg Gum) 4 mg BUCCAL Q2H PRN PRN Reason: Nicotine Cravings Pt Own (Lumateperone [Caplyta] 42 Mg Capsule) 1 cap PO DAILY@1700 [facility] Last Admin: 12/06/22 16:21 Dose: 1 cap Non-Formulary Medication (Invega Trinza) 819 mg IM Q90D [facility] Last Admin: 12/02/22 10:35 Dose: 819 mg Olanzapine (Olanzapine 5 Mg Tablet) 5 mg PO TID PRN PRN Reason: agitation Last Admin: 12/02/22 21:11 Dose: 5 mg Olanzapine (Olanzapine 5 Mg Tablet) 5 mg PO BEDTIME [facility] Last Admin: 12/06/22 20:34 Dose: 5 mg Paliperidone (Paliperidone Er 3 Mg Tab.Er.24) 3 mg PO BEDTIME [facility] Last Admin: 12/06/22 20:34 Dose: 3 mg Trazodone HCl (Trazodone Hcl 50 Mg Tablet) 50 mg PO BEDTIME MRX1 PRN PRN Reason: Insomnia Last Admin: 12/04/22 19:45 Dose: 50 mg Vitamin D (Cholecalciferol (Vitamin D3) 25 Mcg Tablet) 25 mcg PO DAILY [facility] Last Admin: 12/07/22 08:26 Dose: 25 mcg Allergies Allergies Allergy/AdvReac Type Severity Reaction Status Date / Time haloperidol [From HALDOL] Allergy Unknown DISTONIC Verified 06/03/20 02:40 REACTION Assessment & Plan Assessment & Plan (1) Schizoaffective disorder, bipolar type: Status: Acute Code(s): F25.0 - Schizoaffective disorder, bipolar type Plan Patient is a 32-year-old male with diagnosis of schizoaffective disorder, bipol ar type, last admitted to [facility] about a year ago, who presents now for worsening auditory hallucinations and paranoid delusions in the face of medication non adherence. -previous admission note says patient has a community Mantilla; will try to procure -patient restarted on lithium; patient is also normal on long-acting Invega Trinza so will start Invega p.o..; also on Caplyta -will pursue collateral Plan: CV Q 15 minute checks Restarted lithium 600 mg b.i.d. Patient is also on Caplyta however not on formulary and pt's own medications not yet available Will start Invega p.o. for now until Caplyta available Will try to recover community Mantilla document Gather collateral 11/10/22- Continue current regime. Continue Olanzapine 5 mg HS 11/12/22- Continue current regime/plan Message left for [facility] team for collateral Labs: B12, Folate, TSH, [place] EKG 11/13/22 Increase Olanzapine to 10 mg bid Increase [place] to 900 mg bid (Level 0.31) 11/15/2022 no changes as olanzapine and lithium just increased by team 11/16/22: Out patient regime clarified today by [facility], [facility], father and TEDDYA Wilson due 12/02/22 Trinza and Caplyta ordered from [place] to re-establish 11/17/22. Continue current regime. [place] level 11/20 Awaiting Caplyta to arrive to initiate Support, educate 11/18/22: Discontinue Olanzapine, Invega Risperdal 2 mg bid 11/19 continue current treatment regimen Patient to start Caplyta once available 11/20 continue current treatment regimen; defer to primary team for further med adjustment 11/22 Discontinue Risperdal Olanzapine 5 mg bid Invega 3 mg bid 11/24/22 continue current plan 11/25 continue current plan. 11/26 continue tx. 11/27 continue tx. 11/28 continue treatmentplan 11/29 continue treatment plan 11/30/22: Section VII filed BMP, EKG, [place] Trinza Injection due 12/02/22 Decrease Olanzapine to 5 mg HS from 5 mg bid Pt asks for PCP assignment-will check his insurance assignment 12/01/22- Continue current regime. 12/02/22- Continue current regime 12/03/22- Decrease Invega to 3 mg daily Labs 12/06-[place], BMP, TSH 12/04 patient remains stable, likely at baseline; continue current treatment plan 12/05 continue with current treatment plan 12/06 continue with current treatment plan 12/07/22 Continue current regime Discharge 12/08/22. Patient educated on: medication risk/benefits and therapeutic strategies Informed Consent: understands and further education needed Reason for contiued inpatient stay Substantial Risk for: rapid decompensation Time Spent With Patient Time: Total time managing care of this patient today ____ minutes.
[2022-12-07 16:10] VITALS: BP 112/59; PULSE 66; TEMP 36.8; O2SAT 97
[2022-12-07] MEDS: OLANZapine 5 MG TABLET PO (20:07)
[2022-12-07] MEDS: Fluticasone Propionate Nasal 16 GM SPRAY 1 SPRAY NOSTRIL-B (20:08)
[2022-12-08 06:00] VITALS: BP 131/85; PULSE 76; RESP 18; TEMP 36.1; O2SAT 97
[2022-12-08] MEDS: Levothyroxine Sodium 75 MCG TABLET PO (06:06)
[2022-12-08] MEDS: Cholecalciferol (Vitamin D3) 25 MCG TABLET PO (09:02)
[2022-12-08] MEDS: Lithium Carbonate 300 MG CAPSULE 900 MG PO (09:02)
[2022-12-08] MEDS: amLODIPine Besylate 10 MG TABLET PO (09:02)
[2022-12-08] MEDS: hydrOXYzine HCL 25 MG TABLET PO (09:02)
[2022-12-08] MEDS: OLANZapine 5 MG TABLET PO (09:02)
--- NOTE | 2022-12-08 14:23 | PM.PSYDC ---
DS: Providers Provider Date of Service: 12/08/22 Date of admission: 11/07/22 12:40 Date of discharge: 12/08/22 Primary care physician: Unknown Physician Admitting clinician: Robe Roca Attending physician on admission: Robe Roca Attending physician on discharge: Prakash Monteiro Discharging clinician: Kimmie Clemens DS: Diagnosis Discharge Diagnosis (1) Schizoaffective disorder, bipolar type: Status: Acute DS: Medications Discharge Medications Home Medications: Previous Rx's Medication Instructions Recorded lumateperone 42 mg capsule 42 mg PO DAILY #30 caps 11/16/22 (Caplyta) paliperidone palm (3-month) 819 819 mg (2.63 mL) IM [id number] #2.63 11/16/22 mg/2.63 mL intramuscular syringe mL (Invega Trinza) albuterol sulfate 90 mcg/actuation 2 puff inhalation Q4H PRN 12/07/22 aerosol inhaler (Ventolin HFA) Shortness Of Breath #1 inhaler amlodipine 10 mg tablet 1 tab PO DAILY #30 tabs 12/07/22 cholecalciferol (vitamin D3) 25 1 cap PO DAILY #30 caps 12/07/22 mcg (1,000 unit) capsule (Vitamin D3) fluticasone propionate 50 1 spray intranasal Q12H #16 grams 12/07/22 mcg/actuation nasal spray,suspension (24 Hour Allergy Relief) levothyroxine 75 mcg tablet 1 tab PO DAILY #30 tabs 12/07/22 lithium carbonate 300 mg capsule 900 mg PO BID #180 caps 12/07/22 lumateperone 42 mg capsule 1 cap PO QPM #30 caps 12/07/22 (Caplyta) nicotine (polacrilex) 2 mg gum 2 mg buccal QID PRN Nicotine 12/07/22 Cravings #60 ea Mental Status Exam Mental Status Exam Patient Appearance: Disheveled Patient Orientation: Person, Place, Time and Situation Level of Consciousness: Alert Patient Behavior: Appropriate, Talkative, Cooperative and Good Eye Contact Mood Description: Cheerful Affect Description: Cheerful and Flat Patient Cognition Impaired: No Ability to Follow Directions: Good Speech Pattern: Spontaneous Speech Memory Description: Episodic Impaired Hallucinations: None (denies today) Delusions: Present Perceptual Disturbances: Derealization Thought Process: Distracted and Goal Oriented Thought Content: positive for Circumstantial, positive for Goal Oriented, positive for Tangential, positive for Suicidal Ideation (denies) and positive for Homicidal Ideation (denies) Depressive Symptoms: Isolating-Friends/Family Abnormal Motor Activity Signs and Symptoms: Restlessness Judgement: Good Data Data Completed and Pending Completed studies during hospitalization [Text1]: 12/06/22 12/06/22 06:35 06:35 Sodium 140 Potassium 4.0 Chloride 107 Carbon Dioxide 28 Anion Gap 9 L BUN 8 L Creatinine 0.73 Estim Creat Clear Calc 244.6 Estimated GFR > 60 Random Glucose 86 Calcium 9.3 TSH 1.64 [place] 0.66 DS: Summary Hospital Course Hospital Course: Admission to adult psychiatry for exacerbation of symptoms of schizoaffective disorder, bipolar type, cannabis use disorder-dependence with reported extensive use and reported treatment noncompliance since March 2022. Regime was re-started and completely reintegrated prior to discharge given difficulties in finding supplies of the agents used prior to admission. Section VII was filed, however, Henry was able to work with the team to resolve symptoms. He plans to return to his outpatient team upon discharge and at discharge was compliant with his regime and without adverse effects. Time spent discussing smoking cessation with patient: 3 to 10 minutes Status at Discharge Functional status at discharge: independent ambulation Overall status at discharge: patient is progressing back to baseline Time Spent with Patient Time attestation: Total time managing care of this patient today ____ minutes. Time spent: Greater than 30 minutes Discharge Plan Discharge Anticipated Discharge Date/Time: 12/08/22 12:45 Patient Disposition: Home, Self-Care Discharge Diagnosis: Schizoaffective Disorder, Bipolar Type Cannabis Use Disorder, Dependence Referrals: [facility] [Other] - 1 Week (PLEASE CALL WHEN D/C TO [facility] [phone]. SHE WILL GIVE US F/U APPOINTMENT.) Dom Monsivais: [facility] [Other] - 12/17/22 3:15 pm (Follow-up discharge appointment with outpatient psychiatric prescriber Appointment is in person at [facility] in [place]) Discharge Medications: New Caplyta 42 mg capsule 42 mg PO DAILY Qty: 30 0RF Invega Trinza 819 mg/2.63 mL syringe 819 mg IM [id number] Qty: 2.63 0RF lithium carbonate 300 mg Capsule 900 mg PO BID Qty: 180 0RF albuterol sulfate [Ventolin HFA] 90 mcg/actuation Hfa Aerosol Inhaler 2 puff inhalation Q4H PRN (Reason: Shortness Of Breath) Qty: 1 0RF Continued nicotine (polacrilex) 2 mg Gum 2 mg buccal QID PRN (Reason: Nicotine Cravings) Qty: 60 0RF levothyroxine 75 mcg tablet 1 tab PO DAILY Qty: 30 0RF amlodipine 10 mg tablet 1 tab PO DAILY Qty: 30 0RF fluticasone propionate [24 Hour Allergy Relief] 50 mcg/actuation spray,suspension 1 spray intranasal Q12H Qty: 16 0RF Rx Instructions: administer into each nostril cholecalciferol (vitamin D3) [Vitamin D3] 25 mcg (1,000 unit) capsule 1 cap PO DAILY Qty: 30 0RF Caplyta 42 mg capsule 1 cap PO QPM Qty: 30 0RF Discontinued Invega Trinza 546 mg/1.75 mL syringe 546 mg IM [id number] lithium carbonate 600 mg capsule 1 cap PO BID Discharge Orders: Discharge Order (Routine); Ordered 12/07/22 Ordered By: Kimmie Clemens Diet: Advance to usual diet Activity on Discharge: As tolerated Stand Alone Forms: Patient Portal Discharge page, Community Support Care Plan Goals: Stable mood and behavior Health Concerns: Stable mood and Behaviors Plan of Treatment: Invega Trinza injection was given on 12/02/22. Your next injection is due on 03/03/23. Connect with out patient providers Take medications as directed Call and or return as needed Assessment: Henry interviewed prior to discharge and found to be fully oriented and without SI/HI. Henry is wanting to continue treatment and is looking forward to seeing providers in person for his next visit. He has insight and demonstrates good judgment in terms of wanting to continue treatment. Henry is not in imminent risk of harm to self or others and has a safety plan that includes presenting to the closest ER or calling 911 if he is not feeling safe. His father validates this, stating that Henry is aware when he is in need of help and does call for assistance. Henry has been observed by the nursing staff throughout his admission. Henry has not engaged in any behaviors that suggest dangerousness to self or others and has demonstrated appropriate behaviors and impulse control. Discharge Date/Time: 12/08/22 10:57
== END 2022-12-08 10:57 | disposition home or self-care (01) | DRG 750 ==
LOC: HO.ED 11-07 00:15 → HO.PM5 11-07 12:56
PROVIDERS: Physician Assistant; Admitting Provider Psychiatry & Neurology Psychiatry; Emergency Provider Emergency Medicine; Visit Provider Clinical Nurse Specialist Psychiatric/Mental Health, Adult
DX: F25.0 Schizoaffective disorder, bipolar type (principal); E03.9 Hypothyroidism, unspecified; F17.210 Nicotine dependence, cigarettes, uncomplicated; Z20.822 Contact with and (suspected) exposure to COVID-19; Z71.6 Tobacco abuse counseling; Z79.51 Long term (current) use of inhaled steroids; Z79.890 Hormone replacement therapy; Z79.899 Other long term (current) drug therapy
CPT/HCPCS: 0241U; 36415; 80048; 80053; 80061; 80178; 80307; 82077; 82607; 82746; 83036; 84443; 85025; 87635; 93005; 99285; S9485

== ENCOUNTER 2023-03-22 11:08 | Outpatient (REF) | payer MEDICAID, SELFPAY ==
[2023-03-22 13:17] LABS: MANUAL DIFF FLAG NO
[2023-03-22 13:54] LABS: Basophils Absolute Auto 0.1 X10*3/uL (0.0-0.2); Basophils Percent Auto 0.9 % (0-2); Eosinophils Absolute Auto 0.5 X10*3/uL (0.0-0.4); Eosinophils Percent Auto 5.3 % (0-4); Hematocrit 42.1 % (42.0-52.0); Hemoglobin 13.6 g/dl (14.0-18.0); Imm Gran Abs Auto 0.03 X10*3/uL (0.00-0.03); Imm Gran Pct Auto 0.3 % (0.0-0.4); Lymphocytes Absolute Auto 2.3 X10*3/uL (1.2-4.9); Lymphocytes Percent Auto 24.1 % (20-40); Mean Corpuscular HGB Conc 32.3 g/dl (31.0-36.0); Mean Corpuscular Hemoglobin 28.9 pg (27.0-33.0); Mean Corpuscular Volume 89.6 fL (80.0-98.0); Mean Platelet Volume 10.3 fL (9.4-12.4); Monocytes Absolute Auto 0.7 X10*3/uL (0.1-1.2); Monocytes Percent Auto 7.1 % (2-11); Neutrophils Absolute Auto 5.9 x10*3/uL (2.0-8.3); Neutrophils Percent Auto 62.3 % (45-73); Platelet Count 293 X10*3/uL (160-400); Red Cell Distribution Width 12.7 % (11.0-16.0); White Blood Count 9.4 X10*3/uL (4.8-10.8)
[2023-03-22 14:17] LABS: Syphilis Screen Nonreactive (Nonreactive)
[2023-03-22 14:19] LABS: Estimated Average Glucose 88 mg/dL; Hemoglobin A1c % 4.7 %
[2023-03-22 14:25] LABS: Creatinine Urine 228.48 mg/dL; Microalbum/Creatinine Ratio Ur 31.9 ug/mg cr
[2023-03-22 14:31] LABS: Folate 5.9 ng/mL (> or = 4.0); Vitamin B12 398 pg/mL (200-900)
[2023-03-22 15:21] LABS: CT PCR NOT DETECTED (Not Detect.); NG PCR NOT DETECTED (Not Detect.)
[2023-03-22 16:53] LABS: Alanine Aminotransferase 19 U/L (0-40); Albumin Level 4.3 g/dL (3.5-5.0); Alkaline Phosphatase 75 U/L (39-117); Anion Gap 10 (12-20); Aspartate Amino Transferase 20 U/L (5-37); Bilirubin Total 0.4 mg/dL (0.0-1.0); Blood Urea Nitrogen 11 mg/dL (9-16); Calcium 9.7 mg/dL (8.4-10.2); Carbon Dioxide 28 mmol/L (22-29); Chloride 107 mmol/L (96-108); Cholesterol 168 mg/dL; Estimated Glomerular Filt Rate > 60; Glucose Random 86 mg/dL (60-115); HDL Cholesterol 34 mg/dL; LDL Cholesterol Calculated 111 mg/dl; Potassium 3.8 mmol/L (3.3-5.1); Sodium 141 mmol/L (135-145); Total Protein 7.6 g/dL (6.5-8.0); Triglycerides 118 mg/dL
[2023-03-22 17:01] LABS: Free T4 (Free Thyroxine) 1.12 ng/dL (0.71-1.85); Thyroid Stimulating Hormone 1.94 uIU/mL (0.32-4.0)
[2023-03-23 06:04] LABS: HBc Num1 0.19 S/CO (0.00-0.79); HBsAGNum1 0.38 S/CO (0.00-0.99); HIV AB/AG Nonreactive (Nonreactive); HIV Num 1 0.06 S/CO (0.00-0.99); Hepatitis B Core Antibody Nonreactive (Nonreactive); Hepatitis B Surface Antigen Negative (Negative); ~Hepatitis B Surface Antibody REACTIVE (Nonreactive)
[2023-03-23 06:08] LABS: ~HepC Num1 0.19 S/CO (0.00-0.79); ~Hepatitis C Antibody Nonreactive (Nonreactive)
[2023-03-26 12:49] LABS: VITAMIN D (1,25 OH) D3 42 pg/mL; Vit D (1,25-Dihydroxy) Total 42 pg/mL (18-72); Vitamin D (1,25 OH) D2 <8 pg/mL
== END 2023-03-22 11:09 | disposition home or self-care (01) ==
LOC: HO.HHCL 11:08
PROVIDERS: Visit Provider Student in an Organized Health Care Education/Training Program
DX: Z00.00 Encounter for general adult medical examination without abnormal findings (principal); Z20.2 Contact with and (suspected) exposure to infections with a predominantly sexual mode of transmission
CPT/HCPCS: 0353U; 80053; 80061; 82043; 82607; 82652; 82746; 83036; 84436; 84439; 84443; 85025; 86704; 86706; 86780; 86803; 87340; 87389

== ENCOUNTER 2023-06-09 10:55 | Outpatient (REF) | payer MEDICAID, SELFPAY ==
[2023-06-10 04:17] LABS: HBS Num1 343.83 mIU/mL (0-7.99); HBc Num1 0.21 S/CO (0.00-0.79); HBsAGNum1 0.44 S/CO (0.00-0.99); HIV AB/AG Nonreactive (Nonreactive); HIV Num 1 0.07 S/CO (0.00-0.99); Hepatitis B Core Antibody Nonreactive (Nonreactive); Hepatitis B Surface Antigen Negative (Negative); ~Hepatitis B Surface Antibody REACTIVE (Nonreactive)
== END 2023-06-09 10:56 | disposition home or self-care (01) ==
LOC: HO.HHCL 10:55
PROVIDERS: Visit Provider Student in an Organized Health Care Education/Training Program
DX: Z00.00 Encounter for general adult medical examination without abnormal findings (principal); Z11.4 Encounter for screening for human immunodeficiency virus [HIV]
CPT/HCPCS: 0353U; 80053; 80061; 82607; 82746; 83036; 84436; 84439; 84443; 85025; 86704; 86706; 87340; 87389

== ENCOUNTER 2023-06-18 10:54 | Outpatient (REF) | payer MEDICAID, SELFPAY ==
[2023-06-18 12:59] LABS: Creatinine Urine 186.96 mg/dL; Microalbum/Creatinine Ratio Ur 89.3 ug/mg cr (<30)
== END 2023-06-18 10:55 | disposition home or self-care (01) ==
LOC: HO.HHCL 10:54
PROVIDERS: Visit Provider Student in an Organized Health Care Education/Training Program
DX: Z00.00 Encounter for general adult medical examination without abnormal findings (principal)
CPT/HCPCS: 82043; 82570

== ENCOUNTER 2023-08-13 06:02 | Inpatient (IN) | payer OTHER, SELFPAY ==
[2023-08-13 06:12] VITALS: BP 122/77; BP 150/92; PULSE 120; PULSE 82; RESP 18; TEMP 36.6; O2SAT 96; O2SAT 99; BMI 42.4
--- NOTE | 2023-08-13 06:12 | ED.PSYCH ---
HPI - Psych General Stated Complaint: Hearing voices Time Seen by Provider: 08/13/23 06:08 Source: patient Mode of arrival: EMS Limitations: no limitations History of Present Illness HPI Narrative: Patient comes to the emergency room complaining of worsening auditory hallucinations. Patient states that he has heard voices for 20+ years, has been on medication. However, patient states that he believes that someone in his house is not giving him his right medications and therefore the hallucinations are getting worse. Patient denies SI or HI. Denies visual hallucinations. Related Data Previous Rx's Medication Instructions Recorded lumateperone 42 mg capsule 42 mg PO DAILY #30 caps 11/16/22 (Caplyta) paliperidone palm (3 month) 819 819 mg (2.63 mL) IM [id number] #2.63 11/16/22 mg/2.63 mL intramuscular syringe mL (Invega Trinza) albuterol sulfate 90 mcg/actuation 2 puff inhalation Q4H PRN 12/07/22 aerosol inhaler (Ventolin HFA) Shortness Of Breath #1 inhaler amlodipine 10 mg tablet 1 tab PO DAILY #30 tabs 12/07/22 cholecalciferol (vitamin D3) 25 1 cap PO DAILY #30 caps 12/07/22 mcg (1,000 unit) capsule (Vitamin D3) fluticasone propionate 50 1 spray intranasal Q12H #16 grams 12/07/22 mcg/actuation nasal spray,suspension (24 Hour Allergy Relief) levothyroxine 75 mcg tablet 1 tab PO DAILY #30 tabs 12/07/22 lithium carbonate 300 mg capsule 900 mg (3 x 300 mg) PO BID #180 12/07/22 caps lumateperone 42 mg capsule 1 cap PO QPM #30 caps 12/07/22 (Caplyta) nicotine (polacrilex) 2 mg gum 2 mg buccal QID PRN Nicotine 12/07/22 Cravings #60 ea Allergies Allergy/AdvReac Type Severity Reaction Status Date / Time haloperidol [From HALDOL] Allergy Unknown DISTONIC Verified 06/03/20 02:40 REACTION Review of Systems Review of Systems: Constitutional : No Weight loss, No Fever, No Chills, No Night Sweats, No Fatigue, No Malaise ENT/Mouth : No Hearing loss, No Ear Pain, No Nasal Congestion, No Sinus Pain, No Hoarseness, No sore throat, No Rhinorrhea, No Swallowing Difficulty Eyes: No Eye Pain, No Swelling, No Redness, No Foreign Body, No Discharge, No Vision Changes Cardiovascular : No Chest Pain, No SOB, No Dyspnea on Exertion, No Orthopnea, No Edema, No Palpitations Respiratory : No Cough, No Sputum, No Wheezing, No Smoke Exposure, No Dyspnea Gastrointestinal : No Nausea, No Vomiting, No Diarrhea, No Constipation, No abdominal Pain, No Hematochezia, No Melena Genitourinary : no irregular bleeding, No Dysuria, No Urinary Frequency, No Hematuria, No Urinary Incontinence, No Urgency, No Flank Pain, No Urinary Flow Changes, No Hesitancy Musculoskeletal : No joint pain, No Myalgias, No Joint Swelling Skin : No Skin Lesions, No rash Neuro : No Weakness, No Numbness, No Paresthesias, No Loss of Consciousness, No Dizziness, No Headache Psych : Anxiety, denies depression denies SI, complaining of worsening auditory hallucinations Heme/Lymph: No Bruising, No Bleeding,No Lymphadenopathy Endocrine : No Polyuria, No Polydipsia, No Temperature Intolerance [facility] Past Medical History Medical History Delusional disorder Hypothyroid Asthma Schizoaffective disorder Social History Social History Household Members: Family Household Members Other:: Parents Housing: House Do you presently have visiting nurse or other home services: Yes Alcohol intake: never Comment: Dr. Roca Patient Tobacco Use Status: Current everyday Tobacco user Tobacco use type: Smokeless Tobacco Cigarette Packs Per Day: 10 Cigarettes Per Day: 200.0 Years Smoked: 19 e-Cigarette/Vaping Use: Currently Using Second Hand Smoke Exposure: No Substance Use Type: Crack/Cocaine, Heroin and Marijuana service: No Sexual orientation: Don't Know Physical Exam Const: Other: Appearance: Alert. Oriented X3. No acute distress. Eyes: Pupils equal, round and reactive to light. ENT: Pharynx normal. Neck: Normal inspection. Neck supple. No lymph nodes noted. No crepitus CVS: Normal heart rate and rhythm. Pulses normal. Normal S1 and S2 Respiratory: No respiratory distress. Breath sounds normal. No Wheezing. No rales Abdomen: Soft and nontender. No rigidity. No distention. Skin: Skin warm and dry. Normal skin color. Normal skin turgor. Extremities: No lower extremity edema. No Lacerations. No Rash Neuro: Oriented X 3. No motor deficit. No sensory deficit. Moving all extremities. No slurred speech. CN 2 through 12 grossly intact Psych: calm, cooperative, patient seems a bit paranoid Course Course Course Narrative: -patient feeling anxious, requested something for anxiety, 2 mg of Ativan p.o. given -all of patient's labs pending -care team consult pending -physician observation started at 06:15 -sign-out given to Dr. Narayan Discharge Plan Discharge Clinical Impression: Schizoaffective disorder, bipolar type, Auditory hallucination Patient Disposition: Still a Patient Prescriptions: No Action Caplyta 42 mg capsule 42 mg PO DAILY Qty: 30 0RF Invega Trinza 819 mg/2.63 mL syringe 819 mg IM [id number] Qty: 2.63 0RF lithium carbonate 300 mg Capsule 900 mg PO BID Qty: 180 0RF albuterol sulfate [Ventolin HFA] 90 mcg/actuation Hfa Aerosol Inhaler 2 puff inhalation Q4H PRN (Reason: Shortness Of Breath) Qty: 1 0RF nicotine (polacrilex) 2 mg Gum 2 mg buccal QID PRN (Reason: Nicotine Cravings) Qty: 60 0RF levothyroxine 75 mcg tablet 1 tab PO DAILY Qty: 30 0RF amlodipine 10 mg tablet 1 tab PO DAILY Qty: 30 0RF fluticasone propionate [24 Hour Allergy Relief] 50 mcg/actuation spray,suspension 1 spray intranasal Q12H Qty: 16 0RF Rx Instructions: administer into each nostril cholecalciferol (vitamin D3) [Vitamin D3] 25 mcg (1,000 unit) capsule 1 cap PO DAILY Qty: 30 0RF Caplyta 42 mg capsule 1 cap PO QPM Qty: 30 0RF
[2023-08-13] MEDS: LORazepam 1 MG TABLET 2 MG PO (06:18)
[2023-08-13 06:31] LABS: MANUAL DIFF FLAG NO
[2023-08-13 06:44] LABS: Basophils Absolute Auto 0.1 X10*3/uL (0.0-0.2); Basophils Percent Auto 0.7 % (0-2); Eosinophils Absolute Auto 0.6 X10*3/uL (0.0-0.4); Eosinophils Percent Auto 5.4 % (0-4); Hematocrit 42.5 % (42.0-52.0); Hemoglobin 13.8 g/dl (14.0-18.0); Imm Gran Abs Auto 0.03 X10*3/uL (0.00-0.03); Imm Gran Pct Auto 0.3 % (0.0-0.4); Lymphocytes Percent Auto 28.9 % (20-40); Mean Corpuscular HGB Conc 32.5 g/dl (31.0-36.0); Mean Corpuscular Hemoglobin 28.6 pg (27.0-33.0); Mean Platelet Volume 9.7 fL (9.4-12.4); Monocytes Absolute Auto 0.8 X10*3/uL (0.1-1.2); Monocytes Percent Auto 8.1 % (2-11); Neutrophils Absolute Auto 5.8 x10*3/uL (2.0-8.3); Neutrophils Percent Auto 56.6 % (45-73); Platelet Count 283 X10*3/uL (160-400); Red Blood Count 4.83 X10*6/uL (4.60-5.80); Red Cell Distribution Width 13.3 % (11.0-16.0); White Blood Count 10.2 X10*3/uL (4.8-10.8)
[2023-08-13 06:45] LABS: Amphetamine Screen Urine Not Detected (Not Detect); Barbiturates, Urine Not Detected (Not Detect); Benzodiazepines Screen Urine Not Detected (Not Detect); Cannabinoid Screen Urine Not Detected (Not Detect); Cocaine Screen Urine Not Detected (Not Detect); Fentanyl, urine Not Detected (Not Detect); Opiate Screen Urine Not Detected (Not Detect); Phencyclidine Screen Urine Not Detected (Not Detect)
[2023-08-13 06:47] LABS: Ethanol < 10 mg/dL
[2023-08-13 06:53] LABS: Appearance Urine Clear; Color Urine Yellow; Glucose Urine UA Negative (Negative); Leukocyte Esterase Urine Negative (Negative); Nitrite Urine Negative (Negative); PH 6.5 (5.0-9.0); Specific Gravity - Urine 1.015 (1.005-1.025); Urine Blood Negative (Negative); Urine Ketones Negative (Negative); Urine Protein Negative (Neg-Trace)
[2023-08-13 06:55] LABS: Alanine Aminotransferase 20 U/L (0-40); Albumin Level 4.2 g/dL (3.5-5.0); Alkaline Phosphatase 84 U/L (39-117); Anion Gap 12 (12-20); Aspartate Amino Transferase 18 U/L (5-37); Bilirubin Direct < 0.1 mg/dL (0.0-0.5); Bilirubin Total 0.3 mg/dL (0.0-1.0); Blood Urea Nitrogen 9 mg/dL (9-16); Calcium 9.7 mg/dL (8.4-10.2); Carbon Dioxide 28 mmol/L (22-29); Chloride 105 mmol/L (96-108); Creatinine Clr Calc Pharmacy 235.1; Estimated Glomerular Filt Rate > 60; Glucose Random 92 mg/dL (60-115); Potassium 3.7 mmol/L (3.3-5.1); Sodium 141 mmol/L (135-145); Total Protein 7.7 g/dL (6.5-8.0)
[2023-08-13 06:59] LABS: Bacteria Urine None Seen (None Seen); Hyaline Casts Urine 0-2 /LPF (0-2); RBC Urine 0-2 /HPF (0-2); Squamous Epithelial Cell Urine 0-2 /HPF (0-2); WBC Urine 0-5 /HPF (0-5)
--- NOTE | 2023-08-13 07:45 | PC.NURSE ---
PT IS SLEEPING RESP EVEN AND UNLABORED.
--- NOTE | 2023-08-13 10:14 | PC.NURSE ---
CASE MANAGEMENT AT BEDSIDE. PT AWARE OF PLAN OF CARE.
[2023-08-13 10:19] VITALS: BP 114/66; PULSE 69; RESP 15; TEMP 37.1; O2SAT 93
[2023-08-13 10:49] LABS: Lithium 0.54 mmol/L (0.60-1.20)
--- NOTE | 2023-08-13 11:16 | ECG_ITS ---
Test Reason : CHECK QT Blood Pressure : / mmHG Vent. Rate : 066 BPM Atrial Rate : 066 BPM P-R Int : 216 ms QRS Dur : 094 ms QT Int : 432 ms P-R-T Axes : 037 068 022 degrees QTc Int : 452 ms Sinus rhythm with 1st degree A-V block Otherwise normal ECG When compared with ECG of 01-DEC-2022 09:03, No significant change was found Referred By: Eduardo Narayan Electronically Signed By:Cristo Mckee
[2023-08-13 11:34] LABS: Influenza A PCR NEGATIVE (Negative); Influenza B PCR NEGATIVE (Negative); Resp Syncy Virus RNA Qual PCR NEGATIVE (Negative); SARS COV2 PCR INHOUSE NEGATIVE (Negative)
--- NOTE | 2023-08-13 15:01 | MHC.CARE ---
Marco Terrazas [phone] [facility] worker, and patient's mother, Fiona Yarbrough [phone] would like to be involved and contacted re: patient care/ discharge planning.
--- NOTE | 2023-08-13 15:11 | PC.NURSE ---
RN TO RN REPORT GIVEN TO KECIA. PT AWARE OF PLAN OF CARE FOR TRANSFER TO [facility].
--- NOTE | 2023-08-13 15:50 | PC.NURSE ---
Med rec completed by DE
[2023-08-13 16:02] VITALS: BP 119/70; PULSE 82; RESP 16; TEMP 36.7; O2SAT 97
[2023-08-13 17:54] VITALS: BP 119/74; PULSE 72; RESP 18; TEMP 36.4; O2SAT 96
[2023-08-13 17:55] VITALS: BMI 51.5
--- NOTE | 2023-08-13 17:57 | PC.ADMIT ---
Henry arrived to the unit at 1645 on a conditional voluntary. Sharps check done by copywriter and male MHC. Upon approach Henry is calm and pleasant, he denied feeling depressed, reports endorsing anxiety and auditory hallucinations. He reports the voices are telling him Your a piece of crap, we are going to get you, your going down. He appears paranoid, states I need medication, my medication is not helping. He reports that he smoked marijuana It was a plant I saw it grow, and after smoking that's when the voices Got loud. Thought process appears disorganized, he reports having a history of HTN. He denied having thoughts of wanting to hurt self or others verbalized to look for staff if thoughts to hurt self or others occurred. Per assessment he arrived to [facility] reporting AH and racing thoughts Voices are attacking me. Patient has a legal guardian and is currently on a [facility] order.
[2023-08-13 19:55] VITALS: BP 140/67; PULSE 71; RESP 17; TEMP 37.6; O2SAT 94
[2023-08-13] MEDS: Lithium Carbonate 300 MG CAPSULE 900 MG PO (21:10)
[2023-08-13] MEDS: Fluticasone Propionate Nasal 16 GM SPRAY 1 SPRAY NOSTRIL-B (21:12)
[2023-08-14] MEDS: Levothyroxine Sodium 75 MCG TABLET PO (06:21)
[2023-08-14 08:15] VITALS: BP 118/60; PULSE 67; TEMP 36.8
[2023-08-14] MEDS: Lithium Carbonate 300 MG CAPSULE 900 MG PO ×2 (08:56→20:35)
[2023-08-14] MEDS: Cholecalciferol (Vitamin D3) 25 MCG TABLET PO (08:56)
[2023-08-14] MEDS: amLODIPine Besylate 10 MG TABLET PO (08:56)
[2023-08-14] MEDS: Fluticasone Propionate Nasal 16 GM SPRAY 1 SPRAY NOSTRIL-B ×2 (09:02→20:34)
[2023-08-14] MEDS: hydrOXYzine HCL 25 MG TABLET PO (13:57)
[2023-08-14] MEDS: risperiDONE 1 MG TABLET PO ×2 (15:13→20:35)
--- NOTE | 2023-08-14 17:15 | HO.PSYADMNOT ---
HPI Date of Service: 08/14/23 Chief Complaint: Psychosis Sources of Information: patient interviewed, chart reviewed and crisis/core team assessment reviewed HPI Subjective Notes: Conditional Voluntary Narrative: 33 yo male with a history of schizoaffective disorder. He lives with his father in [place]. He is single. Patient presented to the hospital with increasing and distressing AH. He reported to the CARE team the voices were going to kill him. Patient reports the voices are hurting me. They are molesting me. I have too many voices. He was disorganized during the evaluation and was perseverating on his AH. He reported he is compliant with medications (reportedly has a [facility] order in the community) but CARE team report patient has a history of non-adherence. He reported racing thoughts. Reported his mood as depressed and anxious. He was paranoid. He was calm during the evaluation. Past Psychiatric History: Multiple hospital stays, last on 11/2021, October 2022; He has had multiple other admissions including 2 at [facility]. He has also been to several [facility] programs. [facility]: Psychiatrist Dr. Stephen ([phone]) He has a Mantilla Order. Mother Flory Bullock is guardian ([phone]) Medical Evaluation Reviewed: Yes [facility] Medical History Delusional disorder Hypothyroid Asthma Schizoaffective disorder Family History: Unknown Social History: Pt born and raised in [place]. Lives with his parents. He has two brothers. He moved to [place] when he was 13 y/o. 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 Trauma History: Pt denies. Diagnostics Vital Signs (24Hr): Vital Signs - 24 hr 08/13/23 17:54 08/13/23 19:55 08/14/23 08:15 Temperature 97.6 F 99.7 F 98.2 F Pulse Rate 72 71 67 Respiratory Rate 18 17 Blood Pressure 119/74 140/67 H 118/60 Pulse Oximetry 96 94 Oxygen Delivery Method Room Air Room Air BMI result Body Mass Index 51.5 Labs 08/13/23 06:23 08/13/23 06:23 Labs: Laboratory Results - last 48 hr 12/1508/13/23 08/13/23 06:17 06:23 10:29 WBC 10.2 RBC 4.83 Hgb 13.8 L Hct 42.5 MCV 88.0 MCH 28.6 MCHC 32.5 RDW 13.3 Plt Count 283 MPV 9.7 Immature Gran % (Auto) 0.3 Neut % (Auto) 56.6 Lymph % (Auto) 28.9 [place] % (Auto) 8.1 Eos % (Auto) 5.4 H Baso % (Auto) 0.7 Lymph # (Auto) 3.0 [place] # (Auto) 0.8 Eos # (Auto) 0.6 H Baso # (Auto) 0.1 Abs Immat Gran (auto) 0.03 Absolute Neuts (auto) 5.8 Absolute Nucleated RBC 0.000 Nucleated RBC % (auto) 0.0 Sodium 141 Potassium 3.7 Chloride 105 Carbon Dioxide 28 Anion Gap 12 BUN 9 Creatinine 0.69 Estim Creat Clear Calc 235.1 Estimated GFR > 60 Random Glucose 92 Calcium 9.7 Total Bilirubin 0.3 Direct Bilirubin < 0.1 AST 18 ALT 20 Alkaline Phosphatase 84 Total Protein 7.7 Albumin 4.2 Urine Color Yellow Urine Appearance Clear Urine pH 6.5 Ur Specific [place] 1.015 Urine Protein Negative Urine Glucose (UA) Negative Urine Ketones Negative Urine Blood Negative Urine Nitrite Negative Ur Leukocyte Esterase Negative Urine RBC 0-2 Urine WBC 0-5 Ur Squamous Epith Cells 0-2 Urine Bacteria None Seen Hyaline Casts 0-2 Urine Opiates Screen Not Detected Urine Fentanyl Screen Not Detected Ur Barbiturates Screen Not Detected Ur Phencyclidine Scrn Not Detected Ur Amphetamines Screen Not Detected U Benzodiazepines Scrn Not Detected [place] 0.54 L Urine Cocaine Screen Not Detected U Marijuana (THC) Screen Not Detected Ethyl Alcohol < 10 Influenza Type A (PCR) NEGATIVE Influenza Type B (PCR) NEGATIVE RSV RNA Qual (PCR) NEGATIVE SARS-CoV-2 RNA (RT-PCR) NEGATIVE Meds/Allergies Allergies Allergies Allergy/AdvReac Type Severity Reaction Status Date / Time haloperidol [From HALDOL] Allergy Unknown DISTONIC Verified 06/03/20 02:40 REACTION Mental Status Exam Mental Status Exam Narrative: General appearance: Disheveled. Unkempt. poor hygiene.? Eye contact: intermittent/poor. Musculoskeletal: Normal muscle strength/tone, Normal gait and station, No abnormal involuntary movements like tremors, EPS or dyskinesia. No psychomotor agitation or retardation. Normal posture.??? Manner/behavior: cooperative Speech:? Soft. Perseverating Language: No receptive or expressive language impairment? Mood: the voices want to kill me Affect: Constricted/blunted range, congruent to mood and without lability? Thought process/associations: Disorganized. Perseverating Thought content:?Paranoid? Hallucinations: Auditory hallucinations Suicidality/self-destructive behavior: none, future oriented, hopeful.? ? Homicidally/violence: none.? Reliability: poor.? ? Judgment: impaired.? ? Insight: limited Cognition: Alert and oriented to time, place and person. Attention, concentration and fund of knowledge are normal.? Assessment & Plan Assessment & Plan (1) Schizoaffective disorder, bipolar type: Status: Acute Code(s): F25.0 - Schizoaffective disorder, bipolar type Plan 33 yo male with a history of schizoaffective disorder. He lives with his father in [place]. He is single. Patient presented to the hospital with increasing and distressing AH. He reported to the CARE team the voices were going to kill him. Patient reports the voices are hurting me. They are molesting me. I have too many voices. He was disorganized during the evaluation and was perseverating on his AH. He reported he is compliant with medications (reportedly has a [facility] order in the community) but CARE team report patient has a history of non-adherence. He reported racing thoughts. Reported his mood as depressed and anxious. Plan: Admit to [facility] Collateral information. Restart medications. Patient reported to be on Invega Trinza. Due in one month. Will start Risperidone 1 mg BID. Milieu therapy Disposition Patient educated on: diagnosis, medication risk/benefits and therapeutic strategies Reason for continued inpatient stay Substantial Risk for: inability to function and rapid decompensation Statement Statement: I have reviewed the history and physical and performed a pertinent examination on my patient. No changes have occurred unless specified. If the History and Physical was not performed prior to admission, the Hospitalist's service will be consulted for completing the admission physical. Time Spent With Patient Time: Total time managing care of this patient today ____ minutes.
[2023-08-14 20:00] VITALS: BP 140/71; PULSE 64; RESP 18; O2SAT 97
[2023-08-15] MEDS: Levothyroxine Sodium 75 MCG TABLET PO (06:28)
[2023-08-15 07:40] VITALS: BP 104/59; PULSE 57; RESP 18; TEMP 36.8; O2SAT 94
[2023-08-15] MEDS: Lithium Carbonate 300 MG CAPSULE 900 MG PO ×2 (08:14→20:26)
[2023-08-15] MEDS: Fluticasone Propionate Nasal 16 GM SPRAY 1 SPRAY NOSTRIL-B ×2 (08:14→20:30)
[2023-08-15] MEDS: amLODIPine Besylate 10 MG TABLET PO (08:14)
[2023-08-15] MEDS: risperiDONE 1 MG TABLET PO (08:14)
[2023-08-15] MEDS: Cholecalciferol (Vitamin D3) 25 MCG TABLET PO (08:14)
[2023-08-15] MEDS: hydrOXYzine HCL 25 MG TABLET PO (14:38)
[2023-08-15] MEDS: Acetaminophen 325 MG TABLET 650 MG PO (17:13)
--- NOTE | 2023-08-15 19:33 | HO.PSYCHPN ---
Subjective Subjective Date of Service: 08/15/23 Reason For Visit: Psychosis Interim History: Patient seen. Discussed in team. Patient continues to have hallucinations and feels overwhelmed by them. He is disorganized. He asks is telepathy and schizophrenia bad? He says he is tolerating Risperidone well. He denies SI. Review of Systems Review of Systems Constitutional : No Weight loss, No Fever, No Chills, No Night Sweats, No Fatigue, No Malaise ENT/Mouth : No Hearing loss, No Ear Pain, No Nasal Congestion, No Sinus Pain, No Hoarseness, No sore throat, No Rhinorrhea, No Swallowing Difficulty Eyes: No Eye Pain, No Swelling, No Redness, No Foreign Body, No Discharge, No Vision Changes Cardiovascular : No Chest Pain, No SOB, No Dyspnea on Exertion, No Orthopnea, No Edema, No Palpitations Respiratory : No Cough, No Sputum, No Wheezing, No Smoke Exposure, No Dyspnea Gastrointestinal : No Nausea, No Vomiting, No Diarrhea, No Constipation, No abdominal Pain, No Hematochezia, No Melena Genitourinary : no irregular bleeding, No Dysuria, No Urinary Frequency, No Hematuria, No Urinary Incontinence, No Urgency, No Flank Pain, No Urinary Flow Changes, No Hesitancy Musculoskeletal : No joint pain, No Myalgias, No Joint Swelling Skin : No Skin Lesions, No rash Neuro : No Weakness, No Numbness, No Paresthesias, No Loss of Consciousness, No Dizziness, No Headache Psych : Anxiety, denies depression denies SI, complaining of worsening auditory hallucinations Heme/Lymph: No Bruising, No Bleeding,No Lymphadenopathy Endocrine : No Polyuria, No Polydipsia, No Temperature Intolerance Mental Status Exam Mental Status Exam Narrative: General appearance: Disheveled. Unkempt. poor hygiene.? Eye contact: intermittent/poor. Musculoskeletal: Normal muscle strength/tone, Normal gait and station, No abnormal involuntary movements like tremors, EPS or dyskinesia. No psychomotor agitation or retardation. Normal posture.??? Manner/behavior: cooperative Speech:? Soft. Perseverating Language: No receptive or expressive language impairment? Mood: the voices want to kill me Affect: Constricted/blunted range, congruent to mood and without lability? Thought process/associations: Disorganized. Perseverating Thought content:?Paranoid? Hallucinations: Auditory hallucinations Suicidality/self-destructive behavior: none, future oriented, hopeful.? ? Homicidally/violence: none.? Reliability: poor.? ? Judgment: impaired.? ? Insight: limited Cognition: Alert and oriented to time, place and person. Attention, concentration and fund of knowledge are normal.? Diagnostics Vital Signs (24Hr): Vital Signs - 24 hr 08/14/23 20:00 08/15/23 07:40 Temperature 98.3 F Pulse Rate 64 57 Respiratory Rate 18 18 Blood Pressure 140/71 H 104/59 L Pulse Oximetry 97 94 Oxygen Delivery Method Room Air Room Air BMI result Body Mass Index 51.5 Labs 08/13/23 06:23 08/13/23 06:23 Medications Medications Current Medications Acetaminophen (Acetaminophen 325 Mg Tablet) 650 mg PO Q6H PRN PRN Reason: Headache/Pain Mild Scale (1-3) Last Admin: 08/15/23 17:13 Dose: 650 mg Al Hydroxide/Mg Hydroxide (Magnesium Hydrox/Alum Hydrox 30 Ml Oral.Susp) 30 ml PO Q6H PRN PRN Reason: Heartburn/Nausea Albuterol Sulfate (Albuterol Sulfate 90 Mcg 8 Gm Inhaler) 2 puff INHALE Q4H PRN PRN Reason: Shortness Of Breath Amlodipine Besylate (Amlodipine Besylate 10 Mg Tablet) 10 mg PO DAILY [facility]; Protocol Last Admin: 08/15/23 08:14 Dose: 10 mg Fluticasone Propionate (Fluticasone Propionate Nasal 16 Gm [place]) 1 spray NOSTRIL-B BID [facility] Last Admin: 08/15/23 08:14 Dose: 1 spray Hydroxyzine HCl (Hydroxyzine Hcl 25 Mg Tablet) 25 mg PO Q6H PRN PRN Reason: Anxiety Last Admin: 08/15/23 14:38 Dose: 25 mg Levothyroxine Sodium (Levothyroxine Sodium 75 Mcg Tablet) 75 mcg PO DAILY@0600 [facility] Last Admin: 08/15/23 06:28 Dose: 75 mcg [place] Carbonate ([place] Carbonate 300 Mg Capsule) 900 mg PO BID [facility] Last Admin: 08/15/23 08:14 Dose: 900 mg Magnesium Hydroxide (Milk Of Magnesia 30 Ml Oral.Susp) 30 ml PO DAILY PRN PRN Reason: Constipation Nicotine Polacrilex (Nicotine Polacrilex 2 Mg Gum) 2 mg BUCCAL QID PRN PRN Reason: Nicotine Cravings Nicotine Polacrilex (Nicotine Polacrilex 2 Mg Gum) 4 mg BUCCAL Q2H PRN PRN Reason: Nicotine Cravings Non-Formulary Medication (Lumateperone [Caplyta]) 42 mg PO DAILY IMANI Non-Formulary Medication (Paliperidone Palm (3 Month) [Invega Trinza]) 819 mg IM Q90D IMANI Risperidone (Risperidone 2 Mg Tablet) 2 mg PO BID IMANI Trazodone HCl (Trazodone Hcl 50 Mg Tablet) 50 mg PO BEDTIME MRX1 PRN PRN Reason: Insomnia Vitamin D (Cholecalciferol (Vitamin D3) 25 Mcg Tablet) 25 mcg PO DAILY IMANI Last Admin: 08/15/23 08:14 Dose: 25 mcg Allergies Allergies Allergy/AdvReac Type Severity Reaction Status Date / Time haloperidol [From HALDOL] Allergy Unknown DISTONIC Verified 06/03/20 02:40 REACTION Assessment & Plan Assessment & Plan (1) Schizoaffective disorder, bipolar type: Status: Acute Code(s): F25.0 - Schizoaffective disorder, bipolar type Plan 33 yo male with a history of schizoaffective disorder. He lives with his father in [place]. He is single. Patient presented to the hospital with increasing and distressing AH. He reported to the CARE team the voices were going to kill him. Patient reports the voices are hurting me. They are molesting me. I have too many voices. He was disorganized during the evaluation and was perseverating on his AH. He reported he is compliant with medications (reportedly has a [facility] order in the community) but CARE team report patient has a history of non-adherence. He reported racing thoughts. Reported his mood as depressed and anxious. Plan: Admit to [facility] Collateral information. Restart medications. Patient reported to be on Invega Trinza. Due in one month. Will start Risperidone 1 mg BID. Milieu therapy Disposition 08/15: Increase Risperidone to 2 mg BID. Continue current management and treatment plan. Reason for continued inpatient stay Substantial Risk for: inability to function and rapid decompensation Time Spent With Patient Time: Total time managing care of this patient today ____ minutes.
[2023-08-15 20:10] VITALS: BP 134/81; PULSE 79; RESP 18; TEMP 36.5
[2023-08-15] MEDS: risperiDONE 2 MG TABLET PO (20:26)
[2023-08-15] MEDS: traZODone HCL 50 MG TABLET PO (20:30)
[2023-08-16 06:00] VITALS: BP 146/79; PULSE 73; RESP 24; TEMP 36.3; O2SAT 97
[2023-08-16] MEDS: Levothyroxine Sodium 75 MCG TABLET PO (07:32)
[2023-08-16] MEDS: risperiDONE 2 MG TABLET PO (08:23)
[2023-08-16] MEDS: Fluticasone Propionate Nasal 16 GM SPRAY 1 SPRAY NOSTRIL-B ×2 (08:23→21:56)
[2023-08-16] MEDS: Cholecalciferol (Vitamin D3) 25 MCG TABLET PO (08:23)
[2023-08-16] MEDS: amLODIPine Besylate 10 MG TABLET PO (08:23)
[2023-08-16] MEDS: Lithium Carbonate 300 MG CAPSULE 900 MG PO ×2 (08:23→21:56)
--- NOTE | 2023-08-16 14:22 | P.PNPSI_ITS ---
Subjective Subjective Date of Service: 08/16/23 Reason For Visit: Psychosis Interim History: pleasant, cooperative. c/o worsening AH. amenable to PO invega for now, another month until richard is due. per staff psychosis with JONATHAN. believes his Sx got worse 13 days [employer], unclear why. Mental Status Exam Mental Status Exam Narrative: Appearance: obese male, fair hygiene, in NAD Behavior: cooperative Psychomotor: no agitation or retardation noted Speech: spontaneous, nml rate, amount, loudness, latency TP: linear TC: no delusions or paranoia expressed Mood: not assessed Affect: restricted range. AH/VH:+AH Insight/judment: poor x 2. Diagnostics Vital Signs (24Hr): Vital Signs - 24 hr 08/15/23 20:10 08/16/23 06:00 Temperature 97.7 F 97.3 F Pulse Rate 79 73 Respiratory Rate 18 24 H Blood Pressure 134/81 146/79 H Pulse Oximetry 97 Oxygen Delivery Method Room Air BMI result Body Mass Index 51.5 Labs 08/13/23 06:23 08/13/23 06:23 Medications Medications Current Medications Acetaminophen (Acetaminophen 325 Mg Tablet) 650 mg PO Q6H PRN PRN Reason: Headache/Pain Mild Scale (1-3) Last Admin: 08/15/23 17:13 Dose: 650 mg Al Hydroxide/Mg Hydroxide (Magnesium Hydrox/Alum Hydrox 30 Ml Oral.Susp) 30 ml PO Q6H PRN PRN Reason: Heartburn/Nausea Albuterol Sulfate (Albuterol Sulfate 90 Mcg 8 Gm Inhaler) 2 puff INHALE Q4H PRN PRN Reason: Shortness Of Breath Amlodipine Besylate (Amlodipine Besylate 10 Mg Tablet) 10 mg PO DAILY [facility]; Protocol Last Admin: 08/16/23 08:23 Dose: 10 mg Fluticasone Propionate (Fluticasone Propionate Nasal 16 Gm [place]) 1 spray NOSTRIL-B BID [facility] Last Admin: 08/16/23 08:23 Dose: 1 spray Hydroxyzine HCl (Hydroxyzine Hcl 25 Mg Tablet) 25 mg PO Q6H PRN PRN Reason: Anxiety Last Admin: 08/15/23 14:38 Dose: 25 mg Levothyroxine Sodium (Levothyroxine Sodium 75 Mcg Tablet) 75 mcg PO DAILY@0600 [facility] Last Admin: 08/16/23 07:32 Dose: 75 mcg [place] Carbonate ([place] Carbonate 300 Mg Capsule) 900 mg PO BID [facility] Last Admin: 08/16/23 08:23 Dose: 900 mg Lorazepam (Lorazepam 1 Mg Tablet) 1 mg PO Q4H PRN PRN Reason: severe anxiety Magnesium Hydroxide (Milk Of Magnesia 30 Ml Oral.Susp) 30 ml PO DAILY PRN PRN Reason: Constipation Nicotine Polacrilex (Nicotine Polacrilex 2 Mg Gum) 2 mg BUCCAL QID PRN PRN Reason: Nicotine Cravings Nicotine Polacrilex (Nicotine Polacrilex 2 Mg Gum) 4 mg BUCCAL Q2H PRN PRN Reason: Nicotine Cravings Non-Formulary Medication (Lumateperone [Caplyta]) 42 mg PO DAILY IMANI Non-Formulary Medication (Paliperidone Palm (3 Month) [Invega Trinza]) 819 mg IM Q90D [facility] Paliperidone (Paliperidone Er 3 Mg Tab.Er.24) 3 mg PO BID [facility] Trazodone HCl (Trazodone Hcl 50 Mg Tablet) 50 mg PO BEDTIME MRX1 PRN PRN Reason: Insomnia Last Admin: 08/15/23 20:30 Dose: 50 mg Vitamin D (Cholecalciferol (Vitamin D3) 25 Mcg Tablet) 25 mcg PO DAILY [facility] Last Admin: 08/16/23 08:23 Dose: 25 mcg Allergies Allergies Allergy/AdvReac Type Severity Reaction Status Date / Time haloperidol [From HALDOL] Allergy Unknown DISTONIC Verified 06/03/20 02:40 REACTION Assessment & Plan Assessment & Plan (1) Schizoaffective disorder, bipolar type: Status: Acute Code(s): F25.0 - Schizoaffective disorder, bipolar type Plan 33 yo male with a history of schizoaffective disorder. He lives with his father in [place]. He is single. Patient presented to the hospital with increasing and distressing AH. He reported to the CARE team the voices were going to kill him. Patient reports the voices are hurting me. They are molesting me. I have too many voices. He was disorganized during the evaluation and was perseverating on his AH. He reported he is compliant with medications (reportedly has a [facility] order in the community) but CARE team report patient has a history of non-adherence. He reported racing thoughts. Reported his mood as depressed and anxious. Plan: Admit to [facility] Collateral information. Restart medications. Patient reported to be on Invega Trinza. Due in one month. Will start Risperidone 1 mg BID. Milieu therapy Disposition 08/15: Increase Risperidone to 2 mg BID. Continue current management and treatment plan. 08/16: DC risperidone in favor of zyprexa 5 mg BID. add ativan PRN until AH under better control. otherwise continue current mgmt. LM for prescriber with RN at [facility]. Reason for continued inpatient stay Substantial Risk for: inability to function and rapid decompensation Time Spent With Patient Time: Total time managing care of this patient today __35__ minutes.
[2023-08-16] MEDS: LORazepam 1 MG TABLET PO ×2 (14:38→23:01)
[2023-08-16] MEDS: Acetaminophen 325 MG TABLET 650 MG PO (14:39)
[2023-08-16] MEDS: hydrOXYzine HCL 25 MG TABLET PO (15:07)
[2023-08-16] MEDS: OLANZapine 5 MG TABLET PO ×2 (16:14→21:56)
[2023-08-16 19:10] VITALS: BP 126/72; PULSE 72; RESP 15; TEMP 36.7; O2SAT 92
[2023-08-17] MEDS: Levothyroxine Sodium 75 MCG TABLET PO (06:04)
[2023-08-17 07:30] VITALS: BP 134/86; PULSE 77; RESP 16; TEMP 36.7; O2SAT 96
[2023-08-17 08:23] LABS: Lithium 0.58 mmol/L (0.60-1.20)
[2023-08-17] MEDS: Lithium Carbonate 300 MG CAPSULE 900 MG PO ×2 (09:04→20:42)
[2023-08-17] MEDS: Cholecalciferol (Vitamin D3) 25 MCG TABLET PO (09:04)
[2023-08-17] MEDS: amLODIPine Besylate 10 MG TABLET PO (09:04)
[2023-08-17] MEDS: OLANZapine 5 MG TABLET PO ×2 (09:04→20:43)
[2023-08-17] MEDS: Fluticasone Propionate Nasal 16 GM SPRAY 1 SPRAY NOSTRIL-B ×2 (09:07→21:44)
--- NOTE | 2023-08-17 14:37 | HO.PSYCHPN ---
Subjective Subjective Date of Service: 08/17/23 Reason For Visit: Psychosis Interim History: pt calm and cooperative. feels AH improved. discuss 3-day notice and discharge, pt in agreement. per staff, 3-day up . slept 7 hours. no notable events or behaviors. Mental Status Exam Mental Status Exam Narrative: Appearance: obese male, fair hygiene, in NAD Behavior: cooperative Psychomotor: no agitation or retardation noted Speech: spontaneous, nml rate, amount, loudness, latency TP: linear TC: no delusions or paranoia expressed Mood: not assessed Affect: restricted range. AH/VH:+AH, improved from admission Insight/judment: impaired x 2. Diagnostics Vital Signs (24Hr): Vital Signs - 24 hr 08/16/23 19:10 08/17/23 07:30 Temperature 98.1 F 98.1 F Pulse Rate 72 77 Respiratory Rate 15 16 Blood Pressure 126/72 134/86 Pulse Oximetry 92 96 Oxygen Delivery Method Room Air Room Air BMI result Body Mass Index 51.5 Labs 08/13/23 06:23 08/13/23 06:23 Labs: Laboratory Results - last 48 hr 08/17/23 07:21 [place] 0.58 L Medications Medications Current Medications Acetaminophen (Acetaminophen 325 Mg Tablet) 650 mg PO Q6H PRN PRN Reason: Headache/Pain Mild Scale (1-3) Last Admin: 08/16/23 14:39 Dose: 650 mg Al Hydroxide/Mg Hydroxide (Magnesium Hydrox/Alum Hydrox 30 Ml Oral.Susp) 30 ml PO Q6H PRN PRN Reason: Heartburn/Nausea Albuterol Sulfate (Albuterol Sulfate 90 Mcg 8 Gm Inhaler) 2 puff INHALE Q4H PRN PRN Reason: Shortness Of Breath Amlodipine Besylate (Amlodipine Besylate 10 Mg Tablet) 10 mg PO DAILY IMANI; Protocol Last Admin: 08/17/23 09:04 Dose: 10 mg Fluticasone Propionate (Fluticasone Propionate Nasal 16 Gm [place]) 1 spray NOSTRIL-B BID IMANI Last Admin: 08/17/23 09:07 Dose: 1 spray Hydroxyzine HCl (Hydroxyzine Hcl 25 Mg Tablet) 25 mg PO Q6H PRN PRN Reason: Anxiety Last Admin: 08/16/23 15:07 Dose: 25 mg Levothyroxine Sodium (Levothyroxine Sodium 75 Mcg Tablet) 75 mcg PO DAILY@0600 [facility] Last Admin: 08/17/23 06:04 Dose: 75 mcg [place] Carbonate ([place] Carbonate 300 Mg Capsule) 900 mg PO BID [facility] Last Admin: 08/17/23 09:04 Dose: 900 mg Lorazepam (Lorazepam 1 Mg Tablet) 1 mg PO Q4H PRN PRN Reason: severe anxiety Last Admin: 08/16/23 23:01 Dose: 1 mg Magnesium Hydroxide (Milk Of Magnesia 30 Ml Oral.Susp) 30 ml PO DAILY PRN PRN Reason: Constipation Nicotine Polacrilex (Nicotine Polacrilex 2 Mg Gum) 2 mg BUCCAL QID PRN PRN Reason: Nicotine Cravings Nicotine Polacrilex (Nicotine Polacrilex 2 Mg Gum) 4 mg BUCCAL Q2H PRN PRN Reason: Nicotine Cravings Non-Formulary Medication (Lumateperone [Caplyta]) 42 mg PO DAILY [facility] Non-Formulary Medication (Paliperidone Palm (3 Month) [Invega Trinza]) 819 mg IM Q90D [facility] Olanzapine (Olanzapine 5 Mg Tablet) 5 mg PO BID [facility] Last Admin: 08/17/23 09:04 Dose: 5 mg Trazodone HCl (Trazodone Hcl 50 Mg Tablet) 50 mg PO BEDTIME MRX1 PRN PRN Reason: Insomnia Last Admin: 08/15/23 20:30 Dose: 50 mg Vitamin D (Cholecalciferol (Vitamin D3) 25 Mcg Tablet) 25 mcg PO DAILY [facility] Last Admin: 08/17/23 09:04 Dose: 25 mcg Allergies Allergies Allergy/AdvReac Type Severity Reaction Status Date / Time haloperidol [From HALDOL] Allergy Unknown DISTONIC Verified 06/03/20 02:40 REACTION Assessment & Plan Assessment & Plan (1) Schizoaffective disorder, bipolar type: Status: Acute Code(s): F25.0 - Schizoaffective disorder, bipolar type Plan 33 yo male with a history of schizoaffective disorder. He lives with his father in [place]. He is single. Patient presented to the hospital with increasing and distressing AH. He reported to the CARE team the voices were going to kill him. Patient reports the voices are hurting me. They are molesting me. I have too many voices. He was disorganized during the evaluation and was perseverating on his AH. He reported he is compliant with medications (reportedly has a [facility] order in the community) but CARE team report patient has a history of non-adherence. He reported racing thoughts. Reported his mood as depressed and anxious. Plan: Admit to Collateral information. Restart medications. Patient reported to be on Invega Trinza. Due in one month. Will start Risperidone 1 mg BID. Milieu therapy Disposition 08/15: Increase Risperidone to 2 mg BID. Continue current management and treatment plan. 08/16: DC risperidone in favor of zyprexa 5 mg BID. add ativan PRN until AH under better control. otherwise continue current mgmt. LM for prescriber with RN at [facility]. 08/17: 3-day notice submitted, matures . remains calm and cooperative, states AH have improved from admission. per collateral from outpt prescriber, pt is at or near his baseline at this point; if he were not he would be more agitated/violent. will plan to continue on present regimen for 2 more days and discharge . Reason for continued inpatient stay Substantial Risk for: inability to function and rapid decompensation Time Spent With Patient Time: Total time managing care of this patient today __35__ minutes.
[2023-08-17] MEDS: Acetaminophen 325 MG TABLET 650 MG PO (16:24)
[2023-08-17] MEDS: LORazepam 1 MG TABLET PO (16:24)
[2023-08-17 20:44] VITALS: BP 118/74; PULSE 82; RESP 16; TEMP 36.4; O2SAT 97
[2023-08-18] MEDS: Levothyroxine Sodium 75 MCG TABLET PO (06:49)
[2023-08-18 08:13] VITALS: BP 122/76; PULSE 70; RESP 16; TEMP 36.2; O2SAT 99
[2023-08-18] MEDS: Fluticasone Propionate Nasal 16 GM SPRAY 1 SPRAY NOSTRIL-B ×2 (08:13→20:39)
[2023-08-18] MEDS: amLODIPine Besylate 10 MG TABLET PO (08:14)
[2023-08-18] MEDS: OLANZapine 5 MG TABLET PO ×2 (08:14→20:34)
[2023-08-18] MEDS: Lithium Carbonate 300 MG CAPSULE 900 MG PO ×2 (08:14→20:34)
[2023-08-18] MEDS: Cholecalciferol (Vitamin D3) 25 MCG TABLET PO (08:14)
--- NOTE | 2023-08-18 10:56 | PM.PSYDC ---
DS: Providers Provider Date of Service: 08/18/23 Date of admission: 08/13/23 16:05 Primary care physician: Unknown Physician DS: Diagnosis Discharge Diagnosis (1) Schizoaffective disorder, bipolar type: Status: Acute DS: Medications Discharge Medications Home Medications: Previous Rx's Medication Instructions Recorded paliperidone palm (3 month) 819 819 mg (2.63 mL) IM [id number] #2.63 11/16/22 mg/2.63 mL intramuscular syringe mL (Invega Trinza) albuterol sulfate 90 mcg/actuation 2 puff inhalation Q4H PRN 12/07/22 aerosol inhaler (Ventolin HFA) Shortness Of Breath #1 inhaler amlodipine 10 mg tablet 1 tab PO DAILY #30 tabs 12/07/22 cholecalciferol (vitamin D3) 25 1 cap PO DAILY #30 caps 12/07/22 mcg (1,000 unit) capsule (Vitamin D3) fluticasone propionate 50 1 spray intranasal Q12H #16 grams 12/07/22 mcg/actuation nasal spray,suspension (24 Hour Allergy Relief) levothyroxine 75 mcg tablet 1 tab PO DAILY #30 tabs 12/07/22 lithium carbonate 300 mg capsule 900 mg (3 x 300 mg) PO BID #180 12/07/22 caps nicotine (polacrilex) 2 mg gum 2 mg buccal QID PRN Nicotine 12/07/22 Cravings #60 ea olanzapine 5 mg tablet 5 mg PO BID 30 days #60 tabs 08/18/23 Mental Status Exam Mental Status Exam Narrative: Appearance: obese male, fair hygiene, in NAD Behavior: cooperative Psychomotor: no agitation or retardation noted Speech: spontaneous, nml rate, amount, loudness, latency TP: linear TC: no delusions or paranoia expressed Mood: stable. Affect: restricted range. AH/VH:+AH, improved from admission Insight/judment: impaired x 2. Data Data Completed and Pending Completed studies during hospitalization [Text1]: 08/13/23 08/13/23 08/13/23 06:17 06:23 10:29 WBC 10.2 RBC 4.83 Hgb 13.8 L Hct 42.5 MCV 88.0 MCH 28.6 MCHC 32.5 RDW 13.3 Plt Count 283 MPV 9.7 Immature Gran % (Auto) 0.3 Neut % (Auto) 56.6 Lymph % (Auto) 28.9 [place] % (Auto) 8.1 Eos % (Auto) 5.4 H Baso % (Auto) 0.7 Lymph # (Auto) 3.0 [place] # (Auto) 0.8 Eos # (Auto) 0.6 H Baso # (Auto) 0.1 Abs Immat Gran (auto) 0.03 Absolute Neuts (auto) 5.8 Absolute Nucleated RBC 0.000 Nucleated RBC % (auto) 0.0 Sodium 141 Potassium 3.7 Chloride 105 Carbon Dioxide 28 Anion Gap 12 BUN 9 Creatinine 0.69 Estim Creat Clear Calc 235.1 Estimated GFR > 60 Random Glucose 92 Calcium 9.7 Total Bilirubin 0.3 Direct Bilirubin < 0.1 AST 18 ALT 20 Alkaline Phosphatase 84 Total Protein 7.7 Albumin 4.2 Urine Color Yellow Urine Appearance Clear Urine pH 6.5 Ur Specific [place] 1.015 Urine Protein Negative Urine Glucose (UA) Negative Urine Ketones Negative Urine Blood Negative Urine Nitrite Negative Ur Leukocyte Esterase Negative Urine RBC 0-2 Urine WBC 0-5 Ur Squamous Epith Cells 0-2 Urine Bacteria None Seen Hyaline Casts 0-2 Urine Opiates Screen Not Detected Urine Fentanyl Screen Not Detected Ur Barbiturates Screen Not Detected Ur Phencyclidine Scrn Not Detected Ur Amphetamines Screen Not Detected U Benzodiazepines Scrn Not Detected [place] 0.54 L Urine Cocaine Screen Not Detected U Marijuana (THC) Screen Not Detected Ethyl Alcohol < 10 Influenza Type A (PCR) NEGATIVE Influenza Type B (PCR) NEGATIVE RSV RNA Qual (PCR) NEGATIVE SARS-CoV-2 RNA (RT-PCR) NEGATIVE 08/17/23 07:21 WBC RBC Hgb Hct MCV MCH MCHC RDW Plt Count MPV Immature Gran % (Auto) Neut % (Auto) Lymph % (Auto) [place] % (Auto) Eos % (Auto) Baso % (Auto) Lymph # (Auto) [place] # (Auto) Eos # (Auto) Baso # (Auto) Abs Immat Gran (auto) Absolute Neuts (auto) Absolute Nucleated RBC Nucleated RBC % (auto) Sodium Potassium Chloride Carbon Dioxide Anion Gap BUN Creatinine Estim Creat Clear Calc Estimated GFR Random Glucose Calcium Total Bilirubin Direct Bilirubin AST ALT Alkaline Phosphatase Total Protein Albumin Urine Color Urine Appearance Urine pH Ur Specific [place] Urine Protein Urine Glucose (UA) Urine Ketones Urine Blood Urine Nitrite Ur Leukocyte Esterase Urine RBC Urine WBC Ur Squamous Epith Cells Urine Bacteria Hyaline Casts Urine Opiates Screen Urine Fentanyl Screen Ur Barbiturates Screen Ur Phencyclidine Scrn Ur Amphetamines Screen U Benzodiazepines Scrn [place] 0.58 L Urine Cocaine Screen U Marijuana (THC) Screen Ethyl Alcohol Influenza Type A (PCR) Influenza Type B (PCR) RSV RNA Qual (PCR) SARS-CoV-2 RNA (RT-PCR) DS: Summary Hospital Course Hospital Course: per 08/14 admission note: 33 yo male with a history of schizoaffective disorder. He lives with his father in [place]. He is single. Patient presented to the hospital with increasing and distressing AH. He reported to the CARE team the voices were going to kill him. Patient reports the voices are hurting me. They are molesting me. I have too many voices. He was disorganized during the evaluation and was perseverating on his AH. He reported he is compliant with medications (reportedly has a [facility] order in the community) but CARE team report patient has a history of non-adherence. He reported racing thoughts. Reported his mood as depressed and anxious. He was paranoid. He was calm during the evaluation. Past Psychiatric History: Multiple hospital stays, last on 11/2021, October 2022; He has had multiple other admissions including 2 at [facility]. He has also been to several [facility] programs. [facility]: Psychiatrist Dr. Stephen ([phone]) He has a [place] Order. Mother Flory Bullock is guardian ([phone]) Medical Evaluation Reviewed: Yes [facility] Medical History Delusional disorder Hypothyroid Asthma Schizoaffective disorder Family History: Unknown Social History: Pt born and raised in [facility]. Lives with his parents. He has two brothers. He moved to [place] when he was 13 y/o. 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 Trauma History: Pt denies. Precis: 33 yo male with a history of schizoaffective disorder. He lives with his father in [place]. He is single. Patient presented to the hospital with increasing and distressing AH. He reported to the CARE team the voices were going to kill him. Patient reports the voices are hurting me. They are molesting me. I have too many voices. He was disorganized during the evaluation and was perseverating on his AH. He reported he is compliant with medications (reportedly has a [facility] order in the community) but CARE team report patient has a history of non-adherence. He reported racing thoughts. Reported his mood as depressed and anxious. 08/14: Patient reported to be on Invega Trinza. Due in one month. Will start Risperidone 1 mg BID. 08/15: Increase Risperidone to 2 mg BID. Continue current management and treatment plan. 08/16: DC risperidone in favor of zyprexa 5 mg BID. add ativan PRN until AH under better control. otherwise continue current mgmt. LM for prescriber with RN at [facility]. 08/17: 3-day notice submitted, matures . remains calm and cooperative, states AH have improved from admission. per collateral from outpt prescriber, pt is at or near his baseline at this point; if he were not he would be more agitated/violent. will plan to continue on present regimen for 2 more days and discharge . 08/18: calm, cooperative, pleasant. no safety concerns. meds reviewed, reconciled, prescribed. planning for discharge tomorrow. 08/19: stable. discharged as per plan. Time Spent with Patient Time attestation: Total time managing care of this patient today ____ minutes. Time spent: Greater than 30 minutes Discharge Plan Discharge Anticipated Discharge Date/Time: 08/19/23 11:00 Patient Disposition: Home, Self-Care Discharge Diagnosis: Schizoaffective Disorder, Bipolar Type Referrals: Annabella Lazo (Psychiatry) [Other] - 08/24/23 10:00 am (IN OFFICE APPOINTMENT) [facility] [Provider Group] - 1 Week (PCP will contact patient with follow up appt. ) Discharge Medications: New olanzapine 5 mg Tablet 5 mg PO BID 30 Days Qty: 60 0RF Continued Invega Trinza 819 mg/2.63 mL syringe 819 mg IM [id number] Qty: 2.63 0RF lithium carbonate 300 mg Capsule 900 mg PO BID Qty: 180 0RF albuterol sulfate [Ventolin HFA] 90 mcg/actuation Hfa Aerosol Inhaler 2 puff inhalation Q4H PRN (Reason: Shortness Of Breath) Qty: 1 0RF nicotine (polacrilex) 2 mg Gum 2 mg buccal QID PRN (Reason: Nicotine Cravings) Qty: 60 0RF levothyroxine 75 mcg tablet 1 tab PO DAILY Qty: 30 0RF amlodipine 10 mg tablet 1 tab PO DAILY Qty: 30 0RF fluticasone propionate [24 Hour Allergy Relief] 50 mcg/actuation spray,suspension 1 spray intranasal Q12H Qty: 16 0RF Rx Instructions: administer into each nostril cholecalciferol (vitamin D3) [Vitamin D3] 25 mcg (1,000 unit) capsule 1 cap PO DAILY Qty: 30 0RF Discontinued Caplyta 42 mg capsule 42 mg PO DAILY Qty: 30 0RF Discharge Orders: Discharge Order (Routine); Ordered 08/19/23 Ordered By: Deandre Locke Diet: Advance to usual diet Activity on Discharge: As tolerated Stand Alone Forms: Patient Portal Discharge page, Community Support Care Plan Goals: take medications as prescribed, attend appointments as scheduled Health Concerns: morbid obesity Plan of Treatment: take medications as prescribed, attend appointments as scheduled Assessment: not at imminent risk of harm to self or others Discharge Date/Time: 08/19/23 10:50
[2023-08-18] MEDS: Acetaminophen 325 MG TABLET 650 MG PO (14:04)
[2023-08-18] MEDS: LORazepam 1 MG TABLET PO (14:04)
[2023-08-18 20:35] VITALS: BP 134/76; PULSE 67; RESP 16; TEMP 36.4; O2SAT 97
[2023-08-19] MEDS: LORazepam 1 MG TABLET PO (00:39)
[2023-08-19] MEDS: Levothyroxine Sodium 75 MCG TABLET PO (04:53)
--- NOTE | 2023-08-19 04:53 | PC.NURSE ---
synthroid given at this time per patient request
[2023-08-19 07:00] VITALS: BMI 52.7
[2023-08-19 07:52] VITALS: BP 150/87; PULSE 67; RESP 16; TEMP 36.3; O2SAT 95
[2023-08-19] MEDS: amLODIPine Besylate 10 MG TABLET PO (08:02)
[2023-08-19] MEDS: Lithium Carbonate 300 MG CAPSULE 900 MG PO (08:02)
[2023-08-19] MEDS: OLANZapine 5 MG TABLET PO (08:02)
[2023-08-19] MEDS: Cholecalciferol (Vitamin D3) 25 MCG TABLET PO (08:02)
[2023-08-19] MEDS: Fluticasone Propionate Nasal 16 GM SPRAY 1 SPRAY NOSTRIL-B (08:08)
== END 2023-08-19 10:50 | disposition home or self-care (01) | DRG 750 ==
LOC: HO.ED 13:35 → HO.PADLT16 16:14
PROVIDERS: Emergency Medicine; Admitting Provider Psychiatry & Neurology Psychiatry; Emergency Provider Emergency Medicine Emergency Medical Services; Visit Provider Psychiatry & Neurology Psychiatry
DX: F25.0 Schizoaffective disorder, bipolar type (principal); Z68.43 Body mass index [BMI] 50.0-59.9, adult; E03.9 Hypothyroidism, unspecified; E66.9 Obesity, unspecified; Z20.822 Contact with and (suspected) exposure to COVID-19; Z79.890 Hormone replacement therapy; Z79.899 Other long term (current) drug therapy
CPT/HCPCS: 0241U; 36415; 80048; 80076; 80178; 80307; 81001; 85025; 93005; 99285; S9485

== ENCOUNTER → 2023-08-13 11:16 | Outpatient (BNV) | payer MEDICAID, SELFPAY | PROVIDERS: Admitting Provider Psychiatry & Neurology Psychiatry; Emergency Provider Emergency Medicine Emergency Medical Services; Visit Provider Internal Medicine Cardiovascular Disease | DX: I44.0 Atrioventricular block, first degree (principal) | CPT/HCPCS: 93010 ==

== ENCOUNTER → 2023-08-13 16:05 | Outpatient (BNV) | payer OTHER, SELFPAY | PROVIDERS: Admitting Provider Psychiatry & Neurology Psychiatry; Emergency Provider Emergency Medicine Emergency Medical Services; Visit Provider Psychiatry & Neurology Psychiatry | DX: F25.0 Schizoaffective disorder, bipolar type (principal) | CPT/HCPCS: 99231; 99232 ==

== ENCOUNTER 2023-11-05 08:56 | Outpatient (REF) | payer OTHER, SELFPAY ==
[2023-11-05 11:26] LABS: MANUAL DIFF FLAG NO
[2023-11-05 11:34] LABS: Basophils Absolute Auto 0.1 X10*3/uL (0.0-0.2); Basophils Percent Auto 0.6 % (0-2); Eosinophils Absolute Auto 0.4 X10*3/uL (0.0-0.4); Eosinophils Percent Auto 3.7 % (0-4); Hemoglobin 13.4 g/dl (14.0-18.0); Imm Gran Abs Auto 0.02 X10*3/uL (0.00-0.03); Imm Gran Pct Auto 0.2 % (0.0-0.4); Lymphocytes Absolute Auto 2.8 X10*3/uL (1.2-4.9); Lymphocytes Percent Auto 26.7 % (20-40); Mean Corpuscular HGB Conc 32.7 g/dl (31.0-36.0); Mean Corpuscular Hemoglobin 29.1 pg (27.0-33.0); Mean Corpuscular Volume 88.9 fL (80.0-98.0); Mean Platelet Volume 10.2 fL (9.4-12.4); Monocytes Absolute Auto 0.9 X10*3/uL (0.1-1.2); Monocytes Percent Auto 8.1 % (2-11); Neutrophils Absolute Auto 6.5 x10*3/uL (2.0-8.3); Neutrophils Percent Auto 60.7 % (45-73); Platelet Count 307 X10*3/uL (160-400); Red Blood Count 4.61 X10*6/uL (4.60-5.80); Red Cell Distribution Width 12.9 % (11.0-16.0); White Blood Count 10.7 X10*3/uL (4.8-10.8)
[2023-11-05 13:12] LABS: Alanine Aminotransferase 18 U/L (0-40); Albumin Level 4.1 g/dL (3.5-5.0); Alkaline Phosphatase 86 U/L (39-117); Anion Gap 10 (12-20); Aspartate Amino Transferase 15 U/L (5-37); Bilirubin Total 0.3 mg/dL (0.0-1.0); Blood Urea Nitrogen 11 mg/dL (9-16); Calcium 9.1 mg/dL (8.4-10.2); Carbon Dioxide 30 mmol/L (22-29); Chloride 105 mmol/L (96-108); Estimated Glomerular Filt Rate > 60; Glucose Random 80 mg/dL (60-115); Potassium 3.7 mmol/L (3.3-5.1); Sodium 141 mmol/L (135-145); Total Protein 7.4 g/dL (6.5-8.0)
[2023-11-05 13:13] LABS: Free T4 (Free Thyroxine) 1.12 ng/dL (0.71-1.85); Thyroid Stimulating Hormone 2.55 uIU/mL (0.32-4.0)
== END 2023-11-05 08:57 | disposition home or self-care (01) ==
LOC: HO.HHCL 08:56
PROVIDERS: Visit Provider Student in an Organized Health Care Education/Training Program
DX: E03.9 Hypothyroidism, unspecified (principal)
CPT/HCPCS: 36415; 80053; 84439; 84443; 85025

== ENCOUNTER 2024-06-26 20:45 | Inpatient (IN) | payer MEDICAID, OTHER, SELFPAY ==
[2024-06-26 21:07] VITALS: BP 127/80; PULSE 63; RESP 18; TEMP 37; O2SAT 96; BMI 48.8
[2024-06-26 21:16] VITALS: BP 124/80; PULSE 64; RESP 18; TEMP 36.3; O2SAT 96
--- NOTE | 2024-06-26 21:19 | MHC.EDTECH ---
Patient has been changed over by RN Jacey and security.
[2024-06-26] MEDS: LORazepam 1 MG TABLET 2 MG PO (21:29)
--- NOTE | 2024-06-26 21:37 | PC.NURSE ---
t/w administered atian and offered cleint weighted blanket
--- NOTE | 2024-06-26 21:38 | PC.NURSE ---
t/w completed person search which revealed no contraband and no evidence of injury
--- NOTE | 2024-06-26 22:23 | ED_ITS ---
HPI - Psych General Chief Complaint: Psychiatric Symptoms Stated Complaint: Hearing Voices/Crisis Time Seen by Provider: 06/26/24 22:16 Source: patient and family Mode of arrival: ambulatory Limitations: no limitations History of Present Illness ED Provider: Dr. Shirin Loja HPI Narrative: Patient comes to the emergency room accompanied by his parents. According to the patient, he has been hearing voices and he is afraid of them. Patient states that he is compliant with his medications. Patient denies SI or HI but states that he is very frightened from those voices. Related Data Previous Rx's ?Medication ?Instructions ?Recorded paliperidone palm (3 month) 819 819 mg (2.63 mL) IM [id number] #2.63 11/16/22 mg/2.63 mL intramuscular syringe mL (Invega Trinza) albuterol sulfate 90 mcg/actuation 2 puff inhalation Q4H PRN 12/07/22 aerosol inhaler (Ventolin HFA) Shortness Of Breath #1 inhaler amlodipine 10 mg tablet 1 tab PO DAILY #30 tabs 12/07/22 cholecalciferol (vitamin D3) 25 1 cap PO DAILY #30 caps 12/07/22 mcg (1,000 unit) capsule (Vitamin D3) fluticasone propionate 50 1 spray intranasal Q12H #16 grams 12/07/22 mcg/actuation nasal spray,suspension (24 Hour Allergy Relief) levothyroxine 75 mcg tablet 1 tab PO DAILY #30 tabs 12/07/22 lithium carbonate 300 mg capsule 900 mg (3 x 300 mg) PO BID #180 12/07/22 caps nicotine (polacrilex) 2 mg gum 2 mg buccal QID PRN Nicotine 12/07/22 Cravings #60 ea olanzapine 5 mg tablet 5 mg PO BID 30 days #60 tabs 08/18/23 Allergies Allergy/AdvReac Type Severity Reaction Status Date / Time haloperidol [From HALDOL] Allergy Unknown DISTONIC Verified 06/26/24 21:16 REACTION Review of Systems Review of Systems: Constitutional : No Weight loss, No Fever, No Chills, No Night Sweats, No Fatigue, No Malaise ENT/Mouth : No Hearing loss, No Ear Pain, No Nasal Congestion, No Sinus Pain, No Hoarseness, No sore throat, No Rhinorrhea, No Swallowing Difficulty Eyes: No Eye Pain, No Swelling, No Redness, No Foreign Body, No Discharge, No Vision Changes Cardiovascular : No Chest Pain, No SOB, No Dyspnea on Exertion, No Orthopnea, No Edema, No Palpitations Respiratory : No Cough, No Sputum, No Wheezing, No Smoke Exposure, No Dyspnea Gastrointestinal : No Nausea, No Vomiting, No Diarrhea, No Constipation, No abdominal Pain, No Hematochezia, No Melena Genitourinary : no irregular bleeding, No Dysuria, No Urinary Frequency, No Hematuria, No Urinary Incontinence, No Urgency, No Flank Pain, No Urinary Flow Changes, No Hesitancy Musculoskeletal : No joint pain, No Myalgias, No Joint Swelling Skin : No Skin Lesions, No rash Neuro : No Weakness, No Numbness, No Paresthesias, No Loss of Consciousness, No Dizziness, No Headache Psych : Scared, hearing voices, denies SI or HI Heme/Lymph: No Bruising, No Bleeding,No Lymphadenopathy Endocrine : No Polyuria, No Polydipsia, No Temperature Intolerance [facility] Past Medical History Medical History Delusional disorder Hypothyroid Asthma Schizoaffective disorder Social History Social History Household Members: Family Household Members Other:: mom, dad, sister and nephew Housing: House Do you presently have visiting nurse or other home services: No Alcohol intake: never Comment: Dr. Roca Patient Tobacco Use Status: Never used Tobacco Tobacco use type: Smokeless Tobacco Cigarette Packs Per Day: 10 Cigarettes Per Day: 200.0 Years Smoked: 19 e-Cigarette/Vaping Use: Currently Using Second Hand Smoke Exposure: No Substance Use Type: Marijuana Advance Directives: No Advance Directives Information Provided: No Do you have a plan to hurt others: No Plan service: No Sexual orientation: Straight/Heterosexual Physical Exam Vital Signs: Vital Signs: Last Vital Signs Temp 97.4 F 06/26/24 21:16 Pulse 64 06/26/24 21:16 Resp 18 06/26/24 21:16 BP 124/80 06/26/24 21:16 Pulse Ox 96 06/26/24 21:16 O2 Del Method Room Air 06/26/24 21:16 BMI result Body Mass Index 48.8 Const: Other: Appearance: Alert. Oriented X3. No acute distress. Eyes: Pupils equal, round and reactive to light. ENT: Pharynx normal. Neck: Normal inspection. Neck supple. No lymph nodes noted. No crepitus CVS: Normal heart rate and rhythm. Pulses normal. Normal S1 and S2 Respiratory: No respiratory distress. Breath sounds normal. No Wheezing. No rales Abdomen: Soft and nontender. No rigidity. No distention. Skin: Skin warm and dry. Normal skin color. Normal skin turgor. Extremities: No lower extremity edema. No Lacerations. No Rash Neuro: Oriented X 3. No motor deficit. No sensory deficit. Moving all extremities. No slurred speech. CN 2 through 12 grossly intact Psych: calm, cooperative Course Course Course Narrative: All of patient's labs pending -care team consult pending Physician observation started at 22:30 -earlier today, patient was given 2 mg of Ativan, stated that he was anxious and scared, no feeling better. Medications Administered Discontinued Medications Generic Name Dose Route Start Last Admin Trade Name Freq PRN Reason Stop Dose Admin Lorazepam 2 mg 06/26/24 21:27 06/26/24 21:29 Lorazepam 1 Mg Tablet PO 06/26/24 21:28 2 mg ONCE ONE Administration Medical Decision Making Differential Diagnosis Differential Diagnoses: The differential diagnosis associated with the presentation includes (Anxiety, schizoaffective disorder, bipolar disorder) Admission/Observation Consideration of admission/observation: Escalation of care including admission/observation considered (Patient waiting for the care team to be evaluated) Critical Care Time Critical Care Time Critical Care Time: Yes Total Critical Care Time: 30 Attestation: I have personally provided critical care time. Time includes review of lab data, radiology results, discussion with consultants, and monitoring for potential decompensation. Intervention performed as documented. Discharge Plan Discharge Clinical Impression: Schizoaffective disorder, bipolar type, Auditory hallucination Patient Disposition: Still a Patient Prescriptions: No Action Invega Trinza 819 mg/2.63 mL syringe 819 mg IM [id number] Qty: 2.63 0RF lithium carbonate 300 mg Capsule 900 mg PO BID Qty: 180 0RF albuterol sulfate [Ventolin HFA] 90 mcg/actuation Hfa Aerosol Inhaler 2 puff inhalation Q4H PRN (Reason: Shortness Of Breath) Qty: 1 0RF nicotine (polacrilex) 2 mg Gum 2 mg buccal QID PRN (Reason: Nicotine Cravings) Qty: 60 0RF levothyroxine 75 mcg tablet 1 tab PO DAILY Qty: 30 0RF amlodipine 10 mg tablet 1 tab PO DAILY Qty: 30 0RF fluticasone propionate [24 Hour Allergy Relief] 50 mcg/actuation spray,suspension 1 spray intranasal Q12H Qty: 16 0RF Rx Instructions: administer into each nostril cholecalciferol (vitamin D3) [Vitamin D3] 25 mcg (1,000 unit) capsule 1 cap PO DAILY Qty: 30 0RF olanzapine 5 mg Tablet 5 mg PO BID 30 Days Qty: 60 0RF Interventions: [place]-Suicide Risk Severity Scale Last Done: 06/26/24 22:01 Print Language: Danish
[2024-06-26 23:40] LABS: Amphetamine Screen Urine Not Detected (Not Detect); Barbiturates, Urine Not Detected (Not Detect); Benzodiazepines Screen Urine Not Detected (Not Detect); Buprenorphine Scr Not Detected (Not Detect); Cannabinoid Screen Urine Not Detected (Not Detect); Cocaine Screen Urine Not Detected (Not Detect); Fentanyl, urine Not Detected (Not Detect); Methadone Screen, Urine Not Detected (Not Detect); Opiate Screen Urine Not Detected (Not Detect); Oxycodone Screen Urine Not Detected (Not Detect); Phencyclidine Screen Urine Not Detected (Not Detect)
[2024-06-26 23:43] LABS: MANUAL DIFF FLAG NO
[2024-06-26 23:49] LABS: Basophils Absolute Auto 0.1 X10*3/uL (0.0-0.2); Basophils Percent Auto 0.7 % (0-2); Eosinophils Absolute Auto 0.7 X10*3/uL (0.0-0.4); Eosinophils Percent Auto 6.7 % (0-4); Hematocrit 35.5 % (42.0-52.0); Imm Gran Abs Auto 0.02 X10*3/uL (0.00-0.03); Imm Gran Pct Auto 0.2 % (0.0-0.4); Lymphocytes Absolute Auto 3.2 X10*3/uL (1.2-4.9); Mean Corpuscular HGB Conc 33.8 g/dl (31.0-36.0); Mean Corpuscular Hemoglobin 28.8 pg (27.0-33.0); Mean Corpuscular Volume 85.3 fL (80.0-98.0); Mean Platelet Volume 9.2 fL (9.4-12.4); Monocytes Absolute Auto 0.9 X10*3/uL (0.1-1.2); Monocytes Percent Auto 8.9 % (2-11); Neutrophils Absolute Auto 4.9 x10*3/uL (2.0-8.3); Neutrophils Percent Auto 50.5 % (45-73); Platelet Count 300 X10*3/uL (160-400); Red Blood Count 4.16 X10*6/uL (4.60-5.80); White Blood Count 9.7 X10*3/uL (4.8-10.8)
[2024-06-26 23:51] LABS: Anion Gap 7 (12-20); Blood Urea Nitrogen 7 mg/dL (9-16); Carbon Dioxide 28 mmol/L (22-29); Chloride 106 mmol/L (96-108); Creatinine Clr Calc Pharmacy 263.8; Estimated Glomerular Filt Rate > 60; Ethanol < 10 mg/dL; Glucose Random 93 mg/dL (60-115); Potassium 3.1 mmol/L (3.3-5.1); Sodium 138 mmol/L (135-145)
[2024-06-27] LABS: Lithium 0.94 mmol/L (0.60-1.20)
[2024-06-27 00:02] LABS: Calcium 9.3 mg/dL (8.4-10.2)
[2024-06-27 06:32] VITALS: RESP 18
--- NOTE | 2024-06-27 08:46 | ECG_ITS ---
Test Reason : CHECK QTC Blood Pressure : / mmHG Vent. Rate : 052 BPM Atrial Rate : 052 BPM P-R Int : 244 ms QRS Dur : 094 ms QT Int : 486 ms P-R-T Axes : 018 045 017 degrees QTc Int : 451 ms Sinus bradycardia with 1st degree A-V block Nonspecific T wave abnormality Abnormal ECG When compared with ECG of 13-AUG-2023 11:47, No significant change was found Referred By: Generic ED Physician Electronically Signed By:BRAD WALSH
[2024-06-27] MEDS: Potassium Chloride Packet 20 MEQ PACKET 40 MEQ PO (11:01)
--- NOTE | 2024-06-27 11:45 | PC.NURSE ---
[facility] requesting to have discharge summary faxed to [phone] upon patients DC in order for them to resume care.
[2024-06-27 11:52] LABS: Appearance Urine Clear; Color Urine Yellow; Glucose Urine UA Negative (Negative); Leukocyte Esterase Urine Trace (Negative); Nitrite Urine Negative (Negative); UMIC TRIGGER UACC YES; Urine Blood Negative (Negative); Urine Ketones Negative (Negative); Urine Protein Negative (Neg-Trace)
[2024-06-27 11:57] LABS: Bacteria Urine None Seen (None Seen); Hyaline Casts Urine 0-2 /LPF (0-2); RBC Urine 0-2 /HPF (0-2); Squamous Epithelial Cell Urine 0-2 /HPF (0-2); WBC Urine 0-5 /HPF (0-5)
--- NOTE | 2024-06-27 13:36 | PHA.MEDREC ---
Pharmacy Consult ? Medication Reconciliation Pharmacy has reviewed the medication reconciliation.
[2024-06-27 14:02] VITALS: BP 135/72; PULSE 81; RESP 18; TEMP 36.7; O2SAT 98
[2024-06-27 14:10] VITALS: BMI 50.4
--- NOTE | 2024-06-27 16:25 | PC.ADMIT ---
Henry is a 34 year old male admitted to [facility] from the POD at 1:58pm for worsening AH. Pt carries a dx of schizoaffective disorder and usually has baseline AH but they have been?reportedly scary . He's recently been? paranoid and delusional? believing his father was trying to stab him with a knife. Henry has had 1 previous inpatient stay in October 2022 for AH, paranoia, and violent behavior. He lives with his parents and reports he has been medication compliant and is hoping his medication can be adjusted while here. He was A/O x3, calm, cooperative, and appeared to have some thought blocking during the assessment.? He signed a CV with Provider Theo Lynn who? knows pt and she reports he has a hx of cognitive delay (wasn't mentioned in the CARE team assessment) Henry presently denies SI/HI/AVH. He states he will contact staff if?AH becomes commanding and or violent. He reports? some anxiety about being here inpatient but wants to get help. Per CARE team? assessment, pt has a HX of cocaine, heroin, and cannabis use however denies using these substances at this time. During admission he reports he eats cannabis?edibles daily. Tox screen in ED negative for all substances. Pt states he smokes 7 cigarettes per day, desires NRT, and drinks alcohol sometimes . I think I have a problem with marijuana, I like to get?high. Offered addiction medicine consultation but declined. Skin and safety check done with male staff and noted questionable acne on chest but otherwise unremarkable. He was agreeable to Flu vaccine and is placed on q15 min checks.?
[2024-06-27 20:00] VITALS: BP 144/92; PULSE 88; TEMP 36.7; O2SAT 98
[2024-06-27] MEDS: Lithium Carbonate 300 MG CAPSULE 900 MG PO (21:43)
[2024-06-27] MEDS: OLANZapine 10 MG TABLET PO (21:43)
[2024-06-27] MEDS: Flu Vacc TS2024-25(6mos up)/PF 0.5 ML SYRINGE IM (21:43)
[2024-06-28 00:30] VITALS: BP 109/57; PULSE 61; TEMP 36.9; O2SAT 96
--- NOTE | 2024-06-28 08:40 | HO.PSYADMNOT ---
HPI Date of Service: 06/28/24 Chief Complaint: schizoaffective disorder, bipolar type Sources of Information: patient interviewed, chart reviewed and crisis/core team assessment reviewed HPI Subjective Notes: [place] Warning, Conditional Voluntary and Section 12B Narrative: pt seen at 1pm Patient is a 34-year-old male with history of schizoaffective disorder, chronic AH, possibly cognitive delay, who presents to the hospital for worsening AH. Patient says for the past 2 weeks he has had worse voices of telling him he is stupid, bad and that he does not know who he is. He said the voices make him want hit things though he refrains and does not do so. Patient says he has been taking his medications regularly; he lives with his parents and said that his VNA comes twice a day. He said I do not know if he is giving me the right medications but that he does take the. Patient denies any SI or HI; says that he has been sleeping; denies any drug or alcohol abuse, but says he is addicted to nicotine and smokes cannabis. Patient referenced a time in [facility] in 2002 when he had paranoid delusions. Crisis note says patient had paranoid delusion that his father is trying to stab him with a knife. Past Psychiatric History: Multiple hospital stays, last on 11/2021, October 2022; He has had multiple other admissions including 2 at [facility]. hx of AH, paranoia, and violent behavior. He has also been to several [employer] programs. He receives services through [facility]: Psychiatrist Dr. Stephen ([phone]) He has a Mantilla Order. Mother Flory Bullock is guardian ([phone]) Medical Evaluation Reviewed: Yes [facility] Medical History (Updated 06/29/24 @ 12:30 by Robe Roca MD) Delusional disorder Hypothyroid Asthma Schizoaffective disorder Family History: Unknown Social History: Pt born and raised in [facility]. Lives with his parents. He has two brothers. He moved to [place] when he was 13 y/o. 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 Substance History: Cannabis; nicotine; past history of cocaine and heroin abuse Trauma History: Pt denies. Diagnostics Vital Signs (24Hr): Vital Signs - 24 hr 06/27/24 14:02 06/27/24 20:00 Temperature 98.1 F 98.1 F Pulse Rate 81 88 Respiratory Rate 18 Blood Pressure 135/72 144/92 H Pulse Oximetry 98 98 Oxygen Delivery Method Room Air Room Air BMI result Body Mass Index 50.4 Labs 06/26/24 23:40 06/26/24 23:16 Labs: Laboratory Results - last 48 hr 06/26/24 06/26/24 06/26/24 23:16 23:22 23:40 WBC 9.7 RBC 4.16 L Hgb 12.0 L Hct 35.5 L MCV 85.3 MCH 28.8 MCHC 33.8 RDW 13.0 Plt Count 300 MPV 9.2 L Immature Gran % (Auto) 0.2 Neut % (Auto) 50.5 Lymph % (Auto) 33.0 [place] % (Auto) 8.9 Eos % (Auto) 6.7 H Baso % (Auto) 0.7 Lymph # (Auto) 3.2 [place] # (Auto) 0.9 Eos # (Auto) 0.7 H Baso # (Auto) 0.1 Abs Immat Gran (auto) 0.02 Absolute Neuts (auto) 4.9 Absolute Nucleated RBC 0.000 Nucleated RBC % (auto) 0.0 Sodium 138 Potassium 3.1 L Chloride 106 Carbon Dioxide 28 Anion Gap 7 L BUN 7 L Creatinine 0.66 Estim Creat Clear Calc 263.8 Estimated GFR > 60 Random Glucose 93 Calcium 9.3 Urine Color Urine Appearance Urine pH Ur Specific [place] Urine Protein Urine Glucose (UA) Urine Ketones Urine Blood Urine Nitrite Ur Leukocyte Esterase Urine RBC Urine WBC Ur Squamous Epith Cells Urine Bacteria Hyaline Casts Urine Opiates Screen Not Detected Ur Buprenorphine Scrn Not Detected Ur Oxycodone Screen Not Detected Urine Methadone Screen Not Detected Urine Fentanyl Screen Not Detected Ur Barbiturates Screen Not Detected Ur Phencyclidine Scrn Not Detected Ur Amphetamines Screen Not Detected U Benzodiazepines Scrn Not Detected [place] 0.94 Urine Cocaine Screen Not Detected U Marijuana (THC) Screen Not Detected Ethyl Alcohol < 10 06/27/24 11:41 WBC RBC Hgb Hct MCV MCH MCHC RDW Plt Count MPV Immature Gran % (Auto) Neut % (Auto) Lymph % (Auto) [place] % (Auto) Eos % (Auto) Baso % (Auto) Lymph # (Auto) [place] # (Auto) Eos # (Auto) Baso # (Auto) Abs Immat Gran (auto) Absolute Neuts (auto) Absolute Nucleated RBC Nucleated RBC % (auto) Sodium Potassium Chloride Carbon Dioxide Anion Gap BUN Creatinine Estim Creat Clear Calc Estimated GFR Random Glucose Calcium Urine Color Yellow Urine Appearance Clear Urine pH 7.0 Ur Specific [place] 1.010 Urine Protein Negative Urine Glucose (UA) Negative Urine Ketones Negative Urine Blood Negative Urine Nitrite Negative Ur Leukocyte Esterase Trace H Urine RBC 0-2 Urine WBC 0-5 Ur Squamous Epith Cells 0-2 Urine Bacteria None Seen Hyaline Casts 0-2 Urine Opiates Screen Ur Buprenorphine Scrn Ur Oxycodone Screen Urine Methadone Screen Urine Fentanyl Screen Ur Barbiturates Screen Ur Phencyclidine Scrn Ur Amphetamines Screen U Benzodiazepines Scrn [place] Urine Cocaine Screen U Marijuana (THC) Screen Ethyl Alcohol Meds/Allergies Meds Home Medications ?Medication ?Instructions ?Recorded ?Confirmed ?Type hydrochlorothiazide 12.5 mg tablet 12.5 mg PO DAILY 06/27/24 06/27/24 History olanzapine 5 mg tablet 10 mg PO BID 06/27/24 06/27/24 History Allergies Allergies Allergy/AdvReac Type Severity Reaction Status Date / Time haloperidol [From HALDOL] Allergy Unknown DISTONIC Verified 06/26/24 21:16 REACTION Mental Status Exam Mental Status Exam Narrative: Pt is alert and oriented; behavior is cooperative, friendly and calm; patient is not in distress; dressed in casual attire, unkempt; mood is described as anxious and affect congruent, distant at times; eye contact appropriate; Speech is normal rate, volume and prosody and not pressured; some psychomotor retardation present; thought process is goal directed, concrete; Thought content is on AH telling him bad things, treatment; otherwise pertinent to relevant topics; intermittent paranoid delusions; denies any SI/HI. Reports AH. Patients insight and judgment impaired Assessment & Plan Assessment & Plan (1) Schizoaffective disorder, bipolar type: Status: Acute Code(s): F25.0 - Schizoaffective disorder, bipolar type (2) Hypothyroid: Status: Acute Code(s): E03.9 - Hypothyroidism, unspecified (3) Asthma: Status: Acute Code(s): J45.909 - Unspecified asthma, uncomplicated Plan Patient is a 34-year-old male on a Mantilla order, with history of schizoaffective disorder, chronic AH, possibly cognitive delay, who presents to the hospital for worsening AH. Patient says for the past 2 weeks he has had worse voices of telling him he is stupid, bad and that he does not know who he is. He said the voices make him want hit things though he refrains and does not do so. Patient says he has been taking his medications regularly; he lives with his parents and said that his VNA comes twice a day. He said I do not know if he is giving me the right medications but that he does take the. Patient denies any SI or HI; says that he has been sleeping; denies any drug or alcohol abuse, but says he is addicted to nicotine and smokes cannabis. Patient referenced a time in [facility] in 2002 when he had paranoid delusions. Crisis note says patient had paranoid delusion that his father is trying to stab him with a knife. Formulation/clinical reasoning: Patient reports that he has been compliant with medications and has a VNA and lives at home with his parents. Will continue home medications for now. There is no obvious trigger as to why patient decompensated about 2 weeks ago. Will gather collateral. On admission lithium level WNL and therapeutic supporting patient's report that he is compliant with medications. Will check TSH level Plan: CV Q 15 minute checks Continue Zyprexa 10 mg b.i.d. Continue lithium 900 mg b.i.d. Continue hydroxyzine 50 mg b.i.d. Patient on Invega Trinza 819 mg which he last received June 01 Continue hydrochlorothiazide 12 0.5 mg daily Continue amlodipine 10 mg daily Continue levothyroxine 75 mcg daily Continue vitamin-D Patient educated on: diagnosis, medication risk/benefits and substance abuse Informed Consent: understands Reason for continued inpatient stay Substantial Risk for: rapid decompensation Statement Statement: I have reviewed the history and physical and performed a pertinent examination on my patient. No changes have occurred unless specified. If the History and Physical was not performed prior to admission, the Hospitalist's service will be consulted for completing the admission physical. Time Spent With Patient Time: Total time managing care of this patient today ____ minutes.
[2024-06-28] MEDS: Lithium Carbonate 300 MG CAPSULE 900 MG PO ×2 (08:43→21:08)
[2024-06-28] MEDS: OLANZapine 10 MG TABLET PO ×2 (08:44→21:09)
[2024-06-28] MEDS: amLODIPine Besylate 10 MG TABLET PO (08:44)
[2024-06-28] MEDS: Levothyroxine Sodium 75 MCG TABLET PO (08:44)
[2024-06-28] MEDS: Cholecalciferol (Vitamin D3) 25 MCG TABLET PO (08:44)
[2024-06-28] MEDS: hydroCHLOROthiazide 12.5 MG TABLET PO (08:44)
[2024-06-28 08:45] VITALS: BP 118/59; PULSE 69; RESP 16; TEMP 37.4; O2SAT 94
[2024-06-28 09:29] LABS: Cholesterol 173 mg/dL (<200); HDL Cholesterol 31 mg/dL (>40); LDL Cholesterol Calculated 114 mg/dL (<100); Magnesium 2.4 mg/dL (1.6-2.6); Triglycerides 143 mg/dL (<150)
[2024-06-28 10:01] LABS: Estimated Average Glucose 91 mg/dL; Hemoglobin A1C 95.5575 umol/L; Hemoglobin A1c % 4.8 % (<6.0); Total Hemoglobin (HGBA1C) 3293.2494 umol/L
[2024-06-28 12:27] LABS: Folate 5.7 ng/mL (> or = 4.0); Vitamin B12 442 pg/mL (200-900)
[2024-06-28 12:44] LABS: Free T4 (Free Thyroxine) 1.03 ng/dL (0.71-1.85); Thyroid Stimulating Hormone 1.47 uIU/mL (0.32-4.0)
[2024-06-28 20:00] VITALS: BP 115/67; PULSE 73; TEMP 36.1; O2SAT 94
[2024-06-28] MEDS: Acetaminophen 325 MG TABLET 650 MG PO (21:07)
[2024-06-29 08:00] VITALS: BP 142/84; PULSE 92; RESP 16; TEMP 36.6; O2SAT 97
[2024-06-29 09:09] VITALS: BP 142/84
[2024-06-29] MEDS: amLODIPine Besylate 10 MG TABLET PO (09:09)
[2024-06-29 09:10] VITALS: BP 142/84
[2024-06-29] MEDS: Levothyroxine Sodium 75 MCG TABLET PO (09:10)
[2024-06-29] MEDS: Lithium Carbonate 300 MG CAPSULE 900 MG PO ×2 (09:10→20:54)
[2024-06-29] MEDS: hydroCHLOROthiazide 12.5 MG TABLET PO (09:10)
[2024-06-29] MEDS: OLANZapine 10 MG TABLET PO ×2 (09:10→20:55)
[2024-06-29] MEDS: Cholecalciferol (Vitamin D3) 25 MCG TABLET PO (09:11)
--- NOTE | 2024-06-29 12:33 | P.PNPSI_ITS ---
Subjective Subjective Date of Service: 06/29/24 Reason For Visit: schizoaffective disorder, bipolar type Interim History: Met with patient; discussed with team Patient says he feels a little better today; still having voices that are bothering him Document Controller spoke with patient's VNA who visits him twice a day and reports that patient has not missed any medication doses for over a year. He does not know why patient has decompensated Mental Status Exam Mental Status Exam Narrative: Pt is alert and oriented; behavior is cooperative, friendly and calm; patient is not in distress; dressed in casual attire, unkempt; mood is described as anxious and affect congruent, distant at times; eye contact appropriate; Speech is normal rate, volume and prosody and not pressured; some psychomotor retardation present; thought process is goal directed, concrete; Thought content is on AH telling him bad things, treatment; otherwise pertinent to relevant topics; intermittent paranoid delusions; denies any SI/HI. Reports AH. Patients insight and judgment impaired Diagnostics Vital Signs (24Hr): Vital Signs - 24 hr 06/28/24 20:00 06/29/24 08:00 06/29/24 09:09 Temperature 97.0 F 98 F Pulse Rate 73 92 Respiratory Rate 16 Blood Pressure 115/67 142/84 H 142/84 H Pulse Oximetry 94 97 Oxygen Delivery Method Room Air 06/29/24 09:10 Temperature Pulse Rate Respiratory Rate Blood Pressure 142/84 H Pulse Oximetry Oxygen Delivery Method BMI result Body Mass Index 50.4 Labs 06/26/24 23:40 06/26/24 23:16 Labs: Laboratory Results - last 48 hr 06/28/24 08:42 Estimat Average Glucose 91 Hemoglobin A1c % 4.8 Magnesium 2.4 Triglycerides 143 Cholesterol 173 LDL Cholesterol, Calc 114 H HDL Cholesterol 31 L Vitamin B12 442 Folate 5.7 TSH 1.47 Free T4 1.03 Medications Medications Current Medications Acetaminophen (Acetaminophen 325 Mg Tablet) 650 mg PO Q6H PRN PRN Reason: Headache/Pain Mild Scale (1-3) Last Admin: 06/28/24 21:07 Dose: 650 mg Al Hydroxide/Mg Hydroxide (Magnesium Hydrox/Alum Hydrox 30 Ml Oral.Susp) 30 ml PO Q6H PRN PRN Reason: Heartburn/Nausea Albuterol Sulfate (Albuterol Sulfate 90 Mcg 8 Gm Inhaler) 2 puff INHALE RQ4H PRN PRN Reason: Shortness of Breath Amlodipine Besylate (Amlodipine Besylate 10 Mg Tablet) 10 mg PO DAILY [facility]; Protocol Last Admin: 06/29/24 09:09 Dose: 10 mg Hydrochlorothiazide (Hydrochlorothiazide 12.5 Mg Tablet) 12.5 mg PO DAILY [facility]; Protocol Last Admin: 06/29/24 09:10 Dose: 12.5 mg Hydroxyzine HCl (Hydroxyzine Hcl 25 Mg Tablet) 25 mg PO Q6H PRN PRN Reason: Anxiety Levothyroxine Sodium (Levothyroxine Sodium 75 Mcg Tablet) 75 mcg PO DAILY [facility] Last Admin: 06/29/24 09:10 Dose: 75 mcg [place] Carbonate ([place] Carbonate 300 Mg Capsule) 900 mg PO BID [facility] Last Admin: 06/29/24 09:10 Dose: 900 mg Magnesium Hydroxide (Milk Of Magnesia 30 Ml Oral.Susp) 30 ml PO DAILY PRN PRN Reason: Constipation Nicotine (Nicotine 21 Mg Patch.Td24) 21 mg TRANSDERMA DAILY PRN PRN Reason: nicotine cravings Nicotine Polacrilex (Nicotine Polacrilex 2 Mg Gum) 4 mg BUCCAL Q2H PRN PRN Reason: Nicotine Cravings Olanzapine (Olanzapine 10 Mg Tablet) 10 mg PO BID [facility] Last Admin: 06/29/24 09:10 Dose: 10 mg Trazodone HCl (Trazodone Hcl 50 Mg Tablet) 50 mg PO BEDTIME [id number] PRN PRN Reason: Insomnia Vitamin D (Cholecalciferol (Vitamin D3) 25 Mcg Tablet) 25 mcg PO DAILY [facility] Last Admin: 06/29/24 09:11 Dose: 25 mcg Allergies Allergies Allergy/AdvReac Type Severity Reaction Status Date / Time haloperidol [From HALDOL] Allergy Unknown DISTONIC Verified 06/26/24 21:16 REACTION Assessment & Plan Assessment & Plan (1) Schizoaffective disorder, bipolar type: Status: Acute Code(s): F25.0 - Schizoaffective disorder, bipolar type (2) Hypothyroid: Status: Acute Code(s): E03.9 - Hypothyroidism, unspecified (3) Asthma: Status: Acute Code(s): J45.909 - Unspecified asthma, uncomplicated Plan Patient is a 34-year-old male on a Mantilla order, with history of schizoaffective disorder, chronic AH, possibly cognitive delay, who presents to the hospital for worsening AH. Patient says for the past 2 weeks he has had worse voices of telling him he is stupid, bad and that he does not know who he is. He said the voices make him want hit things though he refrains and does not do so. Patient says he has been taking his medications regularly; he lives with his parents and said that his VNA comes twice a day. He said I do not know if he is giving me the right medications but that he does take the. Patient denies any SI or HI; says that he has been sleeping; denies any drug or alcohol abuse, but says he is addicted to nicotine and smokes cannabis. Patient referenced a time in [facility] in 2002 when he had paranoid delusions. Crisis note says patient had paranoid delusion that his father is trying to stab him with a knife. Formulation/clinical reasoning: Patient reports that he has been compliant with medications and has a VNA and lives at home with his parents. Will continue home medications for now. There is no obvious trigger as to why patient decompensated about 2 weeks ago. Will gather collateral. On admission lithium level WNL and therapeutic supporting patient's report that he is compliant with medications. Will check TSH level Hospital course: 06/29 patient reports he is feeling little better but still has bothersome voices. Talked with outpatient VNA who says patient has not missed any medication doses for over year; team reach out to parents TSH 1.47 Free T4 1.03 Plan: CV Q 15 minute checks Continue Zyprexa 10 mg b.i.d. Continue lithium 900 mg b.i.d. Continue hydroxyzine 50 mg b.i.d. Patient on Invega Trinza 819 mg which he last received June 01 Continue hydrochlorothiazide 12 0.5 mg daily Continue amlodipine 10 mg daily Continue levothyroxine 75 mcg daily Continue vitamin-D Patient educated on: diagnosis and medication risk/benefits Informed Consent: understands Reason for continued inpatient stay Substantial Risk for: rapid decompensation Time Spent With Patient Time: Total time managing care of this patient today ____ minutes.
[2024-06-29 20:00] VITALS: BP 132/71; PULSE 76; RESP 18; TEMP 37.3; O2SAT 97
[2024-06-29] MEDS: hydrOXYzine HCL 25 MG TABLET PO (20:55)
[2024-06-29] MEDS: traZODone HCL 50 MG TABLET PO (20:55)
[2024-06-29] MEDS: Nicotine Polacrilex 2 MG GUM 4 MG BUCCAL (20:55)
[2024-06-30 08:00] VITALS: BP 132/82; PULSE 77; RESP 16; TEMP 36.9; O2SAT 96
[2024-06-30] MEDS: Lithium Carbonate 300 MG CAPSULE 900 MG PO ×2 (09:29→20:20)
[2024-06-30 09:30] VITALS: BP 132/82
[2024-06-30] MEDS: Cholecalciferol (Vitamin D3) 25 MCG TABLET PO (09:30)
[2024-06-30] MEDS: OLANZapine 10 MG TABLET PO ×2 (09:30→20:20)
[2024-06-30] MEDS: amLODIPine Besylate 10 MG TABLET PO (09:30)
[2024-06-30] MEDS: Levothyroxine Sodium 75 MCG TABLET PO (09:30)
[2024-06-30 09:31] VITALS: BP 132/82
[2024-06-30] MEDS: hydroCHLOROthiazide 12.5 MG TABLET PO (09:31)
[2024-06-30] MEDS: Acetaminophen 325 MG TABLET 650 MG PO ×2 (09:32→15:40)
--- NOTE | 2024-06-30 11:57 | HO.PSYCHPN ---
Subjective Subjective Date of Service: 06/30/24 Reason For Visit: schizoaffective disorder, bipolar type Interim History: Met with patient with articulation officer; discussed with team Patient reports that he is feeling better. He says when he 1st came in the voices were really bothering him however they are not bothering him so much anymore . Patient says that he is good and feeling back to his regular self. Reports he is eating and sleeping well. Discussed treatment and patient agrees to remain for continued stabilization and to make sure that AH remains improved. print binding worker talked with Henry's mother who reports that patient has likely been drinking alcohol and smoking weed which may have been the trigger. Mental Status Exam Mental Status Exam Narrative: Pt is alert and oriented; behavior is cooperative, friendly and calm; patient is not in distress; dressed in casual attire, unkempt; mood is described as good and affect congruent, brighter, though still distant at times; eye contact appropriate; Speech is normal rate, volume and prosody and not pressured; no psychomotor retardation present; thought process is goal directed, concrete; Thought content is feeling better; otherwise pertinent to relevant topics; intermittent paranoid delusions; denies any SI/HI. Says AH is less and not bothering him as much Patients insight and judgment impaired but improving. Diagnostics Vital Signs (24Hr): Vital Signs - 24 hr 06/29/24 20:00 06/30/24 09:30 06/30/24 09:31 Temperature 99.1 F Pulse Rate 76 Respiratory Rate 18 Blood Pressure 132/71 132/82 132/82 Pulse Oximetry 97 Oxygen Delivery Method Room Air BMI result Body Mass Index 50.4 Labs 06/26/24 23:40 06/26/24 23:16 Labs: Laboratory Results - last 48 hr 06/28/24 08:42 Vitamin B12 442 Folate 5.7 TSH 1.47 Free T4 1.03 Medications Medications Current Medications Acetaminophen (Acetaminophen 325 Mg Tablet) 650 mg PO Q6H PRN PRN Reason: Headache/Pain Mild Scale (1-3) Last Admin: 06/30/24 09:32 Dose: 650 mg Al Hydroxide/Mg Hydroxide (Magnesium Hydrox/Alum Hydrox 30 Ml Oral.Susp) 30 ml PO Q6H PRN PRN Reason: Heartburn/Nausea Albuterol Sulfate (Albuterol Sulfate 90 Mcg 8 Gm Inhaler) 2 puff INHALE RQ4H PRN PRN Reason: Shortness of Breath Amlodipine Besylate (Amlodipine Besylate 10 Mg Tablet) 10 mg PO DAILY [facility]; Protocol Last Admin: 06/30/24 09:30 Dose: 10 mg Hydrochlorothiazide (Hydrochlorothiazide 12.5 Mg Tablet) 12.5 mg PO DAILY [facility]; Protocol Last Admin: 06/30/24 09:31 Dose: 12.5 mg Hydroxyzine HCl (Hydroxyzine Hcl 25 Mg Tablet) 25 mg PO Q6H PRN PRN Reason: Anxiety Last Admin: 06/29/24 20:55 Dose: 25 mg Levothyroxine Sodium (Levothyroxine Sodium 75 Mcg Tablet) 75 mcg PO DAILY [facility] Last Admin: 06/30/24 09:30 Dose: 75 mcg [place] Carbonate ([place] Carbonate 300 Mg Capsule) 900 mg PO BID [facility] Last Admin: 06/30/24 09:29 Dose: 900 mg Magnesium Hydroxide (Milk Of Magnesia 30 Ml Oral.Susp) 30 ml PO DAILY PRN PRN Reason: Constipation Nicotine (Nicotine 21 Mg Patch.Td24) 21 mg TRANSDERMA DAILY PRN PRN Reason: nicotine cravings Nicotine Polacrilex (Nicotine Polacrilex 2 Mg Gum) 4 mg BUCCAL Q2H PRN PRN Reason: Nicotine Cravings Last Admin: 06/29/24 20:55 Dose: 4 mg Olanzapine (Olanzapine 10 Mg Tablet) 10 mg PO BID [facility] Last Admin: 06/30/24 09:30 Dose: 10 mg Trazodone HCl (Trazodone Hcl 50 Mg Tablet) 50 mg PO BEDTIME MRX1 PRN PRN Reason: Insomnia Last Admin: 06/29/24 20:55 Dose: 50 mg Vitamin D (Cholecalciferol (Vitamin D3) 25 Mcg Tablet) 25 mcg PO DAILY [facility] Last Admin: 06/30/24 09:30 Dose: 25 mcg Allergies Allergies Allergy/AdvReac Type Severity Reaction Status Date / Time haloperidol [From HALDOL] Allergy Unknown DISTONIC Verified 06/26/24 21:16 REACTION Assessment & Plan Assessment & Plan (1) Schizoaffective disorder, bipolar type: Status: Acute Code(s): F25.0 - Schizoaffective disorder, bipolar type (2) Hypothyroid: Status: Acute Code(s): E03.9 - Hypothyroidism, unspecified (3) Asthma: Status: Acute Code(s): J45.909 - Unspecified asthma, uncomplicated Plan Patient is a 34-year-old male on a Mantilla order, with history of schizoaffective disorder, chronic AH, possibly cognitive delay, who presents to the hospital for worsening AH. Patient says for the past 2 weeks he has had worse voices of telling him he is stupid, bad and that he does not know who he is. He said the voices make him want hit things though he refrains and does not do so. Patient says he has been taking his medications regularly; he lives with his parents and said that his VNA comes twice a day. He said I do not know if he is giving me the right medications but that he does take the. Patient denies any SI or HI; says that he has been sleeping; denies any drug or alcohol abuse, but says he is addicted to nicotine and smokes cannabis. Patient referenced a time in [facility] in 2002 when he had paranoid delusions. Crisis note says patient had paranoid delusion that his father is trying to stab him with a knife. Formulation/clinical reasoning: Patient reports that he has been compliant with medications and has a VNA and lives at home with his parents. Will continue home medications for now. There is no obvious trigger as to why patient decompensated about 2 weeks ago. Will gather collateral. On admission lithium level WNL and therapeutic supporting patient's report that he is compliant with medications. Will check TSH level Hospital course: 06/29 patient reports he is feeling little better but still has bothersome voices. Talked with outpatient VNA who says patient has not missed any medication doses for over year; team reach out to parents TSH 1.47 Free T4 1.03 06/30 Patient reports that he is feeling better. He says when he 1st came in the voices were really bothering him however they are not bothering him so much anymore . Patient says that he is good and feeling back to his regular self. Reports he is eating and sleeping well. Discussed treatment and patient agrees to remain for continued stabilization and to make sure that AH remains improved. print binding worker talked with Henry's mother who reports that patient has likely been drinking alcohol and smoking weed which may have been the trigger. No delusional thinking expressed. Continue treatment plan and monitor for symptoms Plan: CV Q 15 minute checks Continue Zyprexa 10 mg b.i.d. Continue lithium 900 mg b.i.d. Continue hydroxyzine 50 mg b.i.d. Patient on Invega Trinza 819 mg which he last received June 01 Continue hydrochlorothiazide 12 0.5 mg daily Continue amlodipine 10 mg daily Continue levothyroxine 75 mcg daily Continue vitamin-D Patient educated on: diagnosis and medication risk/benefits Informed Consent: understands and further education needed Reason for continued inpatient stay Substantial Risk for: rapid decompensation Time Spent With Patient Time: Total time managing care of this patient today ____ minutes.
[2024-06-30] MEDS: Nicotine Polacrilex 2 MG GUM 4 MG BUCCAL (15:42)
[2024-06-30 20:00] VITALS: BP 129/68; PULSE 65; TEMP 36.7; O2SAT 95
[2024-06-30] MEDS: traZODone HCL 50 MG TABLET PO (20:21)
[2024-07-01 08:00] VITALS: BP 130/72; PULSE 76; TEMP 37.6; O2SAT 98
--- NOTE | 2024-07-01 08:39 | P.PNPSI_ITS ---
Subjective Subjective Date of Service: 07/01/24 Reason For Visit: schizoaffective disorder, bipolar type Interim History: Met with patient; discussed with team; reviewed chart Patient remains in good behavioral and impulse control. He says again that he is overall feeling better and that the voices are bothering . Says his mood is good and wants to talk about going home. Patient agrees to remain on the unit until team can discuss case with his father and outpatient team. Mental Status Exam Mental Status Exam Narrative: Pt is alert and oriented; behavior is cooperative, friendly and calm; patient is not in distress; dressed in casual attire, unkempt; mood is described as good and affect congruent, brighter, though still distant at times; eye contact appropriate; Speech is normal rate, volume and prosody and not pressured; no psychomotor retardation present; thought process is goal directed, concrete; Thought content is feeling better; otherwise pertinent to relevant topics; intermittent paranoid delusions; denies any SI/HI. Says AH is less and not bothering him as much Patients insight and judgment impaired but improving. Diagnostics Vital Signs (24Hr): Vital Signs - 24 hr 06/30/24 09:30 06/30/24 09:31 06/30/24 20:00 Temperature 98.1 F Pulse Rate 65 Blood Pressure 132/82 132/82 129/68 Pulse Oximetry 95 Oxygen Delivery Method Room Air BMI result Body Mass Index 50.4 Labs 06/26/24 23:40 06/26/24 23:16 Medications Medications Current Medications Acetaminophen (Acetaminophen 325 Mg Tablet) 650 mg PO Q6H PRN PRN Reason: Headache/Pain Mild Scale (1-3) Last Admin: 06/30/24 15:40 Dose: 650 mg Al Hydroxide/Mg Hydroxide (Magnesium Hydrox/Alum Hydrox 30 Ml Oral.Susp) 30 ml PO Q6H PRN PRN Reason: Heartburn/Nausea Albuterol Sulfate (Albuterol Sulfate 90 Mcg 8 Gm Inhaler) 2 puff INHALE RQ4H PRN PRN Reason: Shortness of Breath Amlodipine Besylate (Amlodipine Besylate 10 Mg Tablet) 10 mg PO DAILY [facility]; Protocol Last Admin: 06/30/24 09:30 Dose: 10 mg Hydrochlorothiazide (Hydrochlorothiazide 12.5 Mg Tablet) 12.5 mg PO DAILY [facility]; Protocol Last Admin: 06/30/24 09:31 Dose: 12.5 mg Hydroxyzine HCl (Hydroxyzine Hcl 25 Mg Tablet) 25 mg PO Q6H PRN PRN Reason: Anxiety Last Admin: 06/29/24 20:55 Dose: 25 mg Levothyroxine Sodium (Levothyroxine Sodium 75 Mcg Tablet) 75 mcg PO DAILY [facility] Last Admin: 06/30/24 09:30 Dose: 75 mcg [place] Carbonate ([place] Carbonate 300 Mg Capsule) 900 mg PO BID [facility] Last Admin: 06/30/24 20:20 Dose: 900 mg Magnesium Hydroxide (Milk Of Magnesia 30 Ml Oral.Susp) 30 ml PO DAILY PRN PRN Reason: Constipation Nicotine (Nicotine 21 Mg Patch.Td24) 21 mg TRANSDERMA DAILY PRN PRN Reason: nicotine cravings Nicotine Polacrilex (Nicotine Polacrilex 2 Mg Gum) 4 mg BUCCAL Q2H PRN PRN Reason: Nicotine Cravings Last Admin: 06/30/24 15:42 Dose: 4 mg Olanzapine (Olanzapine 10 Mg Tablet) 10 mg PO BID [facility] Last Admin: 06/30/24 20:20 Dose: 10 mg Trazodone HCl (Trazodone Hcl 50 Mg Tablet) 50 mg PO BEDTIME MRX1 PRN PRN Reason: Insomnia Last Admin: 06/30/24 20:21 Dose: 50 mg Vitamin D (Cholecalciferol (Vitamin D3) 25 Mcg Tablet) 25 mcg PO DAILY [facility] Last Admin: 06/30/24 09:30 Dose: 25 mcg Allergies Allergies Allergy/AdvReac Type Severity Reaction Status Date / Time haloperidol [From HALDOL] Allergy Unknown DISTONIC Verified 06/26/24 21:16 REACTION Assessment & Plan Assessment & Plan (1) Schizoaffective disorder, bipolar type: Status: Acute Code(s): F25.0 - Schizoaffective disorder, bipolar type (2) Hypothyroid: Status: Acute Code(s): E03.9 - Hypothyroidism, unspecified (3) Asthma: Status: Acute Code(s): J45.909 - Unspecified asthma, uncomplicated Plan Patient is a 34-year-old male on a Mantilla order, with history of schizoaffective disorder, chronic AH, possibly cognitive delay, who presents to the hospital for worsening AH. Patient says for the past 2 weeks he has had worse voices of telling him he is stupid, bad and that he does not know who he is. He said the voices make him want hit things though he refrains and does not do so. Patient says he has been taking his medications regularly; he lives with his parents and said that his VNA comes twice a day. He said I do not know if he is giving me the right medications but that he does take the. Patient denies any SI or HI; says that he has been sleeping; denies any drug or alcohol abuse, but says he is addicted to nicotine and smokes cannabis. Patient referenced a time in [facility] in 2002 when he had paranoid delusions. Crisis note says patient had paranoid delusion that his father is trying to stab him with a knife. Formulation/clinical reasoning: Patient reports that he has been compliant with medications and has a VNA and lives at home with his parents. Will continue home medications for now. There is no obvious trigger as to why patient decompensated about 2 weeks ago. Will gather collateral. On admission lithium level WNL and therapeutic supporting patient's report that he is compliant with medications. Will check TSH level Hospital course: 06/29 patient reports he is feeling little better but still has bothersome voices. Talked with outpatient VNA who says patient has not missed any medication doses for over year; team reach out to parents TSH 1.47 Free T4 1.03 06/30 Patient reports that he is feeling better. He says when he 1st came in the voices were really bothering him however they are not bothering him so much anymore . Patient says that he is good and feeling back to his regular self. Reports he is eating and sleeping well. Discussed treatment and patient agrees to remain for continued stabilization and to make sure that AH remains improved. social worker psychiatric talked with Henry's mother who reports that patient has likely been drinking alcohol and smoking weed which may have been the trigger. No delusional thinking expressed. Continue treatment plan and monitor for symptoms 07/01 Patient remains in good behavioral and impulse control. He says again that he is overall feeling better and that the voices are bothering . Says his mood is good and wants to talk about going home. Patient agrees to remain on the unit until team can discuss case with his father and outpatient team. Plan: CV Q 15 minute checks Continue Zyprexa 10 mg b.i.d. Continue lithium 900 mg b.i.d. Continue hydroxyzine 50 mg b.i.d. Patient on Invega Trinza 819 mg which he last received June 01 Continue hydrochlorothiazide 12 0.5 mg daily Continue amlodipine 10 mg daily Continue levothyroxine 75 mcg daily Continue vitamin-D Patient educated on: diagnosis, medication risk/benefits and therapeutic strategies Informed Consent: understands Reason for continued inpatient stay Substantial Risk for: stable for discharge and rapid decompensation Time Spent With Patient Time: Total time managing care of this patient today ____ minutes.
[2024-07-01 10:39] VITALS: BP 130/72
[2024-07-01] MEDS: hydroCHLOROthiazide 12.5 MG TABLET PO (10:39)
[2024-07-01] MEDS: Lithium Carbonate 300 MG CAPSULE 900 MG PO ×2 (10:40→19:56)
[2024-07-01] MEDS: Cholecalciferol (Vitamin D3) 25 MCG TABLET PO (10:40)
[2024-07-01] MEDS: OLANZapine 10 MG TABLET PO ×2 (10:40→19:56)
[2024-07-01] MEDS: amLODIPine Besylate 10 MG TABLET PO (10:40)
[2024-07-01] MEDS: Levothyroxine Sodium 75 MCG TABLET PO (10:40)
[2024-07-01 19:46] VITALS: BP 133/77; PULSE 86; TEMP 37.4; O2SAT 96
[2024-07-01] MEDS: hydrOXYzine HCL 25 MG TABLET PO (19:56)
[2024-07-01] MEDS: traZODone HCL 50 MG TABLET PO (19:56)
[2024-07-02 08:00] VITALS: BP 119/64; PULSE 103; TEMP 36.9; O2SAT 96
[2024-07-02 09:28] VITALS: BP 147/85
[2024-07-02] MEDS: amLODIPine Besylate 10 MG TABLET PO (09:28)
[2024-07-02] MEDS: Lithium Carbonate 300 MG CAPSULE 900 MG PO ×2 (09:28→21:19)
[2024-07-02 09:29] VITALS: BP 147/85
[2024-07-02] MEDS: Levothyroxine Sodium 75 MCG TABLET PO (09:29)
[2024-07-02] MEDS: OLANZapine 10 MG TABLET PO ×2 (09:29→21:19)
[2024-07-02] MEDS: hydroCHLOROthiazide 12.5 MG TABLET PO (09:29)
[2024-07-02] MEDS: Cholecalciferol (Vitamin D3) 25 MCG TABLET PO (09:29)
[2024-07-02 20:00] VITALS: BP 134/83; PULSE 75; TEMP 36.6; O2SAT 96
[2024-07-03 08:00] VITALS: BP 129/76; PULSE 66; RESP 16; TEMP 36.9; O2SAT 97
[2024-07-03 10:16] VITALS: BP 129/76
[2024-07-03] MEDS: hydroCHLOROthiazide 12.5 MG TABLET PO (10:16)
[2024-07-03] MEDS: amLODIPine Besylate 10 MG TABLET PO (10:16)
[2024-07-03] MEDS: Levothyroxine Sodium 75 MCG TABLET PO (10:16)
[2024-07-03] MEDS: Lithium Carbonate 300 MG CAPSULE 900 MG PO ×2 (10:17→21:27)
[2024-07-03] MEDS: Cholecalciferol (Vitamin D3) 25 MCG TABLET PO (10:17)
[2024-07-03] MEDS: OLANZapine 10 MG TABLET PO ×2 (10:17→21:27)
[2024-07-03] MEDS: hydrOXYzine HCL 25 MG TABLET PO ×2 (15:23→22:01)
[2024-07-03 20:00] VITALS: BP 135/80; PULSE 80; RESP 18; TEMP 36.6; O2SAT 98
--- NOTE | 2024-07-03 21:47 | P.PNPSI_ITS ---
Subjective Subjective Date of Service: 07/02/24 Reason For Visit: schizoaffective disorder, bipolar type Interim History: pt seen on 07/02; met with patient; discussed with team pt says he's good. Says interminttent AH but it does not bother him. Asked about going home and again accepts waiting to discuss with family Mental Status Exam Mental Status Exam Narrative: Pt is alert and oriented; behavior is cooperative, friendly and calm; patient is not in distress; dressed in casual attire, unkempt; mood is described as good and affect congruent, brighter, though still distant at times; eye contact appropriate; Speech is normal rate, volume and prosody and not pressured; no psychomotor retardation present; thought process is goal directed, concrete; Thought content is feeling better; otherwise pertinent to relevant topics; intermittent paranoid delusions; denies any SI/HI. Says AH is less and not bothering him as much Patients insight and judgment impaired but improved, approaching baseline. Diagnostics Vital Signs (24Hr): Vital Signs - 24 hr 07/03/24 08:00 07/03/24 10:16 07/03/24 10:16 Temperature 98.4 F Pulse Rate 66 Respiratory Rate 16 Blood Pressure 129/76 129/76 129/76 Pulse Oximetry 97 Oxygen Delivery Method Room Air 07/03/24 20:00 Temperature 97.8 F Pulse Rate 80 Respiratory Rate 18 Blood Pressure 135/80 Pulse Oximetry 98 Oxygen Delivery Method Room Air BMI result Body Mass Index 50.4 Labs 06/26/24 23:40 06/26/24 23:16 Medications Medications Current Medications Acetaminophen (Acetaminophen 325 Mg Tablet) 650 mg PO Q6H PRN PRN Reason: Headache/Pain Mild Scale (1-3) Last Admin: 06/30/24 15:40 Dose: 650 mg Al Hydroxide/Mg Hydroxide (Magnesium Hydrox/Alum Hydrox 30 Ml Oral.Susp) 30 ml PO Q6H PRN PRN Reason: Heartburn/Nausea Albuterol Sulfate (Albuterol Sulfate 90 Mcg 8 Gm Inhaler) 2 puff INHALE RQ4H PRN PRN Reason: Shortness of Breath Amlodipine Besylate (Amlodipine Besylate 10 Mg Tablet) 10 mg PO DAILY IMANI; Protocol Last Admin: 07/03/24 10:16 Dose: 10 mg Hydrochlorothiazide (Hydrochlorothiazide 12.5 Mg Tablet) 12.5 mg PO DAILY IMANI; Protocol Last Admin: 07/03/24 10:16 Dose: 12.5 mg Hydroxyzine HCl (Hydroxyzine Hcl 25 Mg Tablet) 25 mg PO Q6H PRN PRN Reason: Anxiety Last Admin: 07/03/24 15:23 Dose: 25 mg Levothyroxine Sodium (Levothyroxine Sodium 75 Mcg Tablet) 75 mcg PO DAILY [facility] Last Admin: 07/03/24 10:16 Dose: 75 mcg [place] Carbonate ([place] Carbonate 300 Mg Capsule) 900 mg PO BID [facility] Last Admin: 07/03/24 21:27 Dose: 900 mg Magnesium Hydroxide (Milk Of Magnesia 30 Ml Oral.Susp) 30 ml PO DAILY PRN PRN Reason: Constipation Nicotine (Nicotine 21 Mg Patch.Td24) 21 mg TRANSDERMA DAILY PRN PRN Reason: nicotine cravings Nicotine Polacrilex (Nicotine Polacrilex 2 Mg Gum) 4 mg BUCCAL Q2H PRN PRN Reason: Nicotine Cravings Last Admin: 06/30/24 15:42 Dose: 4 mg Olanzapine (Olanzapine 10 Mg Tablet) 10 mg PO BID [facility] Last Admin: 07/03/24 21:27 Dose: 10 mg Trazodone HCl (Trazodone Hcl 50 Mg Tablet) 50 mg PO BEDTIME MRX1 PRN PRN Reason: Insomnia Last Admin: 07/01/24 19:56 Dose: 50 mg Vitamin D (Cholecalciferol (Vitamin D3) 25 Mcg Tablet) 25 mcg PO DAILY [facility] Last Admin: 07/03/24 10:17 Dose: 25 mcg Allergies Allergies Allergy/AdvReac Type Severity Reaction Status Date / Time haloperidol [From HALDOL] Allergy Unknown DISTONIC Verified 06/26/24 21:16 REACTION Assessment & Plan Assessment & Plan (1) Schizoaffective disorder, bipolar type: Status: Acute Code(s): F25.0 - Schizoaffective disorder, bipolar type (2) Hypothyroid: Status: Acute Code(s): E03.9 - Hypothyroidism, unspecified (3) Asthma: Status: Acute Code(s): J45.909 - Unspecified asthma, uncomplicated Plan Patient is a 34-year-old male on a Mantilla order, with history of schizoaffective disorder, chronic AH, possibly cognitive delay, who presents to the hospital for worsening AH. Patient says for the past 2 weeks he has had worse voices of telling him he is stupid, bad and that he does not know who he is. He said the voices make him want hit things though he refrains and does not do so. Patient says he has been taking his medications regularly; he lives with his parents and said that his VNA comes twice a day. He said I do not know if he is giving me the right medications but that he does take the. Patient denies any SI or HI; says that he has been sleeping; denies any drug or alcohol abuse, but says he is addicted to nicotine and smokes cannabis. Patient referenced a time in [facility] in 2002 when he had paranoid delusions. Crisis note says patient had paranoid delusion that his father is trying to stab him with a knife. Formulation/clinical reasoning: Patient reports that he has been compliant with medications and has a VNA and lives at home with his parents. Will continue home medications for now. There is no obvious trigger as to why patient decompensated about 2 weeks ago. Will gather collateral. On admission lithium level WNL and therapeutic supporting patient's report that he is compliant with medications. Will check TSH level Hospital course: 06/29 patient reports he is feeling little better but still has bothersome voices. Talked with outpatient VNA who says patient has not missed any medication doses for over year; team reach out to parents TSH 1.47 Free T4 1.03 06/30 Patient reports that he is feeling better. He says when he 1st came in the voices were really bothering him however they are not bothering him so much anymore . Patient says that he is good and feeling back to his regular self. Reports he is eating and sleeping well. Discussed treatment and patient agrees to remain for continued stabilization and to make sure that AH remains improved. tree and shrub worker talked with Henry's mother who reports that patient has likely been drinking alcohol and smoking weed which may have been the trigger. No delusional thinking expressed. Continue treatment plan and monitor for symptoms 07/01 Patient remains in good behavioral and impulse control. He says again that he is overall feeling better and that the voices are bothering . Says his mood is good and wants to talk about going home. Patient agrees to remain on the unit until team can discuss case with his father and outpatient team. 07/02 continue tx plan; improving, approaching baseline but needs help caring for self in community and need to set up aftercare Plan: CV Q 15 minute checks Continue Zyprexa 10 mg b.i.d. Continue lithium 900 mg b.i.d. Continue hydroxyzine 50 mg b.i.d. Patient on Invega Trinza 819 mg which he last received June 01 Continue hydrochlorothiazide 12 0.5 mg daily Continue amlodipine 10 mg daily Continue levothyroxine 75 mcg daily Continue vitamin-D Patient educated on: diagnosis Informed Consent: understands and further education needed Reason for continued inpatient stay Substantial Risk for: rapid decompensation Time Spent With Patient Time: Total time managing care of this patient today ____ minutes.
--- NOTE | 2024-07-03 21:57 | HO.PSYCHPN ---
Subjective Subjective Date of Service: 07/03/24 Reason For Visit: schizoaffective disorder, bipolar type Interim History: met with patient; discussed with team no change in presentation; says good and minimal AH; looking forward to going home Mental Status Exam Mental Status Exam Narrative: Pt is alert and oriented; behavior is cooperative, friendly and calm; patient is not in distress; dressed in casual attire, unkempt; mood is described as good and affect congruent, brighter, though still distant at times; eye contact appropriate; Speech is normal rate, volume and prosody and not pressured; no psychomotor retardation present; thought process is goal directed, concrete; Thought content is feeling better; otherwise pertinent to relevant topics; intermittent paranoid delusions; denies any SI/HI. Says AH is less and not bothering him as much Patients insight and judgment impaired but improved, approaching baseline. Diagnostics Vital Signs (24Hr): Vital Signs - 24 hr 07/03/24 08:00 07/03/24 10:16 07/03/24 10:16 Temperature 98.4 F Pulse Rate 66 Respiratory Rate 16 Blood Pressure 129/76 129/76 129/76 Pulse Oximetry 97 Oxygen Delivery Method Room Air 07/03/24 20:00 Temperature 97.8 F Pulse Rate 80 Respiratory Rate 18 Blood Pressure 135/80 Pulse Oximetry 98 Oxygen Delivery Method Room Air BMI result Body Mass Index 50.4 Labs 06/26/24 23:40 06/26/24 23:16 Medications Medications Current Medications Acetaminophen (Acetaminophen 325 Mg Tablet) 650 mg PO Q6H PRN PRN Reason: Headache/Pain Mild Scale (1-3) Last Admin: 06/30/24 15:40 Dose: 650 mg Al Hydroxide/Mg Hydroxide (Magnesium Hydrox/Alum Hydrox 30 Ml Oral.Susp) 30 ml PO Q6H PRN PRN Reason: Heartburn/Nausea Albuterol Sulfate (Albuterol Sulfate 90 Mcg 8 Gm Inhaler) 2 puff INHALE RQ4H PRN PRN Reason: Shortness of Breath Amlodipine Besylate (Amlodipine Besylate 10 Mg Tablet) 10 mg PO DAILY IMANI; Protocol Last Admin: 07/03/24 10:16 Dose: 10 mg Hydrochlorothiazide (Hydrochlorothiazide 12.5 Mg Tablet) 12.5 mg PO DAILY IMANI; Protocol Last Admin: 07/03/24 10:16 Dose: 12.5 mg Hydroxyzine HCl (Hydroxyzine Hcl 25 Mg Tablet) 25 mg PO Q6H PRN PRN Reason: Anxiety Last Admin: 07/03/24 15:23 Dose: 25 mg Levothyroxine Sodium (Levothyroxine Sodium 75 Mcg Tablet) 75 mcg PO DAILY [facility] Last Admin: 07/03/24 10:16 Dose: 75 mcg [place] Carbonate ([place] Carbonate 300 Mg Capsule) 900 mg PO BID [facility] Last Admin: 07/03/24 21:27 Dose: 900 mg Magnesium Hydroxide (Milk Of Magnesia 30 Ml Oral.Susp) 30 ml PO DAILY PRN PRN Reason: Constipation Nicotine (Nicotine 21 Mg Patch.Td24) 21 mg TRANSDERMA DAILY PRN PRN Reason: nicotine cravings Nicotine Polacrilex (Nicotine Polacrilex 2 Mg Gum) 4 mg BUCCAL Q2H PRN PRN Reason: Nicotine Cravings Last Admin: 06/30/24 15:42 Dose: 4 mg Olanzapine (Olanzapine 10 Mg Tablet) 10 mg PO BID [facility] Last Admin: 07/03/24 21:27 Dose: 10 mg Trazodone HCl (Trazodone Hcl 50 Mg Tablet) 50 mg PO BEDTIME MRX1 PRN PRN Reason: Insomnia Last Admin: 07/01/24 19:56 Dose: 50 mg Vitamin D (Cholecalciferol (Vitamin D3) 25 Mcg Tablet) 25 mcg PO DAILY [facility] Last Admin: 07/03/24 10:17 Dose: 25 mcg Allergies Allergies Allergy/AdvReac Type Severity Reaction Status Date / Time haloperidol [From HALDOL] Allergy Unknown DISTONIC Verified 06/26/24 21:16 REACTION Assessment & Plan Assessment & Plan (1) Schizoaffective disorder, bipolar type: Status: Acute Code(s): F25.0 - Schizoaffective disorder, bipolar type (2) Hypothyroid: Status: Acute Code(s): E03.9 - Hypothyroidism, unspecified (3) Asthma: Status: Acute Code(s): J45.909 - Unspecified asthma, uncomplicated Plan Patient is a 34-year-old male on a Mantilla order, with history of schizoaffective disorder, chronic AH, possibly cognitive delay, who presents to the hospital for worsening AH. Patient says for the past 2 weeks he has had worse voices of telling him he is stupid, bad and that he does not know who he is. He said the voices make him want hit things though he refrains and does not do so. Patient says he has been taking his medications regularly; he lives with his parents and said that his VNA comes twice a day. He said I do not know if he is giving me the right medications but that he does take the. Patient denies any SI or HI; says that he has been sleeping; denies any drug or alcohol abuse, but says he is addicted to nicotine and smokes cannabis. Patient referenced a time in [facility] in 2002 when he had paranoid delusions. Crisis note says patient had paranoid delusion that his father is trying to stab him with a knife. Formulation/clinical reasoning: Patient reports that he has been compliant with medications and has a VNA and lives at home with his parents. Will continue home medications for now. There is no obvious trigger as to why patient decompensated about 2 weeks ago. Will gather collateral. On admission lithium level WNL and therapeutic supporting patient's report that he is compliant with medications. Will check TSH level Hospital course: 06/29 patient reports he is feeling little better but still has bothersome voices. Talked with outpatient VNA who says patient has not missed any medication doses for over year; team reach out to parents TSH 1.47 Free T4 1.03 06/30 Patient reports that he is feeling better. He says when he 1st came in the voices were really bothering him however they are not bothering him so much anymore . Patient says that he is good and feeling back to his regular self. Reports he is eating and sleeping well. Discussed treatment and patient agrees to remain for continued stabilization and to make sure that AH remains improved. mat worker talked with Henry's mother who reports that patient has likely been drinking alcohol and smoking weed which may have been the trigger. No delusional thinking expressed. Continue treatment plan and monitor for symptoms 07/01 Patient remains in good behavioral and impulse control. He says again that he is overall feeling better and that the voices are bothering . Says his mood is good and wants to talk about going home. Patient agrees to remain on the unit until team can discuss case with his father and outpatient team. 07/02 continue tx plan; improving, approaching baseline but needs help caring for self in community and need to set up aftercare 07/03 continue tx plan; dispo planning w/ family Plan: CV Q 15 minute checks Continue Zyprexa 10 mg b.i.d. Continue lithium 900 mg b.i.d. Continue hydroxyzine 50 mg b.i.d. Patient on Invega Trinza 819 mg which he last received June 01 Continue hydrochlorothiazide 12 0.5 mg daily Continue amlodipine 10 mg daily Continue levothyroxine 75 mcg daily Continue vitamin-D Patient educated on: diagnosis Informed Consent: understands Reason for continued inpatient stay Substantial Risk for: stable for discharge and rapid decompensation Time Spent With Patient Time: Total time managing care of this patient today ____ minutes.
[2024-07-04 08:00] VITALS: BP 122/79; PULSE 66; RESP 16; TEMP 37.6; O2SAT 94
--- NOTE | 2024-07-04 09:25 | HO.PSYCHPN ---
Subjective Subjective Date of Service: 07/04/24 Reason For Visit: schizoaffective disorder, bipolar type Interim History: met with patient; discussed with team pt reports he's good and that AH are not bothersome. Mental Status Exam Mental Status Exam Narrative: Pt is alert and oriented; behavior is cooperative, friendly and calm; patient is not in distress; dressed in casual attire, unkempt, marginal hygiene; mood is described as good and affect congruent, brighter, though still distant at times; eye contact appropriate; Speech is normal rate, volume and prosody and not pressured; no psychomotor retardation present; thought process is goal directed, concrete; Thought content is feeling better; otherwise pertinent to relevant topics; intermittent paranoid delusions; denies any SI/HI. Says AH is less and not bothering him as much Patients insight and judgment impaired but improved, approaching baseline. Diagnostics Vital Signs (24Hr): Vital Signs - 24 hr 07/03/24 10:16 07/03/24 10:16 07/03/24 20:00 Temperature 97.8 F Pulse Rate 80 Respiratory Rate 18 Blood Pressure 129/76 129/76 135/80 Pulse Oximetry 98 Oxygen Delivery Method Room Air 07/04/24 08:00 Temperature 99.6 F Pulse Rate 66 Respiratory Rate 16 Blood Pressure 122/79 Pulse Oximetry 94 Oxygen Delivery Method Room Air BMI result Body Mass Index 50.4 Labs 06/26/24 23:40 06/26/24 23:16 Medications Medications Current Medications Acetaminophen (Acetaminophen 325 Mg Tablet) 650 mg PO Q6H PRN PRN Reason: Headache/Pain Mild Scale (1-3) Last Admin: 06/30/24 15:40 Dose: 650 mg Al Hydroxide/Mg Hydroxide (Magnesium Hydrox/Alum Hydrox 30 Ml Oral.Susp) 30 ml PO Q6H PRN PRN Reason: Heartburn/Nausea Albuterol Sulfate (Albuterol Sulfate 90 Mcg 8 Gm Inhaler) 2 puff INHALE RQ4H PRN PRN Reason: Shortness of Breath Amlodipine Besylate (Amlodipine Besylate 10 Mg Tablet) 10 mg PO DAILY IMANI; Protocol Last Admin: 07/03/24 10:16 Dose: 10 mg Hydrochlorothiazide (Hydrochlorothiazide 12.5 Mg Tablet) 12.5 mg PO DAILY IMANI; Protocol Last Admin: 07/03/24 10:16 Dose: 12.5 mg Hydroxyzine HCl (Hydroxyzine Hcl 25 Mg Tablet) 25 mg PO Q6H PRN PRN Reason: Anxiety Last Admin: 07/03/24 22:01 Dose: 25 mg Levothyroxine Sodium (Levothyroxine Sodium 75 Mcg Tablet) 75 mcg PO DAILY [facility] Last Admin: 07/03/24 10:16 Dose: 75 mcg [place] Carbonate ([place] Carbonate 300 Mg Capsule) 900 mg PO BID [facility] Last Admin: 07/03/24 21:27 Dose: 900 mg Magnesium Hydroxide (Milk Of Magnesia 30 Ml Oral.Susp) 30 ml PO DAILY PRN PRN Reason: Constipation Nicotine (Nicotine 21 Mg Patch.Td24) 21 mg TRANSDERMA DAILY PRN PRN Reason: nicotine cravings Nicotine Polacrilex (Nicotine Polacrilex 2 Mg Gum) 4 mg BUCCAL Q2H PRN PRN Reason: Nicotine Cravings Last Admin: 06/30/24 15:42 Dose: 4 mg Olanzapine (Olanzapine 10 Mg Tablet) 10 mg PO BID [facility] Last Admin: 07/03/24 21:27 Dose: 10 mg Trazodone HCl (Trazodone Hcl 50 Mg Tablet) 50 mg PO BEDTIME MRX1 PRN PRN Reason: Insomnia Last Admin: 07/01/24 19:56 Dose: 50 mg Vitamin D (Cholecalciferol (Vitamin D3) 25 Mcg Tablet) 25 mcg PO DAILY [facility] Last Admin: 07/03/24 10:17 Dose: 25 mcg Allergies Allergies Allergy/AdvReac Type Severity Reaction Status Date / Time haloperidol [From HALDOL] Allergy Unknown DISTONIC Verified 06/26/24 21:16 REACTION Assessment & Plan Assessment & Plan (1) Schizoaffective disorder, bipolar type: Status: Acute Code(s): F25.0 - Schizoaffective disorder, bipolar type (2) Hypothyroid: Status: Acute Code(s): E03.9 - Hypothyroidism, unspecified (3) Asthma: Status: Acute Code(s): J45.909 - Unspecified asthma, uncomplicated Plan Patient is a 34-year-old male on a Mantilla order, with history of schizoaffective disorder, chronic AH, possibly cognitive delay, who presents to the hospital for worsening AH. Patient says for the past 2 weeks he has had worse voices of telling him he is stupid, bad and that he does not know who he is. He said the voices make him want hit things though he refrains and does not do so. Patient says he has been taking his medications regularly; he lives with his parents and said that his VNA comes twice a day. He said I do not know if he is giving me the right medications but that he does take the. Patient denies any SI or HI; says that he has been sleeping; denies any drug or alcohol abuse, but says he is addicted to nicotine and smokes cannabis. Patient referenced a time in [facility] in 2002 when he had paranoid delusions. Crisis note says patient had paranoid delusion that his father is trying to stab him with a knife. Formulation/clinical reasoning: Patient reports that he has been compliant with medications and has a VNA and lives at home with his parents. Will continue home medications for now. There is no obvious trigger as to why patient decompensated about 2 weeks ago. Will gather collateral. On admission lithium level WNL and therapeutic supporting patient's report that he is compliant with medications. Will check TSH level Hospital course: 06/29 patient reports he is feeling little better but still has bothersome voices. Talked with outpatient VNA who says patient has not missed any medication doses for over year; team reach out to parents TSH 1.47 Free T4 1.03 06/30 Patient reports that he is feeling better. He says when he 1st came in the voices were really bothering him however they are not bothering him so much anymore . Patient says that he is good and feeling back to his regular self. Reports he is eating and sleeping well. Discussed treatment and patient agrees to remain for continued stabilization and to make sure that AH remains improved. abrasive worker talked with Henry's mother who reports that patient has likely been drinking alcohol and smoking weed which may have been the trigger. No delusional thinking expressed. Continue treatment plan and monitor for symptoms 07/01 Patient remains in good behavioral and impulse control. He says again that he is overall feeling better and that the voices are bothering . Says his mood is good and wants to talk about going home. Patient agrees to remain on the unit until team can discuss case with his father and outpatient team. 07/02 continue tx plan; improving, approaching baseline but needs help caring for self in community and need to set up aftercare 07/03 continue tx plan; dispo planning w/ family 07/04 continue tx team Plan: CV Q 15 minute checks Continue Zyprexa 10 mg b.i.d. Continue lithium 900 mg b.i.d. Continue hydroxyzine 50 mg b.i.d. Patient on Invega Trinza 819 mg which he last received June 01 Continue hydrochlorothiazide 12 0.5 mg daily Continue amlodipine 10 mg daily Continue levothyroxine 75 mcg daily Continue vitamin-D Patient educated on: diagnosis Informed Consent: understands and further education needed Reason for continued inpatient stay Substantial Risk for: stable for discharge Time Spent With Patient Time: Total time managing care of this patient today ____ minutes.
[2024-07-04 10:14] VITALS: BP 133/85
[2024-07-04] MEDS: hydroCHLOROthiazide 12.5 MG TABLET PO (10:14)
[2024-07-04] MEDS: Cholecalciferol (Vitamin D3) 25 MCG TABLET PO (10:14)
[2024-07-04] MEDS: OLANZapine 10 MG TABLET PO ×2 (10:14→20:33)
[2024-07-04] MEDS: Lithium Carbonate 300 MG CAPSULE 900 MG PO ×2 (10:14→20:33)
[2024-07-04] MEDS: amLODIPine Besylate 10 MG TABLET PO (10:14)
[2024-07-04] MEDS: Levothyroxine Sodium 75 MCG TABLET PO (10:15)
[2024-07-04 20:30] VITALS: BP 105/58; PULSE 88; TEMP 37.4; O2SAT 95
[2024-07-04] MEDS: traZODone HCL 50 MG TABLET PO (20:33)
[2024-07-04] MEDS: hydrOXYzine HCL 25 MG TABLET PO (20:35)
[2024-07-05 08:00] VITALS: BP 115/74; PULSE 77; RESP 16; TEMP 37.1; O2SAT 96
[2024-07-05] MEDS: Lithium Carbonate 300 MG CAPSULE 900 MG PO ×2 (08:43→20:21)
[2024-07-05] MEDS: Levothyroxine Sodium 75 MCG TABLET PO (08:44)
[2024-07-05] MEDS: OLANZapine 10 MG TABLET PO ×2 (08:44→20:22)
[2024-07-05] MEDS: amLODIPine Besylate 10 MG TABLET PO (08:44)
[2024-07-05] MEDS: Cholecalciferol (Vitamin D3) 25 MCG TABLET PO (08:44)
[2024-07-05] MEDS: hydroCHLOROthiazide 12.5 MG TABLET PO (08:44)
--- NOTE | 2024-07-05 09:39 | P.PNPSI_ITS ---
Subjective Subjective Date of Service: 07/05/24 Reason For Visit: schizoaffective disorder, bipolar type Interim History: met with patient; discussed with team Patient?says?he?is? good ?and?confirms?he?is?going?home?tomorrow.??Patient?more? talkative?today?and W anted?to?explain?to?me?his?history?of?schizophrenia.??He?said?it?started?with?good ving?voices?in?his?head?and D elusional?thoughts.??He?said?it?is?good?that?he?comes?to?the?hospital.??Otherwis e?no?complaints?and?looking? F or?to?discharge.??Social?work?discussed?with?his?parents?who?agree?he?is?ready?t o?return?home. Mental Status Exam Mental Status Exam Narrative: Pt is alert and oriented; behavior is cooperative, friendly and calm; patient is not in distress; dressed in casual attire, unkempt, marginal hygiene; mood is described as good and affect congruent, brighter, though still distant at times; eye contact appropriate; Speech is normal rate, volume and prosody and not pressured; no psychomotor retardation present; thought process is goal directed, concrete; Thought content is feeling better; otherwise pertinent to relevant topics; intermittent paranoid delusions; denies any SI/HI. Says AH is less and not bothering him as much Patients insight and judgment impaired but improved,?at?baseline?and?adequate. Diagnostics Vital Signs (24Hr): Vital Signs - 24 hr 07/04/24 10:14 07/04/24 20:30 07/05/24 08:00 Temperature 99.3 F 98.8 F Pulse Rate 88 77 Respiratory Rate 16 Blood Pressure 133/85 105/58 L 115/74 Pulse Oximetry 95 96 Oxygen Delivery Method Room Air Room Air BMI result Body Mass Index 50.4 Labs 06/26/24 23:40 06/26/24 23:16 Medications Medications Current Medications Acetaminophen (Acetaminophen 325 Mg Tablet) 650 mg PO Q6H PRN PRN Reason: Headache/Pain Mild Scale (1-3) Last Admin: 06/30/24 15:40 Dose: 650 mg Al Hydroxide/Mg Hydroxide (Magnesium Hydrox/Alum Hydrox 30 Ml Oral.Susp) 30 ml PO Q6H PRN PRN Reason: Heartburn/Nausea Albuterol Sulfate (Albuterol Sulfate 90 Mcg 8 Gm Inhaler) 2 puff INHALE RQ4H PRN PRN Reason: Shortness of Breath Amlodipine Besylate (Amlodipine Besylate 10 Mg Tablet) 10 mg PO DAILY [facility]; Protocol Last Admin: 07/05/24 08:44 Dose: 10 mg Hydrochlorothiazide (Hydrochlorothiazide 12.5 Mg Tablet) 12.5 mg PO DAILY [facility]; Protocol Last Admin: 07/05/24 08:44 Dose: 12.5 mg Hydroxyzine HCl (Hydroxyzine Hcl 25 Mg Tablet) 25 mg PO Q6H PRN PRN Reason: Anxiety Last Admin: 07/04/24 20:35 Dose: 25 mg Levothyroxine Sodium (Levothyroxine Sodium 75 Mcg Tablet) 75 mcg PO DAILY [facility] Last Admin: 07/05/24 08:44 Dose: 75 mcg [place] Carbonate ([place] Carbonate 300 Mg Capsule) 900 mg PO BID [facility] Last Admin: 07/05/24 08:43 Dose: 900 mg Magnesium Hydroxide (Milk Of Magnesia 30 Ml Oral.Susp) 30 ml PO DAILY PRN PRN Reason: Constipation Nicotine (Nicotine 21 Mg Patch.Td24) 21 mg TRANSDERMA DAILY PRN PRN Reason: nicotine cravings Nicotine Polacrilex (Nicotine Polacrilex 2 Mg Gum) 4 mg BUCCAL Q2H PRN PRN Reason: Nicotine Cravings Last Admin: 06/30/24 15:42 Dose: 4 mg Olanzapine (Olanzapine 10 Mg Tablet) 10 mg PO BID [facility] Last Admin: 07/05/24 08:44 Dose: 10 mg Trazodone HCl (Trazodone Hcl 50 Mg Tablet) 50 mg PO BEDTIME MRX1 PRN PRN Reason: Insomnia Last Admin: 07/04/24 20:33 Dose: 50 mg Vitamin D (Cholecalciferol (Vitamin D3) 25 Mcg Tablet) 25 mcg PO DAILY [facility] Last Admin: 07/05/24 08:44 Dose: 25 mcg Allergies Allergies Allergy/AdvReac Type Severity Reaction Status Date / Time haloperidol [From HALDOL] Allergy Unknown DISTONIC Verified 06/26/24 21:16 REACTION Assessment & Plan Assessment & Plan (1) Schizoaffective disorder, bipolar type: Status: Acute Code(s): F25.0 - Schizoaffective disorder, bipolar type (2) Hypothyroid: Status: Acute Code(s): E03.9 - Hypothyroidism, unspecified (3) Asthma: Status: Acute Code(s): J45.909 - Unspecified asthma, uncomplicated Plan Patient is a 34-year-old male on a Mantilla order, with history of schizoaffective disorder, chronic AH, possibly cognitive delay, who presents to the hospital for worsening AH. Patient says for the past 2 weeks he has had worse voices of telling him he is stupid, bad and that he does not know who he is. He said the voices make him want hit things though he refrains and does not do so. Patient says he has been taking his medications regularly; he lives with his parents and said that his VNA comes twice a day. He said I do not know if he is giving me the right medications but that he does take the. Patient denies any SI or HI; says that he has been sleeping; denies any drug or alcohol abuse, but says he is addicted to nicotine and smokes cannabis. Patient referenced a time in [facility] in 2002 when he had paranoid delusions. Crisis note says patient had paranoid delusion that his father is trying to stab him with a knife. Formulation/clinical reasoning: Patient reports that he has been compliant with medications and has a VNA and lives at home with his parents. Will continue home medications for now. There is no obvious trigger as to why patient decompensated about 2 weeks ago. Will gather collateral. On admission lithium level WNL and therapeutic supporting patient's report that he is compliant with medications. Will check TSH level Hospital course: 06/29 patient reports he is feeling little better but still has bothersome voices. Talked with outpatient VNA who says patient has not missed any medication doses for over year; team reach out to parents TSH 1.47 Free T4 1.03 06/30 Patient reports that he is feeling better. He says when he 1st came in the voices were really bothering him however they are not bothering him so much anymore . Patient says that he is good and feeling back to his regular self. Reports he is eating and sleeping well. Discussed treatment and patient agrees to remain for continued stabilization and to make sure that AH remains improved. log raft worker talked with Henry's mother who reports that patient has likely been drinking alcohol and smoking weed which may have been the trigger. No delusional thinking expressed. Continue treatment plan and monitor for symptoms 07/01 Patient remains in good behavioral and impulse control. He says again that he is overall feeling better and that the voices are bothering . Says his mood is good and wants to talk about going home. Patient agrees to remain on the unit until team can discuss case with his father and outpatient team. 07/05 Patient?says?he?is? good ?and?confirms?he?is?going?home?tomorrow.??Patient?more? talkative?today?and W anted?to?explain?to?me?his?history?of?schizophrenia.??He?said?it?started?with?good ving?voices?in?his?head?and D elusional?thoughts.??He?said?it?is?good?that?he?comes?to?the?hospital.??Otherwis e?no?complaints?and?looking? F or?to?discharge.??Social?work?discussed?with?his?parents?who?agree?he?is?ready?t o?return?home. -patient?is?at?baseline.??He?has?remained?in?good?behavioral?and?impulse?control ;?AH?is?minimal?and?not?bothersome;?no?paranoid D elusions.??Patient?has?significant?outpatient?support?including?daily?VNA.??Also ?lives?at?home?with?his?supportive?parents.??Patient?is N ot?in?imminent?risk?for?harm?herself?or?others?and?appropriate?to?return?to?the? community?for?care.??Request?for?discharge?was?honored. Plan: CV Q 15 minute checks Continue Zyprexa 10 mg b.i.d. Continue lithium 900 mg b.i.d. Continue hydroxyzine 50 mg b.i.d. Patient on Invega Trinza 819 mg which he last received June 01 Continue hydrochlorothiazide 12 0.5 mg daily Continue amlodipine 10 mg daily Continue levothyroxine 75 mcg daily Continue vitamin-D Patient educated on: diagnosis and medication risk/benefits Informed Consent: understands and further education needed Reason for continued inpatient stay Substantial Risk for: stable for discharge Time Spent With Patient Time: Total time managing care of this patient today ____ minutes.
[2024-07-05] MEDS: hydrOXYzine HCL 25 MG TABLET PO ×2 (14:55→21:06)
[2024-07-05] MEDS: traZODone HCL 50 MG TABLET PO ×2 (20:21→23:17)
[2024-07-06] MEDS: Cholecalciferol (Vitamin D3) 25 MCG TABLET PO (08:43)
[2024-07-06] MEDS: amLODIPine Besylate 10 MG TABLET PO (08:43)
[2024-07-06] MEDS: hydroCHLOROthiazide 12.5 MG TABLET PO (08:43)
[2024-07-06] MEDS: OLANZapine 10 MG TABLET PO (08:44)
[2024-07-06] MEDS: Lithium Carbonate 300 MG CAPSULE 900 MG PO (08:44)
[2024-07-06] MEDS: Levothyroxine Sodium 75 MCG TABLET PO (08:44)
[2024-07-06 08:46] VITALS: BP 130/88; PULSE 63; RESP 16; TEMP 36.4; O2SAT 97
--- NOTE | 2024-07-06 09:59 | PM.PSYDC ---
DS: Providers Provider Date of Service: 07/06/24 Date of admission: 06/27/24 13:09 Date of discharge: 07/06/24 Primary care physician: Lotus Culp MD DS: Diagnosis Discharge Diagnosis (1) Schizoaffective disorder, bipolar type: Status: Acute (2) Hypothyroid: Status: Acute (3) Asthma: Status: Acute DS: Medications Discharge Medications Home Medications: Home Medications ?Medication ?Instructions ?Recorded ?Confirmed olanzapine 5 mg tablet 10 mg PO BID 06/27/24 06/27/24 Previous Rx's ?Medication ?Instructions ?Recorded albuterol sulfate 90 mcg/actuation 2 puff inhalation RQ4H PRN 07/06/24 aerosol inhaler (Ventolin HFA) Shortness Of Breath 30 days #6.7 grams amlodipine 10 mg tablet 10 mg PO DAILY 30 days #30 tabs 07/06/24 cholecalciferol (vitamin D3) 25 25 mcg PO DAILY #30 caps 07/06/24 mcg (1,000 unit) capsule (Vitamin D3) hydrochlorothiazide 12.5 mg tablet 12.5 mg PO DAILY 30 days #30 tabs 07/06/24 levothyroxine 75 mcg tablet 75 mcg PO DAILY 30 days #30 tabs 07/06/24 lithium carbonate 300 mg capsule 900 mg (3 x 300 mg) PO BID 30 days 07/06/24 #180 caps nicotine (polacrilex) 2 mg gum 4 mg buccal Q2H PRN Nicotine 07/06/24 Cravings 30 days #100 ea paliperidone palm (3 month) 819 819 mg (2.63 mL) IM [id number] #2.63 07/06/24 mg/2.63 mL intramuscular syringe mL (Invega Trinza) trazodone 50 mg tablet 50 mg PO BEDTIME PRN Insomnia 30 07/06/24 days #30 tabs Mental Status Exam Mental Status Exam Narrative: Pt is alert and oriented; behavior is cooperative, friendly and calm; patient is not in distress; mood is described as good and affect congruent, brighter; eye contact appropriate; Speech is normal rate, volume and prosody and not pressured; no psychomotor retardation present; thought process is goal directed, concrete; Thought content is feeling better,?going?home; otherwise pertinent to relevant topics; no?paranoid delusions?expressed; denies any SI/HI. Says AH is less and not bothering him as much Patients insight and judgment impaired but improved,?at?baseline?and?adequate. DS: Summary Hospital Course Hospital Course: HPI: Patient is a 34-year-old male on a Mantilla order, with history of schizoaffective disorder, chronic AH, possibly cognitive delay, who presents to the hospital for worsening AH. Patient says for the past 2 weeks he has had worse voices of telling him he is stupid, bad and that he does not know who he is. He said the voices make him want hit things though he refrains and does not do so. Patient says he has been taking his medications regularly; he lives with his parents and said that his VNA comes twice a day. He said I do not know if he is giving me the right medications but that he does take the. Patient denies any SI or HI; says that he has been sleeping; denies any drug or alcohol abuse, but says he is addicted to nicotine and smokes cannabis. Patient referenced a time in [facility] in 2002 when he had paranoid delusions. Crisis note says patient had paranoid delusion that his father is trying to stab him with a knife. Formulation/clinical reasoning: Patient reports that he has been compliant with medications and has a VNA and lives at home with his parents. ?After?discussion?with?parents,?seems?trigger?is?cannabis?and?some?alcohol?abuse.??Patient?continued?on?home?medications. Hospital course: 06/29 patient reports he is feeling little better but still has bothersome voices. Talked with outpatient VNA who says patient has not missed any medication doses for over year; team reach out to parents TSH 1.47 Free T4 1.03 06/30 Patient reports that he is feeling better. He says when he 1st came in the voices were really bothering him however they are not bothering him so much anymore . Patient says that he is good and feeling back to his regular self. Reports he is eating and sleeping well. Discussed treatment and patient agrees to remain for continued stabilization and to make sure that AH remains improved. bulb farmworker talked with Henry's mother who reports that patient has likely been drinking alcohol and smoking weed which may have been the trigger. No delusional thinking expressed. Continue treatment plan and monitor for symptoms 07/01 Patient remains in good behavioral and impulse control. He says again that he is overall feeling better and that the voices are bothering . Says his mood is good and wants to talk about going home. Patient agrees to remain on the unit until team can discuss case with his father and outpatient team. 07/05 Patient?says?he?is? good ?and?confirms?he?is?going?home?tomorrow.??Patient?more?talkative?today?and Wanted?to?explain?to?me?his?history?of?schizophrenia.??He?said?it?started?with?having?voices?in?his?head?and Delusional?thoughts.??He?said?it?is?good?that?he?comes?to?the?hospital.??Otherwise?no?complaints?and?looking? For?to?discharge.??Social?work?discussed?with?his?parents?who?agree?he?is?ready?to?return?home. -patient?is?at?baseline.??He?has?remained?in?good?behavioral?and?impulse?control;?AH?is?minimal?and?not?bothersome;?no?paranoid Delusions (at?least?not?expressed?or?solicited).?Patient?has?significant?outpatient?support?including?daily?VNA.? ?Also?lives?at?home?with?his?supportive?parents.?? Patient?isNot?in?imminent?risk?for?harm?herself?or?others?and?appropriate?to?return?to?the?community?for?care.?? Request?for?discharge?was?honored. Time spent discussing smoking cessation with patient: 3 to 10 minutes Status at Discharge Functional status at discharge: independent ambulation Overall status at discharge: patient is back to baseline Time Spent with Patient Time attestation: Total time managing care of this patient today ____ minutes. Time spent: Less than 30 minutes Discharge Plan Discharge Anticipated Discharge Date/Time: 07/06/24 11:30 Patient Disposition: Home, Self-Care Discharge Diagnosis: Schizoaffective disorder, bipolar type Referrals: [facility] [Other] - 07/06/24 (Fax- [phone] Visiting RN to re start at Discharge. ) [facility] with Annabella CerdaAnam[facility] [Other] - 07/11/24 12:00 pm (I recommend therapy. If you want ask Annabella how to get a therapy intake set up. ) Lotus Montoya MD [Primary Care Provider] - 07/25/24 10:30 am (in office visit ) Discharge Medications: New albuterol sulfate [Ventolin HFA] 90 mcg/actuation Hfa Aerosol Inhaler 2 puff inhalation RQ4H PRN (Reason: Shortness Of Breath) 30 Days Qty: 6.7 0RF nicotine (polacrilex) 2 mg Gum 4 mg buccal Q2H PRN (Reason: Nicotine Cravings) 30 Days Qty: 100 0RF trazodone 50 mg Tablet 50 mg PO BEDTIME PRN (Reason: Insomnia) 30 Days Qty: 30 0RF Continued olanzapine 5 mg tablet 10 mg PO BID lithium carbonate 300 mg Capsule 900 mg PO BID 30 Days Qty: 180 0RF hydrochlorothiazide 12.5 mg tablet 12.5 mg PO DAILY 30 Days Qty: 30 0RF Invega Trinza 819 mg/2.63 mL syringe 819 mg IM [id number] Qty: 2.63 0RF Rx Instructions: last received on 06/01/24 Changed levothyroxine 75 mcg tablet 75 mcg PO DAILY 30 Days Qty: 30 0RF amlodipine 10 mg tablet 10 mg PO DAILY 30 Days Qty: 30 0RF cholecalciferol (vitamin D3) [Vitamin D3] 25 mcg (1,000 unit) capsule 25 mcg PO DAILY Qty: 30 0RF Discharge Orders: Discharge Order (Routine); Ordered 07/06/24 Ordered By: Robe Roca Diet: Regular diet Activity on Discharge: As tolerated Stand Alone Forms: Patient Portal Discharge page, Community Support Print Language: Bulgarian Care Plan Goals: Maintain mood and safe behaviors Take medications as prescribed Continue to pursue sobriety Practice coping skills Continue with outpatient providers and reach out to them as needed Health Concerns: Mood stability and behaviors Sobriety Hypothyroid Plan of Treatment: Follow up with your PCP, psychiatric provider and other outpatient providers regarding above concerns Take medications as prescribed Assessment: Risk assessment at time of discharge:? Patient was interviewed prior to discharge and found to be fully oriented and without any SI or HI. Patient has improved insight and judgment and wants to continue treatment. Patient is not in imminent risk of harm to self or others and has a safety plan that includes presenting to the closest ER or calling 911 if feeling unsafe.? Patient has been observed closely by nursing and unit staff throughout admission; patient has not engaged in any behaviors that suggest dangerousness to self or others and has demonstrated appropriate behaviors and impulse control
== END 2024-07-06 11:50 | disposition home or self-care (01) | DRG 750 ==
LOC: HO.ED 22:31 → HO.PM5 06-27 13:14
PROVIDERS: Internal Medicine; Admitting Provider Clinical Nurse Specialist Psychiatric/Mental Health, Adult; Emergency Provider Emergency Medicine; PCP Student in an Organized Health Care Education/Training Program; Visit Provider Clinical Nurse Specialist Psychiatric/Mental Health, Adult
DX: F25.0 Schizoaffective disorder, bipolar type (principal); E03.9 Hypothyroidism, unspecified; J45.909 Unspecified asthma, uncomplicated; F17.210 Nicotine dependence, cigarettes, uncomplicated; Z71.6 Tobacco abuse counseling; Z79.890 Hormone replacement therapy; Z79.899 Other long term (current) drug therapy
CPT/HCPCS: 36415; 80048; 80061; 80178; 80307; 81001; 82607; 82746; 83036; 83735; 84439; 84443; 85025; 90656; 93005; 99285; S9485

== ENCOUNTER → 2024-06-27 08:46 | Outpatient (BNV) | payer MEDICAID, SELFPAY | PROVIDERS: Admitting Provider Clinical Nurse Specialist Psychiatric/Mental Health, Adult; Emergency Provider Emergency Medicine; PCP Student in an Organized Health Care Education/Training Program; Visit Provider Internal Medicine | DX: I45.2 Bifascicular block (principal); R94.31 Abnormal electrocardiogram [ECG] [EKG] | CPT/HCPCS: 93010 ==

== ENCOUNTER → 2024-06-27 13:09 | Outpatient (BNV) | payer OTHER, SELFPAY | PROVIDERS: Admitting Provider Clinical Nurse Specialist Psychiatric/Mental Health, Adult; Emergency Provider Emergency Medicine; PCP Student in an Organized Health Care Education/Training Program; Visit Provider Psychiatry & Neurology Psychiatry | DX: F25.0 Schizoaffective disorder, bipolar type (principal); E03.9 Hypothyroidism, unspecified; J45.909 Unspecified asthma, uncomplicated | CPT/HCPCS: 99231; 99232 ==

== ENCOUNTER 2024-08-03 10:01 | Outpatient (REF) | payer OTHER, SELFPAY ==
[2024-08-03 11:41] LABS: Hemoglobin 13.2 g/dl (14.0-18.0); Mean Corpuscular Hemoglobin 28.7 pg (27.0-33.0); Mean Platelet Volume 9.9 fL (9.4-12.4); Platelet Count 335 X10*3/uL (160-400); Red Cell Distribution Width 13.2 % (11.0-16.0); White Blood Count 9.6 X10*3/uL (4.8-10.8)
[2024-08-03 11:56] LABS: Alanine Aminotransferase 26 U/L (0-40); Albumin Level 4.2 g/dL (3.5-5.0); Alkaline Phosphatase 70 U/L (39-117); Anion Gap 7 (12-20); Aspartate Amino Transferase 25 U/L (5-37); Bilirubin Total 0.3 mg/dL (0.0-1.0); Blood Urea Nitrogen 7 mg/dL (9-16); Calcium 9.8 mg/dL (8.4-10.2); Carbon Dioxide 30 mmol/L (22-29); Chloride 106 mmol/L (96-108); Cholesterol 184 mg/dL (<200); Estimated Glomerular Filt Rate > 60; Glucose Random 90 mg/dL (60-115); HDL Cholesterol 31 mg/dL (>40); Iron 57 mcg/dL (45-160); LDL Cholesterol Calculated 121 mg/dL (<100); Percent Iron Saturation 24 % (15-50); Potassium 3.4 mmol/L (3.3-5.1); Sodium 140 mmol/L (135-145); Total Iron Binding Capacity 239 mcg/dL (228-428); Total Protein 7.6 g/dL (6.5-8.0); Triglycerides 163 mg/dL (<150); Unsaturated Iron Binding 182 ug/dL
[2024-08-03 12:03] LABS: Estimated Average Glucose 94 mg/dL; Hemoglobin A1C 101.5421 umol/L; Hemoglobin A1c % 4.9 % (<6.0); Total Hemoglobin (HGBA1C) 3387.2552 umol/L
[2024-08-03 12:11] LABS: HBS Num1 331.46 mIU/mL (0-7.99); HBc Num1 0.14 S/CO (0.00-0.79); HBsAGNum1 0.53 S/CO (0.00-0.99); HIV AB/AG Nonreactive (Nonreactive); HIV Num 1 0.08 S/CO (0.00-0.99); Hepatitis B Core Antibody Nonreactive (Nonreactive); Hepatitis B Surface Antigen Negative (Negative); ~HepC Num1 0.27 S/CO (0.00-0.79); ~Hepatitis B Surface Antibody REACTIVE (Nonreactive); ~Hepatitis C Antibody Nonreactive (Nonreactive)
[2024-08-03 12:16] LABS: Ferritin 135 ng/mL (20-250); Free T4 (Free Thyroxine) 1.14 ng/dL (0.71-1.85); Thyroid Stimulating Hormone 4.09 uIU/mL (0.32-4.0); Vitamin D 25-OH Total 30.4 ng/mL (>30)
[2024-08-03 12:20] LABS: Folate 8.7 ng/mL (> or = 4.0); Vitamin B12 426 pg/mL (200-900)
[2024-08-03 12:29] LABS: Creatinine Urine 219.59 mg/dL; Microalbum/Creatinine Ratio Ur 29.6 ug/mg cr (<30)
[2024-08-03 12:44] LABS: Syphilis Screen Nonreactive (Nonreactive)
[2024-08-03 13:16] LABS: CT PCR NOT DETECTED (Not Detect.); NG PCR NOT DETECTED (Not Detect.)
== END 2024-08-03 10:02 | disposition home or self-care (01) ==
LOC: HO.HHCL 10:01
PROVIDERS: Visit Provider Student in an Organized Health Care Education/Training Program
DX: Z00.00 Encounter for general adult medical examination without abnormal findings (principal)
CPT/HCPCS: 80053; 80061; 82043; 82306; 82570; 82607; 82728; 82746; 83036; 83540; 84439; 84443; 85027; 86704; 86706; 86780; 86803; 87340; 87389; 87491; 87591

== ENCOUNTER 2025-04-05 09:05 | Outpatient (REF) | payer MEDICAID, SELFPAY ==
--- OUTSIDE RECORDS SUMMARY | 2025-04-05 09:29 | XMS_ITS | Encounter Summary ---
Author Organization [employer] Address [address] [place] [address] [address] [place] [address] Care Team Providers Care Hse Coordinator Name Role Phone Lotus Montoya MD Primary Care Pro vider Reason for Visit * Reason Comments Med Refill Encounter Details Date Type Department Care Team (Late Contact Info) Description 05/08/[address] [facility] [address], [place] [phone] Carmela Callahan FNP Vitamin D deficiency Social History Tobacco Use Types Packs/Day Years Used Date Smoking Tobacco: Every Day Cigarettes Passive Smoke Exposure: Never Comments:Started at 14 y of age until now ---used to smoke up to 1 PQT now 4 cigarettes a day x the past 6 months Alcohol Use Standard Drinks/Week Comments Not Currently 0 (1 standard drink = 0.6 oz pur e alcohol) Depression Answer Date Recorded Patient Health Questionnaire-9 Score 14 03/22/2023 Depression Answer Date Recorded Patient Health Questionnaire-2 Score 2 03/22/2023 Sex and Gender Information Value Date Recorded Sex Assigned at Male 06/29/2022 10:21 AM EDT Legal Sex Male 10:21 AM EDT Gender Identity Male 06/29/2022 10:21 AM EDT Sexual Orientation Straight 06/29/2022 10 :21 AM EDT documented as of this encounter Plan of Treatment Upcoming Encounters Date Type Department Care Team (Late Contact Info) Description 05/17/2025 10:30 AM EDT Office Visit [facility] [address], [place] [phone] Lotus Montoya MD [address] [place], [place] [phone] 09/14/2025 1:00 PM EST Office Visit [facility] [address], [place] [phone] Jennifer Araiza [address], [place] [phone] documented as of this encounter Visit Diagnoses Diagnosis Vitamin D deficiency documented in this encounter Additional Health Concerns Assessment Noted Time PHQ-9 Depression Total Score: 14 023 9:31 AM EDT documented as of this encounter Care Teams Hse Coordinator Relationship Specialty Start Date End Date Lotus Montoya MD [address] [place], [place] [phone] PCP - General Internal Medicine 01/22/23 [facility] 08/19/23 documented as of this encounter
--- OUTSIDE RECORDS SUMMARY | 2025-04-05 09:29 | XMS_ITS | Clinical Summary ---
Author Organization [facility] Address [address] [facility] [address] [place] [phone] Phone Care Team Providers Care Senior Business Broker Name Role Phone Pcp, Not Required Primary Care Provider Unavaila ble Allergies Active Allergy Reactions Criticality Noted Date Comments Haloperidol Unknown 09/23/2017 Medications * This document contains information received from the source organization and may not represent a complete record from that organization. risperiDONE (RISPERDAL) 4 MG tabletIndicatio ns:at bedtime Take 1 tablet (4 mg total) by mouth nightly. Indications: at bedtime 30 tablet 03/24/2018 Active nicotine polacrilex (NICORETTE) [address] 1 each (2 mg total) inside cheek every 2 (two) hours as needed for smoking cessation. 100 each 03/24/2018 Active levothyroxine (SYNTHROID, LEVOTHROID) 50 MCG tablet Take 1 tablet (50 mcg total) by mouth every morning. 30 tablet 03/25/2018 Active lithium (LITHOBID) 300 MG ER tablet Take 2 tablets (600 mg total) by mouth nightly. 60 tablet 03/24/2018 Active buPROPion (WELLBUTRIN SR) 200 MG SR 12 hr tablet Take 1 tablet (200 mg total) by mouth daily. 30 tablet 03/24/2018 Active Active Problems Problem Noted Date Diagnosed Date Schizoaffective disorder, bipolar type 8 Social History Tobacco Use Types Packs/Day Years Used Date Smoking Tobacco: Every Day Cigarettes Smokeless Tobacco: Never Tobacco Cessation:Ready to Q uit: No; Counseling Given: Yes Comments:refused smoking sensation Alcohol Use Standard Drinks/Week Comments No 0 (1 standard drink = 0.6 oz pur e alcohol) Education Answer Date Recorded Are you interested in more education? Not on jodi e 12/25/2022 Are you concerned about learning? Not on file 12/25/2022 No 12/25/2022 No 12/25/2022 Digital Access Answer Date Recorded No 01/25/2023 No 01/25/2023 No 01/25/2023 Reliable internet access at home? Not on file 01/25/2023 Device with a working camera? Not on file Sex and Gender Information Value Date Recorded Sex Assigned at Male 09/26/2017 1:36 PM EST Legal Sex Male 9:04 PM EDT Gender Identity Male 09/26/2017 1:36 PM EST Sexual Orientation Choose not to disclose 2017 1:36 PM EST Last Filed Vital Signs Vital Sign Reading Time Taken Comments Blood Pressure 143/97 03/23/2018 7:00 AM EDT Pulse 82 03/24/2018 7:00 AM EDT Temperature 36.9 C (98.4 F) 03/24/2018 7:00 AM EDT Respiratory Rate 18 03/18/2018 8:40 AM EDT Oxygen Saturation 98% 03/24/2018 7:00 AM EDT Inhaled Oxygen Concentration - - Weight 149.7 kg (330 lb 1.6 oz) 03/17/2018 4:40 PM EDT Height 180.3 cm (5' 11 ) 03/17/2018 4:40 PM EDT Body Mass Index 46.04 03/17/2018 4:40 PM EDT Plan of Treatment Health Maintenance Due Date Last Done Comments Adult Td,Tdap Booster 1990 TSH LEVEL 1990 DEPRESSION SCREENING 2002 SMOKING Hx and SMOKELESS TOBACCO SCREENING 2003 HEPATITIS C SCREENING 02/12/2008 HIV ONE-TIME SCREENING (18-6 5 YEARS) 02/12/2008 PNEUMOCOCCAL VACCINES (0-49 years) (1 of 2 - PCV) 2009 CREATININE LEVEL 03/16/2019 03/16/2018, 09/23/2017 LITHIUM LEVEL 03/16/2019 03/16/2018 LIPID PANEL 03/18/2023 03/18/2018 COVID-19 VACCINE (2 - 2023-2 5 season) 2024 01/05/2021 HEPATITIS A VACCINES Aged Out No long er eligible based on patient's age to complete this topic HIB VACCINES Aged Out No longer eligi ble based on patient's age to complete this topic MENINGOCOCCAL VACCINES (ACWY) Aged Out No longer eligible based on patient's age to complete this topic MENINGOCOCCAL VACCINES (B) Aged Out N o longer eligible based on patient's age to complete this topic Medical Devices Not on file Procedures Procedure Name Priority Date/Time Associated Diagnosis Comments LIPID PANEL Routine 03/18/2018 6:12 AM EDT LITHIUM LEVEL STAT 03/16/2018 8:24 PM EDT BASIC METABOLIC PANEL STAT 03/16/2018 8:24 PM EDT from Last 3 Months or Most Recently Relevant to Health Maintenance Results * LIPID PANEL (03/18/2018 6:12 AM EDT) HDL 35 mg/dL [facility] Comment: Interpretation: Risk Level Males Decreased >45 mg/dL Average 40-45 mg/dL Increased <40 mg/dL CHOLESTEROL 169 0 - 240 mg/dL [facility] TRIGLYCERIDES 147 30 - 160 mg/dL [facility] LDL 105 50 - 129 mg/dL [facility] Comment: LDL levels in terms of risk for coronary heart disease: <100 mg/dL: Optimal 100-129 mg/dL: Near or above optimal 130-159 mg/dL: Borderline high 160-189 mg/dL: High >190 mg/dL: Very High CARDIAC RISK RATIO 4.8 3.4 - 5.0 [facility] Blood 03/18/2018 6:12 AM EDT 03/18/2018 6:26 AM EDT us Faby Anderson MD LAB BLOOD ORDERABLES Final Re sult [facility] [address] [place] [address] * (ABNORMAL) [place] level (03/16/2018 8:24 PM EDT) LITHIUM 0.19(L) 0.50 - 1.00 mmol/L [facility] Blood 03/16/2018 8:24 PM EDT 03/16/2018 8:31 PM EDT us Ilan Yin MD LAB BLOOD ORDERABLES Fin al Result Performing Organization Address [facility] Co de Phone Number [address] [phone] * (ABNORMAL) Basic metabolic panel (03/16/2018 8:24 PM EDT) SODIUM 141 133 - 146 mmol/L [facility] CHLORIDE 102 96 - 108 mmol/L [facility] POTASSIUM 3.7 3.3 - 5.1 mmol/L [facility] CO2 27 21 - 35 mmol/L [facility] BUN 11 6 - 19 mg/dL [facility] CREATININE 0.60 0.5 - 1.5 mg/dL [facility] GLUCOSE 113(H) 70 - 99 mg/dL [facility] CALCIUM 9.3 8.4 - 10.3 mg/dL [facility] EGFR >120 >59 mL/min/1.7 3m2 [facility] Comment:If patient is black, multiply result by 1.159. Estimated glomerular filtration rate calculated using the CKD-EPI equation. ANION GAP 16 10 - 20 mmol/L [facility] Blood 03/16/2018 8:24 PM EDT 03/16/2018 8:31 PM EDT us Ilan Yin MD LAB BLOOD ORDERABLES Fin al Result Performing Organization Address [facility] Co de Phone Number [address] [phone] from Last 3 Months or Most Recently Relevant to Health Maintenance Insurance [facility] C[facility] ACO [facility] C3 ACO [facility] ACO [facility]CO [facility] C[facility] ACO Advance Directives For more information, please contact: [phone] (9AM - 5PM [facility], Wednesday-Wednesday) * Full Code (Presumed) (Latest Code Status on File) Date Activated Date Inactivated Comments 03/17/2018 5:11 PM 03/24/2018 2:53 PM Care Teams Senior Business Broker Relationship Specialty Start Date End Date Pcp, Not Required [address] [place] [phone] PCP - General 09/23/17 Additional Source Comments The information contained in this document represents components of the legal health record. It is not the complete legal health record.[facility]
[2025-04-05 11:31] LABS: MANUAL DIFF FLAG NO
[2025-04-05 11:45] LABS: Hematocrit 36.3 % (42.0-52.0); Hemoglobin 12.2 g/dl (14.0-18.0); Imm Gran Abs Auto 0.03 X10*3/uL (0.00-0.03); Imm Gran Pct Auto 0.3 % (0.0-0.4); Lymphocytes Absolute Auto 3.1 X10*3/uL (1.2-4.9); Mean Corpuscular HGB Conc 33.6 g/dl (31.0-36.0); Mean Corpuscular Hemoglobin 29.0 pg (27.0-33.0); Mean Corpuscular Volume 86.2 fL (80.0-98.0); NRBC Abs Auto 0.000 X10*3/uL (0.0-0.012); NRBC Pct Auto 0.0 /100WBC (0.0-0.2); Platelet Count 291 X10*3/uL (160-400); Red Blood Count 4.21 X10*6/uL (4.60-5.80); White Blood Count 10.2 X10*3/uL (4.8-10.8)
[2025-04-05 11:50] LABS: Anion Gap 10 (12-20); Blood Urea Nitrogen 13 mg/dL (9-16); Calcium 9.4 mg/dL (8.4-10.2); Carbon Dioxide 27 mmol/L (22-29); Chloride 107 mmol/L (96-108); Estimated Glomerular Filt Rate > 60; Potassium 3.5 mmol/L (3.3-5.1); Sodium 140 mmol/L (135-145)
[2025-04-05 12:05] LABS: Lithium 0.99 mmol/L (0.60-1.20)
[2025-04-05 12:12] LABS: Thyroid Stimulating Hormone 3.96 uIU/mL (0.32-4.0)
[2025-04-05 12:15] LABS: Cannabinoid Screen Urine Not Detected (Not Detect)
[2025-04-05 15:05] LABS: Alanine Aminotransferase 16 U/L (0-40); Albumin Level 4.3 g/dL (3.5-5.0); Alkaline Phosphatase 75 U/L (39-117); Anion Gap 11 (12-20); Aspartate Amino Transferase 21 U/L (5-37); Blood Urea Nitrogen 13 mg/dL (9-16); Calcium 9.4 mg/dL (8.4-10.2); Carbon Dioxide 27 mmol/L (22-29); Chloride 107 mmol/L (96-108); Estimated Glomerular Filt Rate > 60; Potassium 3.5 mmol/L (3.3-5.1); Sodium 141 mmol/L (135-145); Total Protein 7.1 g/dL (6.5-8.0)
[2025-04-05 15:19] LABS: Free T4 (Free Thyroxine) 1.23 ng/dL (0.71-1.85); Thyroid Stimulating Hormone 4.01 uIU/mL (0.32-4.0)
[2025-04-05 19:31] LABS: Microalbum/Creatinine Ratio Ur 7.2 ug/mg cr (<30)
[2025-04-11 17:23] LABS: Zyprexa (Olanzapine) 53.8 ng/mL (5.0-75.0)
== END 2025-04-05 09:06 | disposition home or self-care (01) ==
LOC: HO.HHCL 09:05
PROVIDERS: PCP Student in an Organized Health Care Education/Training Program; Visit Provider Clinical Nurse Specialist Psychiatric/Mental Health, Adult
DX: F12.21 Cannabis dependence, in remission (principal); F20.9 Schizophrenia, unspecified; I10 Essential (primary) hypertension; E03.9 Hypothyroidism, unspecified; Z51.81 Encounter for therapeutic drug level monitoring
CPT/HCPCS: 36415; 80048; 80053; 80178; 80299; 80307; 82043; 82570; 84146; 84439; 84443; 85025

== ENCOUNTER 2025-05-09 09:02 | Outpatient (REF) | payer MEDICAID, SELFPAY ==
--- OUTSIDE RECORDS SUMMARY | 2025-05-09 10:39 | XMS_ITS | Encounter Summary ---
Author Organization [employer] Address [address] [place] [address] 7t [place] [address] Care Team Providers Care Big Data Lead Name Role Phone Beth Ortega MD Primary Care Provider Carmela Patterson TRACK REPAIRER HELPER Primary Care Provider Lotus Murillo MD Primary Care Pro vider Encounter Details Date Type Department Care Team (Latest Contact Info) Description 12/10/2021 Abstract [facility] Dental, Provider, DDS Social History Tobacco Use Types Packs/Day Years Used Date Smoking Tobacco: Never Assessed Sex and Gender Information Value Date Recorded Sex Assigned at Male 06/29/2022 10:21 AM EDT Legal Sex Male 10:21 AM EDT Gender Identity Male 06/29/2022 10:21 AM EDT Sexual Orientation Straight 06/29/2022 10 :21 AM EDT documented as of this encounter Plan of Treatment Upcoming Encounters Date Type Department Care Team ( st Contact Info) Description 05/17/2025 10:30 AM EDT Office Visit [facility] MEDIC[facility] [address] [place] [address] Lotus Montoya MD [address] [place] [address] 09/14/2025 1:00 PM EST Office Visit [facility] ADULT DENTAL [address] [place] [address] Jennifer Araiza [address] [place] [address] documented as of this encounter Visit Diagnoses Not on filedocumented in this encounter Care Teams Big Data Lead Relationship Specialty Start Date End Date Beth Ortega MD PCP - General Family Medicine 07/07/19 07/26/22 Carmela Callahan FNP PCP - General Family Medicine 07/27/22 01/21/23 Lotus Montoya MD [address] [place] [address] PCP - General Internal Medicine 01/22/23 [facility] 08/19/23 documented as of this encounter
--- OUTSIDE RECORDS SUMMARY | 2025-05-09 10:39 | XMS_ITS | Encounter Summary ---
Author Organization [employer] Address [address] [facility] 7t [place] [address] Care Team Providers Care Income Tax Analyst Name Role Phone Lotus Montoya MD Primary Care Pro vider Reason for Visit * Reason Comments Med Refill Encounter Details Date Type Department Care Team (Late st Contact Info) Description 02/29/2024 Refill [facility] MEDICINE [address] [place], [place] [phone] Tamiko Collins MD [address] [place], [place] [phone] Acquired hypothyroidism Social History Tobacco Use Types Packs/Day Years Used Date Smoking Tobacco: Every Day Cigarettes Passive Smoke Exposure: Current Comments:Started at 14 y of age until now ---used to smoke up to 1 PQT now 4 cigarettes a day x the past 6 months Alcohol Use Standard Drinks/Week Comments Not Currently 0 (1 standard drink = 0.6 oz pur e alcohol) Depression Answer Date Recorded Patient Health Questionnaire-9 Score 0 11/10/2023 Patient Health Questionnaire-9 Score 0 11/10/2023 Last PHQ-9: Questionnaire Data Not on file 0 11/10/2023 Housing Stability Answer Date Recorded What is your housing situation today? I have housing today, but I am worried about losing housing in the future 06/18/[address] you li ve. Do you have problems with any of the following? None of the above 06/18/2023 Food Insecurity Answer Date Recorded Within the past 12 months, y ou worried that your food would run out before you got money to buy more: Never True 06/18/2023 Within the past 12 months,th e food you bought just didn't last and you didn't have enough money to get more: Never True Transportation Answer Date Recorded In the past 12 months, has l ack of transportation kept you from medical appts, meetings, work or from getting things needed for daily living? No 06/18/2023 Utilities Answer Date Recorded In the past 12 months, has t he electric, gas, oil or water company threatened to shut off services in your home? No 06/18/2023 Depression Answer Date Recorded Patient Health Questionnaire-2 Score 0 11/10/2023 Sex and Gender Information Value Date Recorded Sex Assigned at Male 06/29/2022 10:21 AM EDT Legal Sex Male 10:21 AM EDT Gender Identity Male 06/29/2022 10:21 AM EDT Sexual Orientation Straight 06/29/2022 10 :21 AM EDT documented as of this encounter Plan of Treatment Upcoming Encounters Date Type Department Care Team (Late st Contact Info) Description 05/17/2025 10:30 AM EDT Office Visit [facility] MEDICINE [address] [place] [address] Lotus Montoya MD [address] [place] [address] 09/14/2025 1:00 PM EST Office Visit [facility] ADULT DENTAL [address] [place] [address] Jennifer Araiza [address] [place] [address] documented as of this encounter Visit Diagnoses Diagnosis Acquired hypothyroidism Unspecified hypothyroidism documented in this encounter Additional Health Concerns Assessment Noted Time PHQ-9 Depression Total Score: 0 11/10/19 24 11:17 AM EDT documented as of this encounter Care Teams Income Tax Analyst Relationship Specialty Start Date End Date Lotus Montoya MD [address] [place] [phone] PCP - General Internal Medicine 01/22/23 [facility] 08/19/23 documented as of this encounter
--- OUTSIDE RECORDS SUMMARY | 2025-05-09 10:39 | XMS_ITS | Encounter Summary ---
Author Organization [employer] Address [address] [facility] 7t [place] [address] Care Team Providers Care Layer Off Name Role Phone Lotus Montoya MD Primary Care Pro vider Reason for Visit * Reason Comments Med Refill Encounter Details Date Type Department Care Team ([facility] st Contact Info) Description 03/29/2024 Refill [facility] [address] [place] [address] [phone] Lotus Montoya MD [address] [place], [place] [phone] Social History Tobacco Use Types Packs/Day Years [...] Description 05/17/2025 10:30 AM EDT Office Visit [facility] MEDICINE [address] [place] [address] Lotus Montoya MD [address] [place] [address] 09/14/2025 1:00 PM EST Office Visit [facility] ADULT DENTAL [address] [place] [address] Jennifer Araiza [address] [place] [address] documented as of this encounter Visit Diagnoses Not on filedocumented in this encounter Additional Health Concerns Assessment Noted Time PHQ-9 Depression Total Score: 0 11/10/19 24 11:17 AM EDT documented as of this encounter Care Teams Layer Off Relationship Specialty Start Date End Date Lotus Montoya MD [address] [place] [phone] PCP - General Internal Medicine 01/22/23 [facility] 08/19/23 documented as of this encounter
--- OUTSIDE RECORDS SUMMARY | 2025-05-09 10:39 | XMS_ITS | Encounter Summary ---
Author Organization [employer] Address [address] [place] [address] 7 [place] [address] Care Team Providers Care Die Stamper Name Role Phone Carmela Callahan AGRICULTURAL EQUIPMENT OPERATOR Primary Care Provider Lotus Murillo MD Primary Care Pro vider Encounter Details Date Type Department Care Team (Late st Contact Info) Description 09/28/2022 Orders Only [facility] MEDICINE [address] [place] [address] [phone] Cristiana Hernandez LPN Social History Tobacco Use Types Packs/Day Years [...] Description 05/17/2025 10:30 AM EDT Office Visit [facility] MEDICINE [address] [place] [address] Lotus Montoya MD [address] [place] [address] 09/14/2025 1:00 PM EST Office Visit [facility] ADULT DENTAL [address] [place] [address] Jennifer Araiza [address] [place] [address] documented as of this encounter Procedures Procedure Name Priority Date/Time Associated Diagnosis Comments HIV ANTIBODY/ANTIGEN ([facility]) Routine 06/09/2023 10:59 AM EDT HEPATITIS B SURFACE ANTIGEN, EIA Routine 06/09/2023 10:59 AM EDT documented in this encounter Results * Hepatitis B surface antigen, EIA (06/09/2023 10:59 AM EDT) Hepatitis B Surface Ag Negative Negative [facility] 06/09/2023 10:5 9 AM EDT 06/09/2023 1:08 PM EDT us Lotus Culp MD LAB BLOOD ORDERAB LES Final Result Performing Organization Address [facility] Co de Phone Number [facility] [address] [place] [phone] * HIV Ab/Ag ([facility] [place]) (06/09/2023 10:59 AM EDT) HIV AB/AG Nonreactive Nonreactive [facility] Comment:HIV-1 p24 Ag and/or HIV-1/HIV-2 Ab not detected.A test result that is nonreactive does not exclude thepossibility of exposure to or infection with HIV-1 and/orHIV-2. Nonreactive results in this assay for individualswith prior exposure to HIV-1 and/or HIV-2 may be due toantigen and antibody levels that are below the limit ofdetection of this assay.The [employer] HIV Ag/Ab Combo assay result andsupplemental assay results should be interpreted inconjunction with the patient's clinical presentation,history and other laboratory results. If the results areinconsistent with clinical evidence, additional testing issuggested to confirm the result. 06/09/2023 10:5 9 AM EDT 06/09/2023 1:08 PM EDT us Lotus Culp MD LAB BLOOD ORDERAB LES Final Result Performing Organization Address City/[facility] Co de Phone Number [facility] [address] [place] [address] [phone] documented in this encounter Visit Diagnoses Not on filedocumented in this encounter Care Teams Die Stamper Relationship Specialty Start Date End Date Carmela Callahan FNP PCP - General Family Medicine 07/27/22 01/21/23 Lotus Montoya MD [address] [place] [address] PCP - General Internal Medicine 01/22/23 [facility] 08/19/23 documented as of this encounter
--- OUTSIDE RECORDS SUMMARY | 2025-05-09 10:39 | XMS_ITS | Encounter Summary ---
Author Organization [employer] Address [address] [place] [address] 7 [place] [address] Care Team Providers Care Fitness Coach Name Role Phone Carmela Callahan SECURITY TRAINER Primary Care Provider Lotus Murillo MD Primary Care Pro vider Reason for Visit * Reason Comments Med Refill Encounter Details Date Type Department Care Team (Late st Contact Info) Description 09/24/2022 Refill [facility] MEDICINE [address] [place], [place] [phone] NameImer MD [address] [place], [place] [phone] Vitamin D deficiency Social History Tobacco Use [...] Description 05/17/2025 10:30 AM EDT Office Visit [facility] MEDICINE [address] [place], [place] [phone] Lotus Montoya MD [address] [place], [place] [phone] 09/14/2025 1:00 PM EST Office Visit [facility] ADULT DENTAL [address] [place], [place] [phone] Jennifer Araiza [address] [place] [address] documented as of this encounter Visit Diagnoses Diagnosis Vitamin D deficiency documented in this encounter Care Teams Fitness Coach Relationship Specialty Start Date End Date Carmela Callahan FNP PCP - General Family Medicine 07/27/22 01/21/23 Lotus Montoya MD [address] [place] [address] PCP - General Internal Medicine 01/22/[address] [facility] 08/19/23 documented as of this encounter
--- OUTSIDE RECORDS SUMMARY | 2025-05-09 10:39 | XMS_ITS | Encounter Summary ---
Author Organization [employer] Address [address] [place] [address] 7t [place] [address] Care Team Providers Care Plastic Jig And Fixture Builder Name Role Phone Lotus Montoya MD Primary Care Pro vider Reason for Visit * Reason Comments Med Refill Encounter Details Date Type Department Care Team (Late Contact Info) Description 05/08/2023 Refill [facility] PEDS [address] [place], [place] [phone] Carmela Callahan FNP Vitamin D deficiency Social [...] Description 05/17/2025 10:30 AM EDT Office Visit [facility] MEDIC[facility] [address] [place], [place] [phone] Lotus Montoya MD [address] [place], [place] [phone] 09/14/2025 1:00 PM EST Office Visit [facility] ADULT DENTAL [address] [place], [place] [phone] Jennifer Araiza [address] [place], [place] [phone] documented as of this encounter Visit Diagnoses Diagnosis Vitamin D deficiency documented in this encounter Additional Health Concerns Assessment Noted Time PHQ-9 Depression Total Score: 14 023 9:31 AM EDT documented as of this encounter Care Teams Plastic Jig And Fixture Builder Relationship Specialty Start Date End Date Lotus Montoya MD [address] [place], [place] [phone] PCP - General Internal Medicine 01/22/23 [facility] 08/19/23 documented as of this encounter
--- OUTSIDE RECORDS SUMMARY | 2025-05-09 10:39 | XMS_ITS | Encounter Summary ---
Author Organization [employer] Address [address] [place] [address] 7t [place] [address] Care Team Providers Care Patient Portal Concierge Name Role Phone Carmela Callahan REHABILITATION THERAPY TECHNICIAN Primary Care Provider Lotus Murillo MD Primary Care Pro vider Reason for Visit * Reason Comments Med Refill Encounter Details Date Type Department Care Team (Late st Contact Info) Description 10/01/2022 Refill [facility] [address] [place], [place] [phone] Karol Fermin, ANP [address] [place] [address] Vitamin D deficiency Social History Tobacco Use [...] Description 05/17/2025 10:30 AM EDT Office Visit [facility] [address] [place] [address] [phone] Lotus Montoya MD [address] [place], [place] [phone] 09/14/2025 1:00 PM EST Office Visit [facility] AD[facility] [address] [place], [place] [phone] Jennifer Araiza [address] [place] [address] documented as of this encounter Visit Diagnoses Diagnosis Vitamin D deficiency documented in this encounter Care Teams Patient Portal Concierge Relationship Specialty Start Date End Date Carmela Callahan FNP PCP - General Family Medicine 07/27/22 01/21/23 Lotus Montoya MD [address] [place] [address] PCP - General Internal Medicine 01/22/23 [facility] 08/19/23 documented as of this encounter
--- OUTSIDE RECORDS SUMMARY | 2025-05-09 10:39 | XMS_ITS | Encounter Summary ---
Author Organization [employer] Address [address] [facility] 7t [place] [address] Care Team Providers Care Framework Developer Name Role Phone Lotus Montoya MD Primary Care Pro vider Reason for Visit * Reason Comments Med Refill Encounter Details Date Type Department Care Team (Late st Contact Info) Description 04/14/2024 Refill [facility] [address] [place], [place] [phone] Lotus Montoya MD [address] [place] [address] Vitamin D deficiency Social History Tobacco Use [...] 05/17/2025 10:30 AM EDT Office Visit [facility] MEDICINE [address] [place] [address] Lotus Montoya MD [address] [place] [address] 09/14/2025 1:00 PM EST Office Visit [facility] ADULT DENTAL [address] [place] [address] Gage Araizaaris [address] [place] [address] documented as of this encounter Visit Diagnoses Diagnosis Vitamin D deficiency documented in this encounter Additional Health Concerns Assessment Noted Time PHQ-9 Depression Total Score: 0 11/10/19 24 11:17 AM EDT documented as of this encounter Care Teams Framework Developer Relationship Specialty Start Date End Date Lotus Montoya MD [address] [place] [address] PCP - General Internal Medicine 01/22/23 [facility] 08/19/23 documented as of this encounter
--- OUTSIDE RECORDS SUMMARY | 2025-05-09 10:39 | XMS_ITS | Encounter Summary ---
Author Organization [employer] Address [address] [place] [address] 7 [place] [address] Care Team Providers Care Facility Maintenance Helper Name Role Phone Carmela Callahan Primary Care Provider Lotus Murillo MD Primary Care Pro vider Encounter Details Date Type Department Care Team (Late st Contact Info) Description 10/23/2022 Abstract [facility] MEDICINE [address] [place] [address] Carmela Callahan FNP Social History Tobacco Use Types Packs/Day Years [...] Description 05/17/2025 10:30 AM EDT Office Visit [facility] MEDICINE [address] [place] [phone] Lotus Montoya MD [address] [place] [address] 09/14/2025 1:00 PM EST Office Visit [facility] ADULT DENTAL [address] [place] [address] Jennifer Araiza [address] [place] [address] documented as of this encounter Visit Diagnoses Not on filedocumented in this encounter Care Teams Facility Maintenance Helper Relationship Specialty Start Date End Date Carmela Callahan FNP PCP - General Family Medicine 07/27/22 01/21/23 Lotus Montoya MD [address] [place] [address] PCP - General Internal Medicine 01/22/23 [facility] 08/19/23 documented as of this encounter
--- OUTSIDE RECORDS SUMMARY | 2025-05-09 10:40 | XMS_ITS | Encounter Summary ---
Author Organization [employer] Address [address] [facility] 7t [place] [address] Care Team Providers Care Hand Drawer In Name Role Phone Lotus Montoya MD Primary Care Pro vider Encounter Details Date Type Department Care Team ([facility] st Contact Info) Description 08/19/2023 Telephone [facility] MEDICINE [address] [place], [place] [phone] Lotus Montoya MD [address] [place] [address] Social History Tobacco Use Types Packs/Day Years [...] Recorded Patient Health Questionnaire-9 Score 14 03/22/2023 Housing Stability Answer Date Recorded What is [...] AM EDT documented as of this encounter Miscellaneous Notes * Telephone Encounter - Ramesh Khan - 08/19/2023 8:07 AM EST documented in this encounter Plan of Treatment Upcoming Encounters Date Type Department Care Team (Late st Contact Info) Description 05/17/2025 10:30 AM EDT Office Visit [facility] MEDICINE [address] [place] [address] Lotus Montoya MD [address] [place] [address] 09/14/2025 1:00 PM EST Office Visit [facility] ADULT DENTAL [address] [place] [address] Jose G, Jennifer [address] [place] [address] documented as of this encounter Visit Diagnoses Not on filedocumented in this encounter Additional Health Concerns Assessment Noted Time PHQ-9 Depression Total Score: 14 023 9:31 AM EDT documented as of this encounter Care Teams Hand Drawer In Relationship Specialty Start Date End Date Lotus Montoya MD [address] [place] [address] PCP - General Internal Medicine 01/22/23 [facility] 08/19/23 documented as of this encounter
--- OUTSIDE RECORDS SUMMARY | 2025-05-09 10:40 | XMS_ITS | Encounter Summary ---
Author Organization [employer] Address [address] [facility] 7 [place] [address] Care Team Providers Care Marine Engine Machinist Apprentice Name Role Phone Lotus Montoya MD Primary Care Pro vider Reason for Visit * Reason Onset Date Comments Referral 11/12/2023 Encounter Details Date Type Department Care Team ([facility] st Contact Info) Description 11/12/2023 Telephone [facility] MEDICINE [address] [place], [place] [phone] Lotus Montoya MD [address] [place], [place] [phone] Referral Social History Tobacco Use Types Packs/Day Years [...] encounter Miscellaneous Notes * Telephone Encounter - Yovana Power - 11/12/2023 12:50 PM EDT Tc from pt father requesting to get referral for [facility] vision center. documented in this encounter Plan of Treatment Upcoming Encounters Date Type Department Care Team (Late st Contact Info) Description 05/17/2025 10:30 AM EDT Office Visit [facility] MEDICINE [address] [place] [address] Lotus Montoya MD [address] [place] [address] 09/14/2025 1:00 PM EST Office Visit [facility] ADULT DENTAL [address] [place] [phone] Jennifer Araiza [address] [place] [address] documented as of this encounter Visit Diagnoses Diagnosis Routine eye exam- Primary Examination of eyes and vision Essential hypertension Unspecified essential hypertension documented in this encounter Additional Health Concerns Assessment Noted Time PHQ-9 Depression Total Score: 0 11/10/19 24 11:17 AM EDT documented as of this encounter Care Teams Marine Engine Machinist Apprentice Relationship Specialty Start Date End Date Lotus Montoya MD [address] [place] [address] PCP - General Internal Medicine 01/22/23 [facility] 08/19/23 documented as of this encounter
--- OUTSIDE RECORDS SUMMARY | 2025-05-09 10:40 | XMS_ITS | Encounter Summary ---
Author Organization [employer] Address [address] [facility] 7t [place] [address] Care Team Providers Care Archery Equipment Hay Sorter Name Role Phone Lotus Montoya MD Primary Care Pro vider Reason for Visit * Reason Comments Med Refill Encounter Details Date Type Department Care Team (Late st Contact Info) Description 05/07/2025 Refill [facility] MEDICINE [address] [place], [place] [phone] Name, MD Imer [address] [place], [place] [phone] Social History Tobacco Use Types Packs/Day Years Used Date Smoking Tobacco: Every Day Cigarettes Passive Smoke Exposure: Current Comments:Started at 14 y of age until now ---used to smoke up to 1 PQT now 4 cigarettes a day Alcohol Use Standard Drinks/Week Comments Not Currently 0 (1 standard drink = 0.6 oz pur e alcohol) Depression Answer Date Recorded Patient Health Questionnaire-9 Score 0 11/10/2023 Patient Health Questionnaire-9 Score 0 11/10/2023 Last PHQ-9: Questionnaire Data Not on file 0 11/10/2023 Housing Stability Answer Date Recorded What is your housing situation today? I have jvoanylaly sands 07/20/[address] you li ve. Do you have problems with any of the following? None of the above 07/20/2024 Food Insecurity Answer Date Recorded Within the past 12 months, y ou worried that your food would run out before you got money to buy more: Never True 07/20/2024 Within the past 12 months,th e food you bought just didn't last and you didn't have enough money to get more: Never True Transportation Answer Date Recorded In the past 12 months, has l ack of transportation kept you from medical appts, meetings, work or from getting things needed for daily living? No 07/20/2024 Utilities Answer Date Recorded In the past 12 months, has t he electric, gas, oil or water company threatened to shut off services in your home? No 07/20/2024 Depression Answer Date Recorded Patient Health Questionnaire-2 Score 2 08/01/2024 Internet Access Answer Date Recorded Internet Access Q1 Yes 07/20/2024 Internet Access Q2 Not on file 07/20/2024 Sex and Gender Information Value Date Recorded Sex Assigned at Male 06/29/2022 10:21 AM EDT Legal Sex Male 10:21 AM EDT Gender Identity Male 06/29/2022 10:21 AM EDT Sexual Orientation Straight 06/29/2022 10 :21 AM EDT documented as of this encounter Plan of Treatment Upcoming Encounters Date Type Department Care Team (Late st Contact Info) Description 05/17/2025 10:30 AM EDT Office Visit [facility] MEDICINE [address] [place] [address] Lotus Montoya MD [address] [place] [address] 09/14/2025 1:00 PM EST Office Visit [facility] ADULT DENTAL [address] [place] [address] Gage Araizaaris [address] [place] [address] documented as of this encounter Visit Diagnoses Not on filedocumented in this encounter Additional Health Concerns Assessment Noted Time PHQ-9 Depression Total Score: 0 11/10/19 24 11:17 AM EDT documented as of this encounter Care Teams Archery Equipment Hay Sorter Relationship Specialty Start Date End Date Lotus Montoya MD [address] [place] [address] PCP - General Internal Medicine 01/22/23 [facility] 08/19/23 documented as of this encounter
--- OUTSIDE RECORDS SUMMARY | 2025-05-09 10:40 | XMS_ITS | Encounter Summary ---
Author Organization [employer] Address [address] [facility] 7t [place] [address] Care Team Providers Care Bread Wrapper Operator Name Role Phone Lotus Montoya MD Primary Care Pro vider Reason for Visit * Reason Comments Med Refill Encounter Details Date Type Department Care Team (Late st Contact Info) Description 05/07/2025 Refill [facility] MEDICINE [address] [place], [place] [phone] [place] MD [address] [place], [place] [phone] Vitamin D deficiency; Acquired hypothyroidism Social History Tobacco Use Types [...] is your housing situation today? I have jovany sands 07/20/[address] you [...] Description 05/17/2025 10:30 AM EDT Office Visit [facility] MEDICINE [address] [place] [address] Lotus Montoya MD [address] [place] [address] 09/14/2025 1:00 PM EST Office Visit [facility] ADULT DENTAL [address] [place] [address] Gage Araizaaris [address] [place] [address] documented as of this encounter Visit Diagnoses Diagnosis Vitamin D deficiency Acquired hypothyroidism Unspecified hypothyroidism documented in this encounter Additional Health Concerns Assessment Noted Time PHQ-9 Depression Total Score: 0 11/10/19 24 11:17 AM EDT documented as of this encounter Care Teams Bread Wrapper Operator Relationship Specialty Start Date End Date Lotus Montoya MD [address] [place] [address] PCP - General Internal Medicine 01/22/23 [facility] 08/19/23 documented as of this encounter
--- OUTSIDE RECORDS SUMMARY | 2025-05-09 10:40 | XMS_ITS | Encounter Summary ---
Author Organization [employer] Address [address] [facility] 7t [place] [address] Care Team Providers Care Stamp Classifier Name Role Phone Lotus Montoya MD Primary Care Pro vider Encounter Details Date Type Department Care Team ([facility] st Contact Info) Description 05/08/2025 Orders Only [facility] MEDICINE [address] [place], [place] [phone] Lotus Montoya MD [address] [place], [place] [phone] Acquired hypothyroidism Social History Tobacco Use Types [...] Description 05/17/2025 10:30 AM EDT Office Visit [facility] MEDICINE [address] [place] [address] Lotus oMntoya MD [address] [place] [address] 09/14/2025 1:00 PM EST Office Visit [facility] ADULT DENTAL [address] [place] [address] Gage Araizaaris [address] [place] [address] documented as of this encounter Visit Diagnoses Diagnosis Acquired hypothyroidism Unspecified hypothyroidism documented in this encounter Additional Health Concerns Assessment Noted Time PHQ-9 Depression Total Score: 0 11/10/19 24 11:17 AM EDT documented as of this encounter Care Teams Stamp Classifier Relationship Specialty Start Date End Date Lotus Montoya MD [address] [place] [address] PCP - General Internal Medicine 01/22/23 [facility] 08/19/23 documented as of this encounter
--- OUTSIDE RECORDS SUMMARY | 2025-05-09 10:40 | XMS_ITS | Clinical Summary ---
Author Organization [facility] Address [address] [facility] [address] [place] [address] Phone Care Team Providers Care Slag Skimmer Name Role Phone Pcp, Not Required Primary [...] LEVEL 03/16/2019 03/16/2018 LIPID PANEL 03/18/2023 03/18/2018 INFLUENZA VACCINE (#1) 2025 , 06/04/2020, 06/07/2013 COVID-19 VACCINE (2 - 2024-2 6 season) 2025 01/05/2021 HEPATITIS A VACCINES Aged Out No [...] (03/18/2018 6:12 AM EDT) HDL 35 mg/dL [facility] Comment: Interpretation: Risk Level Males Decreased >45 mg/dL Average 40-45 mg/dL Increased <40 mg/dL CHOLESTEROL 169 0 - 240 mg/dL [facility] TRIGLYCERIDES 147 30 - 160 mg/dL [facility] LDL 105 50 - 129 mg/dL [facility] Comment: LDL levels in terms of risk for coronary heart disease: <100 mg/dL: Optimal 100-129 mg/dL: Near or above optimal 130-159 mg/dL: Borderline high 160-189 mg/dL: High >190 mg/dL: Very High CARDIAC RISK RATIO 4.8 3.4 - 5.0 [facility] Blood 03/18/2018 6:12 AM EDT 03/18/2018 6:26 AM EDT us Faby Anderson MD LAB BLOOD ORDERABLES Final Re sult [facility] [address] [place] [address] * (ABNORMAL) [place] level (03/16/2018 8:24 PM EDT) LITHIUM 0.19(L) 0.50 - 1.00 mmol/L [facility] Blood 03/16/2018 8:24 PM EDT 03/16/2018 8:31 PM EDT us Ilan Yin MD LAB BLOOD ORDERABLES Fin al Result Performing Organization Address [facility]/ZIP Co de Phone Number [address] [address] * (ABNORMAL) Basic metabolic panel (03/16/2018 8:24 PM EDT) SODIUM 141 133 - 146 mmol/L [facility] CHLORIDE 102 96 - 108 mmol/L [facility] POTASSIUM 3.7 3.3 - 5.1 mmol/L [facility] CO2 27 21 - 35 mmol/L [facility] BUN 11 6 - 19 mg/dL [facility] CREATININE 0.60 0.5 - 1.5 mg/dL [facility] GLUCOSE 113(H) 70 - 99 mg/dL [facility] CALCIUM 9.3 8.4 - 10.3 mg/dL [facility] EGFR >120 >59 mL/min/1.7 3m2 [facility] Comment:If patient is black, multiply result by 1.159. Estimated glomerular filtration rate calculated using the CKD-EPI equation. ANION GAP 16 10 - 20 mmol/L [facility] Blood 03/16/2018 8:24 PM EDT 03/16/2018 8:31 PM EDT us Ilan Yin MD LAB BLOOD ORDERABLES Fin al Result Performing Organization Address City/[facility]/ZIP Co de Phone Number [address] [phone] from Last 3 Months or Most Recently Relevant to Health Maintenance Insurance [facility] C3 ACO [facility] C[facility] [place] [address] [facility] C3 ACO Advance Directives For more information, please contact: [phone] (9AM - 5PM [facility], Wednesday-Wednesday) * Full Code (Presumed) (Latest Code Status on File) Date Activated Date Inactivated Comments 03/17/2018 5:11 PM 03/24/2018 2:53 PM Care Teams Slag Skimmer Relationship Specialty Start Date End Date Pcp, Not Required [address] [place] [address] PCP - General 09/23/17 Additional Source Comments The information contained in this document represents components of the legal health record. It is not the complete legal health record.[facility]
--- OUTSIDE RECORDS SUMMARY | 2025-05-09 10:40 | XMS_ITS | Encounter Summary ---
Author Organization [employer] Address [address] [facility] 7t [place] [address] Care Team Providers Care Sorter/Assay Tech Name Role Phone Lotus Montoya MD Primary Care Pro vider Encounter Details Date Type Department Care Team ([facility] st Contact Info) Description 11/12/2023 Telephone [facility] MEDICINE [address] [place], [place] [phone] Lotus Montoya MD [address] [place] [address] Social History Tobacco Use Types Packs/Day Years [...] Description 05/17/2025 10:30 AM EDT Office Visit [facility] MEDICINE [address] [place] [address] Lotus Montoya MD [address] [place] [address] 09/14/2025 1:00 PM EST Office Visit [facility] ADULT DENTAL [address] [place] [address] Jose G, Jennifer [address] [place] [address] documented as of this encounter Visit Diagnoses Not on filedocumented in this encounter Additional Health Concerns Assessment Noted Time PHQ-9 Depression Total Score: 0 11/10/19 24 11:17 AM EDT documented as of this encounter Care Teams Sorter/Assay Tech Relationship Specialty Start Date End Date Lotus Montoya MD 230 [place] [address] PCP - General Internal Medicine 01/22/23 [facility] 08/19/23 documented as of this encounter
--- OUTSIDE RECORDS SUMMARY | 2025-05-09 10:40 | XMS_ITS | Encounter Summary ---
Author Organization [employer] Address [address] [facility] 7t [place] [address] Care Team Providers Care Electrical Parts Reconditioner Name Role Phone Lotus Montoya MD Primary Care Pro vider Encounter Details Date Type Department Care Team (Late st Contact Info) Description 10/13/2023 Abstract [facility] MEDICINE [address] [place], [place] [phone] Lotus Montoya MD [address] [place] [address] Social History Tobacco Use Types Packs/Day Years [...] Description 05/17/2025 10:30 AM EDT Office Visit [facility] MEDICINE [address] [place] [address] Lotus Montoya MD [address] [place] [address] 09/14/2025 1:00 PM EST Office Visit [facility] ADULT DENTAL [address] [place] [address] Jose GGageJennifer [address] [place] [address] documented as of this encounter Visit Diagnoses Not on filedocumented in this encounter Additional Health Concerns Assessment Noted Time PHQ-9 Depression Total Score: 14 023 9:31 AM EDT documented as of this encounter Care Teams Electrical Parts Reconditioner Relationship Specialty Start Date End Date Lotus Montoya MD [address] [place] [address] PCP - General Internal Medicine 01/22/23 [facility] 08/19/23 documented as of this encounter
--- OUTSIDE RECORDS SUMMARY | 2025-05-09 10:40 | XMS_ITS | Encounter Summary ---
Author Organization [employer] Address [address] [facility] 7 [place] [address] Care Team Providers Care Staffing Program Manager Name Role Phone Lotus Montoya MD Primary Care Pro vider Reason for Visit * Reason Onset Date Comments Med Refill 04/03/2025 Encounter Details Date Type Department Care Team ([facility] st Contact Info) Description 04/03/[address] [facility] MEDICINE [address] [place], [place] [phone] Lotus Montoya MD [address] [place] [address] Morbid obesity (CMS/HCC) Social History Tobacco Use Types Packs/Day Years [...] encounter Miscellaneous Notes * Telephone Encounter - Lotus Culp MD - 04/03/2025 9:14 PM EDT New dose sent * Telephone Encounter - Angelique Sepulveda - 04/03/2025 9:46 AM EDT TC from pt requesting medication refill. Medications needing refill : - Tirzepatide-Weight Management (Zepbound) 2.5 MG/0.5ML solution auto-injector To be sent to: - [facility] - [place], [place] - [id number] - [place] - [address] Tc from [place] stating a pen was missing, pt denied using it, now there are shot on pen for this wednesday dosage. documented in this encounter Plan of Treatment Upcoming Encounters Date Type Department Care Team (Late st Contact Info) Description 05/17/2025 10:30 AM EDT Office Visit [facility] MEDICINE [address] [place] [phone] Lotus Montoya MD [address] [place] [address] 09/14/2025 1:00 PM EST Office Visit [facility] ADULT DENTAL [address] [place], [place] [phone] Jennifer Araiza [address] [place], [place] [phone] documented as of this encounter Visit Diagnoses Diagnosis Morbid obesity (CMS/HCC) Morbid obesity documented in this encounter Additional Health Concerns Assessment Noted Time PHQ-9 Depression Total Score: 0 11/10/19 24 11:17 AM EDT documented as of this encounter Care Teams Staffing Program Manager Relationship Specialty Start Date End Date Lotus Montoya MD [address] [place] [address] PCP - General Internal Medicine 01/22/[address] [facility] 08/19/23 documented as of this encounter
--- OUTSIDE RECORDS SUMMARY | 2025-05-09 10:40 | XMS_ITS | Clinical Summary ---
Author Organization [employer] Address [address] [facility] [address] [place] [address] Care Team Providers Care Condominium Property Manager Name Role Phone Lotus Montoya MD Primary Care Pro vider Allergies Active Allergy Reactions Criticality Noted Date Comments Haloperidol Unknown 09/23/2017 Medications * This document contains information received from the source organization and may not represent a complete record from that organization. Invega Trinza 819 MG/2.63ML suspension prefilled syringe Inject 1 syringe intramuscularly Every 12 Weeks 023 Active hydrOXYzine HCl (Atarax) 50 MG tablet Take 50 mg by mouth 2 times daily. Active Ventolin HFA 108 (90 Base) MCG/ACT inhaler INHALE 2 PUFFS BY MOUTH EVERY 4 HOURS NEEDED FOR SHORTNESS OF BREATH Active lithium 600 MG capsule Take 900 mg by mouth at noon and 900 mg in the evening. 023 Active lithium 300 MG capsule Take 900 mg by mouth at noon and 900 mg in the evening. Takes 300 tab + 600 mg tab BID. Active nicotine polacrilex (Nicorette) 4 MG gum Chew 1 each if needed for smoking cessation. Every 2 hours Active traZODone (Desyrel) 50 MG tablet Take 1 tablet by mouth if needed at bedtime for sleep. Active OLANZapine (ZyPREXA) 10 MG tablet Take 1 tablet by mouth 2 times daily. Active ketoconazole (NIZOral) 2 % shampoo Apply topically 2 (two) times a week. 120 mL Active Acne Medication 5 5 % gelIndications:A cne, unspecified acne type APPLY TOPICALLY TO THE AFFECTED AREA(S) TWICE DAILY DIRECTED 60 g 2 025 Active Tirzepatide-Weig ht Management (Zepbound) 7.5 MG/0.5ML solution auto-injector Inject 0.5 mL (7.5 mg) as directed 1 (one) time per week. INJECT ONE PEN (=7.5 MG) SUBCUTANEOUSLY ONCE A WEEK 2 mL Active losartan (Cozaar) 50 MG tabletIndication s:Essential hypertension TAKE 1 TABLET BY MOUTH ONCE DAILY 90 tablet 1 Active D3-1000 25 MCG (1000 UT) capsuleIndicatio ns:Vitamin D deficiency TAKE 1 CAPSULE BY MOUTH ONCE DAILY 90 capsule 025 Active hydroCHLOROthiaz narayan 12.5 MG tablet TAKE 1 TABLET BY MOUTH ONCE DAILY 90 tablet Active levothyroxine (Synthroid, Levoxyl) 88 MCG tabletIndication s:Acquired hypothyroidism Take 1 tablet (88 mcg) by mouth Once per day. 90 tablet 025 Active losartan (Cozaar) 50 MG tabletIndication s:Essential hypertension TAKE 1 TABLET BY MOUTH ONCE DAILY 90 tablet 025 2024 Discontinued( Reorder (will not trigger notification to Pharmacy)) D3-1000 25 MCG (1000 UT) capsuleIndicatio ns:Vitamin D deficiency TAKE 1 CAPSULE BY MOUTH ONCE DAILY 90 capsule 025 2024 Discontinued hydroCHLOROthiaz narayan 12.5 MG tablet TAKE 1 TABLET BY MOUTH ONCE DAILY 90 tablet 025 2024 Discontinued Tirzepatide-Weig ht Management (Zepbound) 5 MG/0.5ML solution auto-injector Inject 0.5 mL (5 mg) under the skin 1 (one) time per week. Increase dose monthly 2 mL 025 2024 Discontinued( Other) levothyroxine (Synthroid, Levoxyl) 88 MCG tabletIndication s:Acquired hypothyroidism Take 1 tablet (88 mcg) by mouth Once per day. To start 88 mcg daily and stop 75 mcg daily 90 tablet 025 2024 Discontinued( Reorder (will not trigger notification to Pharmacy)) Active Problems Problem Noted Date Diagnosed Date Seborrheic dermatitis 08/01/2024 Chronic bilateral low back pain without sciatica 08/01/2024 Hypothyroidism 10/12/2023 Hyperplasia of gingiva 07/02/2023 Periodontal disease 07/02/2023 Dental calculus 07/02/2023 Halitosis 07/02/2023 Healthcare maintenance 03/22/2023 Assessment & Plan (04/20/2023 10:51 AM EDT): -vaccines: s/p Hep B x 2-immune, Covid x 2 - Bivalent x1, Tdap 2020, no HPV vaccine on record - father states will bring vaccine record at next apt ---- 02/2023 annual labs scanned in system -Hb 13.6 slight low from normal range of 14 , MCV wnl , vit B12 and folate wnl , TSH wnl, also AEC mild elevated at 500 ---will repeat CBC in 2 mo w iron panel -pt denies melenas, BRPR,nor hematuria ,advised to improve diet in greens and will check iron at next apt ,also possible from obesity as inflammatory state that can cause also decrease iron def anemia Assessment & Plan (03/22/2023 8:11 PM EDT): -labs x annual exam today in fasting -pt agreed to have STI testing including HIV to have for baseline -vaccines: s/p Hep B x 2, Covid x 2 - bivalent today, Tdap 2020, no HPV vaccine on record - states not having an active sexual life, will discuss at future visits if interested in vaccination. Essential hypertension 11/24/2018 Assessment & Plan (04/20/2023 10:55 AM EDT): BP elevated today again. This morning didn't take BP meds-Because his VNA is the person giving all meds and pt came here before got medication. Per father he is not having check his BP at home consistently EKG 02/2023 NSR, QTC 442 ms microalb 02/2023 positive at 73 -advised life style changes,weight loss,incrase activity and decrease salt intake - Continue Amlodipine 10 mg daily-states to be compliant and add HDCTZ 12.5 mg today -noted + microalb and here twice elevated BP - Referred to ophthalmology already -pd to get a call for apt - f up here in 8 weeks to monitor BP and do chem after started on HDCTZ -advised pt and father to bring home BP readings daily at next visit Assessment & Plan (03/22/2023 8:02 PM EDT): BP elevated today. This morning didn't take BP meds. I spoke with his VNA by phone, who reports BP is never above 140/90 EKG today NSR, QTC 442 ms - Continue Amlodipine daily - Referred to ophthalmology today - Microalbuminuria Schizoaffective schizophrenia 02/19/2015 Morbid obesity 01/06/2013 Assessment & Plan (04/20/2023 10:52 AM EDT): Pt has a BMI of 54 Pt is on multiple psychiatric meds which may influence his weight. 02/2023 LDL 111 - I discussed w pt and father about general partner referral but refused for now. - discussed about bariatric surgery but pt is refusing - Lifestyle changes discussed w pt, including diet and exercise. - Upon questioning reports loud snoring and morning sleepiness. Referred to sleep medicine to rule out BEVERLY.--has apt scheduled already -may need to consider GLP1 if covered for obesity ,normal hb1AC at 4.7 -will discuss w pt and father at next apt Assessment & Plan (03/22/2023 8:06 PM EDT): Pt has a BMI of 54 Pt is on multiple psychiatric meds which may influence his weight. - I discussed w pt and father about general partner referral but refused for now. - Will discuss w pt about bariatric surgery at next appt to see if he could be a candidate despite his psychiatric condition. - Lifestyle changes discussed w pt, including diet and exercise. - Upon questioning reports loud snoring and morning sleepiness. Referred to sleep medicine to rule out BEVERLY. Steatosis of liver 01/06/2013 Tobacco dependence syndrome 01/06/2013 Assessment & Plan (04/20/2023 10:47 AM EDT): Started at 14 y of age until now ---used to smoke up to 1 PQT now 4 cigarettes a day x the past 7 months - Advised at length about tobacco cessation --- refusing for now tobacco cessation program. - States that he has nicotine gum at home and is decreasing tobacco use significantly.Discussed today about prescription for nicotine patches but refusing -will monitor Assessment & Plan (03/22/2023 8:09 PM EDT): Started at 14 y of age until now ---used to smoke up to 1 PQT now 4 cigarettes a day x the past 6 months - Advised at length about tobacco cessation --- refusing for now tobacco cessation program. - States that he has nicotine gum at home and is decreasing tobacco use significantly. Will discuss w pt at next visit about nicotine patches. Mood disorder 10/04/2012 Assessment & Plan (04/20/2023 10:55 AM EDT): Pt w bipolar/schizoaffective disorder. F w psychiatrist e 3 months - Dr. Monsivais: # . - Continue all meds as per psych recommendations (I confirmed all meds w VNA). Assessment & Plan (03/22/2023 8:07 PM EDT): Pt w bipolar/schizoaffective disorder. F w psychiatrist - Dr. Monsivais: # . - Continue all meds as per psych recommendations (I confirmed today all meds w VNA). Resolved Problems Problem Noted Date Diagnosed Date Resolved Date Acne 04/20/2023 11/11/2023 Assessment & Plan (04/20/2023 10:54 AM EDT): Pt with facial acne -will start doxycycline 100 mg BID x 14 days -advised to avoid sun exposure -benzoyl peroxide gel -will monitor at next apt Encounters * This document contains information received from the source organization and may not represent a complete record from that organization. Date Type Department Care Team Description 05/08/2025 Orders Only [facility] [address] [place] [phone] Lotus Montoya MD Acquired hypothyroidism 05/07/2025 Refill [facility] [address] [place] [address] Imer Moran MD 05/07/2025 Refill [facility] [address] [place] [address] Laurel River MD Vitamin D deficiency; Acquired hypothyroidism 05/01/2025 Refill [facility] [address] [facility] [place] [address] Lotus Montoya MD Essential hypertension 05/01/2025 Refill [facility] [address] [facility] [place] [address] Ton Rodriguez MD Essential hypertension 04/05/2025 Orders Only [facility] [address] [place] [address] Lotus Montoya MD Hypothyroidism, unspecified type (Primary Dx) 04/05/2025 Results Follow-Up [facility] [address] [facility] [place] [address] Lotus Montoya MD T4, Free, TSH, Comprehensive Metabolic Panel 04/05/2025 Orders Only [facility] [address] [place] [address] Lotus Montoya MD Acquired hypothyroidism 04/05/2025 Refill [facility] [address] [facility] [place] [address] Lotus Montoya MD Acne, unspecified acne type 04/03/2025 Orders Only [facility] [address] [facility] [place] [address] Lotus Montoya MD 04/03/2025 Refill [facility] [address] [facility] [place] [address] Lotus Montoya MD Morbid obesity (CMS/HCC) 03/15/2025 Telephone [facility] [address] [facility] [place] [address] Lotus Montoya MD Medication Question 03/09/2025 Telephone [facility] [address] [facility] [place] [address] Lotus Montoya MD Prior Authorization 03/07/2025 10:00 AM EDT Office Visit [facility] [address] [place] [address] Lotus Montoya MD Essential hypertension (Primary Dx); Morbid obesity (CMS/HCC); Dietary counseling; Exercise counseling; Schizoaffective schizophrenia (CMS/HCC); Healthcare maintenance; Mood disorder (CMS/HCC); Tobacco dependence syndrome 03/07/2025 Travel 03/06/2025 Telephone [facility] [address] [place] [address] Lotus Montoya MD CHART PREP 02/27/2025 Patient Outreach [facility] [address] [place] [address] Lotus Mnotoya MD Pre-visit Planning (SDOH negative. Tobacco screening positive. ) from Last 3 Months Immunizations Immunization Administration Dates Next Due Hep B, adult 03/07/2013,01/06/2013 Influenza injectable quadriv alent preservative free 06/18/2023,06/11/2021,09/11/2020,2019 Influenza, Split (incl. yara fied surface antigen) 06/07/2013 Influenza, seasonal, injecta ble, preservative free 08/01/2024,06/27/2024 Pfizer Covid-19 Vaccine 12+ 08/01/2024, Pfizer Covid-19 Vaccine 12+ Bivalent 03/22/2023 Pneumococcal Conjugate PCV 20 06/18/2023 Tdap 06/11/2021,05/01/2017 Social History Tobacco Use Types Packs/Day Years Used Date Smoking Tobacco: Every Day Cigarettes Passive Smoke Exposure: Current Tobacco Cessation:Ready to Q uit: Not Asked; Counseling Given: Not Answered Comments:Started at 14 y of age until [...] Orientation Straight 06/29/2022 10 :21 AM EDT Last Filed Vital Signs Vital Sign Reading Time Taken Comments Blood Pressure 104/65 03/07/2025 10:42 AM EDT Pulse 76 03/07/2025 10:42 AM EDT Temperature 36.8 C (98.3 F) 12/29/2024 3:27 PM EDT Respiratory Rate 20 03/07/2025 10:42 AM EDT Oxygen Saturation 94% 08/01/2024 9:29 AM EST Inhaled Oxygen Concentration - - Weight 160 kg (353 lb) 03/07/2025 10:42 AM EDT Height 180.3 cm (5' 11 ) 03/07/2025 10:42 AM EDT Body Mass Index 49.23 03/07/2025 10:42 AM EDT Plan of Treatment Upcoming Encounters Date Type Department Care Team (Late st Contact Info) Description 05/17/2025 10:30 AM EDT Office Visit [facility] [address] [place], [place] [phone] Lotus Montoya MD [address] [place], [place] [phone] 09/14/2025 1:00 PM EST Office Visit [facility] [address] [place], [place] [phone] Jennifer Araiza [address] [place], [place] [phone] Health Maintenance Due Date Last Done Comments Family Planning (PISQ) 2005 HPV Vaccines (1 - Male 3-dose series) 2005 Hepatitis A Vaccines (1 of 2 - Risk 2-dose series) 2009 Hepatitis B Vaccines (3 of 3 - 19+ 3-dose series) 07/09/2013 03/07/2013, 01/06/2013 Dental Oral Exam 12/10/2023 06/09/2023, 12/10/2021 Dental Prophylaxis 01/01/2024 07/02/2023 Dental X-Ray: Bitewings 06/10/2024 06/09/2023 Influenza Vaccine (#1) 2025 , 06/27/2024, 06/18/2023, Additional history exists Alcohol/Substance Use Screening 07/25/2025 07/25/2024 Depression Screening 08/01/2025 08/01/2024, 11/10/19 24 SDOH Screening 02/27/2026 02/27/2025 Disability Screening 03/07/2026 03/07/2025 Tobacco Screening 03/07/2026 03/07/2025 Dental X-Ray: Full Mouth 06/10/2026 06/09/2023, 10/01 Lipid Panel 08/03/2029 08/03/2024, 05/30, 06/24/2021 DTaP/Tdap/Td Vaccines (3 - Td or Tdap) 06/11/2031 06/11/2021, 05/01/2017 Zoster Vaccines (1 of 2) 02/12/2040 RSV Patients and Patients Aged 60 years or older (1 - 1-dose 75+ series) 2065 Pneumococcal Vaccine: Pediatrics (0 to 5 Years) and At-Risk Patients (6 to 49) Years Completed 06/18/2023 COVID-19 Vaccine Completed 08/01/2024, , 03/22/2023, Additional history exists HIV Screening Completed 08/03/2024, 06/09/2023 Hepatitis C Screening Completed 08/03/2024 HIB Vaccines Aged Out No longer eligi ble based on patient's age to complete this topic IPV Vaccines Aged Out No longer eligi ble based on patient's age to complete this topic Meningococcal B Vaccine Aged Out No l onger eligible based on patient's age to complete this topic Meningococcal Vaccine Aged Out No nestor catherine eligible based on patient's age to complete this topic RSV under 20 months Aged Out No longe r eligible based on patient's age to complete this topic Rotavirus Vaccines Aged Out No longer eligible based on patient's age to complete this topic Procedures Procedure Name Priority Date/Time Associated Diagnosis Comments ALBUMIN, RANDOM URINE W/CREATININE Routine 04/05/2025 9:25 AM EDT Essential hypertension COMPREHENSIVE METABOLIC PANEL Routine 04/05/2025 9:25 AM EDT Hypothyroidism, unspecified type TSH Routine 04/05/2025 9:25 AM EDT Hypothyroidism, unspecified type T4, FREE Routine 04/05/2025 9:25 AM EDT Hypothyroidism, unspecified type HEPATITIS C AB W/REFL TO HCV RNA, QN, PCR Routine 08/03/2024 10:05 AM EST Annual physical exam HIV 1/2 ANTIGEN/ANTIBODY, FOURTH GENERATION W/RFL Routine 08/03/2024 10:05 AM EST Annual physical exam LIPID PANEL, STANDARD Routine 08/03/2024 10:05 AM EST Annual physical exam PROPHYLAXIS - ADULT Routine 07/02/2023 1 :00 PM EDT INTRAORAL - COMPLETE SERIES OF RADIOGRAPHIC IMAGES Routine 06/09/2023 9:00 AM EDT Periodontal disease Dental calculus Dental caries Periapical abscess without sinus Encounter for dental examination COMPREHENSIVE ORAL EVALUATION - NEW OR ESTABLISHED PATIENT Routine 06/09/2023 9:00 AM EDT Periodontal disease Dental calculus Dental caries Periapical abscess without sinus Encounter for dental examination from Last 3 Months or Most Recently Relevant to Health Maintenance Results * Albumin, Random Urine W/Creatinine (04/05/2025 9:25 AM EDT) Creatinine, Urine 221.24 mg/dL [facility] Microalbumin Urine 16.0 mg/L [facility] Microalbum Creatinine Ratio Ur 7.2 <30 ug/mg cr [facility] Comment:Albumin/Creatinine R atio Reference Ranges: Normal: < 30 ug/mg creatinine Microalbuminuria: 30 - 300 ug/mg creatinineClinical Albuminuria: > 300 ug/mg creatinine Urine (Urine, Random) 04/05/2025 9:25 AM EDT 04/05/2025 7:15 PM EDT us Lotus Culp MD LAB URINE ORDERAB LES Final Result [facility] [address] [place] [phone] * (ABNORMAL) TSH (04/05/2025 9:25 AM EDT) Thyroid Stimulating Hormone 4.01(H) 0.32 - 4.0 uIU/mL [facility] Comment:Note: A sustained TS H level above 2.5 uIU/mL may warrant further investigation. TSH 3rd Generation ([facility]) Blood Venous blood specimen / Unknown 04/05/2025 9:25 AM EDT 04/05/2025 2:46 PM EDT us Lotus Culp MD LAB BLOOD ORDERAB LES Final Result Performing Organization Address City/[facility]/ZIP Co de Phone Number [facility] [address] [place] [phone] * T4, Free (04/05/2025 9:25 AM EDT) Free T4 (Free Thyroxine) 1.23 0.71 - 1.85 ng/dL [facility] Blood Venous blood specimen / Unknown 04/05/2025 9:25 AM EDT 04/05/2025 2:46 PM EDT Lotus Culp MD LAB BLOOD ORDERAB LES Final Result [facility] [address] [place] [phone] * (ABNORMAL) Comprehensive Metabolic Panel (04/05/2025 9:25 AM EDT) [facility] Sodium 141 135 - 145 mmol/L [facility] Potassium 3.5 3.3 - 5.1 mmol/L [facility] Chloride 107 96 - 108 mmol/L [facility] Carbon Dioxide 27 22 - 29 mmol/L [facility] Anion Gap 11(L) 12 - 20 [facility] Urea Nitrogen (BUN) 13 9 - 16 mg/dL [facility] Creatinine, Serum 0.98 0.5 - 1.4 mg/dL [facility] Estimated Glomerular Filt Rate >60 [facility] Comment:Chronic Kidney Disea se: Estimated GFR < 60 mL/min/[id number] Kidney Disease: Estimated GFR < 15 mL/min/1.73m2 Glucose 89 60 - 115 mg/dL [facility] Calcium 9.4 8.4 - 10.2 mg/dL [facility] Bilirubin, Total 0.3 0.0 - 1.0 mg/dL [facility] Aspartate Amino Transferase 21 5 - 37 U/L [facility] Alanine Aminotransferase 16 0 - 40 U/L [facility] Total Protein 7.1 6.5 - 8.0 g/dL [facility] Albumin Level 4.3 3.5 - 5.0 g/dL [facility] Alkaline Phosphatase 75 39 - 117 U/L [facility] Blood Venous blood specimen / Unknown 04/05/2025 9:25 AM EDT 04/05/2025 2:46 PM EDT Lotus Culp MD LAB BLOOD ORDERAB LES Final Result Performing Organization Address [facility]/ZIP Co de Phone Number [facility] [address] [place] [phone] * Hepatitis C Antibody with Reflex to HCV, RNA, Quantitative, Real-Time PCR (08/03/2024 10:05 AM EST) Hepatitis C Antibody Nonreactive Nonreactive [facility] Comment:Antibodies to HCV no t detected; does not exclude early acuteHCV infection. Blood Venous blood specimen / Unknown 08/03/2024 10:05 AM EST 08/03/2024 11:25 AM EST Lotus Culp MD LAB BLOOD ORDERAB LES Final Result Performing Organization Address [facility] Co de Phone Number [facility] [address] [place] [phone] * HIV-1/2 Antigen and Antibodies, Fourth Generation, with Reflexes (08/03/2024 10:05 AM EST) HIV AB/AG Nonreactive Nonreactive [facility] Comment:HIV-1 p24 Ag and/or HIV-1/HIV-2 Ab not detected.A test result that is nonreactive does not exclude thepossibility of exposure to or infection with HIV-1 and/orHIV-2. Nonreactive results in this assay for individualswith prior exposure to HIV-1 and/or HIV-2 may be due toantigen and antibody levels that are below the limit ofdetection of this assay.The [employer] HIV Ag/Ab Combo assay result andsupplemental assay results should be interpreted inconjunction with the patient's clinical presentation,history and other laboratory results. If the results areinconsistent with clinical evidence, additional testing issuggested to confirm the result. Blood Venous blood specimen / Unknown 08/03/2024 10:05 AM EST 08/03/2024 11:25 AM EST us Lotus Culp MD LAB BLOOD ORDERAB LES Final Result Performing Organization Address [facility] Co de Phone Number [facility] [address] [place] [phone] * (ABNORMAL) Lipid Panel, Standard (08/03/2024 10:05 AM EST) Triglycerides 163(H) <150 mg/dL [facility] Comment:Desirable Triglyceri de: less than 150 mg/dLBorderline High Triglyceride 150-199 mg/dLHigh Triglyceride: 200-499 mg/dLVery High Triglyceride: greater than or equal to 5OO mg/dL Cholesterol 184 <200 mg/dL [facility] Comment:Desirable Cholestero l: less than 200 mg/dLBorderline High Cholesterol: 200-239 mg/dLHigh Cholesterol: greater than 239 mg/dL LDL Cholesterol Calculated 121(H) <100 mg/dL [facility] Comment:Desirable LDL: less than 100 mg/dLNear Optimal/Above Optimal LDL: 110- 129 mg/dLBorderline High LDL: 130-159 mg/dLHigh LDL: 160-189 mg/dLVery High LDL: greater than or equal to 190 mg/dL HDL Cholesterol 31(L) >40 mg/dL [facility] Comment:Desirable HDL: great er than 40 mg/dL Note: This HDL assay may give artificially low results in patients with liver disease. Blood Venous blood specimen / Unknown 08/03/2024 10:05 AM EST 08/03/2024 11:25 AM EST us Lotus Culp MD LAB BLOOD ORDERAB LES Final Result Performing Organization Address City[facility]/ZIP Co de Phone Number [facility] [address] [place] [phone] from Last 3 Months or Most Recently Relevant to Health Maintenance Insurance [employer] [facility] STANDARD DENTAL-[facility] MEDICAID STAND ADULT Care Teams Condominium Property Manager Relationship Specialty Start Date End Date Lotus Montoya MD [address] [place] [phone] PCP - General Internal Medicine 01/22/23 [facility] 08/19/23
[2025-05-09 13:04] LABS: Free T4 (Free Thyroxine) 1.20 ng/dL (0.71-1.85); Thyroid Stimulating Hormone 3.39 uIU/mL (0.32-4.0)
== END 2025-05-09 09:03 | disposition home or self-care (01) ==
LOC: HO.HHCL 09:02
PROVIDERS: PCP Student in an Organized Health Care Education/Training Program; Visit Provider Student in an Organized Health Care Education/Training Program
DX: E03.9 Hypothyroidism, unspecified (principal)
CPT/HCPCS: 36415; 84439; 84443